=== PATIENT | male | born 1960 ===

== ENCOUNTER 2017-03-31 09:06 | Emergency (ER) | payer MEDICAID ==
[2017-03-31 09:06] VITALS: BMI 23.0
[2017-03-31 09:15] VITALS: TEMP 98.1
[2017-03-31] MEDS ORDERED: Sodium Chloride 0.9% 1,000 ML IV ONE (09:25)
[2017-03-31] MEDS ORDERED: Sodium Chloride 0.9% 1,000 ML ONE (09:39)
[2017-03-31 10:36] LABS: ALB/GLOB RATIO 0.9 (1.0-2.1); ALKALINE PHOSPHATASE 99 U/L (38-126); ALT/SGPT 63 U/L (21-72); AST/SGOT 141 U/L (17-59); BILIRUBIN,TOTAL 1.7 mg/dL (0.2-1.3); BLOOD UREA NITROGEN 16 mg/dL (9-20); CALCIUM 9.2 mg/dl (8.6-10.4); CARBON DIOXIDE 25 mmol/L (22-30); CHLORIDE 102 mmol/L (98-107); GFR AFRICAN-AMERICAN > 60; GLUCOSE,RANDOM 118 mg/dL (75-110); SODIUM 138 mmol/L (132-148); TOTAL PROTEIN 8.3 g/dL (6.3-8.3)
[2017-03-31 10:51] LABS: BASO # 0.1 K/uL (0.0-0.2); BASO % 1.2 % (0.0-2.0); EOS # 0.1 K/uL (0.0-0.7); EOS % 0.8 % (0.0-4.0); HEMATOCRIT 44.8 % (35.0-51.0); LYMPH # 2.1 K/uL (1.0-4.3); LYMPH % 26.6 % (20.0-40.0); MEAN CELL VOLUME 90.6 fL (80.0-94.0); MEAN CORPUSCULAR HGB CONC 33.1 g/dL (33.0-37.0); MEAN PLATELET VOLUME 8.6 fL (7.2-11.7); MONO # 0.7 K/uL (0.0-0.8); MONO % 8.6 % (0.0-10.0); NRBC % 0.1 % (0.0-2.0); RED CELL DISTRIBUTION WIDTH 14.2 % (11.5-14.5); WHITE BLOOD COUNT 7.9 K/uL (4.8-10.8)
--- NOTE | 2017-03-31 10:51 | C.PDOC ---
History Of Present Illness 57 y/o male with a PMHx of seizure disorder, brought to the ED by EMS after having a witnessed seizure while on the bus. Patient is on Keppra but admits he ran out of it and has not taken it for over 1 week. He denies bowel/bladder ncontinence or tongue biting. Currently, he has no physical complaints. Time Seen by Provider: 03/31/17 09:21 Chief Complaint (Nursing): Seizure History Per: Patient History/Exam Limitations: no limitations Recent Seizure Activity Began: Just Before Arrival Number Of Seizures: One Quality Of Seizure: Generalized Severity: Mild Additional History Per: EMS Past Medical History Reviewed: Historical Data, Nursing Documentation, Vital Signs Vital Signs: Last Vital Signs Temp 98.1 F 03/31/17 09:14 Pulse 68 03/31/17 11:35 Resp 15 03/31/17 11:35 BP 144/98 H 03/31/17 11:35 Pulse Ox 97 03/31/17 12:11 - Medical History PMH: Asthma, Fractures (rib cage), HTN, Kidney Stones, Chronic Kidney Disease, Seizures Surgical History: Cholecystectomy - [facility] Procedures INSERTION OF ENDOTRACHEAL AIRWAY INTO TRACHEA, VIA OPENING (03/10/16) RESPIRATORY VENTILATION, GREATER THAN 96 CONSECUTIVE HOURS (03/10/16) TETANUS TOXOID ADMINIST (11/03/14) Family History: States: No Known Family Hx - Social History Hx Tobacco Use: Yes Hx Alcohol Use: No (pt denies.) Hx Substance Use: No (pt denies.) - Immunization History Hx Tetanus Toxoid Vaccination: Yes Hx Influenza Vaccination: No Hx Pneumococcal Vaccination: Yes Review Of Systems Except As Marked, All Systems Reviewed And Found Negative. Constitutional: Negative for: Fever, Chills Respiratory: Negative for: Cough, Shortness of Breath Gastrointestinal: Negative for: Abdominal Pain Genitourinary: Negative for: Incontinence Neurological: Positive for: Seizures. Negative for: Other (Tongue biting) Physical Exam - Physical Exam Appears: Well, Non-toxic, No Acute Distress Skin: Normal Color, Warm, Dry Head: Atraumatic, Normacephalic Eye(s): bilateral: Normal Inspection, PERRL, EOMI Oral Mucosa: Moist Tongue: Normal Appearing, No Laceration (related to tongue biting) Neck: Normal, Normal ROM, No Midline Cervical Tenderness, No Paracervical Tenderness, No Step Off Deformity, Supple Cardiovascular: Rhythm Regular Respiratory: Normal Breath Sounds, No Rales, No Rhonchi, No Wheezing Gastrointestinal/Abdominal: Normal Exam, Bowel Sounds, Soft, No Tenderness Back: Normal Inspection, No Vertebral Tenderness Extremity: Normal ROM, No Deformity Extremity: Bilateral: Atraumatic, Normal Color And Temperature, Normal ROM Neurological/Psych: Oriented x3 (Awake, alert), Normal Speech, Normal Cognition , Normal Motor, Normal Sensation Gait: Steady ED Course And Treatment - Laboratory Results Result Diagrams: 03/31/17 10:37 03/31/17 09:59 O2 Sat by Pulse Oximetry: 97 (RA) Pulse Ox Interpretation: Normal Progress Note: :25 Initial Plan: Blood work ordered and reviewed. Patient given IV NS bolus, IV Keppra loading dose. Pending reevaluation and disposition. Reevaluation Time: 12:00 Reassessment Condition: Improved (On reassessment, patient is resting comfortably, in no pain/distress. No repeat seizures in ED, and patient is s/p loading dose of Keppra. He was given Rx for Keppra and instructed to follow up with PMD/clinic in 1-2 days. He understands he should return to ED if symptoms worsen.) Disposition Counseled Patient/Family Regarding: Studies Performed, Diagnosis, Need For Followup, Rx Given - Disposition Referrals: [facility] at [facility] [Outside] Disposition: HOME/ ROUTINE Disposition Time: 12:10 Condition: STABLE Additional Instructions: FOLLOW UP WITH YOUR DOCTOR/CLINIC IN 1-2 DAYS USE MEDICATION TWICE DAILY INSTRUCTED RETURN TO ER IF YOU HAVE ANY CONCERNING SYMPTOMS Prescriptions: Levetiracetam [Keppra] 500 mg PO BID #60 tablet Instructions: Epilepsy (ED) Forms: [employer] (Welsh) Print Language: CZECH - POA Present On Arrival: None - Clinical Impression Clinical Impression: Seizure disorder, Noncompliance with medications - Scribe Statement The provider has reviewed the documentation as recorded by the Scribdeon Pimentel All medical record entries made by the Scribe were at my direction and personally dictated by me. I have reviewed the chart and agree that the record accurately reflects my personal performance of the history, physical exam, medical decision making, and the department course for this patient. I have also personally directed, reviewed, and agree with the discharge instructions and disposition.
[2017-03-31 10:55] LABS: POTASSIUM 5.1 mmol/L (3.6-5.2)
[2017-03-31 11:40] VITALS: BP 144/98; PULSE 68; RESP 15
[2017-03-31 12:10] VITALS: O2SAT 97
== END 2017-03-31 12:26 | disposition home or self-care (01) ==
LOC: C.ER 09:06
DX: G40.909 Epilepsy, unspecified, not intractable, without status epilepticus (principal)
CPT/HCPCS: 80053; 80299; 82550; 82948; 85025; 96365; 99285; J1953; J7040

== ENCOUNTER 2017-04-24 07:53 | Emergency (ER) | payer MEDICAID ==
[2017-04-24 07:53] VITALS: BMI 23.0
[2017-04-24] MEDS ORDERED: Sodium Chloride 0.9% 1,000 ML IV ONE (08:07)
[2017-04-24 08:08] VITALS: RESP 16
[2017-04-24] MEDS ORDERED: levETIRAcetam 500 MG in Sodium Chloride 0.9% 100 ML IVPB STA (08:11)
[2017-04-24] MEDS ORDERED: Tetanus/Diphtheria Toxoids 0.5 ml Syringe IM ONE ×3 (08:11→08:50)
[2017-04-24] MEDS ORDERED: Bacitracin 500 Units/gm Oint Foilpak UD TOP ONE (08:11)
[2017-04-24] MEDS ORDERED: Sodium Chloride 0.9% 1,000 ML ONE (08:12)
[2017-04-24 08:29] LABS: BASO % 0.9 % (0.0-2.0); EOS # 0.1 K/uL (0.0-0.7); EOS % 1.6 % (0.0-4.0); HEMATOCRIT 45.5 % (35.0-51.0); LYMPH # 1.6 K/uL (1.0-4.3); LYMPH % 28.7 % (20.0-40.0); MEAN CELL VOLUME 91.5 fL (80.0-94.0); MEAN CORPUSCULAR HEMOGLOBIN 30.9 pg (27.0-31.0); MEAN CORPUSCULAR HGB CONC 33.7 g/dL (33.0-37.0); MEAN PLATELET VOLUME 7.7 fL (7.2-11.7); MONO # 0.6 K/uL (0.0-0.8); MONO % 10.2 % (0.0-10.0); NRBC % 0.1 % (0.0-2.0); RED CELL DISTRIBUTION WIDTH 13.9 % (11.5-14.5); WHITE BLOOD COUNT 5.4 K/uL (4.8-10.8)
--- NOTE | 2017-04-24 08:33 | C.PDOC ---
History Of Present Illness 57 year old male, with PMHx of seizure disorder, brought to ED by ambulance for evaluation of [place] seizure in the park today. Pt has been seen in this ED multiple times in the past for seizures. Pt states that he ran out of his Keppra. Pt is unsure of tetanus vaccination status. On arrival, pt is awake, alert, and oriented x3. He denies chest pain, shortness of breath, fever, dizziness, neck pain, abdominal pain, headache. Time Seen by Provider: 04/24/17 07:54 Chief Complaint (Nursing): Seizure History Per: Patient, EMS History/Exam Limitations: no limitations Recent Seizure Activity Began: Just Before Arrival Number Of Seizures: One Length Of Seizures (Duration): Seconds Quality Of Seizure: Generalized Precipitating Factor(s): Missed Dose Of Anti-seizure Medication Recent travel outside of the [place]: No Additional History Per: EMS Past Medical History Reviewed: Historical Data, Nursing Documentation, Vital Signs Vital Signs: Last Vital Signs Temp 98.7 F 04/24/17 10:19 Pulse 56 L 04/24/17 10:19 Resp 16 04/24/17 10:19 BP 150/83 04/24/17 10:19 Pulse Ox 98 04/24/17 10:19 - Medical History PMH: Asthma, Fractures (rib cage), HTN, Kidney Stones, Chronic Kidney Disease, Seizures Surgical History: Cholecystectomy - [facility] Procedures INSERTION OF ENDOTRACHEAL AIRWAY INTO TRACHEA, VIA OPENING (03/10/16) RESPIRATORY VENTILATION, GREATER THAN 96 CONSECUTIVE HOURS (03/10/16) TETANUS TOXOID ADMINIST (11/03/14) Family History: States: No Known Family Hx - Social History Hx Tobacco Use: Yes Hx Alcohol Use: Yes (pt denies.) Hx Substance Use: No (pt denies.) - Immunization History Hx Tetanus Toxoid Vaccination: No (UNKNOWN) Hx Influenza Vaccination: No Hx Pneumococcal Vaccination: Yes Review Of Systems Except As Marked, All Systems Reviewed And Found Negative. Constitutional: Negative for: Fever, Chills Cardiovascular: Negative for: Chest Pain, Orthopnea Respiratory: Negative for: Cough, Shortness of Breath Gastrointestinal: Negative for: Nausea, Vomiting, Abdominal Pain Neurological: Positive for: Seizures. Negative for: Weakness, Numbness, Headache, Dizziness Physical Exam - Physical Exam Appears: Well, Non-toxic, No Acute Distress Skin: Warm, Dry Head: Normacephalic, No Laceration, Other (0.5cm skin avulsion at left side of forehead) Eye(s): bilateral: Normal Inspection, PERRL, EOMI Nose: No Deformity, No Tenderness, No Septal Hematoma, Other (approximately 0.5cm abrasion at the nasal bridge; dried blood in nares) Oral Mucosa: Moist Tongue: Normal Appearing, No Lesions, No Laceration Lips: Normal Appearing, No Laceration Throat: Normal Neck: Normal, Normal ROM, No Midline Cervical Tenderness, No Paracervical Tenderness, No Step Off Deformity, Supple Chest: Symmetrical Cardiovascular: Rhythm Regular Respiratory: Normal Breath Sounds, No Rales, No Rhonchi, No Wheezing Gastrointestinal/Abdominal: Normal Exam, Bowel Sounds, Soft, No Tenderness Extremity: Normal ROM, No Tenderness, No Pedal Edema, No Deformity, No Swelling Extremity: Bilateral: Atraumatic, Normal Color And Temperature, Normal ROM Neurological/Psych: Oriented x3, Normal Speech, Normal Cognition ED Course And Treatment - Laboratory Results Result Diagrams: 04/24/17 08:26 04/24/17 08:26 O2 Sat by Pulse Oximetry: 97 (on RA) Pulse Ox Interpretation: Normal - CT Scan/US CT FACIAL/ORBITS Other Rad Studies (CT/US): Read By Radiologist, Radiology Report Reviewed CT/US Interpretation: Accession No. : [id number]. Patient Name / ID : SOLOMON MEZA / [id number]. Exam Date : 04/24/2017 08:36:45 ( Approved ). Study Comment : Sex / Age : M / 57Y. Creator : rogelio garcia. Dictator : Zachary Rocha MD. Senior Attorney : Funeral Director/Embalmer : Zachary Rocha MD. Approver2 : Report Date : 04/24/2017 08:41:54. My Comment : . PROCEDURE: CT ORBITS/ facial bones WITHOUT CONTRAST. HISTORY: seizure, facial injury r/o fx. COMPARISON: None available. TECHNIQUE: Axial CT images of the orbits/facial bone were obtained. Coronal and sagittal reformats were generated. Radiation dose: Total exam DLP = 721 mGy-cm. This CT exam was performed using one or more of the following dose reduction techniques: Automated exposure control, adjustment of the mA and/or kV according to patient size, and/or use of iterative reconstruction technique. FINDINGS: RIGHT ORBIT: RIGHT BONY ORBIT: No fracture identified. RIGHT INTRAORBITAL STRUCTURES: Globe: Unremarkable. Extraocular muscles: Unremarkable. Post septal space: Unremarkable. Optic Nerve: Unremarkable. RIGHT PRESEPTAL SOFT TISSUES: Unremarkable. LEFT ORBIT: LEFT BONY ORBIT: No fracture identified. LEFT INTRAORBITAL STRUCTURES: Globe: Unremarkable. Extraocular muscles: Unremarkable. Post septal space: Unremarkable. Optic Nerve: Unremarkable. LEFT PRESEPTAL SOFT TISSUES: Unremarkable. OTHER: No nasal bone fracture identified. Anterior maxillary spine is intact. Nasal septum is intact. There is periodontal and dental disease. Mild mucosal thickening bilateral maxillary sinuses. Minimal mucosal thickening bilateral ethmoid sinuses. Remainder of the visualized paranasal sinuses and mastoid air cells are clear. There is soft tissue density in the bilateral external ear canals, likely cerumen. Intracranial atherosclerosis noted. IMPRESSION: No fracture identified. Specifically no nasal bone fracture identified. Progress Note: Blood work, CT orbits/facial ordered and reviewed. Patient given IV NS bolus, IV Keppra loading. Tetanus vaccination given by nurse, and bacitracin applied to skin wounds. Reevaluation Time: 10:00 Reassessment Condition: Improved (On reassessment, patient is resting comfortably and states he feels better. He is AAOx3 and ambulating normally in ED. Rx given for Keppra, and patient instructed to follow up with neurology within 1 week. He understands he should return to ED if he has any concerning symptoms.) Disposition Counseled Patient/Family Regarding: Studies Performed, Diagnosis, Need For Followup, Rx Given - Disposition Referrals: [facility] at [facility] [Outside] Anton Dempsey MD [Staff Provider] - Disposition: HOME/ ROUTINE Disposition Time: 10:00 Condition: STABLE Additional Instructions: YOU NEED TO FOLLOW UP WITH NEUROLOGY WITHIN 1 WEEK TAKE YOUR MEDICATIONS TWICE DAILY, AND FOLLOW UP WITH YOUR DOCTOR BEFORE YOUR MEDICATIONS RUN OUT!!! Prescriptions: Levetiracetam [Keppra] 500 mg PO BID #60 tablet Instructions: Head Injury (ED), Recurrent Seizures in Adults (ED) Forms: [employer] (Malaysian) Print Language: [place] ISLANDER - POA Present On Arrival: Falls Or Trauma - Clinical Impression Clinical Impression: Seizure, Skin avulsion, Head injury, Seizure secondary to subtherapeutic anticonvulsant medication - Scribe Statement The provider has reviewed the documentation as recorded by the Scribe Daphnie Rocha All medical record entries made by the Sergeyibdeon were at my direction and personally dictated by me. I have reviewed the chart and agree that the record accurately reflects my personal performance of the history, physical exam, medical decision making, and the department course for this patient. I have also personally directed, reviewed, and agree with the discharge instructions and disposition.
[2017-04-24] MEDS ORDERED: Bacitracin 500 Units/gm Oint Foilpak UD ONE (08:36)
[2017-04-24 08:41] LABS: CHLORIDE 104 mmol/L (98-107); POTASSIUM 4.4 mmol/L (3.6-5.2); SODIUM 141 mmol/L (132-148)
[2017-04-24 08:43] LABS: BILIRUBIN,TOTAL 1.1 mg/dL (0.2-1.3); CARBON DIOXIDE 24 mmol/L (22-30); GFR AFRICAN-AMERICAN > 60
[2017-04-24 08:44] LABS: ALKALINE PHOSPHATASE 84 U/L (38-126); ALT/SGPT 109 U/L (21-72); AST/SGOT 116 U/L (17-59); BLOOD UREA NITROGEN 13 mg/dL (9-20); CALCIUM 9.2 mg/dl (8.6-10.4); GLUCOSE,RANDOM 104 mg/dL (75-110)
--- NOTE | 2017-04-24 09:48 | CT ---
PROCEDURE: CT ORBITS/facial bones WITHOUT CONTRAST. HISTORY: seizure, facial injury r/o fx COMPARISON: None available. TECHNIQUE: Axial CT images of the orbits/facial bone were obtained. Coronal and sagittal reformats were generated. Radiation dose: Total exam DLP = 721 mGy-cm. This CT exam was performed using one or more of the following dose reduction techniques: Automated exposure control, adjustment of the mA and/or kV according to patient size, and/or use of iterative reconstruction technique. FINDINGS: RIGHT ORBIT: RIGHT BONY ORBIT: No fracture identified. RIGHT INTRAORBITAL STRUCTURES: Globe: Unremarkable Extraocular muscles: Unremarkable Post septal space: Unremarkable Optic Nerve: Unremarkable RIGHT PRESEPTAL SOFT TISSUES: Unremarkable LEFT ORBIT: LEFT BONY ORBIT: No fracture identified. LEFT INTRAORBITAL STRUCTURES: Globe: Unremarkable Extraocular muscles: Unremarkable Post septal space: Unremarkable Optic Nerve: Unremarkable LEFT PRESEPTAL SOFT TISSUES: Unremarkable OTHER: No nasal bone fracture identified. Anterior maxillary spine is intact. Nasal septum is intact. There is periodontal and dental disease. Mild mucosal thickening bilateral maxillary sinuses. Minimal mucosal thickening bilateral ethmoid sinuses. Remainder of the visualized paranasal sinuses and mastoid air cells are clear. There is soft tissue density in the bilateral external ear canals, likely cerumen. Intracranial atherosclerosis noted. IMPRESSION: No fracture identified. Specifically no nasal bone fracture identified.
[2017-04-24 10:22] VITALS: BP 150/83; PULSE 56; TEMP 98.7
[2017-04-26 08:27] VITALS: O2SAT 97
== END 2017-04-24 10:22 | disposition home or self-care (01) ==
LOC: C.ER 07:53
DX: G40.909 Epilepsy, unspecified, not intractable, without status epilepticus (principal); S01.80XA Unspecified open wound of other part of head, initial encounter; X58.XXXA Exposure to other specified factors, initial encounter; Y92.830 Public park as the place of occurrence of the external cause
CPT/HCPCS: 70480; 80053; 80299; 82550; 82948; 85025; 90471; 90714; 96374; 99285; J1953; J7040

== ENCOUNTER 2017-05-13 08:35 | Emergency (ER) | payer MEDICAID ==
[2017-05-13 08:35] VITALS: BMI 23.0
[2017-05-13 08:49] VITALS: TEMP 97.9
[2017-05-13] MEDS ORDERED: Sodium Chloride 0.9% 1,000 ML IV ONE (09:03)
[2017-05-13 09:12] VITALS: O2SAT 100
--- NOTE | 2017-05-13 09:17 | C.PDOC ---
History Of Present Illness <Nimisha Neri - Last Filed: 05/13/17 14:03> <Cassandra Shea - Last Filed: 05/13/17 16:40> 57 year old male, whose past medical history includes alcohol abuse, Hepatitis C and Seizures, presents to the ED via EMS for evaluation of a seizure episode which occurred prior to arrival. Patient admits he has been noncompliant with his medicine and has not followed up with his neurologist since his last incident of the same. Patient states he is homeless and notes he does not use any drugs or alcohol anymore. He denies head injury/trauma. (Nimisha Neri) History Per: Patient, EMS History/Exam Limitations: no limitations Recent Seizure Activity Began: Unknown Length Of Seizures (Duration): Unknown Precipitating Factor(s): Missed Dose Of Anti-seizure Medication Additional History Per: Patient, EMS <Nimisha Neri - Last Filed: 05/13/17 14:03> <Cassandra Shea - Last Filed: 05/13/17 16:40> Time Seen by Provider: 05/13/17 09:03 Chief Complaint (Nursing): Seizure Past Medical History Reviewed: Historical Data, Nursing Documentation, Vital Signs - Medical History PMH: Asthma, Fractures (rib cage), HTN, Kidney Stones, Chronic Kidney Disease, Seizures Surgical History: Cholecystectomy Family History: States: Unknown Family Hx - Social History Hx Tobacco Use: Yes Hx Alcohol Use: No (pt denies.) Hx Substance Use: No (pt denies.) - Immunization History Hx Tetanus Toxoid Vaccination: No (UNKNOWN) Hx Influenza Vaccination: No Hx Pneumococcal Vaccination: Yes <Nimisha Neri - Last Filed: 05/13/17 14:03> Vital Signs: Last Vital Signs Temp 97.9 F 05/13/17 13:05 Pulse 70 05/13/17 13:05 Resp 20 05/13/17 13:05 BP 146/95 H 05/13/17 13:05 Pulse Ox 100 05/13/17 14:04 - [facility] Procedures INSERTION OF ENDOTRACHEAL AIRWAY INTO TRACHEA, VIA OPENING (03/10/16) RESPIRATORY VENTILATION, GREATER THAN 96 CONSECUTIVE HOURS (03/10/16) TETANUS TOXOID ADMINIST (11/03/14) Review Of Systems Constitutional: Negative for: Fever, Chills Neurological: Positive for: Seizures <JosselinjolynnluzNimisha - Last Filed: 05/13/17 14:03> Physical Exam - Physical Exam Appears: Non-toxic, No Acute Distress, Unkempt Skin: Normal Color, Warm, Dry Head: Atraumatic, Normacephalic Eye(s): bilateral: Normal Inspection Oral Mucosa: Moist Tongue: Normal Appearing, No Bite, No Bleeding Neck: Supple Chest: Symmetrical, No Deformity, No Tenderness Cardiovascular: Rhythm Regular Respiratory: Normal Breath Sounds, No Rales, No Rhonchi, No Wheezing Gastrointestinal/Abdominal: Soft, No Tenderness, No Guarding, No Rebound Extremity: Normal ROM, Capillary Refill (less than 2 seconds ) Neurological/Psych: Other (postictal state) Gait: Steady <JosselinjolynnNimisha escobar - Last Filed: 05/13/17 14:03> ED Course And Treatment - Laboratory Results Result Diagrams: 05/13/17 09:18 05/13/17 09:18 O2 Sat by Pulse Oximetry: 100 (on RA) Pulse Ox Interpretation: Normal - Other Rad CXR X-Ray: Interpreted by Me, Viewed By Me, Read By Radiologist Interpretation: PROCEDURE: CHEST RADIOGRAPH, 1 VIEW. HISTORY: sob. COMPARISON: Rope right rib series with chest 12/01/2016. FINDINGS: LUNGS: A limited patchy densities questioned at the medial right base versus crowding of the bronchovascular markings. None is seen the left. PLEURA: No pneumothorax or pleural fluid seen. CARDIOVASCULAR: Normal. OSSEOUS STRUCTURES: No significant abnormalities. VISUALIZED UPPER ABDOMEN: Normal. OTHER FINDINGS: None. IMPRESSION: Chronic bibasilar markings is favored over potential infiltrate at the medial right base. Clinically correlate further here. Remainder of the examination is stable and unremarkable. Progress Note: Bloodwork, urinalysis, EKG, CXR ordered and reviewed. Keppra IVP and IV Fluids administered. On re-evaluation, patient is resting comfortably, showing no signs of distress and reports an improvement in his symptoms. Patient ate a sandwich and received fluids while in the ED. Patient now has a steady gait and is stable for discharge. Discussed importance of follow-up with clinic for further evaluation and risks of continueing without seizure meidcation can lead to disability or . CAse discussed with Dr Shea, agreed upon plan and discharge. Reassessment Condition: Improved <Nimisha Neri - Last Filed: 05/13/17 14:03> - Laboratory Results Result Diagrams: 05/13/17 09:18 05/13/17 09:18 <Cassandra Shea - Last Filed: 05/13/17 16:40> Disposition - Disposition Disposition Time: 12:31 <Nimisha Neri - Last Filed: 05/13/17 14:03> <Cassandra Shea - Last Filed: 05/13/17 16:40> - Disposition Referrals: [facility] at [facility] [Outside] Anton Dempsey MD [Staff Provider] - Disposition: HOME/ ROUTINE Condition: STABLE Additional Instructions: Follow up with your primary medical doctor or clinic in 2-5 days for further evaluation. Take medications as prescribed. Return to the emergency department at any time if symptoms persist or worsen. Prescriptions: levETIRAcetam [Keppra] 500 mg PO BID #30 tab Instructions: Epilepsy (ED) Forms: [employer] (Swedish) - Clinical Impression Clinical Impression: Seizure disorder - PA / FIRE HAZARD INSPECTOR / Resident Statement MD/DO has reviewed & agrees with the documentation as recorded. - Scribe Statement The provider has reviewed the documentation as recorded by the Scribe (Cassandra Rocha) <Nimisha Neri - Last Filed: 05/13/17 14:03> <Cassandra Shea - Last Filed: 05/13/17 16:40> - Scribe Statement All medical record entries made by the Scribe were at my direction and personally dictated by me. I have reviewed the chart and agree that the record accurately reflects my personal performance of the history, physical exam, medical decision making, and the department course for this patient. I have also personally directed, reviewed, and agree with the discharge instructions and disposition. (Nimisha Neri)
[2017-05-13] MEDS ORDERED: Sodium Chloride 0.9% 1,000 ML ONE (09:19)
[2017-05-13 09:28] LABS: BASO % 0.5 % (0.0-2.0); EOS # 0.1 K/uL (0.0-0.7); HEMATOCRIT 43.5 % (35.0-51.0); LYMPH # 1.3 K/uL (1.0-4.3); LYMPH % 16.9 % (20.0-40.0); MEAN CELL VOLUME 91.8 fL (80.0-94.0); MEAN CORPUSCULAR HEMOGLOBIN 31.4 pg (27.0-31.0); MEAN CORPUSCULAR HGB CONC 34.2 g/dL (33.0-37.0); MEAN PLATELET VOLUME 8.1 fL (7.2-11.7); MONO # 0.6 K/uL (0.0-0.8); MONO % 8.3 % (0.0-10.0); RED CELL DISTRIBUTION WIDTH 13.8 % (11.5-14.5); WHITE BLOOD COUNT 7.7 K/uL (4.8-10.8)
[2017-05-13 09:39] LABS: CHLORIDE 103 mmol/L (98-107)
[2017-05-13 09:40] LABS: POTASSIUM 4.3 mmol/L (3.6-5.2); SODIUM 135 mmol/L (132-148)
[2017-05-13 09:42] LABS: GFR AFRICAN-AMERICAN > 60
[2017-05-13 09:43] LABS: ALB/GLOB RATIO 0.9 (1.0-2.1); ALKALINE PHOSPHATASE 78 U/L (38-126); ALT/SGPT 105 U/L (21-72); AST/SGOT 140 U/L (17-59); BILIRUBIN,TOTAL 0.9 mg/dL (0.2-1.3); BLOOD UREA NITROGEN 13 mg/dL (9-20); CALCIUM 8.6 mg/dl (8.6-10.4); CARBON DIOXIDE 21 mmol/L (22-30); GLUCOSE,RANDOM 96 mg/dL (75-110)
--- NOTE | 2017-05-13 10:03 | RAD ---
PROCEDURE: CHEST RADIOGRAPH, 1 VIEW HISTORY: sob COMPARISON: Rope right rib series with chest 12/01/2016. FINDINGS: LUNGS: A limited patchy densities questioned at the medial right base versus crowding of the bronchovascular markings. None is seen the left. PLEURA: No pneumothorax or pleural fluid seen. CARDIOVASCULAR: Normal. OSSEOUS STRUCTURES: No significant abnormalities. VISUALIZED UPPER ABDOMEN: Normal. OTHER FINDINGS: None. IMPRESSION: Chronic bibasilar markings is favored over potential infiltrate at the medial right base. Clinically correlate further here. Remainder of the examination is stable and unremarkable.
[2017-05-13 12:05] LABS: RBC URINE 5 /hpf (0-3); URINE BACTERIA RARE (<OCC); URINE BILIRUBIN NEGATIVE (NEGATIVE); URINE BLOOD 1+ (NEGATIVE); URINE COLOR Yellow (YELLOW); URINE GLUCOSE (UA) NORMAL (Normal); URINE KETONE TRACE mg/dL (NEGATIVE); URINE LEUKOCYTE ESTERASE NEG Leu/uL (Negative); URINE PROTEIN 1+ mg/dL (NEGATIVE); WBC URINE < 1 /hpf (0-5)
[2017-05-13 13:09] VITALS: BP 146/95; PULSE 70; RESP 20
--- NOTE | 2017-05-13 23:12 | CARD ---
APPROVED REPORT EKG Measurement Heart [id number] <Conclusion> Sinus rhythm with marked sinus arrhythmia Voltage criteria for left ventricular hypertrophy Abnormal ECG
== END 2017-05-13 13:43 | disposition home or self-care (01) ==
LOC: C.ER 08:35
DX: G40.909 Epilepsy, unspecified, not intractable, without status epilepticus (principal); I12.9 Hypertensive chronic kidney disease with stage 1 through stage 4 chronic kidney disease, or unspecified chronic kidney disease; N18.9 Chronic kidney disease, unspecified; F17.210 Nicotine dependence, cigarettes, uncomplicated
CPT/HCPCS: 71010; 80053; 80299; 80324; 80345; 80346; 80349; 80353; 80358; 80361; 81001; 82550; 82948; 83992; 85025; 93005; 96360; 99285; J1953; J7040

== ENCOUNTER 2017-06-11 09:04 | Emergency (ER) | payer MEDICAID ==
[2017-06-11 09:05] VITALS: BMI 23.0
[2017-06-11 09:11] VITALS: TEMP 98.7
[2017-06-11] MEDS ORDERED: levETIRAcetam 500 MG in Sodium Chloride 0.9% 100 ML IVPB STA (09:15)
[2017-06-11] MEDS ORDERED: Sodium Chloride 0.9% 1,000 ML IV ONE (09:15)
[2017-06-11] MEDS ORDERED: Sodium Chloride 0.9% 1,000 ML ONE (09:27)
--- NOTE | 2017-06-11 09:44 | C.PDOC ---
History Of Present Illness 57 y/o male, with PMHx of seizure (non-compliant with Keppra), homelessness, brought to ED by EMS for reported seizure. Pt has been seen numerous times in the past for similar. Pt is oriented x2 at this time. Denies any other complaints. Time Seen by Provider: 06/11/17 09:08 Chief Complaint (Nursing): Seizure History Per: Patient, EMS History/Exam Limitations: no limitations Severity: None Pain Scale Rating Of: 0 Recent travel outside of the [place]: No Additional History Per: Prior Records Past Medical History Reviewed: Historical Data, Nursing Documentation, Vital Signs Vital Signs: Last Vital Signs Temp 98.7 F 06/11/17 09:07 Pulse 55 L 06/11/17 11:42 Resp 16 06/11/17 11:42 BP 133/88 06/11/17 11:42 Pulse Ox 99 06/11/17 11:42 - Medical History PMH: Asthma, Fractures (rib cage), HTN, Kidney Stones, Chronic Kidney Disease, Seizures Surgical History: Cholecystectomy - [facility] Procedures INSERTION OF ENDOTRACHEAL AIRWAY INTO TRACHEA, VIA OPENING (03/10/16) RESPIRATORY VENTILATION, GREATER THAN 96 CONSECUTIVE HOURS (03/10/16) TETANUS TOXOID ADMINIST (11/03/14) Family History: States: Unknown Family Hx - Social History Hx Tobacco Use: Yes Hx Alcohol Use: No Hx Substance Use: No (pt denies.) - Immunization History Hx Tetanus Toxoid Vaccination: No (UNKNOWN) Hx Influenza Vaccination: No Hx Pneumococcal Vaccination: Yes Review Of Systems Except As Marked, All Systems Reviewed And Found Negative. Constitutional: Negative for: Fever, Chills Cardiovascular: Negative for: Chest Pain, Palpitations Respiratory: Negative for: Shortness of Breath Neurological: Positive for: Seizures Physical Exam - Physical Exam Appears: Non-toxic, No Acute Distress Skin: Normal Color, Warm, Dry Head: Atraumatic, Normacephalic Eye(s): bilateral: Normal Inspection Oral Mucosa: Moist Tongue: Normal Appearing, No Lesions Lips: Normal Appearing Throat: Normal Neck: Supple Chest: Symmetrical Cardiovascular: Rhythm Regular, No Murmur Respiratory: Normal Breath Sounds, No Rales, No Rhonchi, No Wheezing Gastrointestinal/Abdominal: Soft, No Tenderness Extremity: Normal ROM, No Deformity Neurological/Psych: Other (oriented x2) ED Course And Treatment - Laboratory Results Result Diagrams: 06/11/17 09:46 06/11/17 09:46 ECG: Interpreted By Me, Viewed By Me ECG Rhythm: Sinus Rhythm ECG Interpretation: No Acute Changes Interpretation Of ECG: No acute ST/T wave changes. Rate From EC (bpm) O2 Sat by Pulse Oximetry: 98 (RA) Pulse Ox Interpretation: Normal Medical Decision Making Medical Decision Making: Blood work, UA, EKG ordered and reviewed. Patient was given Keppra, and IV fluids. Labs and imaging reviewed and shows to be within normal limits. Patient was giving instructions on the importance of taking his required medications. Patient is ambulatory with a steady gait, neuro intact, sleeping comfortably, oriented x 3. no tremors. Patient advised for outpatient follow up. Disposition - Disposition Referrals: Tania Swanson MD [Staff Provider] - Disposition: HOME/ ROUTINE Disposition Time: 11:34 Condition: STABLE Additional Instructions: please see specialist. return to er with worsening symptoms or concerns. Prescriptions: levETIRAcetam [Keppra] 500 mg PO BID #14 tab Instructions: Recurrent Seizures in Adults (ED) Forms: [employer] (Welsh) - Clinical Impression Clinical Impression: Seizure - Scribe Statement The provider has reviewed the documentation as recorded by the Scribe Daphnie Rocha All medical record entries made by the Scribe were at my direction and personally dictated by me. I have reviewed the chart and agree that the record accurately reflects my personal performance of the history, physical exam, medical decision making, and the department course for this patient. I have also personally directed, reviewed, and agree with the discharge instructions and disposition.
[2017-06-11 09:59] LABS: BASO % 0.7 % (0.0-2.0); EOS # 0.2 K/uL (0.0-0.7); EOS % 2.1 % (0.0-4.0); HEMATOCRIT 45.8 % (35.0-51.0); LYMPH # 1.9 K/uL (1.0-4.3); LYMPH % 27.5 % (20.0-40.0); MEAN CELL VOLUME 91.2 fL (80.0-94.0); MEAN CORPUSCULAR HEMOGLOBIN 30.5 pg (27.0-31.0); MEAN CORPUSCULAR HGB CONC 33.4 g/dL (33.0-37.0); MONO # 0.6 K/uL (0.0-0.8); MONO % 8.6 % (0.0-10.0); NRBC % 0.1 % (0.0-2.0); RED CELL DISTRIBUTION WIDTH 13.6 % (11.5-14.5)
[2017-06-11 10:06] LABS: CHLORIDE 106 mmol/L (98-107)
[2017-06-11 10:07] LABS: POTASSIUM 3.8 mmol/L (3.6-5.2); SODIUM 137 mmol/L (132-148)
[2017-06-11 10:09] LABS: ALB/GLOB RATIO 0.8 (1.0-2.1); ALKALINE PHOSPHATASE 85 U/L (38-126); AST/SGOT 115 U/L (17-59); BLOOD UREA NITROGEN 12 mg/dL (9-20); CARBON DIOXIDE 20 mmol/L (22-30); GFR AFRICAN-AMERICAN > 60; TOTAL PROTEIN 8.8 g/dL (6.3-8.3)
[2017-06-11 10:10] LABS: ALT/SGPT 98 U/L (21-72); CALCIUM 8.9 mg/dl (8.6-10.4); GLUCOSE,RANDOM 109 mg/dL (75-110)
--- NOTE | 2017-06-11 11:31 | CT ---
PROCEDURE: CT HEAD WITHOUT CONTRAST. HISTORY: seizure COMPARISON: Noncontrast head CT performed 11/05/16 TECHNIQUE: Axial computed tomography images were obtained through the head/brain without intravenous contrast. Radiation dose: Total exam DLP = 773.10 MGy-cm. This CT exam was performed using one or more of the following dose reduction techniques: Automated exposure control, adjustment of the mA and/or kV according to patient size, and/or use of iterative reconstruction technique. FINDINGS: HEMORRHAGE: No intracranial hemorrhage. BRAIN: Diffuse atrophy with prominence of the ventricles and sulci noted. No mass effect or edema. 6 mm left basal ganglia lacunar infarct. Scattered periventricular and subcortical white matter hypodensities, which are nonspecific, but often seen with chronic microvascular ischemic disease. Please note that MRI with diffusion imaging is more sensitive in the detection of acute ischemic event. VENTRICLES: No hydrocephalus. CALVARIUM: Unremarkable. PARANASAL SINUSES: Unremarkable as visualized. No significant inflammatory changes. MASTOID AIR CELLS: Unremarkable as visualized. No inflammatory changes. OTHER FINDINGS: Opacification of bilateral external auditory canals, likely cerumen. IMPRESSION: Generalized atrophy. Nonspecific white matter changes. 6 mm left basal ganglia lacunar infarct, chronic.
[2017-06-11 11:43] VITALS: BP 133/88; PULSE 55; RESP 16
[2017-06-11 11:49] VITALS: O2SAT 98
--- NOTE | 2017-06-14 08:25 | CARD ---
APPROVED REPORT EKG Measurement Heart [id number] MD [id number] <Conclusion> Normal sinus rhythm Voltage criteria for left ventricular hypertrophy Abnormal ECG
== END 2017-06-11 12:04 | disposition home or self-care (01) ==
LOC: C.ER 09:04
DX: G40.909 Epilepsy, unspecified, not intractable, without status epilepticus (principal)
CPT/HCPCS: 70450; 80053; 82948; 85025; 85610; 85730; 93005; 96361; 96374; 99285; J1953; J7040

== ENCOUNTER 2017-08-04 12:50 | Emergency (ER) | payer MEDICAID ==
[2017-08-04 12:52] VITALS: BMI 23.0
--- NOTE | 2017-08-04 13:19 | C.PDOC ---
History Of Present Illness 57 y/o M c history of alcohol abuse, hep C, seizures BIBEMS on street for presumed alcohol intoxication. High of 18 degrees outside today, real feel of 0. Patient states he lives on the streets. Denies pain, fall, fever, dyspnea, vomiting. Time Seen by Provider: 08/04/17 13:04 Chief Complaint (Nursing): Substance Abuse Past Medical History Vital Signs: Last Vital Signs Temp 98.0 F 08/04/17 17:43 Pulse 69 08/04/17 17:43 Resp 18 08/04/17 17:43 BP 127/64 08/04/17 17:43 Pulse Ox 95 08/04/17 17:43 - Medical History PMH: Asthma, Fractures (rib cage), HTN, Kidney Stones, Chronic Kidney Disease, Seizures Surgical History: Cholecystectomy - [facility] Procedures INSERTION OF ENDOTRACHEAL AIRWAY INTO TRACHEA, VIA OPENING (03/10/16) RESPIRATORY VENTILATION, GREATER THAN 96 CONSECUTIVE HOURS (03/10/16) TETANUS TOXOID ADMINIST (11/03/14) Family History: States: Unknown Family Hx - Social History Hx Tobacco Use: Yes Hx Alcohol Use: No Hx Substance Use: No (pt denies.) - Immunization History Hx Tetanus Toxoid Vaccination: No (UNKNOWN) Hx Influenza Vaccination: No Hx Pneumococcal Vaccination: Yes Review Of Systems Except As Marked, All Systems Reviewed And Found Negative. Constitutional: Negative for: Fever Cardiovascular: Negative for: Chest Pain Physical Exam - Physical Exam Additional Physical Exam Comments: Constitutional: No acute distress. Head: Normocephalic. Atraumatic. Eyes: PERRL. ENT: Moist mucous membranes. Neck: Supple. No midline tenderness. Cardiovascular: Regular rate. Radial pulse 2+ bilaterally. Chest: No tenderness. Respiratory: Clear to auscultation bilaterally. GI: Soft. Nontender. Nondistended. Back: No CVA tenderness. Musculoskeletal: No tenderness to extremities. FROM x 4. Skin: No rash. Neurologic: Alert, no focal deficit. ED Course And Treatment O2 Sat by Pulse Oximetry: 93 Medical Decision Making Medical Decision Making: Patient in ED, normal vitals, no distress. Patient at 730pm states he will go now and states he has place to go to be safe from cold. Disposition - Disposition Disposition: HOME/ ROUTINE Disposition Time: 19:29 Condition: STABLE Instructions: Acute Hypothermia (ED) Forms: [employer] (Occitan) - Clinical Impression Clinical Impression: Homelessness
[2017-08-04 17:43] VITALS: RESP 18
[2017-08-04 19:34] VITALS: BP 128/79; PULSE 79; TEMP 98.4; O2SAT 98
== END 2017-08-04 19:41 | disposition home or self-care (01) ==
LOC: C.ER 12:50
DX: Z59.0 Homelessness (principal); Z87.891 Personal history of nicotine dependence

== ENCOUNTER 2017-10-10 11:35 | Emergency (ER) | payer MEDICAID ==
[2017-10-10 11:36] VITALS: BMI 23.0
[2017-10-10] MEDS ORDERED: levETIRAcetam 500 MG in Sodium Chloride 0.9% 100 ML IVPB SCH (14:00)
[2017-10-10 14:02] LABS: BASO # 0.1 K/uL (0.0-0.2); BASO % 0.9 % (0.0-2.0); EOS % 0.1 % (0.0-4.0); HEMOGLOBIN 15.8 g/dL (12.0-18.0); LYMPH # 2.5 K/uL (1.0-4.3); LYMPH % 31.5 % (20.0-40.0); MEAN CELL VOLUME 91.8 fL (80.0-94.0); MEAN CORPUSCULAR HEMOGLOBIN 31.5 pg (27.0-31.0); MEAN CORPUSCULAR HGB CONC 34.3 g/dL (33.0-37.0); MONO % 12.3 % (0.0-10.0); NEUT # 4.3 K/uL (1.8-7.0); NEUT % 55.2 % (50.0-75.0); NRBC % 0.1 % (0.0-2.0); RBC 5.02 Mil/uL (4.40-5.90); RED CELL DISTRIBUTION WIDTH 13.4 % (11.5-14.5); WHITE BLOOD COUNT 7.8 K/uL (4.8-10.8)
[2017-10-10 14:22] LABS: ALB/GLOB RATIO 0.9 (1.0-2.1); ALBUMIN 3.9 g/dL (3.5-5.0); ALT/SGPT 82 U/L (21-72); AST/SGOT 75 U/L (17-59); BLOOD UREA NITROGEN 13 mg/dL (9-20); CALCIUM 9.1 mg/dl (8.6-10.4); GFR AFRICAN-AMERICAN > 60; GFR NON-AFRICAN AMERICAN > 60
--- NOTE | 2017-10-10 17:58 | C.PDOC ---
History Of Present Illness 57 year old male with a PMHx of seizures, brought in by EMS after questionable seizure earlier today. Patient reports compliance with antiepileptic medication. No obvious tongue injury, head trauma, or other injury. pt doesn't recall what happened, denies headache, denies drinking alcohol today. pt had brief seizure while in ED today on stretcher with no in jury. lasted 30 seconds. pt has no other complaints. Time Seen by Provider: 10/10/17 12:38 Chief Complaint (Nursing): Medical Clearance History Per: Patient History/Exam Limitations: no limitations Past Medical History Reviewed: Historical Data, Nursing Documentation, Vital Signs Vital Signs: Last Vital Signs Temp 97.8 F 10/10/17 18:15 Pulse 84 10/10/17 18:15 Resp 18 10/10/17 18:15 BP 158/72 H 10/10/17 18:15 Pulse Ox 100 10/10/17 18:15 - Medical History PMH: Asthma, Fractures (rib cage), HTN, Kidney Stones, Chronic Kidney Disease, Seizures Surgical History: Cholecystectomy - [facility] Procedures INSERTION OF ENDOTRACHEAL AIRWAY INTO TRACHEA, VIA OPENING (03/10/16) RESPIRATORY VENTILATION, GREATER THAN 96 CONSECUTIVE HOURS (03/10/16) TETANUS TOXOID ADMINIST (11/03/14) Family History: States: Unknown Family Hx - Social History Hx Tobacco Use: Yes Hx Alcohol Use: Yes Hx Substance Use: No (pt denies.) - Immunization History Hx Tetanus Toxoid Vaccination: No (UNKNOWN) Hx Influenza Vaccination: No Hx Pneumococcal Vaccination: Yes Review Of Systems ENT: Negative for: Other (tongue bit) Gastrointestinal: Negative for: Nausea, Vomiting Genitourinary: Positive for: Incontinence (urinary) Neurological: Positive for: Seizures. Negative for: Headache, Dizziness Physical Exam - Physical Exam Appears: No Acute Distress Skin: Warm, Dry, No Rash Head: Atraumatic, Normacephalic, No Tenderness, No Swelling, No Abrasion Eye(s): bilateral: PERRL, EOMI Oral Mucosa: Moist Neck: Supple Chest: No Tenderness Cardiovascular: Rhythm Regular, No Murmur Respiratory: No Rales, No Rhonchi, No Wheezing, Other (Clear to auscultation bilaterally) Gastrointestinal/Abdominal: Bowel Sounds (normal), Soft, No Tenderness, No Distention Back: No CVA Tenderness Extremity: Normal ROM, No Calf Tenderness, No Swelling Neurological/Psych: Oriented x3, Normal Speech, Normal Motor, Normal Sensation, No Other (focal deficits) ED Course And Treatment - Laboratory Results Result Diagrams: 10/10/17 13:58 10/10/17 13:58 O2 Sat by Pulse Oximetry: 99 (RA) Pulse Ox Interpretation: Normal Medical Decision Making Medical Decision Making: Pt had 1 seizure witnessed while in the ED. No head trauma or fall. Time: 13:49 Initial Plan: * Accucheck * CMP * CBC * Keppra 500 mg IVPB 620 pm pt appearing well, ate 2 sandwiches, ambulating around ed with steady gain, in no distress, no tremors. importance of taking medication discussed wth patient. will d/c home with med clinic f/u Disposition Counseled Patient/Family Regarding: Diagnosis, Need For Followup, Rx Given - Disposition Referrals: [facility] [Outside] Disposition: HOME/ ROUTINE Disposition Time: 18:26 Condition: GOOD Instructions: Seizures, Adult (DC) Forms: [facility] (Armenian), General Discharge Instructions - Clinical Impression Clinical Impression: Seizure - PA / SLOT FLOOR PERSON / Resident Statement MD/DO has reviewed & agrees with the documentation as recorded. - Scribe Statement The provider has reviewed the documentation as recorded by the Scribe (Anny Pimentel) All medical record entries made by the Scribe were at my direction and personally dictated by me. I have reviewed the chart and agree that the record accurately reflects my personal performance of the history, physical exam, medical decision making, and the department course for this patient. I have also personally directed, reviewed, and agree with the discharge instructions and disposition.
[2017-10-10 18:16] VITALS: PULSE 84; RESP 18; TEMP 97.8
[2017-10-10 18:23] VITALS: O2SAT 99
[2017-10-10 18:55] VITALS: BP 142/72
== END 2017-10-10 18:55 | disposition home or self-care (01) ==
LOC: C.ER 11:35
DX: R56.9 Unspecified convulsions (principal); I12.9 Hypertensive chronic kidney disease with stage 1 through stage 4 chronic kidney disease, or unspecified chronic kidney disease; N18.9 Chronic kidney disease, unspecified; Z72.0 Tobacco use
CPT/HCPCS: 80053; 82948; 85025; 99285; J1953

== ENCOUNTER 2017-11-14 11:08 | Inpatient (IN) | payer MEDICAID ==
[2017-11-14 11:08] VITALS: BMI 23.0
[2017-11-14 12:26] LABS: BASO # 0.1 K/uL (0.0-0.2); BASO % 0.8 % (0.0-2.0); EOS # 0.5 K/uL (0.0-0.7); EOS % 5.1 % (0.0-4.0); HEMOGLOBIN 14.4 g/dL (12.0-18.0); LYMPH # 2.9 K/uL (1.0-4.3); LYMPH % 29.2 % (20.0-40.0); MEAN CELL VOLUME 92.3 fL (80.0-94.0); MEAN CORPUSCULAR HEMOGLOBIN 31.6 pg (27.0-31.0); MEAN CORPUSCULAR HGB CONC 34.3 g/dL (33.0-37.0); MEAN PLATELET VOLUME 8.1 fL (7.2-11.7); MONO # 0.9 K/uL (0.0-0.8); MONO % 8.8 % (0.0-10.0); NEUT # 5.6 K/uL (1.8-7.0); NEUT % 56.1 % (50.0-75.0); NRBC % 0.1 % (0.0-2.0); RBC 4.54 Mil/uL (4.40-5.90); RED CELL DISTRIBUTION WIDTH 13.3 % (11.5-14.5)
--- NOTE | 2017-11-14 12:26 | RAD ---
PROCEDURE: Radiographs of the left tibia and fibula. HISTORY: leg cellulitis, r/o fracture or foreign body COMPARISON: Left tibia and fibula radiographs dated 08/10/2015. TECHNIQUE: Frontal and lateral views obtained. FINDINGS: BONES: No fracture or destructive lesion. JOINT SPACES: Unremarkable. OTHER FINDINGS: None. IMPRESSION: Unremarkable radiographs of the left tibia and fibula.
[2017-11-14 12:27] LABS: ALB/GLOB RATIO 0.8 (1.0-2.1); ALBUMIN 3.8 g/dL (3.5-5.0); ALT/SGPT 61 U/L (21-72); AST/SGOT 104 U/L (17-59); BLOOD UREA NITROGEN 12 mg/dL (9-20); CALCIUM 9.1 mg/dl (8.6-10.4); GFR AFRICAN-AMERICAN > 60; GFR NON-AFRICAN AMERICAN > 60
[2017-11-14] MEDS ORDERED: Piperacillin/Tazobact 3.375 gm 100 ML IV STA (13:30)
--- NOTE | 2017-11-14 13:32 | C.PDOC ---
History Of Present Illness 57-year-old male, PMHx includes IVDA, presents to the emergency department with complaints of swelling and pain to left lower extremity over the past several months. Patient states he has never seen a doctor for it and it has been gradually worsening. Denies numbness/weakness, fever, nausea/vomiting, shortness of breath, chest pain or any other associated symptoms. No other complaints at this time. Time Seen by Provider: 11/14/17 11:18 Chief Complaint (Nursing): Lower Extremity Problem/Injury History Per: Patient History/Exam Limitations: no limitations Onset/Duration Of Symptoms: Persistent Current Symptoms Are (Timing): Still Present Severity: Moderate Past Medical History Reviewed: Historical Data, Nursing Documentation, Vital Signs Vital Signs: Last Vital Signs Temp 98 F 11/17/17 17:00 Pulse 62 11/17/17 17:00 Resp 20 11/17/17 17:00 BP 143/87 11/17/17 17:00 Pulse Ox 97 11/17/17 17:00 - Medical History PMH: Asthma, Fractures (rib cage), HTN, Kidney Stones, Chronic Kidney Disease, Seizures Surgical History: Cholecystectomy - [facility] Procedures INSERTION OF ENDOTRACHEAL AIRWAY INTO TRACHEA, VIA OPENING (03/10/16) RESPIRATORY VENTILATION, GREATER THAN 96 CONSECUTIVE HOURS (03/10/16) TETANUS TOXOID ADMINIST (11/03/14) Family History: States: No Known Family Hx - Social History Hx Tobacco Use: Yes Hx Alcohol Use: Yes Hx Substance Use: No (pt denies.) - Immunization History Hx Tetanus Toxoid Vaccination: No (UNKNOWN) Hx Influenza Vaccination: No Hx Pneumococcal Vaccination: Yes Review Of Systems Except As Marked, All Systems Reviewed And Found Negative. Constitutional: Negative for: Fever, Chills Cardiovascular: Negative for: Chest Pain Respiratory: Negative for: Shortness of Breath Musculoskeletal: Positive for: Leg Pain (+swelling) Neurological: Negative for: Weakness, Numbness Physical Exam - Physical Exam Appears: Non-toxic, No Acute Distress Skin: Warm, Dry, No Rash Head: Atraumatic, Normacephalic Eye(s): bilateral: PERRL Nose: Normal Oral Mucosa: Moist Lips: Normal Appearing Neck: Normal ROM, Supple Cardiovascular: Rhythm Regular, No Friction Rub, No Murmur Respiratory: Normal Breath Sounds, No Accessory Muscle Use, No Rales, No Rhonchi , No Wheezing Gastrointestinal/Abdominal: Soft, No Tenderness Extremity: Tenderness, Capillary Refill (<2 seconds), No Deformity, Swelling, Other (MOderate to severe tenderness and erythema to the left calf. (+)open wound, draining to posterior aspect of left lower extremity) Pulses: Left Dorsalis Pedis: Normal, Right Dorsalis Pedis: Normal Neurological/Psych: Oriented x3, Normal Speech, Normal Motor, Normal Sensation Gait: Steady ED Course And Treatment - Laboratory Results Result Diagrams: 11/17/17 07:18 11/17/17 07:18 O2 Sat by Pulse Oximetry: 96 (RA) Pulse Ox Interpretation: Normal Progress Note: xray of the tib/fib shows no fracture or foreign body. The patient states that he injected in leg and became infected. Medical Decision Making Medical Decision Making: Plan: * Bloodwork * Vancomycin, Zosyn * Blood/Wound Cultures * XR Tib/Fib The case was discussed with internal medicine who agrees to admit the patient. Disposition - Disposition Disposition: HOSPITALIZED Disposition Time: 13:32 Condition: GOOD - POA Present On Arrival: None - Clinical Impression Clinical Impression: Cellulitis, leg - Scribe Statement The provider has reviewed the documentation as recorded by the Scribe (Yosef Jacobs) All medical record entries made by the Scribe were at my direction and personally dictated by me. I have reviewed the chart and agree that the record accurately reflects my personal performance of the history, physical exam, medical decision making, and the department course for this patient. I have also personally directed, reviewed, and agree with the discharge instructions and disposition.
[2017-11-14] MEDS ORDERED: Piperacillin/Tazobact 3.375 gm 100 ML IVPB ONE (13:42)
[2017-11-14] MEDS ORDERED: Vancomycin 1 GM 1 GM/250 ML BAG IV SCH (13:45)
[2017-11-14] MEDS ORDERED: Vancomycin 1 gm/NS 200 ml 1 GM/200 ML BAG IVPB ONE (15:00)
[2017-11-14] MEDS ORDERED: Morphine 4 MG/ML VIAL IVP PRN (16:24)
[2017-11-14] MEDS: Piperacill/Tazo 3.375gm in Dex 3.375 GM/50 ML BAG IVPB SCH (21:22)
--- NOTE | 2017-11-14 23:37 | CP.PCM.HP ---
History of Present Illness - History of Present Illness History of Present Illness: CC: left leg wound and pain HPI: 57-year-old white male, PMHx includes IVDA, presents to the emergency department with complaints of swelling and pain to left lower extremity over the past several months. according to him he has wound on his left leg, Patient states he has never seen a doctor for it and it has been gradually worsening. Denies numbness/weakness, fever, nausea/vomiting, shortness of breath, chest pain or any other associated symptoms. No other complaints at this time. Pt is active substance abuser HIV and Hep B, C status unknwown Present on Admission - Present on Admission Any Indicators Present on Admission: Yes Review of Systems - Review of Systems Systems not reviewed;Unavailable: Acuity of Condition - Constitutional Constitutional: Lethargy - EENT Eyes: absent: As Per HPI, Blind Spots, Blurred Vision, Change in Vision, Decreased Night Vision, Diplopia, Discharge, Dry Eye, Exophthalmos, Floaters, Irritation, Itchy Eyes, Loss of Peripheral Vision, Pain, Photophobia, Requires Corrective Lenses, Sees Flashes, Spots in Vision, Tunnel Vision, Other Visual Disturbances, Loss of Vision, Other Ears: absent: As Per HPI, Decreased Hearing, Ear Discharge, Ear Pain, Tinnitus, Abnormal Hearing, Disequilibrium, Dizziness, Other Nose/Mouth/Throat: absent: As Per HPI, Epistaxis, Nasal Congestion, Nasal Discharge, Nasal Obstruction, Nasal Trauma, Nose Pain, Post Nasal Drip, Sinus Pain, Sinus Pressure, Bleeding Gums, Change in Voice, Dental Pain, Dry Mouth, Dysphagia, Halitosis, Hoarsness, Lip Swelling, Mouth Lesions, Mouth Pain, Odynophagia, Sore Throat, Throat Swelling, Tongue Swelling, Facial Pain, Neck Pain, Neck Mass, Other - Cardiovascular Cardiovascular: absent: As Per HPI, Acrocyanosis, Chest Pain, Chest Pain at Rest , Chest Pain with Activity, Claudication, Diaphoresis, Dyspnea, Dyspnea on Exertion, Edema, Irregular Heart Rhythm, Pain Radiating to Arm/Neck/Jaw, Leg Edema, Leg Ulcers, Lightheadedness, Orthopnea, Palpitations, Paroxysmal Nocturnal Dyspnea, Pedal Edema, Radiating Pain, Rapid Heart Rate, Slow Heart Rate, Syncope, Other - Respiratory Respiratory: absent: As Per HPI, Cough, Dyspnea, Hemoptysis, Dyspnea on Exertion , Wheezing, Snoring, Stridor, Pain on Inspiration, Chest Congestion, Excessive Mucous Production, Change in Mucous Color, Pain with Coughing, Other - Gastrointestinal Gastrointestinal: absent: As Per HPI, Abdominal Pain, Belching, Bloating, Change in Bowel Habits, Change in Stool Character, Coffee Ground Emesis, Constipation, Cramping, Diarrhea, Dyspepsia, Dysphagia, Early Satiety, Excessive Flatus, Fecal Incontinence, Heartburn, Hematemesis, Hematochezia, Loose Stools, Melena, Nausea, Odynophagia, Temesmus, Vomiting, Other - Genitourinary Genitourinary: absent: As Per HPI, Change in Urinary Stream, Difficulty Urinating, Dysuria, Flank Pain, Hematuria, Pyuria, Nocturia, Urinary Incontinence, Urinary Frequency, Urinary Hesitance, Urinary Urgency, Voiding Freq/Small Amts, Freq UTI, Hx Renal/Bladder Calculi, Hx /Renal Surgery, Bladder Distension, Other - Musculoskeletal Musculoskeletal: Radiating Pain into Limb - Integumentary Integumentary: Lesions, Skin Pain, Swelling - Neurological Neurological: absent: As Per HPI, Abnormal Gait, Abnormal Hearing, Abnormal Movements, Abnormal Speech, Behavioral Changes, Burning Sensations, Confusion, Convulsions, Disequilibrium, Dizziness, Numbness, Focal Weakness, Frequent Falls , Headaches, Lack of Coordination, Loss of Vision, Memory Loss, Paresthesias, Radicular Pain, Restless Legs, Sensory Deficit, Syncope, Tingling, Tremor, Vertigo, Weakness, Other Visual Disturbances, Other - Psychiatric Psychiatric: Anxiety Past Patient History - Infectious Disease Hx of Infectious Diseases: None - Past Medical History & Family History Past Medical History?: Yes - Past Social History Smoking Status: Light Smoker < 10 Cigarettes Daily - CARDIAC Hx Hypertension: Yes - PULMONARY Hx Asthma: Yes - NEUROLOGICAL Hx Seizures: Yes - HEENT Hx HEENT Problems: No - RENAL Hx Chronic Kidney Disease: Yes Hx Kidney Stones: Yes - ENDOCRINE/METABOLIC Hx Endocrine Disorders: No - HEMATOLOGICAL/ONCOLOGICAL Hx Blood Disorders: Yes Hx Hepatitis C: Yes - INTEGUMENTARY Hx Dermatological Problems: Yes Other/Comment: left leg cellulitis - MUSCULOSKELETAL/RHEUMATOLOGICAL Hx Falls: No Hx Fractures: Yes (rib cage) - GASTROINTESTINAL Hx Gastrointestinal Disorders: Yes Other/Comment: Liver Cirrhosis - GENITOURINARY/GYNECOLOGICAL Hx Genitourinary Disorders: No - PSYCHIATRIC Hx Substance Use: Yes - SURGICAL HISTORY Hx Cholecystectomy: Yes - ANESTHESIA Hx Anesthesia: Yes Hx Anesthesia Reactions: No Meds Allergies/Adverse Reactions: Allergies Allergy/AdvReac Type Severity Reaction Status Date / Time ibuprofen Allergy Intermediate RASH Verified 11/14/17 11:16 Physical Exam - Constitutional Appears: No Acute Distress, Agitated - Eye Exam Eye Exam: EOMI, Normal appearance, PERRL Pupil Exam: NORMAL ACCOMODATION, PERRL - ENT Exam ENT Exam: Mucous Membranes Moist, Normal Exam - Cardiovascular Exam Cardiovascular Exam: REGULAR RHYTHM, +S1, +S2 - GI/Abdominal Exam GI & Abdominal Exam: Normal Bowel Sounds, Soft. absent: Tenderness - Neurological Exam Neurological exam: Alert, CN II-XII Intact, Normal Gait, Oriented x3, Reflexes Normal - Psychiatric Exam Psychiatric exam: Anxious - Skin Skin Exam: Erythema, Warm - Additional Findings Additional findings: 3 x 3 cm wound on left leg with positive erythema, edema, discharge Results - Vital Signs Recent Vital Signs: Last Vital Signs Temp 98.5 F 11/14/17 16:32 Pulse 79 11/14/17 16:32 Resp 20 11/14/17 16:32 BP 111/70 11/14/17 16:32 Pulse Ox 95 11/14/17 16:32 - Labs Result Diagrams: 11/15/17 06:17 11/15/17 06:17 Labs: Laboratory Results - last 24 hr 11/14/17 11/14/17 12:10 12:10 WBC 10.0 RBC 4.54 Hgb 14.4 Hct 41.9 MCV 92.3 MCH 31.6 H MCHC 34.3 RDW 13.3 Plt Count 293 MPV 8.1 Neut % (Auto) 56.1 Lymph % (Auto) 29.2 Pepin % (Auto) 8.8 Eos % (Auto) 5.1 H Baso % (Auto) 0.8 Neut # (Auto) 5.6 Lymph # (Auto) 2.9 Pepin # (Auto) 0.9 H Eos # (Auto) 0.5 Baso # (Auto) 0.1 Sodium 145 Potassium 4.0 Chloride 107 Carbon Dioxide 23 Anion Gap 19 BUN 12 Creatinine 0.8 Est GFR ( Amer) > 60 Est GFR (Non-Af Amer) > 60 Random Glucose 81 Calcium 9.1 Total Bilirubin 0.7 AST 104 H D ALT 61 Alkaline Phosphatase 71 Total Protein 8.3 Albumin 3.8 Globulin 4.5 H Albumin/Globulin Ratio 0.8 L Assessment & Plan (1) Cellulitis, leg Status: Acute (2) Alcohol abuse Status: Acute (3) Cellulitis Status: Acute (4) Heroin dependence Status: Acute (5) Homelessness Status: Acute
[2017-11-15] MEDS: Vancomycin 1 gm/NS 200 ml 1 GM/200 ML BAG IVPB SCH ×2 (02:30→14:05)
[2017-11-15] MEDS: Piperacill/Tazo 3.375gm in Dex 3.375 GM/50 ML BAG IVPB SCH ×3 (04:30→21:44)
[2017-11-15 06:33] LABS: BASO # 0.1 K/uL (0.0-0.2); BASO % 0.6 % (0.0-2.0); EOS # 0.5 K/uL (0.0-0.7); EOS % 4.9 % (0.0-4.0); HEMOGLOBIN 13.5 g/dL (12.0-18.0); LYMPH # 2.9 K/uL (1.0-4.3); LYMPH % 30.7 % (20.0-40.0); MEAN CELL VOLUME 91.5 fL (80.0-94.0); MEAN CORPUSCULAR HEMOGLOBIN 30.8 pg (27.0-31.0); MEAN CORPUSCULAR HGB CONC 33.6 g/dL (33.0-37.0); MEAN PLATELET VOLUME 8.4 fL (7.2-11.7); MONO # 0.8 K/uL (0.0-0.8); MONO % 8.6 % (0.0-10.0); NEUT # 5.2 K/uL (1.8-7.0); NEUT % 55.2 % (50.0-75.0); NRBC % 0.1 % (0.0-2.0); RBC 4.39 Mil/uL (4.40-5.90); RED CELL DISTRIBUTION WIDTH 12.8 % (11.5-14.5); WHITE BLOOD COUNT 9.4 K/uL (4.8-10.8)
[2017-11-15 06:38] LABS: INR 1.1
[2017-11-15 06:43] LABS: BLOOD UREA NITROGEN 14 mg/dL (9-20); CALCIUM 8.6 mg/dl (8.6-10.4); GFR AFRICAN-AMERICAN > 60; GFR NON-AFRICAN AMERICAN > 60
[2017-11-15] MEDS: Multiple Vitamins Tab PO SCH (10:03)
[2017-11-15] MEDS: Enoxaparin 40 mg Syringe SC SCH (10:03)
[2017-11-15] MEDS ORDERED: Midazolam 2 MG/2 ML VIAL ONE (11:02)
[2017-11-15] MEDS ORDERED: Propofol 10 mg/ml Inj (20 ML) ONE (11:02)
[2017-11-15] MEDS ORDERED: Lidocaine Hydrochloride 5 ML INJ ONE (11:03)
[2017-11-15] MEDS ORDERED: Albuterol HFA 90 mcg/actuation (8 g) ONE (11:27)
[2017-11-15] MEDS ORDERED: HYDROmorphone 0.5 mg/0.5 ml ISec IVP PRN (11:46)
[2017-11-15] MEDS: Sodium Chloride 0.9% 1,000 ML IV SCH ×2 (12:46→21:57)
--- NOTE | 2017-11-15 23:06 | CP.PCM.PN ---
Subjective - Date & Time of Evaluation Date of Evaluation: 11/15/17 Time of Evaluation: 18:30 - Subjective Subjective: Pt seen and examined s/p OR left leg abscess drainage, afebrile, no shortness of breath Objective - Vital Signs/Intake and Output Vital Signs (last 24 hours): Temp Pulse Resp BP Pulse Ox 98.1 F 74 20 116/62 96 11/15/17 15:00 11/15/17 15:00 11/15/17 15:00 11/15/17 15:00 11/15/17 15:00 Intake and Output: 11/15/17 11/16/17 18:59 06:59 Intake Total 3000 Balance 3000 - Medications Medications: Current Medications Enoxaparin Sodium (Lovenox) 40 mg SC DAILY [facility] Last Admin: 11/15/17 10:03 Dose: Not Given Piperacillin Sod/Tazobactam Sod (Zosyn 3.375 Gm Iv Premix) 3.375 gm in 50 mls @ 100 mls/hr IVPB Q8H [facility] PRN Reason: Protocol Last Admin: 11/15/17 21:44 Dose: 100 mls/hr Vancomycin/Sodium Chloride (Vancomycin 1 Gm/Ns 200 Ml) 1 gm in 200 mls @ 133 mls/hr IVPB Q12H [facility] PRN Reason: Protocol Stop: 11/20/17 03:01 Last Admin: 11/15/17 14:05 Dose: 133 mls/hr Sodium Chloride (Sodium Chloride 0.9%) 1,000 mls @ 100 mls/hr IV .Q10H [facility] Last Admin: 11/15/17 21:57 Dose: 100 mls/hr Levetiracetam (Keppra) 500 mg PO BID [facility] Last Admin: 11/15/17 18:12 Dose: 500 mg Morphine Sulfate (Morphine) 2 mg IVP Q4 PRN PRN Reason: Pain, severe (8-10) Multivitamins (Hexavitamin) 1 tab PO DAILY [facility] Last Admin: 11/15/17 10:03 Dose: Not Given - Labs Labs: 11/15/17 06:17 11/15/17 06:17 PT 12.0 SECONDS (9.7-12.2) 11/15/17 06:17 INR 1.1 11/15/17 06:17 APTT 31 SECONDS (21-34) 11/15/17 06:17 - Constitutional Appears: No Acute Distress - Head Exam Head Exam: ATRAUMATIC, NORMAL INSPECTION, NORMOCEPHALIC - Eye Exam Eye Exam: EOMI, Normal appearance, PERRL Pupil Exam: NORMAL ACCOMODATION, PERRL - Respiratory Exam Respiratory Exam: Clear to Ausculation Bilateral, NORMAL BREATHING PATTERN - Cardiovascular Exam Cardiovascular Exam: REGULAR RHYTHM, +S1, +S2. absent: Murmur - GI/Abdominal Exam GI & Abdominal Exam: Soft, Normal Bowel Sounds. absent: Tenderness - Rectal Exam Rectal Exam: Deferred Assessment and Plan (1) Cellulitis, leg Status: Acute (2) Alcohol abuse Status: Acute (3) Cellulitis Status: Acute (4) Heroin dependence Status: Acute (5) Homelessness Status: Acute
--- NOTE | 2017-11-15 23:17 | OP ---
PROCEDURE DATE: 11/15/2017 PREOPERATIVE DIAGNOSIS: Infected mass of the right leg with abscess. POSTOPERATIVE DIAGNOSIS: Infected mass of the right leg with abscess. PROCEDURE PERFORMED: Deep excision of infected mass of the right leg with drainage of underlying abscess and partial complex closure. SURGEON: Brian Russell MD ANESTHESIA: General. ESTIMATED BLOOD LOSS: 30 mL. POSTOPERATIVE CONDITION: Stable. INDICATIONS FOR SURGERY: This is a 57-year-old female 57-year-old male who presents with necrotic mass in the right leg surrounded by cellulitis, now taken to the operating room for urgent excision and drainage. DESCRIPTION OF PROCEDURE: The patient was taken to the operating room, general anesthesia was administered. The right leg was prepped and draped. A generous incision was made surrounding the mass. It was dissected free into the fascia and removed. The mass measured 5 cm in size. Bleeding was controlled using the Bovie. Underlying pus was drained and cultured. Tissue flaps were raised peripherally and a partial tissue transfer closure was performed. Central portion of the wound was debrided and pulse irrigated with saline and Kantrex solution and packed open with wet saline gauze and dressed sterilely. The patient tolerated the procedure well, returned to recovery room in stable condition. Brian Russell MD
[2017-11-16] MEDS: Sodium Chloride 0.9% 1,000 ML IV SCH ×3 (02:00→17:33)
[2017-11-16] MEDS: Vancomycin 1 gm/NS 200 ml 1 GM/200 ML BAG IVPB SCH ×2 (02:10→14:00)
[2017-11-16] MEDS: Piperacill/Tazo 3.375gm in Dex 3.375 GM/50 ML BAG IVPB SCH ×3 (04:40→21:43)
[2017-11-16 07:49] LABS: HEMOGLOBIN 13.7 g/dL (12.0-18.0); MEAN CORPUSCULAR HGB CONC 33.7 g/dL (33.0-37.0); MEAN PLATELET VOLUME 8.9 fL (7.2-11.7); RBC 4.43 Mil/uL (4.40-5.90); RED CELL DISTRIBUTION WIDTH 12.9 % (11.5-14.5); WHITE BLOOD COUNT 9.4 K/uL (4.8-10.8)
[2017-11-16 07:53] LABS: CALCIUM 8.5 mg/dl (8.6-10.4); GFR AFRICAN-AMERICAN > 60; GFR NON-AFRICAN AMERICAN > 60
[2017-11-16 07:55] LABS: BLOOD UREA NITROGEN 12 mg/dL (9-20)
[2017-11-16] MEDS: Multiple Vitamins Tab PO SCH (10:02)
[2017-11-16] MEDS: Enoxaparin 40 mg Syringe SC SCH (10:03)
--- NOTE | 2017-11-16 13:50 | CP.PCM.CON ---
Past Patient History - Infectious Disease Hx of Infectious Diseases: None - Past Medical History & Family History Past Medical History?: Yes - Past Social History Smoking Status: Light Smoker < 10 Cigarettes Daily - CARDIAC Hx Hypertension: Yes - PULMONARY Hx Asthma: Yes - NEUROLOGICAL Hx Seizures: Yes - HEENT Hx HEENT Problems: No - RENAL Hx Chronic Kidney Disease: Yes Hx Kidney Stones: Yes - ENDOCRINE/METABOLIC Hx Endocrine Disorders: No - HEMATOLOGICAL/ONCOLOGICAL Hx Blood Disorders: Yes Hx Hepatitis C: Yes - INTEGUMENTARY Hx Dermatological Problems: Yes Other/Comment: left leg cellulitis - MUSCULOSKELETAL/RHEUMATOLOGICAL Hx Falls: No Hx Fractures: Yes (rib cage) - GASTROINTESTINAL Hx Gastrointestinal Disorders: Yes Other/Comment: Liver Cirrhosis - GENITOURINARY/GYNECOLOGICAL Hx Genitourinary Disorders: No - PSYCHIATRIC Hx Substance Use: Yes - SURGICAL HISTORY Hx Cholecystectomy: Yes - ANESTHESIA Hx Anesthesia: Yes Hx Anesthesia Reactions: No Meds Allergies/Adverse Reactions: Allergies Allergy/AdvReac Type Severity Reaction Status Date / Time ibuprofen Allergy Intermediate RASH Verified 11/14/17 11:16 - Medications Medications: Current Medications Enoxaparin Sodium (Lovenox) 40 mg SC DAILY [facility] Last Admin: 11/16/17 10:03 Dose: 40 mg Piperacillin Sod/Tazobactam Sod (Zosyn 3.375 Gm Iv Premix) 3.375 gm in 50 mls @ 100 mls/hr IVPB Q8H [facility] PRN Reason: Protocol Last Admin: 11/16/17 12:30 Dose: 100 mls/hr Vancomycin/Sodium Chloride (Vancomycin 1 Gm/Ns 200 Ml) 1 gm in 200 mls @ 133 mls/hr IVPB Q12H [facility] PRN Reason: Protocol Stop: 11/20/17 03:01 Last Admin: 11/16/17 02:10 Dose: 133 mls/hr Sodium Chloride (Sodium Chloride 0.9%) 1,000 mls @ 100 mls/hr IV .Q10H [facility] Last Admin: 11/16/17 08:50 Dose: Not Given Levetiracetam (Keppra) 500 mg PO BID [facility] Last Admin: 11/16/17 10:02 Dose: 500 mg Morphine Sulfate (Morphine) 2 mg IVP Q4 PRN PRN Reason: Pain, severe (8-10) Multivitamins (Hexavitamin) 1 tab PO DAILY [facility] Last Admin: 11/16/17 10:02 Dose: 1 tab Results - Vital Signs Recent Vital Signs: Last Vital Signs Temp 98.6 F 11/16/17 08:25 Pulse 77 11/16/17 08:25 Resp 20 11/16/17 08:25 BP 159/97 H 11/16/17 08:25 Pulse Ox 95 11/16/17 08:25 - Labs Result Diagrams: 11/16/17 07:26 11/16/17 07:26 Labs: Laboratory Results - last 24 hr 11/16/17 11/16/17 07:26 07:26 WBC 9.4 RBC 4.43 Hgb 13.7 Hct 40.7 MCV 92.0 MCH 31.0 MCHC 33.7 RDW 12.9 Plt Count 256 MPV 8.9 Sodium 137 Potassium 4.1 Chloride 106 Carbon Dioxide 23 Anion Gap 12 BUN 12 Creatinine 0.8 Est GFR ( Amer) > 60 Est GFR (Non-Af Amer) > 60 Random Glucose 94 Calcium 8.5 L
--- NOTE | 2017-11-16 18:32 | CP.PCM.CON ---
History of Present Illness - History of Present Illness History of Present Illness: 57-year-old white male, presents to the emergency department with complaints of swelling and pain to left lower extremity x several months. Pt is active substance abuser HIV and Hep B, C status un known ID [id number] for antibiotic management Review of Systems - Review of Systems Systems not reviewed;Unavailable: Acuity of Condition - Constitutional Constitutional: Lethargy - EENT Eyes: absent: As Per HPI, Blind Spots, Blurred Vision, Change in Vision, Decreased Night Vision, Diplopia, Discharge, Dry Eye, Exophthalmos, Floaters, Irritation, Itchy Eyes, Loss of Peripheral Vision, Pain, Photophobia, Requires Corrective Lenses, Sees Flashes, Spots in Vision, Tunnel Vision, Other Visual Disturbances, Loss of Vision, Other Ears: absent: As Per HPI, Decreased Hearing, Ear Discharge, Ear Pain, Tinnitus, Abnormal Hearing, Disequilibrium, Dizziness, Other Nose/Mouth/Throat: absent: As Per HPI, Epistaxis, Nasal Congestion, Nasal Discharge, Nasal Obstruction, Nasal Trauma, Nose Pain, Post Nasal Drip, Sinus Pain, Sinus Pressure, Bleeding Gums, Change in Voice, Dental Pain, Dry Mouth, Dysphagia, Halitosis, Hoarsness, Lip Swelling, Mouth Lesions, Mouth Pain, Odynophagia, Sore Throat, Throat Swelling, Tongue Swelling, Facial Pain, Neck Pain, Neck Mass, Other - Cardiovascular Cardiovascular: absent: As Per HPI, Acrocyanosis, Chest Pain, Chest Pain at Rest , Chest Pain with Activity, Claudication, Diaphoresis, Dyspnea, Dyspnea on Exertion, Edema, Irregular Heart Rhythm, Pain Radiating to Arm/Neck/Jaw, Leg Edema, Leg Ulcers, Lightheadedness, Orthopnea, Palpitations, Paroxysmal Nocturnal Dyspnea, Pedal Edema, Radiating Pain, Rapid Heart Rate, Slow Heart Rate, Syncope, Other - Respiratory Respiratory: absent: As Per HPI, Cough, Dyspnea, Hemoptysis, Dyspnea on Exertion , Wheezing, Snoring, Stridor, Pain on Inspiration, Chest Congestion, Excessive Mucous Production, Change in Mucous Color, Pain with Coughing, Other - Gastrointestinal Gastrointestinal: absent: As Per HPI, Abdominal Pain, Belching, Bloating, Change in Bowel Habits, Change in Stool Character, Coffee Ground Emesis, Constipation, Cramping, Diarrhea, Dyspepsia, Dysphagia, Early Satiety, Excessive Flatus, Fecal Incontinence, Heartburn, Hematemesis, Hematochezia, Loose Stools, Melena, Nausea, Odynophagia, Temesmus, Vomiting, Other - Genitourinary Genitourinary: absent: As Per HPI, Change in Urinary Stream, Difficulty Urinating, Dysuria, Flank Pain, Hematuria, Pyuria, Nocturia, Urinary Incontinence, Urinary Frequency, Urinary Hesitance, Urinary Urgency, Voiding Freq/Small Amts, Freq UTI, Hx Renal/Bladder Calculi, Hx /Renal Surgery, Bladder Distension, Other - Musculoskeletal Musculoskeletal: Radiating Pain into Limb - Integumentary Integumentary: Lesions, Skin Pain, Swelling - Neurological Neurological: absent: As Per HPI, Abnormal Gait, Abnormal Hearing, Abnormal Movements, Abnormal Speech, Behavioral Changes, Burning Sensations, Confusion, Convulsions, Disequilibrium, Dizziness, Numbness, Focal Weakness, Frequent Falls , Headaches, Lack of Coordination, Loss of Vision, Memory Loss, Paresthesias, Radicular Pain, Restless Legs, Sensory Deficit, Syncope, Tingling, Tremor, Vertigo, Weakness, Other Visual Disturbances, Other - Psychiatric Psychiatric: Anxiety Past Patient History - Infectious Disease Hx of Infectious Diseases: None - Past Medical History & Family History Past Medical History?: Yes - Past Social History Smoking Status: Light Smoker < 10 Cigarettes Daily - CARDIAC Hx Hypertension: Yes - PULMONARY Hx Asthma: Yes - NEUROLOGICAL Hx Seizures: Yes - HEENT Hx HEENT Problems: No - RENAL Hx Chronic Kidney Disease: Yes Hx Kidney Stones: Yes - ENDOCRINE/METABOLIC Hx Endocrine Disorders: No - HEMATOLOGICAL/ONCOLOGICAL Hx Blood Disorders: Yes Hx Hepatitis C: Yes - INTEGUMENTARY Hx Dermatological Problems: Yes Other/Comment: left leg cellulitis - MUSCULOSKELETAL/RHEUMATOLOGICAL Hx Falls: No Hx Fractures: Yes (rib cage) - GASTROINTESTINAL Hx Gastrointestinal Disorders: Yes Other/Comment: Liver Cirrhosis - GENITOURINARY/GYNECOLOGICAL Hx Genitourinary Disorders: No - PSYCHIATRIC Hx Substance Use: Yes - SURGICAL HISTORY Hx Cholecystectomy: Yes - ANESTHESIA Hx Anesthesia: Yes Hx Anesthesia Reactions: No Meds Allergies/Adverse Reactions: Allergies Allergy/AdvReac Type Severity Reaction Status Date / Time ibuprofen Allergy Intermediate RASH Verified 11/14/17 11:16 - Medications Medications: Current Medications Enoxaparin Sodium (Lovenox) 40 mg SC DAILY [facility] Last Admin: 11/16/17 10:03 Dose: 40 mg Piperacillin Sod/Tazobactam Sod (Zosyn 3.375 Gm Iv Premix) 3.375 gm in 50 mls @ 100 mls/hr IVPB Q8H [facility] PRN Reason: Protocol Last Admin: 11/16/17 12:30 Dose: 100 mls/hr Vancomycin/Sodium Chloride (Vancomycin 1 Gm/Ns 200 Ml) 1 gm in 200 mls @ 133 mls/hr IVPB Q12H [facility] PRN Reason: Protocol Stop: 11/20/17 03:01 Last Admin: 11/16/17 14:00 Dose: 133 mls/hr Sodium Chloride (Sodium Chloride 0.9%) 1,000 mls @ 100 mls/hr IV .Q10H [facility] Last Admin: 11/16/17 17:33 Dose: 100 mls/hr Levetiracetam (Keppra) 500 mg PO BID [facility] Last Admin: 11/16/17 17:31 Dose: 500 mg Morphine Sulfate (Morphine) 2 mg IVP Q4 PRN PRN Reason: Pain, severe (8-10) Last Admin: 11/16/17 14:06 Dose: 2 mg Multivitamins (Hexavitamin) 1 tab PO DAILY [facility] Last Admin: 11/16/17 10:02 Dose: 1 tab Physical Exam - Constitutional Appears: Non-toxic, Chronically Ill - Head Exam Head Exam: ATRAUMATIC, NORMAL INSPECTION, NORMOCEPHALIC - Eye Exam Eye Exam: PERRL. absent: Scleral icterus - ENT Exam ENT Exam: Mucous Membranes Dry, Normal External Ear Exam - Neck Exam Neck exam: Negative for: Lymphadenopathy - Respiratory Exam Respiratory Exam: Decreased Breath Sounds, Clear to Auscultation Bilateral - Cardiovascular Exam Cardiovascular Exam: REGULAR RHYTHM, +S1, +S2 - GI/Abdominal Exam GI & Abdominal Exam: Diminished Bowel Sounds, Soft. absent: Tenderness - Rectal Exam Rectal Exam: Deferred - Exam Exam: NORMAL INSPECTION - Extremities Exam Extremities exam: Positive for: calf tenderness, pedal edema, tenderness, pedal pulses present Additional comments: ulcer/ cellulitis left calf - Back Exam Back exam: absent: CVA tenderness (L), CVA tenderness (R) - Neurological Exam Neurological exam: Alert, CN II-XII Intact, Oriented x3, Reflexes Normal - Psychiatric Exam Psychiatric exam: Anxious, Depressed - Skin Skin Exam: Dry, Intact Results - Vital Signs Recent Vital Signs: Last Vital Signs Temp 98.2 F 11/16/17 15:00 Pulse 66 11/16/17 15:00 Resp 20 11/16/17 15:00 BP 147/93 H 11/16/17 15:00 Pulse Ox 98 11/16/17 15:00 - Labs Result Diagrams: 11/16/17 07:26 11/16/17 07:26 Labs: Laboratory Results - last 24 hr 11/16/17 11/16/17 07:26 07:26 WBC 9.4 RBC 4.43 Hgb 13.7 Hct 40.7 MCV 92.0 MCH 31.0 MCHC 33.7 RDW 12.9 Plt Count 256 MPV 8.9 Sodium 137 Potassium 4.1 Chloride 106 Carbon Dioxide 23 Anion Gap 12 BUN 12 Creatinine 0.8 Est GFR ( Amer) > 60 Est GFR (Non-Af Amer) > 60 Random Glucose 94 Calcium 8.5 L Assessment & Plan (1) Cellulitis, leg Status: Acute - Assessment and Plan (Free Text) Assessment: cont iv rx and wound care may need I and D await cultures check HIV and Hep status
--- NOTE | 2017-11-16 22:21 | CP.PCM.PN ---
Subjective - Date & Time of Evaluation Date of Evaluation: 11/16/17 Time of Evaluation: 18:35 - Subjective Subjective: Pt seen & examined, is improving on antibiotics, no distress Objective - Vital Signs/Intake and Output Vital Signs (last 24 hours): Temp Pulse Resp BP Pulse Ox 98.2 F 66 20 147/93 H 98 11/16/17 15:00 11/16/17 15:00 11/16/17 15:00 11/16/17 15:00 11/16/17 15:00 - Medications Medications: Current Medications Enoxaparin Sodium (Lovenox) 40 mg SC DAILY [facility] Last Admin: 11/16/17 10:03 Dose: 40 mg Piperacillin Sod/Tazobactam Sod (Zosyn 3.375 Gm Iv Premix) 3.375 gm in 50 mls @ 100 mls/hr IVPB Q8H [facility] PRN Reason: Protocol Last Admin: 11/16/17 21:43 Dose: 100 mls/hr Vancomycin/Sodium Chloride (Vancomycin 1 Gm/Ns 200 Ml) 1 gm in 200 mls @ 133 mls/hr IVPB Q12H [facility] PRN Reason: Protocol Stop: 11/20/17 03:01 Last Admin: 11/16/17 14:00 Dose: 133 mls/hr Sodium Chloride (Sodium Chloride 0.9%) 1,000 mls @ 100 mls/hr IV .Q10H [facility] Last Admin: 11/16/17 17:33 Dose: 100 mls/hr Levetiracetam (Keppra) 500 mg PO BID [facility] Last Admin: 11/16/17 17:31 Dose: 500 mg Morphine Sulfate (Morphine) 2 mg IVP Q4 PRN PRN Reason: Pain, severe (8-10) Last Admin: 11/16/17 14:06 Dose: 2 mg Multivitamins (Hexavitamin) 1 tab PO DAILY [facility] Last Admin: 11/16/17 10:02 Dose: 1 tab - Labs Labs: 11/16/17 07:26 11/16/17 07:26 PT 12.0 SECONDS (9.7-12.2) 11/15/17 06:17 INR 1.1 11/15/17 06:17 APTT 31 SECONDS (21-34) 11/15/17 06:17 - Constitutional Appears: No Acute Distress - Head Exam Head Exam: ATRAUMATIC, NORMAL INSPECTION, NORMOCEPHALIC - Eye Exam Eye Exam: EOMI, Normal appearance, PERRL Pupil Exam: NORMAL ACCOMODATION, PERRL - Respiratory Exam Respiratory Exam: Clear to Ausculation Bilateral, NORMAL BREATHING PATTERN - Cardiovascular Exam Cardiovascular Exam: REGULAR RHYTHM, +S1, +S2. absent: Murmur - GI/Abdominal Exam GI & Abdominal Exam: Soft, Normal Bowel Sounds. absent: Tenderness Assessment and Plan (1) Cellulitis, leg Status: Acute (2) Alcohol abuse Status: Acute (3) Cellulitis Status: Acute (4) Heroin dependence Status: Acute (5) Homelessness Status: Acute
[2017-11-17] MEDS: Vancomycin 1 gm/NS 200 ml 1 GM/200 ML BAG IVPB SCH ×3 (02:20→16:04)
[2017-11-17] MEDS: Sodium Chloride 0.9% 1,000 ML IV SCH ×2 (04:30→13:51)
[2017-11-17] MEDS: Piperacill/Tazo 3.375gm in Dex 3.375 GM/50 ML BAG IVPB SCH ×3 (05:00→21:46)
[2017-11-17 07:27] LABS: HEMOGLOBIN 14.3 g/dL (12.0-18.0); MEAN CELL VOLUME 92.1 fL (80.0-94.0); MEAN CORPUSCULAR HGB CONC 33.7 g/dL (33.0-37.0); MEAN PLATELET VOLUME 8.2 fL (7.2-11.7); RBC 4.63 Mil/uL (4.40-5.90); WHITE BLOOD COUNT 8.4 K/uL (4.8-10.8)
[2017-11-17 07:55] LABS: BLOOD UREA NITROGEN 11 mg/dL (9-20); CALCIUM 8.8 mg/dl (8.6-10.4); GFR AFRICAN-AMERICAN > 60; GFR NON-AFRICAN AMERICAN > 60
[2017-11-17 08:27] LABS: HEPATITIS B SURFACE AG Negative (NEGATIVE)
[2017-11-17] MEDS: Enoxaparin 40 mg Syringe SC SCH (09:41)
[2017-11-17] MEDS: Multiple Vitamins Tab PO SCH (09:41)
--- NOTE | 2017-11-17 12:41 | CP.PCM.PN ---
Subjective - Date & Time of Evaluation Date of Evaluation: 11/17/17 Time of Evaluation: 06:00 - Subjective Subjective: slow progress will need further debridement cont IV antibotics await cultures Objective - Vital Signs/Intake and Output Vital Signs (last 24 hours): Temp Pulse Resp BP Pulse Ox 97.9 F 67 20 135/83 96 11/17/17 08:12 11/17/17 10:06 11/17/17 08:12 11/17/17 08:12 11/17/17 10:06 Intake and Output: 11/17/17 11/17/17 06:59 18:59 Intake Total 2320 Balance 2320 - Medications Medications: Current Medications Enoxaparin Sodium (Lovenox) 40 mg SC DAILY [facility] Last Admin: 11/17/17 09:41 Dose: Not Given Piperacillin Sod/Tazobactam Sod (Zosyn 3.375 Gm Iv Premix) 3.375 gm in 50 mls @ 100 mls/hr IVPB Q8H [facility] PRN Reason: Protocol Last Admin: 11/17/17 05:00 Dose: 100 mls/hr Vancomycin/Sodium Chloride (Vancomycin 1 Gm/Ns 200 Ml) 1 gm in 200 mls @ 133 mls/hr IVPB Q12H [facility] PRN Reason: Protocol Stop: 11/20/17 03:01 Last Admin: 11/17/17 02:20 Dose: 133 mls/hr Sodium Chloride (Sodium Chloride 0.9%) 1,000 mls @ 100 mls/hr IV .Q10H [facility] Last Admin: 11/17/17 04:30 Dose: 100 mls/hr Levetiracetam (Keppra) 500 mg PO BID [facility] Last Admin: 11/17/17 09:41 Dose: Not Given Morphine Sulfate (Morphine) 2 mg IVP Q4 PRN PRN Reason: Pain, severe (8-10) Last Admin: 11/16/17 14:06 Dose: 2 mg Multivitamins (Hexavitamin) 1 tab PO DAILY [facility] Last Admin: 11/17/17 09:41 Dose: Not Given - Labs Labs: 11/17/17 07:18 11/17/17 07:18 PT 12.0 SECONDS (9.7-12.2) 11/15/17 06:17 INR 1.1 11/15/17 06:17 APTT 31 SECONDS (21-34) 11/15/17 06:17 - Constitutional Appears: Non-toxic, Chronically Ill - Head Exam Head Exam: NORMOCEPHALIC - Eye Exam Eye Exam: PERRL - ENT Exam ENT Exam: Mucous Membranes Dry - Neck Exam Neck Exam: absent: Lymphadenopathy - Respiratory Exam Respiratory Exam: Decreased Breath Sounds - Cardiovascular Exam Cardiovascular Exam: REGULAR RHYTHM - GI/Abdominal Exam GI & Abdominal Exam: Distended, Soft - Rectal Exam Rectal Exam: Deferred - Exam Exam: NORMAL INSPECTION Assessment and Plan (1) Cellulitis, leg Status: Acute - Assessment and Plan (Free Text) Assessment: cont iv rx
[2017-11-17] MEDS ORDERED: Morphine 4 MG/ML VIAL IVP PRN (14:33)
[2017-11-17] MEDS ORDERED: Piperacillin/Tazobact 3.375 gm 100 ML IVPB ONE (14:51)
[2017-11-17] MEDS ORDERED: Propofol 10 mg/ml Inj (20 ML) ONE (14:54)
[2017-11-17] MEDS ORDERED: Midazolam 2 MG/2 ML VIAL ONE (14:54)
[2017-11-17] MEDS ORDERED: Vancomycin 1 gm/D5W 200 ml 1 GM/200 ML BAG IVPB ONE (14:54)
[2017-11-17] MEDS ORDERED: Bacitracin Ointment 30 GM TUBE ONE (15:23)
[2017-11-17] MEDS ORDERED: Lactated Ringer's 1,000 ML IV ONE (15:37)
[2017-11-17] MEDS ORDERED: HYDROmorphone 0.5 mg/0.5 ml ISec IVP PRN (15:39)
[2017-11-17 17:22] VITALS: RESP 20
--- NOTE | 2017-11-17 23:33 | CP.PCM.PN ---
Subjective - Date & Time of Evaluation Date of Evaluation: 11/17/17 Time of Evaluation: 18:30 - Subjective Subjective: Pt has wound on left leg, afenrile s.p I and D on antibiotics Objective - Vital Signs/Intake and Output Vital Signs (last 24 hours): Temp Pulse Resp BP Pulse Ox 98 F 62 20 143/87 96 11/17/17 17:00 11/17/17 17:00 11/17/17 17:00 11/17/17 17:00 11/17/17 19:56 Intake and Output: 11/17/17 11/18/17 18:59 06:59 Intake Total 250 1250 Output Total 600 Balance 250 650 - Medications Medications: Current Medications Enoxaparin Sodium (Lovenox) 40 mg SC DAILY [facility] Last Admin: 11/17/17 09:41 Dose: Not Given Piperacillin Sod/Tazobactam Sod (Zosyn 3.375 Gm Iv Premix) 3.375 gm in 50 mls @ 100 mls/hr IVPB Q8H [facility] PRN Reason: Protocol Last Admin: 11/17/17 21:46 Dose: 100 mls/hr Vancomycin/Sodium Chloride (Vancomycin 1 Gm/Ns 200 Ml) 1 gm in 200 mls @ 133 mls/hr IVPB Q12H [facility] PRN Reason: Protocol Stop: 11/20/17 03:01 Last Admin: 11/17/17 16:04 Dose: Not Given Sodium Chloride (Sodium Chloride 0.9%) 1,000 mls @ 100 mls/hr IV .Q10H [facility] Last Admin: 11/17/17 13:51 Dose: Not Given Levetiracetam (Keppra) 500 mg PO BID [facility] Last Admin: 11/17/17 18:03 Dose: 500 mg Morphine Sulfate (Morphine) 2 mg IVP Q4 PRN PRN Reason: Pain, severe (8-10) Last Admin: 11/16/17 14:06 Dose: 2 mg Multivitamins (Hexavitamin) 1 tab PO DAILY [facility] Last Admin: 11/17/17 09:41 Dose: Not Given - Labs Labs: 11/17/17 07:18 11/17/17 07:18 PT 12.0 SECONDS (9.7-12.2) 11/15/17 06:17 INR 1.1 11/15/17 06:17 APTT 31 SECONDS (21-34) 11/15/17 06:17 - Constitutional Appears: No Acute Distress - Head Exam Head Exam: ATRAUMATIC, NORMAL INSPECTION, NORMOCEPHALIC - Eye Exam Eye Exam: EOMI, Normal appearance, PERRL Pupil Exam: NORMAL ACCOMODATION, PERRL - ENT Exam ENT Exam: Mucous Membranes Moist, Normal Exam - Respiratory Exam Respiratory Exam: Clear to Ausculation Bilateral, NORMAL BREATHING PATTERN - Cardiovascular Exam Cardiovascular Exam: REGULAR RHYTHM, +S1, +S2. absent: Murmur Assessment and Plan (1) Cellulitis, leg Status: Acute (2) Alcohol abuse Status: Acute (3) Cellulitis Status: Acute (4) Heroin dependence Status: Acute (5) Homelessness Status: Acute
[2017-11-18] MEDS: Vancomycin 1 gm/NS 200 ml 1 GM/200 ML BAG IVPB SCH ×2 (02:14→14:23)
[2017-11-18] MEDS: Sodium Chloride 0.9% 1,000 ML IV SCH ×3 (02:15→10:27)
--- NOTE | 2017-11-18 02:53 | OP ---
PROCEDURE DATE: 11/17/2017 PREOPERATIVE DIAGNOSIS: Necrotic wound abscess to the right leg. POSTOPERATIVE DIAGNOSIS: Necrotic wound abscess to the right leg. PROCEDURE: Re-excision necrotic wound abscess of the right leg. SURGEON: Brian Russell MD TYPE OF ANESTHESIA: General. ESTIMATED BLOOD LOSS: 40 mL. POSTOPERATIVE CONDITION: Stable. DESCRIPTION OF PROCEDURE: The patient was taken back to the operating room with a staged procedure. After general anesthesia was administered, the previous packing was removed. The wound was reexcised, debrided, and a partial tissue transfer closure was performed. The wound was pulse irrigated with saline and Kantrex solution, packed with wet Kerlix packing and dressed sterilely. The patient tolerated the procedure well, returned to recovery room in stable condition. Brian Russell MD
[2017-11-18] MEDS: Piperacill/Tazo 3.375gm in Dex 3.375 GM/50 ML BAG IVPB SCH ×3 (06:04→21:01)
[2017-11-18 06:36] LABS: HEMOGLOBIN 14.5 g/dL (12.0-18.0); MEAN CELL VOLUME 91.5 fL (80.0-94.0); MEAN CORPUSCULAR HEMOGLOBIN 31.3 pg (27.0-31.0); MEAN CORPUSCULAR HGB CONC 34.2 g/dL (33.0-37.0); MEAN PLATELET VOLUME 7.9 fL (7.2-11.7); RBC 4.62 Mil/uL (4.40-5.90); RED CELL DISTRIBUTION WIDTH 13.4 % (11.5-14.5); WHITE BLOOD COUNT 8.7 K/uL (4.8-10.8)
[2017-11-18 08:19] LABS: BLOOD UREA NITROGEN 20 mg/dL (9-20); CALCIUM 8.6 mg/dl (8.6-10.4); GFR AFRICAN-AMERICAN > 60; GFR NON-AFRICAN AMERICAN > 60
[2017-11-18] MEDS: Multiple Vitamins Tab PO SCH (09:28)
[2017-11-18] MEDS: Enoxaparin 40 mg Syringe SC SCH (09:28)
--- NOTE | 2017-11-18 10:51 | CP.PCM.PN ---
Subjective - Date & Time of Evaluation Date of Evaluation: 11/18/17 Time of Evaluation: 09:00 - Subjective Subjective: afeb on iv antibiotic less pain Objective - Vital Signs/Intake and Output Vital Signs (last 24 hours): Temp Pulse Resp BP Pulse Ox 97.5 F L 61 20 129/84 96 11/18/17 07:51 11/18/17 07:51 11/18/17 07:51 11/18/17 07:51 11/18/17 07:51 Intake and Output: 11/18/17 11/18/17 06:59 18:59 Intake Total 1250 1040 Output Total 600 Balance 650 1040 - Medications Medications: Current Medications Enoxaparin Sodium (Lovenox) 40 mg SC DAILY [facility] Last Admin: 11/18/17 09:28 Dose: 40 mg Piperacillin Sod/Tazobactam Sod (Zosyn 3.375 Gm Iv Premix) 3.375 gm in 50 mls @ 100 mls/hr IVPB Q8H [facility] PRN Reason: Protocol Last Admin: 11/18/17 06:04 Dose: 100 mls/hr Vancomycin/Sodium Chloride (Vancomycin 1 Gm/Ns 200 Ml) 1 gm in 200 mls @ 133 mls/hr IVPB Q12H [facility] PRN Reason: Protocol Stop: 11/20/17 03:01 Last Admin: 11/18/17 02:14 Dose: 133 mls/hr Sodium Chloride (Sodium Chloride 0.9%) 1,000 mls @ 100 mls/hr IV .Q10H [facility] Last Admin: 11/18/17 10:27 Dose: Not Given Levetiracetam (Keppra) 500 mg PO BID [facility] Last Admin: 11/18/17 09:28 Dose: 500 mg Morphine Sulfate (Morphine) 2 mg IVP Q4 PRN PRN Reason: Pain, severe (8-10) Last Admin: 11/16/17 14:06 Dose: 2 mg Multivitamins (Hexavitamin) 1 tab PO DAILY [facility] Last Admin: 11/18/17 09:28 Dose: 1 tab - Labs Labs: 11/18/17 06:29 11/18/17 06:29 PT 12.0 SECONDS (9.7-12.2) 11/15/17 06:17 INR 1.1 11/15/17 06:17 APTT 31 SECONDS (21-34) 11/15/17 06:17 - Constitutional Appears: Non-toxic, Chronically Ill - Head Exam Head Exam: NORMOCEPHALIC - Eye Exam Eye Exam: PERRL - ENT Exam ENT Exam: Mucous Membranes Dry - Neck Exam Neck Exam: absent: Lymphadenopathy - Respiratory Exam Respiratory Exam: Decreased Breath Sounds - Cardiovascular Exam Cardiovascular Exam: REGULAR RHYTHM, +S1, +S2 - GI/Abdominal Exam GI & Abdominal Exam: Distended, Soft Assessment and Plan (1) Cellulitis, leg Status: Acute
--- NOTE | 2017-11-18 11:40 | VASCLAB ---
PROCEDURE: Lower Extremity Venous Duplex Exam. HISTORY: ronaldo leg cellulitis PRIORS: None. TECHNIQUE: Bilateral common femoral, femoral, popliteal and posterior tibial, peroneal and great saphenous veins were evaluated. Flow was assessed with color Doppler, compressibility, assessment of phasic flow and augmentation response. Report prepared by Basilio Perkins, JOSHUA, RVT FINDINGS: RIGHT: 1. Common Femoral Vein: 1.1. Compressibility - Fully compressible: Thrombus - None : Flow - Phasic: Augmentation -Normal: Reflux - None. 2. Femoral Vein: 2.1. Compressibility - Fully compressible: Thrombus - None : Flow - Phasic: Augmentation -Normal: Reflux - None. 3. Popliteal Vein: 3.1. Compressibility - Fully compressible: Thrombus - None : Flow - Phasic: Augmentation -Normal: Reflux - None. 4. Posterior Tibial Vein: 4.1. Compressibility - Fully compressible: Thrombus - None: Flow - Phasic: Augmentation -Normal: Reflux - None. 5. Peroneal Vein: 5.1. Compressibility - Fully compressible: Thrombus - None: Flow - Phasic: Augmentation -Normal: Reflux - None. 6. Great Saphenous Vein: 6.1. Compressibility - Fully compressible: Thrombus - None: Flow - Phasic: Augmentation - Normal: Reflux - None. LEFT: 1. Common Femoral Vein: 1.1. Compressibility - Fully compressible: Thrombus - None: Flow - Phasic: Augmentation -Normal: Reflux - None. 2. Femoral Vein: 2.1. Compressibility - Fully compressible: Thrombus - None: Flow - Phasic: Augmentation -Normal: Reflux - None. 3. Popliteal Vein: 3.1. Compressibility - Fully compressible: Thrombus - None : Flow - Phasic: Augmentation -Normal: Reflux - None. 4. Posterior Tibial Vein: 4.1. Compressibility - Fully compressible: Thrombus - None: Flow - Phasic: Augmentation -Normal: Reflux - None. 5. Peroneal Vein: 5.1. Compressibility - Fully compressible: Thrombus - None: Flow - Phasic: Augmentation -Normal: Reflux - None. 6. Great Saphenous Vein: 6.1. Compressibility - Fully compressible: Thrombus - None: Flow - Phasic: Augmentation - Normal: Reflux - None. OTHER FINDINGS: Right: None significant. Left: None significant. IMPRESSION: Right: No evidence of deep or superficial vein thrombosis of the right lower extremity. Normal valve function noted of the right side. Left: No evidence of deep or superficial vein thrombosis of the left lower extremity. Normal valve function noted of the left side.
--- NOTE | 2017-11-18 11:42 | VASCLAB ---
STUDY DESCRIPTION: HISTORY: cellulitis ronaldo legs PRIORS: None. TECHNIQUE: Pulse volume recording waveforms and segmental pressures of bilateral lower extremities at multiple levels were obtained. Ankle Brachial Indices (ABIs) were calculated. Report prepared by JOSHUA Curiel, RVT RIGHT LOWER EXTREMITY: * Brachial artery: Pressure - 138 mmHg. * High thigh: Pressure - mmHg: Ratio - : PVR waveform - Pulsatile * Low thigh: Pressure - mmHg: Ratio - PVR waveform: Pulsatile * Calf: Pressure - mmHg: Ratio - PVR waveform: Pulsatile * Posterior tibial Artery: Pressure - 182 mmHg: Ratio - 1.15 PVR waveform: Pulsatile * Dorsalis pedis Artery: Pressure - 170 mmHg: Ratio - 1.08 PVR waveform: Pulsatile * Great toe: Pressure - mmHg: Ratio - PVR waveform: Ankle brachial index (KIMBERLY): 1.15 LEFT LOWER EXTREMITY: * Brachial artery: Pressure - 158 mmHg. * High thigh: Pressure - mmHg: Ratio - : PVR waveform - Reduced * Low thigh: Pressure - mmHg: Ratio - PVR waveform: Reduced * Calf: Pressure - mmHg: Ratio - PVR waveform: Reduced * Posterior tibial Artery: Pressure - 153 mmHg: Ratio - 0.97 PVR waveform: Reduced * Dorsalis pedis Artery: Pressure - 144 mmHg: Ratio - 0.91 PVR waveform: Reduced * Great toe: Pressure - mmHg: Ratio - PVR waveform: Ankle brachial index (KIMBERLY): 0.97 OTHER FINDINGS: Right: Left: IMPRESSION: Right: There was no evidence of hemodynamically significant arterial insufficiency in the right lower extremity. Left: This exam reveals mildly decreased perfusion of the left lower extremity, noted at the iliac artery level.
--- NOTE | 2017-11-18 23:19 | CP.PCM.PN ---
Subjective - Date & Time of Evaluation Date of Evaluation: 11/18/17 Time of Evaluation: 20:50 - Subjective Subjective: Pt seen and examined, has wound on left leg, afenrile s.p I and D on antibiotics Objective - Vital Signs/Intake and Output Vital Signs (last 24 hours): Temp Pulse Resp BP Pulse Ox 98.2 F 61 20 135/82 96 11/18/17 16:35 11/18/17 16:35 11/18/17 16:35 11/18/17 16:35 11/18/17 16:35 Intake and Output: 11/18/17 11/19/17 18:59 06:59 Intake Total 2390 530 Output Total 1000 Balance 2390 -470 - Medications Medications: Current Medications Enoxaparin Sodium (Lovenox) 40 mg SC DAILY [facility] Last Admin: 11/18/17 09:28 Dose: 40 mg Piperacillin Sod/Tazobactam Sod (Zosyn 3.375 Gm Iv Premix) 3.375 gm in 50 mls @ 100 mls/hr IVPB Q8H [facility] PRN Reason: Protocol Last Admin: 11/18/17 21:01 Dose: 100 mls/hr Vancomycin/Sodium Chloride (Vancomycin 1 Gm/Ns 200 Ml) 1 gm in 200 mls @ 133 mls/hr IVPB Q12H [facility] PRN Reason: Protocol Stop: 11/20/17 03:01 Last Admin: 11/18/17 14:23 Dose: 133 mls/hr Levetiracetam (Keppra) 500 mg PO BID [facility] Last Admin: 11/18/17 17:26 Dose: 500 mg Morphine Sulfate (Morphine) 2 mg IVP Q4 PRN PRN Reason: Pain, severe (8-10) Last Admin: 11/16/17 14:06 Dose: 2 mg Multivitamins (Hexavitamin) 1 tab PO DAILY [facility] Last Admin: 11/18/17 09:28 Dose: 1 tab - Labs Labs: 11/18/17 06:29 11/18/17 06:29 PT 12.0 SECONDS (9.7-12.2) 11/15/17 06:17 INR 1.1 11/15/17 06:17 APTT 31 SECONDS (21-34) 11/15/17 06:17 - Constitutional Appears: No Acute Distress - Head Exam Head Exam: ATRAUMATIC, NORMAL INSPECTION, NORMOCEPHALIC - Eye Exam Eye Exam: EOMI, Normal appearance, PERRL Pupil Exam: NORMAL ACCOMODATION, PERRL - ENT Exam ENT Exam: Mucous Membranes Moist, Normal Exam - Respiratory Exam Respiratory Exam: Clear to Ausculation Bilateral, NORMAL BREATHING PATTERN - Cardiovascular Exam Cardiovascular Exam: REGULAR RHYTHM, +S1, +S2. absent: Murmur - GI/Abdominal Exam GI & Abdominal Exam: Soft, Normal Bowel Sounds. absent: Tenderness Assessment and Plan (1) Cellulitis, leg Status: Acute (2) Alcohol abuse Status: Acute (3) Cellulitis Status: Acute (4) Heroin dependence Status: Acute (5) Homelessness Status: Acute
[2017-11-19] MEDS: Vancomycin 1 gm/NS 200 ml 1 GM/200 ML BAG IVPB SCH ×2 (03:35→14:56)
[2017-11-19] MEDS: Piperacill/Tazo 3.375gm in Dex 3.375 GM/50 ML BAG IVPB SCH ×3 (05:18→22:01)
[2017-11-19] MEDS: Multiple Vitamins Tab PO SCH (09:52)
[2017-11-19] MEDS: Enoxaparin 40 mg Syringe SC SCH (09:53)
--- NOTE | 2017-11-19 17:05 | CP.PCM.PN ---
Subjective - Date & Time of Evaluation Date of Evaluation: 11/19/17 Time of Evaluation: 08:00 - Subjective Subjective: no fever less pain alert responsive Objective - Vital Signs/Intake and Output Vital Signs (last 24 hours): Temp Pulse Resp BP Pulse Ox 98.2 F 69 20 119/81 96 11/19/17 15:00 11/19/17 15:00 11/19/17 15:00 11/19/17 15:00 11/19/17 15:00 Intake and Output: 11/19/17 11/19/17 06:59 18:59 Intake Total 530 1040 Output Total 1000 Balance -470 1040 - Medications Medications: Current Medications Enoxaparin Sodium (Lovenox) 40 mg SC DAILY [facility] Last Admin: 11/19/17 09:53 Dose: 40 mg Piperacillin Sod/Tazobactam Sod (Zosyn 3.375 Gm Iv Premix) 3.375 gm in 50 mls @ 100 mls/hr IVPB Q8H [facility] PRN Reason: Protocol Last Admin: 11/19/17 12:53 Dose: 100 mls/hr Vancomycin/Sodium Chloride (Vancomycin 1 Gm/Ns 200 Ml) 1 gm in 200 mls @ 133 mls/hr IVPB Q12H [facility] PRN Reason: Protocol Stop: 11/20/17 03:01 Last Admin: 11/19/17 14:56 Dose: 133 mls/hr Levetiracetam (Keppra) 500 mg PO BID [facility] Last Admin: 11/19/17 09:53 Dose: 500 mg Morphine Sulfate (Morphine) 2 mg IVP Q4 PRN PRN Reason: Pain, severe (8-10) Last Admin: 11/16/17 14:06 Dose: 2 mg Multivitamins (Hexavitamin) 1 tab PO DAILY [facility] Last Admin: 11/19/17 09:52 Dose: 1 tab - Labs Labs: 11/18/17 06:29 11/18/17 06:29 PT 12.0 SECONDS (9.7-12.2) 11/15/17 06:17 INR 1.1 11/15/17 06:17 APTT 31 SECONDS (21-34) 11/15/17 06:17 - Constitutional Appears: Non-toxic, Chronically Ill - Head Exam Head Exam: NORMOCEPHALIC - Eye Exam Eye Exam: PERRL - ENT Exam ENT Exam: Mucous Membranes Dry - Neck Exam Neck Exam: absent: Lymphadenopathy - Respiratory Exam Respiratory Exam: Decreased Breath Sounds - Cardiovascular Exam Cardiovascular Exam: REGULAR RHYTHM - GI/Abdominal Exam GI & Abdominal Exam: Distended - Rectal Exam Rectal Exam: Deferred - Exam Exam: NORMAL INSPECTION Assessment and Plan (1) Cellulitis, leg Status: Acute - Assessment and Plan (Free Text) Plan: cont wound care and IV rx await cultures
--- NOTE | 2017-11-19 22:31 | CP.PCM.PN ---
Subjective - Date & Time of Evaluation Date of Evaluation: 11/19/17 Time of Evaluation: 18:00 - Subjective Subjective: Pt seen and examined,afebrile, cont wound care and IV rx await cultures Objective - Vital Signs/Intake and Output Vital Signs (last 24 hours): Temp Pulse Resp BP Pulse Ox 98.2 F 69 20 119/81 96 11/19/17 15:00 11/19/17 15:00 11/19/17 15:00 11/19/17 15:00 11/19/17 15:00 Intake and Output: 11/19/17 11/20/17 18:59 06:59 Intake Total 2540 Balance 2540 - Medications Medications: Current Medications Enoxaparin Sodium (Lovenox) 40 mg SC DAILY [facility] Last Admin: 11/19/17 09:53 Dose: 40 mg Piperacillin Sod/Tazobactam Sod (Zosyn 3.375 Gm Iv Premix) 3.375 gm in 50 mls @ 100 mls/hr IVPB Q8H [facility] PRN Reason: Protocol Last Admin: 11/19/17 22:01 Dose: 100 mls/hr Vancomycin/Sodium Chloride (Vancomycin 1 Gm/Ns 200 Ml) 1 gm in 200 mls @ 133 mls/hr IVPB Q12H [facility] PRN Reason: Protocol Stop: 11/20/17 03:01 Last Admin: 11/19/17 14:56 Dose: 133 mls/hr Levetiracetam (Keppra) 500 mg PO BID [facility] Last Admin: 11/19/17 17:28 Dose: 500 mg Morphine Sulfate (Morphine) 2 mg IVP Q4 PRN PRN Reason: Pain, severe (8-10) Last Admin: 11/16/17 14:06 Dose: 2 mg Multivitamins (Hexavitamin) 1 tab PO DAILY [facility] Last Admin: 11/19/17 09:52 Dose: 1 tab - Labs Labs: 11/18/17 06:29 11/18/17 06:29 PT 12.0 SECONDS (9.7-12.2) 11/15/17 06:17 INR 1.1 11/15/17 06:17 APTT 31 SECONDS (21-34) 11/15/17 06:17 Assessment and Plan (1) Cellulitis, leg Status: Acute (2) Alcohol abuse Status: Acute (3) Cellulitis Status: Acute (4) Heroin dependence Status: Acute (5) Homelessness Status: Acute
[2017-11-20] MEDS: Vancomycin 1 gm/NS 200 ml 1 GM/200 ML BAG IVPB SCH ×2 (02:49→14:19)
[2017-11-20] MEDS: Piperacill/Tazo 3.375gm in Dex 3.375 GM/50 ML BAG IVPB SCH ×3 (05:14→21:17)
[2017-11-20] MEDS: Multiple Vitamins Tab PO SCH (09:37)
[2017-11-20] MEDS: Enoxaparin 40 mg Syringe SC SCH (09:37)
[2017-11-20] MEDS ORDERED: Vancomycin 1 gm/NS 200 ml 1 GM/200 ML BAG IVPB SCH (14:00)
--- NOTE | 2017-11-20 15:27 | CP.PCM.PN ---
Subjective - Date & Time of Evaluation Date of Evaluation: 11/20/17 Time of Evaluation: 15:25 - Subjective Subjective: DISCUSSED WITH EVA THE CM REGARDING D/C PLAN AND POSS D/C TODAY TO [facility]. HOWEVER, THERE IS NO DURATION FOR ABX IN CHART AND PT MAY NEED PICC LINE BASED ON DURATIONS. I DISCUSSED WITH DR LEMUS, WHO IS RECOMMENDING VANCO 1 GM Q12 HOURS AND ZOSYN 3.375 GM IV Q8 HOURS X2 WEEKS (START DATE 11/21/17 AND LAST DAY FOR DOSES IS 12/05/17). PICC LINE ORDERED FOR PLACEMENT TOMORROW BY PICC RN IF SHE IS AVAILABLE; IF NOT THEN TO BE ORDERED THROUGH IR. STILL PENDING FINAL CULTURE RESULTS. RX FOR THE IV ABX PROVIDED TO [facility] FOR D/C PREPARATION. NO FURTHER ORDERS. Objective - Vital Signs/Intake and Output Vital Signs (last 24 hours): Temp Pulse Resp BP Pulse Ox 97.6 F 61 20 129/75 97 11/20/17 07:53 11/20/17 14:18 11/20/17 07:53 11/20/17 14:18 11/20/17 14:18 Intake and Output: 11/20/17 11/20/17 06:59 18:59 Intake Total 1650 Output Total 500 Balance 1150 - Medications Medications: Current Medications Enoxaparin Sodium (Lovenox) 40 mg SC DAILY [facility] [place] Last Admin: 11/20/17 09:37 Dose: 40 mg Piperacillin Sod/Tazobactam Sod (Zosyn 3.375 Gm Iv Premix) 3.375 gm in 50 mls @ 100 mls/hr IVPB Q8H [facility] PRN Reason: Protocol Last Admin: 11/20/17 13:18 Dose: 100 mls/hr Vancomycin/Sodium Chloride (Vancomycin 1 Gm/Ns 200 Ml) 1 gm in 200 mls @ 133.333 mls/hr IVPB Q12H [facility] PRN Reason: Protocol Stop: 11/25/17 15:01 Last Admin: 11/20/17 14:19 Dose: 133.333 mls/hr Levetiracetam (Keppra) 500 mg PO BID [facility] [place] Last Admin: 11/20/17 09:37 Dose: 500 mg Morphine Sulfate (Morphine) 2 mg IVP Q4 PRN PRN Reason: Pain, severe (8-10) Last Admin: 11/16/17 14:06 Dose: 2 mg Multivitamins (Hexavitamin) 1 tab PO DAILY [facility] Last Admin: 11/20/17 09:37 Dose: 1 tab - Labs Labs: 11/18/17 06:29 11/18/17 06:29 PT 12.0 SECONDS (9.7-12.2) 11/15/17 06:17 INR 1.1 11/15/17 06:17 APTT 31 SECONDS (21-34) 11/15/17 06:17
--- NOTE | 2017-11-20 19:23 | CP.PCM.PN ---
Subjective - Date & Time of Evaluation Date of Evaluation: 11/20/17 Time of Evaluation: 09:00 - Subjective Subjective: resting in bed wound dry cultures noted to cont rx 14 days Objective - Vital Signs/Intake and Output Vital Signs (last 24 hours): Temp Pulse Resp BP Pulse Ox 98.3 F 67 20 123/76 96 11/20/17 15:00 11/20/17 15:00 11/20/17 15:00 11/20/17 15:00 11/20/17 15:00 Intake and Output: 11/20/17 11/21/17 18:59 06:59 Intake Total 770 Balance 770 - Medications Medications: Current Medications Enoxaparin Sodium (Lovenox) 40 mg SC DAILY [facility] Last Admin: 11/20/17 09:37 Dose: 40 mg Piperacillin Sod/Tazobactam Sod (Zosyn 3.375 Gm Iv Premix) 3.375 gm in 50 mls @ 100 mls/hr IVPB Q8H [facility] PRN Reason: Protocol Last Admin: 11/20/17 13:18 Dose: 100 mls/hr Vancomycin/Sodium Chloride (Vancomycin 1 Gm/Ns 200 Ml) 1 gm in 200 mls @ 133.333 mls/hr IVPB Q12H [facility] PRN Reason: Protocol Stop: 11/25/17 15:01 Last Admin: 11/20/17 14:19 Dose: 133.333 mls/hr Levetiracetam (Keppra) 500 mg PO BID [facility] Last Admin: 11/20/17 17:53 Dose: 500 mg Morphine Sulfate (Morphine) 2 mg IVP Q4 PRN PRN Reason: Pain, severe (8-10) Last Admin: 11/16/17 14:06 Dose: 2 mg Multivitamins (Hexavitamin) 1 tab PO DAILY [facility] Last Admin: 11/20/17 09:37 Dose: 1 tab - Labs Labs: 11/18/17 06:29 11/18/17 06:29 PT 12.0 SECONDS (9.7-12.2) 11/15/17 06:17 INR 1.1 11/15/17 06:17 APTT 31 SECONDS (21-34) 11/15/17 06:17 - Constitutional Appears: Non-toxic, Chronically Ill - Head Exam Head Exam: NORMOCEPHALIC - Eye Exam Eye Exam: PERRL - ENT Exam ENT Exam: Mucous Membranes Dry - Neck Exam Neck Exam: absent: Lymphadenopathy - Respiratory Exam Respiratory Exam: Decreased Breath Sounds - Cardiovascular Exam Cardiovascular Exam: REGULAR RHYTHM - GI/Abdominal Exam GI & Abdominal Exam: Distended, Soft - Rectal Exam Rectal Exam: Deferred - Exam Exam: NORMAL INSPECTION - Extremities Exam Extremities Exam: Calf Tenderness, Tenderness. absent: Normal Inspection, Pedal Edema - Back Exam Back Exam: absent: CVA tenderness (L), CVA tenderness (R) - Neurological Exam Neurological Exam: Alert, Awake, Normal Gait, Oriented x3 Neuro motor strength exam: Left Upper Extremity: 5, Right Upper Extremity: 5, Left Lower Extremity: 5, Right Lower Extremity: 5 - Psychiatric Exam Psychiatric exam: Depressed Assessment and Plan (1) Cellulitis, leg Status: Acute - Assessment and Plan (Free Text) Assessment: cont iv rx for 14 days cont wound care- follow with Dr Russell
--- NOTE | 2017-11-20 23:21 | CP.PCM.PN ---
Subjective - Date & Time of Evaluation Date of Evaluation: 11/20/17 Time of Evaluation: 19:00 - Subjective Subjective: Pt seen and examined, has wound on left leg, afenrile s.p I and D on antibiotics , wound cultures are pending Objective - Vital Signs/Intake and Output Vital Signs (last 24 hours): Temp Pulse Resp BP Pulse Ox 98.3 F 67 20 123/76 96 11/20/17 15:00 11/20/17 15:00 11/20/17 15:00 11/20/17 15:00 11/20/17 15:00 Intake and Output: 11/20/17 11/21/17 18:59 06:59 Intake Total 770 550 Balance 770 550 - Medications Medications: Current Medications Enoxaparin Sodium (Lovenox) 40 mg SC DAILY [facility] Last Admin: 11/20/17 09:37 Dose: 40 mg Piperacillin Sod/Tazobactam Sod (Zosyn 3.375 Gm Iv Premix) 3.375 gm in 50 mls @ 100 mls/hr IVPB Q8H [facility] PRN Reason: Protocol Last Admin: 11/20/17 21:17 Dose: 100 mls/hr Vancomycin/Sodium Chloride (Vancomycin 1 Gm/Ns 200 Ml) 1 gm in 200 mls @ 133.333 mls/hr IVPB Q12H [facility] PRN Reason: Protocol Stop: 11/25/17 15:01 Last Admin: 11/20/17 14:19 Dose: 133.333 mls/hr Levetiracetam (Keppra) 500 mg PO BID [facility] Last Admin: 11/20/17 17:53 Dose: 500 mg Morphine Sulfate (Morphine) 2 mg IVP Q4 PRN PRN Reason: Pain, severe (8-10) Last Admin: 11/16/17 14:06 Dose: 2 mg Multivitamins (Hexavitamin) 1 tab PO DAILY [facility] Last Admin: 11/20/17 09:37 Dose: 1 tab - Labs Labs: 11/18/17 06:29 11/18/17 06:29 PT 12.0 SECONDS (9.7-12.2) 11/15/17 06:17 INR 1.1 11/15/17 06:17 APTT 31 SECONDS (21-34) 11/15/17 06:17 - Constitutional Appears: No Acute Distress - Head Exam Head Exam: ATRAUMATIC, NORMAL INSPECTION, NORMOCEPHALIC - Eye Exam Eye Exam: EOMI, Normal appearance, PERRL Pupil Exam: NORMAL ACCOMODATION, PERRL - ENT Exam ENT Exam: Mucous Membranes Moist, Normal Exam - Neck Exam Neck Exam: Full ROM, Normal Inspection. absent: Lymphadenopathy - Respiratory Exam Respiratory Exam: Clear to Ausculation Bilateral, NORMAL BREATHING PATTERN Assessment and Plan (1) Cellulitis, leg Status: Acute (2) Alcohol abuse Status: Acute (3) Cellulitis Status: Acute (4) Heroin dependence Status: Acute (5) Homelessness Status: Acute
[2017-11-21] MEDS: Vancomycin 1 gm/NS 200 ml 1 GM/200 ML BAG IVPB SCH ×2 (03:29→14:50)
[2017-11-21] MEDS: Piperacill/Tazo 3.375gm in Dex 3.375 GM/50 ML BAG IVPB SCH ×2 (05:02→13:47)
[2017-11-21 07:27] LABS: HEMOGLOBIN 14.7 g/dL (12.0-18.0); MEAN CELL VOLUME 91.6 fL (80.0-94.0); MEAN CORPUSCULAR HEMOGLOBIN 31.4 pg (27.0-31.0); MEAN CORPUSCULAR HGB CONC 34.3 g/dL (33.0-37.0); MEAN PLATELET VOLUME 8.1 fL (7.2-11.7); RBC 4.66 Mil/uL (4.40-5.90); RED CELL DISTRIBUTION WIDTH 13.1 % (11.5-14.5); WHITE BLOOD COUNT 8.2 K/uL (4.8-10.8)
[2017-11-21 07:54] LABS: BLOOD UREA NITROGEN 17 mg/dL (9-20); GFR AFRICAN-AMERICAN > 60; GFR NON-AFRICAN AMERICAN > 60
[2017-11-21] MEDS: Multiple Vitamins Tab PO SCH (09:46)
[2017-11-21] MEDS: Enoxaparin 40 mg Syringe SC SCH (09:46)
--- NOTE | 2017-11-21 11:45 | RAD ---
HISTORY: Verify right PICC COMPARISON: Comparison chest 05/2010 FINDINGS: Interval placement right-sided PICC line with tip in the SVC. LUNGS: Minor bibasilar atelectasis. PLEURA: No significant pleural effusion identified, no pneumothorax apparent. CARDIOVASCULAR: Heart size appears enlarged unchanged. OSSEOUS STRUCTURES: Old healed left anterior 4th rib fracture. VISUALIZED UPPER ABDOMEN: Normal. OTHER FINDINGS: None. IMPRESSION: . Interval placement right-sided PICC line as above. No evidence of pneumothorax. Mild bibasilar atelectasis
--- NOTE | 2017-11-21 15:57 | CP.PCM.PN ---
Subjective - Date & Time of Evaluation Date of Evaluation: 11/21/17 Time of Evaluation: 15:57 - Subjective Subjective: Alert, awake, no sob or chest pains, left leg swelling improving. Objective - Vital Signs/Intake and Output Vital Signs (last 24 hours): Temp Pulse Resp BP Pulse Ox 97.7 F 61 20 138/81 96 11/21/17 08:32 11/21/17 08:32 11/21/17 08:32 11/21/17 08:32 11/21/17 08:32 Intake and Output: 11/21/17 11/21/17 06:59 18:59 Intake Total 1040 550 Balance 1040 550 - Medications Medications: Current Medications Enoxaparin Sodium (Lovenox) 40 mg SC DAILY [facility] Last Admin: 11/21/17 09:46 Dose: 40 mg Piperacillin Sod/Tazobactam Sod (Zosyn 3.375 Gm Iv Premix) 3.375 gm in 50 mls @ 100 mls/hr IVPB Q8H [facility] PRN Reason: Protocol Last Admin: 11/21/17 13:47 Dose: 100 mls/hr Vancomycin/Sodium Chloride (Vancomycin 1 Gm/Ns 200 Ml) 1 gm in 200 mls @ 133.333 mls/hr IVPB Q12H [facility] PRN Reason: Protocol Stop: 11/25/17 15:01 Last Admin: 11/21/17 14:50 Dose: 133.333 mls/hr Levetiracetam (Keppra) 500 mg PO BID [facility] Last Admin: 11/21/17 09:46 Dose: 500 mg Morphine Sulfate (Morphine) 2 mg IVP Q4 PRN PRN Reason: Pain, severe (8-10) Last Admin: 11/16/17 14:06 Dose: 2 mg Multivitamins (Hexavitamin) 1 tab PO DAILY [facility] Last Admin: 11/21/17 09:46 Dose: 1 tab - Labs Labs: 11/21/17 07:18 11/21/17 07:18 PT 12.0 SECONDS (9.7-12.2) 11/15/17 06:17 INR 1.1 11/15/17 06:17 APTT 31 SECONDS (21-34) 11/15/17 06:17 Assessment and Plan - Assessment and Plan (Free Text) Assessment: Patient admitted with left leg cellulitis, seen and examined. Awake, alert, denies acute pain. Discussed with DR Mendoza , plan to discharge to [facility] today. Will get 2 weeks of cipro and vancomycin IVPB FOR [address] Enriquez. Dressing to be changed daily. PT/ OT as tolerated. PICC line inserted.
[2017-11-21 16:24] VITALS: BP 115/70; PULSE 67; TEMP 97.8; O2SAT 95
--- NOTE | 2017-11-21 22:59 | CP.PCM.DIS ---
Provider - Provider Date of Admission: 11/14/17 13:36 Attending physician: Sonny Mendoza MD Time Spent in preparation of Discharge (in minutes): 58 Diagnosis - Discharge Diagnosis (1) Cellulitis, leg Status: Acute (2) Alcohol abuse Status: Acute (3) Cellulitis Status: Acute (4) Heroin dependence Status: Acute (5) Homelessness Status: Acute Hospital Course - Lab Results Lab Results: Micro Results 11/17/17 Unknown Leg - Left Gram Stain - Final 11/17/17 Unknown Leg - Left Wound Culture - Final Coagulase Neg Staphylococcus 11/17/17 Unknown Leg - Left Gram Stain - Final 11/17/17 Unknown Leg - Left Wound Culture - Final No growth. 11/14/17 12:00 Blood Blood Culture - Final NO GROWTH AFTER 5 DAYS 11/14/17 12:00 Blood Gram Stain - Final TEST NOT PERFORMED 11/14/17 11:45 Blood Blood Culture - Final NO GROWTH AFTER 5 DAYS 11/14/17 Unknown Leg - Left Gram Stain - Final 11/14/17 Unknown Leg - Left Wound Culture - Preliminary Staphylococcus Aureus Group F Streptococcus 11/15/17 12:20 Abscess - Leg-Left Gram Stain - Final 11/15/17 12:20 Abscess - Leg-Left Wound Culture - Preliminary Gram Positive Cocci Most Recent Lab Values WBC 8.2 K/uL (4.8-10.8) 11/21/17 07:18 RBC 4.66 Mil/uL (4.40-5.90) 11/21/17 07:18 Hgb 14.7 g/dL (12.0-18.0) 11/21/17 07:18 Hct 42.7 % (35.0-51.0) 11/21/17 07:18 MCV 91.6 fL (80.0-94.0) 11/21/17 07:18 MCH 31.4 pg (27.0-31.0) H 11/21/17 07:18 MCHC 34.3 g/dL (33.0-37.0) 11/21/17 07:18 RDW 13.1 % (11.5-14.5) 11/21/17 07:18 Plt Count 339 K/uL (130-400) 11/21/17 07:18 MPV 8.1 fL (7.2-11.7) 11/21/17 07:18 Neut % (Auto) 55.2 % (50.0-75.0) 11/15/17 06:17 Lymph % (Auto) 30.7 % (20.0-40.0) 11/15/17 06:17 [place] % (Auto) 8.6 % (0.0-10.0) 11/15/17 06:17 Eos % (Auto) 4.9 % (0.0-4.0) H 11/15/17 06:17 Baso % (Auto) 0.6 % (0.0-2.0) 11/15/17 06:17 Neut # (Auto) 5.2 K/uL (1.8-7.0) 11/15/17 06:17 Lymph # (Auto) 2.9 K/uL (1.0-4.3) 11/15/17 06:17 [place] # (Auto) 0.8 K/uL (0.0-0.8) 11/15/17 06:17 Eos # (Auto) 0.5 K/uL (0.0-0.7) 11/15/17 06:17 Baso # (Auto) 0.1 K/uL (0.0-0.2) 11/15/17 06:17 PT 12.0 SECONDS (9.7-12.2) 11/15/17 06:17 INR 1.1 11/15/17 06:17 APTT 31 SECONDS (21-34) 11/15/17 06:17 Sodium 140 mmol/L (132-148) 11/21/17 07:18 Potassium 4.3 mmol/L (3.6-5.2) 11/21/17 07:18 Chloride 106 mmol/L (98-107) 11/21/17 07:18 Carbon Dioxide 22 mmol/L (22-30) 11/21/17 07:18 Anion Gap 16 (10-20) 11/21/17 07:18 BUN 17 mg/dL (9-20) 11/21/17 07:18 Creatinine 0.9 mg/dL (0.8-1.5) 11/21/17 07:18 Est GFR ( Amer) > 60 11/21/17 07:18 Est GFR (Non-Af Amer) > 60 04/20/18 07:18 Random Glucose 86 mg/dL (75-110) 11/21/17 07:18 Calcium 9.0 mg/dl (8.6-10.4) 11/21/17 07:18 Total Bilirubin 0.7 mg/dL (0.2-1.3) 11/14/17 12:10 AST 104 U/L (17-59) H D 11/14/17 12:10 ALT 61 U/L (21-72) 11/14/17 12:10 Alkaline Phosphatase 71 U/L (38-126) 11/14/17 12:10 Total Protein 8.3 g/dL (6.3-8.3) 11/14/17 12:10 Albumin 3.8 g/dL (3.5-5.0) 11/14/17 12:10 Globulin 4.5 gm/dL (2.2-3.9) H 11/14/17 12:10 Albumin/Globulin Ratio 0.8 (1.0-2.1) L 11/14/17 12:10 Vancomycin Trough 9.4 ug/mL (5.0-10.0) 11/19/17 02:43 Hep Bs Antigen Negative (NEGATIVE) 11/17/17 07:18 Hepatitis C Antibody Reactive (NEGATIVE) 11/15/17 06:17 HIV 1&2 Antibody Screen Negative (NEGATIVE) 11/15/17 06:17 - Hospital Course Hospital Course: Pt seen and examined, has wound on left leg, afenrile s.p I and D , pt is for discharge Discharge Exam - Head Exam Head Exam: NORMOCEPHALIC - Eye Exam Eye Exam: Normal appearance - ENT Exam ENT Exam: Mucous Membranes Moist - Respiratory Exam Respiratory Exam: Clear to PA & Lateral, NORMAL BREATHING PATTERN - Cardiovascular Exam Cardiovascular Exam: REGULAR RHYTHM, +S1, +S2 - GI/Abdominal Exam GI & Abdominal Exam: Normal Bowel Sounds - Rectal Exam Rectal Exam: Deferred Discharge Plan - Discharge Medications Prescriptions: Acetaminophen [Tylenol 325mg tab] 650 mg PO Q6H PRN 7 Days tab PRN Reason: Pain, Severe (8-10) Vancomycin/0.9 % Sod Chloride [Vancomycin 1 G/100Ml-0.9% NaCl] 1 gm IV Q12 14 Days plast..bag Piperacill/Tazo 3.375gm in Dex [Zosyn 3.375 Gm IV Premix] 3.375 gm IVPB Q8 14 Days bag - Follow Up Plan Condition: GOOD Disposition: REHAB FACILITY/REHAB UNIT Instructions: Cellulitis (DC) Referrals: Sonny Mendoza MD [Staff Provider] -
== END 2017-11-21 17:00 | DRG 263 ==
LOC: C.ER 11:08 → C.9E 13:36 → C.3T 14:38
PROVIDERS: ADMIT Internal Medicine; ATTEND Internal Medicine
PROC: 0JBN0ZZ Excision of Right Lower Leg Subcutaneous Tissue and Fascia, Open Approach (ICD-10-PCS; 2017-11-15)
PROC: 0H9KXZX Drainage of Right Lower Leg Skin, External Approach, Diagnostic (ICD-10-PCS; 2017-11-15)
PROC: 0HXKXZZ Transfer Right Lower Leg Skin, External Approach (ICD-10-PCS; principal; 2017-11-15 10:00)
PROC: 0HBKXZZ Excision of Right Lower Leg Skin, External Approach (ICD-10-PCS; 2017-11-17)
PROC: 0HXKXZZ Transfer Right Lower Leg Skin, External Approach (ICD-10-PCS; 2017-11-17)
PROC: 02HV33Z Insertion of Infusion Device into Superior Vena Cava, Percutaneous Approach (ICD-10-PCS; 2017-11-21)
DX: L03.115 Cellulitis of right lower limb (principal); F11.20 Opioid dependence, uncomplicated; K70.30 Alcoholic cirrhosis of liver without ascites; N18.9 Chronic kidney disease, unspecified; L97.229 Non-pressure chronic ulcer of left calf with unspecified severity; L03.116 Cellulitis of left lower limb; F17.210 Nicotine dependence, cigarettes, uncomplicated; I12.9 Hypertensive chronic kidney disease with stage 1 through stage 4 chronic kidney disease, or unspecified chronic kidney disease; J45.909 Unspecified asthma, uncomplicated; Z59.0 Homelessness; Z87.442 Personal history of urinary calculi; Z90.49 Acquired absence of other specified parts of digestive tract

== ENCOUNTER 2017-12-08 19:31 | Inpatient (IN) | payer MEDICAID ==
--- NOTE | 2017-12-08 20:20 | C.PDOC ---
History Of Present Illness <George Blandon R - Last Filed: 12/19/17 13:32> <Dayna Marsh N - Last Filed: 12/23/17 00:26> Mr Gonzales is a 57 year old M with past medical hx of seizure disorder, heroin dependence, hep C, homelessness, and most recently left leg cellulitis s/p I&D who reportedly was found obtunded in the street. He is a poor historian and could not answer our questions. Shortly after arriving to the ER he had a seizure. He was discharged on 11/21/17 to [facility] with a PICC at that time and was to receive 14 days of IV cipro and vanco. His course after discharge is not known to us. (George Blandon) <George Blandon - Last Filed: 12/19/17 13:32> <Dayna Marsh - Last Filed: 12/23/17 00:26> Time Seen by Provider: 12/08/17 19:50 Chief Complaint (Nursing): Cough, Cold, Congestion Past Medical History - Medical History PMH: Asthma, Fractures (rib cage), HTN, Kidney Stones, Chronic Kidney Disease, Seizures Surgical History: Cholecystectomy Family History: States: Unknown Family Hx - Social History Hx Tobacco Use: Yes Hx Alcohol Use: Yes Hx Substance Use: No (pt denies.) - Immunization History Hx Tetanus Toxoid Vaccination: No (UNKNOWN) Hx Influenza Vaccination: No Hx Pneumococcal Vaccination: Yes <George Blandon - Last Filed: 12/19/17 13:32> Vital Signs: Last Vital Signs Temp 98.0 F 12/15/17 15:00 Pulse 67 12/15/17 15:00 Resp 20 12/15/17 15:00 BP 134/73 12/15/17 15:00 Pulse Ox 93 L 12/19/17 13:32 - [facility] Procedures DRAINAGE OF RIGHT LOWER LEG SKIN, EXTERNAL APPROACH, DIAGN (11/14/17) EXCISION OF R LOW LEG SUBCU/FASCIA, OPEN APPROACH (11/14/17) EXCISION OF RIGHT LOWER LEG SKIN, EXTERNAL APPROACH (11/14/17) INSERTION OF ENDOTRACHEAL AIRWAY INTO TRACHEA, VIA OPENING (03/10/16) INSERTION OF INFUSION DEV INTO SUP VENA CAVA, PERC APPROACH (11/14/17) RESPIRATORY VENTILATION, GREATER THAN 96 CONSECUTIVE HOURS (03/10/16) TETANUS TOXOID ADMINIST (11/03/14) TRANSFER RIGHT LOWER LEG SKIN, EXTERNAL APPROACH (11/14/17) Review Of Systems Constitutional: Negative for: Fever, Chills, Sweats Eyes: Negative for: Pain, Vision Change, Conjunctivae Inflammation ENT: Negative for: Ear Pain, Ear Discharge, Nose Pain Cardiovascular: Negative for: Chest Pain, Palpitations, Orthopnea Respiratory: Negative for: Cough, Shortness of Breath, Hemoptysis Gastrointestinal: Negative for: Nausea, Vomiting Genitourinary: Negative for: Dysuria, Frequency, Incontinence Musculoskeletal: Negative for: Neck Pain, Shoulder Pain, Arm Pain Skin: Negative for: Rash Neurological: Negative for: Weakness Psych: Negative for: Anxiety <Dayna Marsh - Last Filed: 12/23/17 00:26> Physical Exam - Physical Exam Tongue: Normal Appearing Lips: Normal Appearing Respiratory: Normal Breath Sounds Back: Normal Inspection Extremity: Normal ROM <Dayna Marsh N - Last Filed: 12/23/17 00:26> ED Course And Treatment - Laboratory Results Result Diagrams: 12/12/17 06:16 12/12/17 06:17 O2 Sat by Pulse Oximetry: 93 <Geroge Blandon - Last Filed: 12/19/17 13:32> - Laboratory Results Result Diagrams: 12/12/17 06:16 12/12/17 06:17 <Dayna Marsh - Last Filed: 12/23/17 00:26> Medical Decision Making <George Blandon - Last Filed: 12/19/17 13:32> <Dayna Marsh N - Last Filed: 12/23/17 00:26> Medical Decision Making: Spoke with Dr. Woods at 10:[address] scan head and ct chest ordered ordered. wbc 25,000 elevation in bun/cr ekg: sinus tach rate 116/pr-154/qrs-76/qt/qtc-318/442 no ischemic changes (Dayna Marsh) Disposition - Disposition Disposition Time: 13:32 <George Blandon - Last Filed: 12/19/17 13:32> <Dayna Marsh - Last Filed: 12/23/17 00:26> - Disposition Disposition: HOSPITALIZED Condition: SERIOUS - Clinical Impression Clinical Impression: Cellulitis
[2017-12-08] MEDS ORDERED: Naloxone 0.4 mg/ml Inj (Adult) IVP ONE ×3 (20:22→21:44)
[2017-12-08] MEDS ORDERED: levETIRAcetam 500 MG in Sodium Chloride 0.9% 100 ML IVPB ONE (20:31)
[2017-12-08 20:41] LABS: BASO # 0.2 K/uL (0.0-0.2); BASO % 0.6 % (0.0-2.0); EOS # 0.2 K/uL (0.0-0.7); EOS % 0.9 % (0.0-4.0); HEMOGLOBIN 14.5 g/dL (12.0-18.0); LYMPH % 27.7 % (20.0-40.0); MEAN CELL VOLUME 92.1 fL (80.0-94.0); MEAN CORPUSCULAR HEMOGLOBIN 31.3 pg (27.0-31.0); MEAN CORPUSCULAR HGB CONC 33.9 g/dL (33.0-37.0); MEAN PLATELET VOLUME 8.1 fL (7.2-11.7); MONO % 7.8 % (0.0-10.0); NRBC % 0.1 % (0.0-2.0); RBC 4.63 Mil/uL (4.40-5.90); RED CELL DISTRIBUTION WIDTH 13.5 % (11.5-14.5)
[2017-12-08 20:42] LABS: WHITE BLOOD COUNT 25.4 K/uL (4.8-10.8)
[2017-12-08] MEDS ORDERED: Naloxone 0.4 mg/ml Inj (Adult) ONE (20:46)
[2017-12-08 20:48] LABS: VENOUS BLOOD GAS BASE EXCESS -9.6 mmol/L (0.0-2.0); VENOUS BLOOD GAS PCO2 47 mmHg (40-60); VENOUS BLOOD GAS PO2 65 mm/Hg (30-55)
[2017-12-08] MEDS ORDERED: Lactated Ringer's 2,000 ML ONE (20:49)
[2017-12-08] MEDS ORDERED: levETIRAcetam 1,000 MG in Sodium Chloride 0.9% 100 ML IVPB ONE (21:00)
[2017-12-08] MEDS ORDERED: Ciprofloxacin 400mg/200ml D5W 400 MG/200 ML BAG IVPB ONE (21:00)
[2017-12-08 21:07] LABS: ALBUMIN 4.3 g/dL (3.5-5.0); ALT/SGPT 165 U/L (21-72); AST/SGOT 158 U/L (17-59); BLOOD UREA NITROGEN 17 mg/dL (9-20); CALCIUM 9.7 mg/dl (8.6-10.4); GFR AFRICAN-AMERICAN > 60; GFR NON-AFRICAN AMERICAN > 60
[2017-12-08] MEDS ORDERED: Vancomycin 1 gm/NS 200 ml 1 GM/200 ML BAG IVPB ONE (22:00)
[2017-12-08] MEDS ORDERED: Thiamine 100 mg/ml Inj IV ONE (23:08)
[2017-12-08] MEDS ORDERED: Piperacill/Tazo 3.375gm in Dex 3.375 GM/50 ML BAG IVPB SCH (23:15)
--- NOTE | 2017-12-08 23:15 | CT ---
EXAM: CT Head Without Intravenous Contrast CLINICAL HISTORY: 57 years old, male; Signs and symptoms; Altered mental status/memory loss and syncope and collapse; Confusion or disorientation; Additional info: Altered with seizure TECHNIQUE: Axial computed tomography images of the head/brain without intravenous contrast. All CT scans at this facility use one or more dose reduction techniques, viz.: automated exposure control; ma/kV adjustment per patient size (including targeted exams where dose is matched to indication; i.e. head); or iterative reconstruction technique. COMPARISON: CT - HEAD W/O CONTRAST 2015-11-03 11:11 FINDINGS: Limitations: Suboptimal positioning. Brain: Mild atrophy. No intracranial hemorrhage. No mass. Dilated perivascular space vs chronic lacunar infarct about LEFT basal ganglia. No definite edema. Ventricles: No hydrocephalus. Bones/joints: No acute fracture. Soft tissues: Unremarkable. Sinuses: Scattered mild mucosal thickening. Mastoid air cells: No mastoid effusion. Orbits: Unremarkable as visualized. Dental: Few periapical lucencies compatible with dental disease. IMPRESSION: 1. No definite acute intracranial abnormality. 2. Incidental/non-acute findings are described above.
--- NOTE | 2017-12-08 23:24 | CT ---
EXAM: CT Chest Without Intravenous Contrast CLINICAL HISTORY: 57 years old, male; Condition or disease; Lung condition and disease; Pneumonia TECHNIQUE: Axial computed tomography images of the chest without intravenous contrast. All CT scans at this facility use one or more dose reduction techniques, viz.: automated exposure control; ma/kV adjustment per patient size (including targeted exams where dose is matched to indication; i.e. head); or iterative reconstruction technique. Coronal and sagittal reformatted images were created and reviewed. COMPARISON: No relevant prior studies available. FINDINGS: Limitations: Motion artifact - mild to moderate. Lack of intravenous contrast. Lungs: Complete consolidation with air bronchograms of left lower lobe with volume loss. Extensive patchy and confluent consolidation with air bronchograms of right lower lobe with volume loss. Moderate patchy and confluent consolidation with air bronchograms of right middle lobe with volume loss. Partial occlusion of bronchus intermedius, right middle, right lower lobe bronchi. Occlusion of left lower lobe bronchi. Pleural space: No pneumothorax. No significant effusion. Heart: Mild cardiomegaly. No significant pericardial effusion. Mediastinum: Mild mural thickening vs underdistention of distal esophagus. 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 Few healed rib fractures. Mild degenerative changes of spine. Soft tissues: Unremarkable. Vasculature: Minimal atherosclerotic disease. No aneurysm. Lymph nodes: No pathologically enlarged lymph nodes. IMPRESSION: 1. Occlusion of right middle, right lower, left lower lobe bronchi with partial collapse/collapse with probable superimposed pneumonia. Correlation with bronchoscopy is suggested. 2. Incidental/non-acute findings are described above.
[2017-12-08 23:30] VITALS: BMI 20.6
--- NOTE | 2017-12-08 23:30 | CP.PCM.CON ---
History of Present Illness - History of Present Illness History of Present Illness: 57 M with h/o IVDA, left leg wound, cellulitis, ? seizure history, heroin abuse, h/o hepc, was discharged from hospital on 11/21 to rehab to complete his 2 wk abx course of vancomycin and cipro, patient apparently got discharged from the rehab day before yesterday. He was found passed out on the street, with fresh track rosales on the arm for ivda. In ER he was sleepy but arousable. Patient in ER had episode of seizure and was given 2mg of ativan, keppra 1g loading dose. Patient's pupils were pin point and was very lethargic after above treatment hence patient was then given narcan 0.1mg x3 doses. He had temp spike, was coughing and post seizure was on NRB as spo2 dropped off and on with lethargy. Patient had CT head, and ct chest, head ct was unremarkable for any ic injury or fractures, Chest CT showed b/l atelectesis and pna, right > left. Patient still lethargic and not communicating to provide any more detailed information. PMH as above Meds unknown if compliant and and discharge med list Allergies Ibuprofen, type and detail not known Family history not contributory Social recent discharge form rehab, heroin abuse Review of Systems - Review of Systems All systems: reviewed and no additional remarkable complaints except (HPI) Past Patient History - Infectious Disease Hx of Infectious Diseases: None - Past Medical History & Family History Past Medical History?: Yes - Past Social History Smoking Status: Light Smoker < 10 Cigarettes Daily Alcohol: Other (unknown) Drugs: Opiates Home Situation {Lives}: Other (unknown) - CARDIAC Hx Hypertension: Yes - PULMONARY Hx Asthma: Yes - NEUROLOGICAL Hx Seizures: Yes - HEENT Hx HEENT Problems: No - RENAL Hx Chronic Kidney Disease: Yes Hx Kidney Stones: Yes - ENDOCRINE/METABOLIC Hx Endocrine Disorders: No - HEMATOLOGICAL/ONCOLOGICAL Hx Blood Disorders: Yes Hx Hepatitis C: Yes - INTEGUMENTARY Hx Dermatological Problems: Yes Other/Comment: left leg cellulitis - MUSCULOSKELETAL/RHEUMATOLOGICAL Hx Fractures: Yes (rib cage) - GASTROINTESTINAL Hx Gastrointestinal Disorders: Yes Other/Comment: Liver Cirrhosis - GENITOURINARY/GYNECOLOGICAL Hx Genitourinary Disorders: No - PSYCHIATRIC Hx Substance Use: No (pt denies.) - SURGICAL HISTORY Hx Cholecystectomy: Yes - ANESTHESIA Hx Anesthesia: Yes Hx Anesthesia Reactions: No Meds Allergies/Adverse Reactions: Allergies Allergy/AdvReac Type Severity Reaction Status Date / Time ibuprofen Allergy Intermediate RASH Verified 12/08/17 19:49 - Medications Medications: Current Medications Famotidine (Pepcid) 20 mg IVP Q12 [facility] Heparin Sodium (Porcine) (Heparin) 5,000 units SC Q8 [facility] Vancomycin/Sodium Chloride (Vancomycin 1 Gm/Ns 200 Ml) 1 gm in 200 mls @ 133.333 mls/hr IVPB ONCE ONE PRN Reason: Protocol Stop: 12/08/17 23:29 Last Admin: 12/08/17 21:19 Dose: 133.333 mls/hr Doxycycline Hyclate 100 mg/ (Sodium Chloride) 100 mls @ 100 mls/hr IVPB Q12H [facility] PRN Reason: Protocol Levetiracetam 500 mg/ Dextrose 105 mls @ 420 mls/hr IVPB Q12H [facility] Piperacillin Sod/Tazobactam Sod (Zosyn 3.375 Gm Iv Premix) 3.375 gm in 50 mls @ 100 mls/hr IVPB Q6H [facility] PRN Reason: Protocol Physical Exam - Additional Findings Additional findings: * HEENT currently pupils 5-6 mm * Neck Supple * Chest, reduced in both bases * CVS borderline tachycardia, no murmur * PA soft, nt bs present * Ext no edema, left wound medially, slightly bigger then right * [employer]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 Results - Vital Signs Recent Vital Signs: Last Vital Signs Temp 102.2 F H 12/08/17 19:41 Pulse 113 H 12/08/17 22:18 Resp 24 12/08/17 22:18 BP 139/92 H 12/08/17 22:18 Pulse Ox 94 L 12/08/17 22:18 - Labs Result Diagrams: 12/08/17 20:34 12/08/17 20:34 Labs: Laboratory Results - last 24 hr 12/08/17 12/08/17 12/08/17 20:34 20:34 20:34 WBC 25.4 H D RBC 4.63 Hgb 14.5 Hct 42.7 MCV 92.1 MCH 31.3 H MCHC 33.9 RDW 13.5 Plt Count 267 MPV 8.1 Neut % (Auto) 63.0 Lymph % (Auto) 27.7 [place] % (Auto) 7.8 Eos % (Auto) 0.9 Baso % (Auto) 0.6 Neut # (Auto) 16.0 H Lymph # (Auto) 7.0 H [place] # (Auto) 2.0 H Eos # (Auto) 0.2 Baso # (Auto) 0.2 Differential Comment pO2 VBG pH VBG pCO2 VBG HCO3 VBG Total CO2 VBG O2 Sat (Calc) VBG Base Excess VBG Potassium Glucose Lactate Crit Value Called To Crit Value Called By Crit Value Read Back Blood Gas Notified Time Sodium 146 Potassium 3.7 Chloride 104 Carbon Dioxide 19 L Anion Gap 27 H BUN 17 Creatinine 0.9 Est GFR ( Amer) > 60 Est GFR (Non-Af Amer) > 60 Random Glucose 108 Calcium 9.7 Phosphorus 2.4 L Magnesium 1.7 Total Bilirubin 1.3 AST 158 H D ALT 165 H D Alkaline Phosphatase 84 C-React Prot High Sens > 15.00 H Total Protein 8.8 H Albumin 4.3 Globulin 4.5 H Albumin/Globulin Ratio 1.0 Venous Blood Potassium 12/08/17 20:44 WBC RBC Hgb Hct MCV MCH MCHC RDW Plt Count MPV Neut % (Auto) Lymph % (Auto) [place] % (Auto) Eos % (Auto) Baso % (Auto) Neut # (Auto) Lymph # (Auto) [place] # (Auto) Eos # (Auto) Baso # (Auto) Differential Comment pO2 65 H VBG pH 7.20 L VBG pCO2 47 VBG HCO3 17.2 VBG Total CO2 19.8 L VBG O2 Sat (Calc) 93.8 H VBG Base Excess -9.6 L VBG Potassium 3.6 Glucose 106 Lactate 8.6 H* Crit Value Called To Er nurse natanael Crit Value Called By Candi gusman Crit Value Read Back Y Blood Gas Notified Time 2047 Sodium 141.0 Potassium Chloride 107.0 Carbon Dioxide Anion Gap BUN Creatinine Est GFR ( Amer) Est GFR (Non-Af Amer) Random Glucose Calcium Phosphorus Magnesium Total Bilirubin AST ALT Alkaline Phosphatase C-React Prot High Sens Total Protein Albumin Globulin Albumin/Globulin Ratio Venous Blood Potassium 3.6 Assessment & Plan - Assessment and Plan (Free Text) Assessment: * Lethargy multifactorial, opiod overdose, seizure, post ictal, iv ativan * B/l PNA and atelectesis form aspiration and shallow breathing * Sepsis due to above * Lactiacidosis likely form seizure rather shock as maintained bp * Heroin abuse * Hep c+ * Recent left lower leg cellulitis Plan: * Supportive care * Seizure, aspiration precautions * Zosyn and doxycycline as abx * Kepra iv * GI/DVT prophylaxis * venous doppler due to left leg celllitis and slight swelling * Thiamine iv * Observe in ICU * Gradually reduce O2 supplement, and watch end-tidal co2 * See orders for detail
[2017-12-08] MEDS: Piperacill/Tazo 3.375gm in Dex 3.375 GM/50 ML BAG IVPB SCH (23:45)
[2017-12-09 00:24] LABS: VENOUS BLOOD GAS PCO2 48 mmHg (40-60); VENOUS BLOOD GAS PO2 32 mm/Hg (30-55)
[2017-12-09 00:42] LABS: BARBITURATES, UR NEGATIVE (NEGATIVE); BENZODIAZEPINES, UR NEGATIVE (NEGATIVE); PHENCYCLIDINE, UR NEGATIVE (NEGATIVE)
[2017-12-09 01:09] LABS: OPIATES, UR POSITIVE (NEGATIVE)
[2017-12-09 02:08] LABS: URINE COLOR AMBER (YELLOW)
[2017-12-09 02:09] LABS: URINE BILIRUBIN NEGATIVE (NEGATIVE); URINE BLOOD 1+ (NEGATIVE); URINE CLARITY HAZY (Clear); URINE GLUCOSE (UA) NORMAL (Normal)
[2017-12-09 02:10] LABS: SQUAMOUS EPITHIAL 1 /hpf (0-5); URINE LEUKOCYTE ESTERASE NEGATIVE Leu/uL (Negative); URINE PROTEIN 1+ mg/dL (NEGATIVE)
[2017-12-09 02:11] LABS: URINE BACTERIA RARE (<OCC)
[2017-12-09] MEDS: Piperacill/Tazo 3.375gm in Dex 3.375 GM/50 ML BAG IVPB SCH ×4 (05:45→22:26)
[2017-12-09 06:20] LABS: BASO % 0.2 % (0.0-2.0); EOS # 0.1 K/uL (0.0-0.7); EOS % 0.8 % (0.0-4.0); HEMOGLOBIN 13.1 g/dL (12.0-18.0); LYMPH # 3.3 K/uL (1.0-4.3); LYMPH % 17.9 % (20.0-40.0); MEAN CELL VOLUME 91.5 fL (80.0-94.0); MEAN CORPUSCULAR HGB CONC 33.9 g/dL (33.0-37.0); MEAN PLATELET VOLUME 8.6 fL (7.2-11.7); MONO # 1.4 K/uL (0.0-0.8); MONO % 7.6 % (0.0-10.0); NEUT # 13.6 K/uL (1.8-7.0); NEUT % 73.5 % (50.0-75.0); RBC 4.22 Mil/uL (4.40-5.90); RED CELL DISTRIBUTION WIDTH 13.4 % (11.5-14.5); WHITE BLOOD COUNT 18.5 K/uL (4.8-10.8)
[2017-12-09 06:27] LABS: INR 1.2; PROTHROMBIN TIME 13.1 SECONDS (9.7-12.2)
[2017-12-09 06:45] LABS: ALB/GLOB RATIO 0.9 (1.0-2.1); ALBUMIN 3.3 g/dL (3.5-5.0); ALT/SGPT 118 U/L (21-72); AST/SGOT 92 U/L (17-59); BLOOD UREA NITROGEN 15 mg/dL (9-20); CALCIUM 8.9 mg/dl (8.6-10.4); GFR AFRICAN-AMERICAN > 60; GFR NON-AFRICAN AMERICAN > 60
--- NOTE | 2017-12-09 08:15 | RAD ---
Chest x-ray single frontal view History: Sepsis. Comparison: 05/13/2017 Findings: Diffuse increased interstitial lung markings which may represent edema versus infiltrate versus vascular congestion. More confluent consolidative changes in the right infrahilar region. Tortuous ectatic aorta. Degenerative changes in the spine and shoulders. Bilateral hilar prominence. Impression: Diffuse increased interstitial lung markings which may represent edema versus infiltrate versus vascular congestion. More confluent consolidative changes in the right infrahilar region. Tortuous ectatic aorta. Degenerative changes in the spine and shoulders. Bilateral hilar prominence.
--- NOTE | 2017-12-09 12:35 | CARD ---
APPROVED REPORT EKG Measurement Heart [id number] <Conclusion> Sinus tachycardia Possible Left atrial enlargement Nonspecific T wave abnormality Abnormal ECG
--- NOTE | 2017-12-09 15:36 | CP.CCUPN ---
"<Enma Granda - Last Filed: 12/09/17 15:54> CCU Subjective - Physician Review Subjective (Free Text): Patient seen and examined at bedside. No overnight events reported. Patient denied any illicit drug use. Patient complains of mild dyspnea which is improved with NC O2 and generalized weakness. CCU Objective - Vital Signs / Intake & Output Vital Signs (Last 4 hours): Vital Signs Temp Pulse Resp BP Pulse Ox 12/09/17 14:01 86 17 113/66 94 L 12/09/17 14:00 87 18 95 12/09/17 13:01 86 21 111/74 96 12/09/17 13:00 79 19 95 12/09/17 12:01 87 15 124/77 97 12/09/17 12:00 98.9 F 87 18 97 Intake and Output (Last 8hrs): Intake & Output 12/09/17 12/09/17 12/09/17 06:59 14:59 22:59 Intake Total 400 560 Output Total 1000 351 Balance -600 209 Weight 148 lb 1 oz Intake: Intake, IV Amount 400 200 Left Hand 400 200 Oral 360 Output: Urine 1000 350 Urethral (Bowman) 1000 350 Stool 1 - Physical Exam Head: Positive for: Atraumatic, Normocephalic Pupils: Positive for: PERRL Extroacular Muscles: Positive for: EOMI Conjunctiva: Positive for: Normal Mouth: Positive for: Moist Mucous Membranes Respiratory/Chest: Positive for: Wheezes (Upper Lungs, B/L. ), Decreased Breath Sounds (lung bases, B/L. ) Cardiovascular: Positive for: Normal S1, S2 Abdomen: Positive for: Normal Bowel Sounds. Negative for: Tenderness, Peritoneal Signs Lower Extremity: Positive for: Normal Inspection. Negative for: Edema Neurological: Positive for: GCS=15 Skin: Positive for: Warm, Dry, Normal Color Psychiatric: Positive for: Alert, Oriented x 3 - Medications Active Medications: Active Medications Generic Name Dose Route Start Last Admin Trade Name Freq PRN Reason Stop Dose Admin Heparin Sodium (Porcine) 5,000 units 12/09/17 06:00 12/09/17 14:30 Heparin SC 5,000 units Q8 BAYRON Administration Doxycycline Hyclate 100 mg/ 100 mls @ 100 mls/hr 12/08/17 23:15 12/09/17 11: 23 Sodium Chloride IVPB 100 mls/hr Q12H BAYRON Administration Protocol Levetiracetam 500 mg/ Dextrose 105 mls @ 420 mls/hr 12/09/17 10:00 12/09/17 09:52 IVPB 420 mls/hr Q12H BAYRON Administration Piperacillin Sod/Tazobactam Sod 3.375 gm in 50 mls @ 100 mls/hr 12/08/17 23: 00 12/09/17 11:23 Zosyn 3.375 Gm Iv Premix IVPB 100 mls/hr Q6H BAYRON Administration Protocol Pantoprazole Sodium 40 mg 12/09/17 10:00 12/09/17 09:52 Protonix Inj IVP 40 mg DAILY BAYRON Administration - Patient Studies Lab Studies: Lab Studies 12/09/17 12/09/17 12/09/17 Range/Units 06:05 06:05 06:05 WBC 18.5 H (4.8-10.8) K/uL RBC 4.22 L (4.40-5.90) Mil/uL Hgb 13.1 (12.0-18.0) g/dL Hct 38.6 (35.0-51.0) % MCV 91.5 (80.0-94.0) fL MCH 31.0 (27.0-31.0) pg MCHC 33.9 (33.0-37.0) g/dL RDW 13.4 (11.5-14.5) % Plt Count 177 (130-400) K/uL MPV 8.6 (7.2-11.7) fL Neut % (Auto) 73.5 (50.0-75.0) % Lymph % (Auto) 17.9 L (20.0-40.0) % [place] % (Auto) 7.6 (0.0-10.0) % Eos % (Auto) 0.8 (0.0-4.0) % Baso % (Auto) 0.2 (0.0-2.0) % Neut # (Auto) 13.6 H (1.8-7.0) K/uL Lymph # (Auto) 3.3 (1.0-4.3) K/uL [place] # (Auto) 1.4 H (0.0-0.8) K/uL Eos # (Auto) 0.1 (0.0-0.7) K/uL Baso # (Auto) 0.0 (0.0-0.2) K/uL Differential Comment PT 13.1 H (9.7-12.2) SECONDS INR 1.2 APTT 33 (21-34) SECONDS pO2 (30-55) mm/Hg VBG pH (7.32-7.43) VBG pCO2 (40-60) mmHg VBG HCO3 mmol/L VBG Total CO2 (22-28) mmol/L VBG O2 Sat (Calc) (40-65) % VBG Base Excess (0.0-2.0) mmol/L VBG Potassium (3.6-5.2) mmol/L Glucose (75-110) mg/dl Lactate (0.7-2.1) mmol/L Crit Value Called To Crit Value Called By Crit Value Read Back Blood Gas Notified Time Sodium 139 (132-148) mmol/L Potassium 3.8 (3.6-5.2) mmol/L Chloride 102 (98-107) mmol/L Carbon Dioxide 29 (22-30) mmol/L Anion Gap 12 (10-20) BUN 15 (9-20) mg/dL Creatinine 0.7 L (0.8-1.5) mg/dL Est GFR ( Amer) > 60 Est GFR (Non-Af Amer) > 60 Random Glucose 90 (75-110) mg/dL Calcium 8.9 (8.6-10.4) mg/dl Phosphorus 1.8 L (2.5-4.5) mg/dL Magnesium 1.7 (1.6-2.3) mg/dL Total Bilirubin 1.5 H (0.2-1.3) mg/dL AST 92 H D (17-59) U/L ALT 118 H D (21-72) U/L Alkaline Phosphatase 62 (38-126) U/L Ammonia (9-33) umol/L C-React Prot High Sens (1.00-3.00) mg/L Total Protein 6.9 (6.3-8.3) g/dL Albumin 3.3 L D (3.5-5.0) g/dL Globulin 3.6 (2.2-3.9) gm/dL Albumin/Globulin Ratio 0.9 L (1.0-2.1) Procalcitonin (0.19-0.49) NG/ML Venous Blood Potassium (3.6-5.2) mmol/L Urine Color (YELLOW) Urine Clarity (Clear) Urine pH (5.0-8.0) Ur Specific [place] (1.003-1.030) Urine Protein (NEGATIVE) mg/dL Urine Glucose (UA) (Normal) mg/dL Urine Ketones (NEGATIVE) mg/dL Urine Blood (NEGATIVE) Urine Nitrate (NEGATIVE) Urine Bilirubin (NEGATIVE) Urine Urobilinogen (0.2-1.0) mg/dL Ur Leukocyte Esterase (Negative) Antonio/uL Urine WBC (Auto) (0-5) /hpf Urine RBC (Auto) (0-3) /hpf Ur Squamous Epith Cells (0-5) /hpf Urine Bacteria (<OCC) Urine Opiates Screen (NEGATIVE) Urine Methadone Screen (NEGATIVE) Ur Barbiturates Screen (NEGATIVE) Ur Phencyclidine Scrn (NEGATIVE) Ur Amphetamines Screen (NEGATIVE) U Benzodiazepines Scrn (NEGATIVE) U Oth Cocaine Metabols (NEGATIVE) U Cannabinoids Screen (NEGATIVE) Alcohol, Quantitative < 10 (0-10) mg/dl 12/09/17 12/09/17 12/09/17 Range/Units 00:15 00:15 00:14 WBC (4.8-10.8) K/uL RBC (4.40-5.90) Mil/uL Hgb (12.0-18.0) g/dL Hct (35.0-51.0) % MCV (80.0-94.0) fL MCH (27.0-31.0) pg MCHC (33.0-37.0) g/dL RDW (11.5-14.5) % Plt Count (130-400) K/uL MPV (7.2-11.7) fL Neut % (Auto) (50.0-75.0) % Lymph % (Auto) (20.0-40.0) % [place] % (Auto) (0.0-10.0) % Eos % (Auto) (0.0-4.0) % Baso % (Auto) (0.0-2.0) % Neut # (Auto) (1.8-7.0) K/uL Lymph # (Auto) (1.0-4.3) K/uL [place] # (Auto) (0.0-0.8) K/uL Eos # (Auto) (0.0-0.7) K/uL Baso # (Auto) (0.0-0.2) K/uL Differential Comment PT (9.7-12.2) SECONDS INR APTT (21-34) SECONDS pO2 32 (30-55) mm/Hg VBG pH 7.40 (7.32-7.43) VBG pCO2 48 (40-60) mmHg VBG HCO3 27.1 mmol/L VBG Total CO2 31.2 H (22-28) mmol/L VBG O2 Sat (Calc) 75.1 H (40-65) % VBG Base Excess 4.0 H (0.0-2.0) mmol/L VBG Potassium 3.8 (3.6-5.2) mmol/L Glucose 123 H (75-110) mg/dl Lactate 1.0 (0.7-2.1) mmol/L Crit Value Called To Crit Value Called By Crit Value Read Back Blood Gas Notified Time Sodium 139.0 (132-148) mmol/L Potassium (3.6-5.2) mmol/L Chloride 104.0 (98-107) mmol/L Carbon Dioxide (22-30) mmol/L Anion Gap (10-20) BUN (9-20) mg/dL Creatinine (0.8-1.5) mg/dL Est GFR ( Amer) Est GFR (Non-Af Amer) Random Glucose (75-110) mg/dL Calcium (8.6-10.4) mg/dl Phosphorus (2.5-4.5) mg/dL Magnesium (1.6-2.3) mg/dL Total Bilirubin (0.2-1.3) mg/dL AST (17-59) U/L ALT (21-72) U/L Alkaline Phosphatase (38-126) U/L Ammonia (9-33) umol/L C-React Prot High Sens (1.00-3.00) mg/L Total Protein (6.3-8.3) g/dL Albumin (3.5-5.0) g/dL Globulin (2.2-3.9) gm/dL Albumin/Globulin Ratio (1.0-2.1) Procalcitonin (0.19-0.49) NG/ML Venous Blood Potassium 3.8 (3.6-5.2) mmol/L Urine Color Carolyn (YELLOW) Urine Clarity Hazy (Clear) Urine pH 5.0 (5.0-8.0) Ur Specific [place] 1.027 (1.003-1.030) Urine Protein 1+ H (NEGATIVE) mg/dL Urine Glucose (UA) Normal (Normal) mg/dL Urine Ketones Negative (NEGATIVE) mg/dL Urine Blood 1+ H (NEGATIVE) Urine Nitrate Negative (NEGATIVE) Urine Bilirubin Negative (NEGATIVE) Urine Urobilinogen 4.0 (0.2-1.0) mg/dL Ur Leukocyte Esterase Negative (Negative) Antonio/uL Urine WBC (Auto) 8 H (0-5) /hpf Urine RBC (Auto) 10 H (0-3) /hpf Ur Squamous Epith Cells 1 (0-5) /hpf Urine Bacteria Rare (<OCC) Urine Opiates Screen Positive H (NEGATIVE) Urine Methadone Screen Negative (NEGATIVE) Ur Barbiturates Screen Negative (NEGATIVE) Ur Phencyclidine Scrn Negative (NEGATIVE) Ur Amphetamines Screen Negative (NEGATIVE) U Benzodiazepines Scrn Negative (NEGATIVE) U Oth Cocaine Metabols Positive H (NEGATIVE) U Cannabinoids Screen Negative (NEGATIVE) Alcohol, Quantitative (0-10) mg/dl 12/09/17 12/08/17 12/08/17 Range/Units 00:10 20:44 20:34 WBC (4.8-10.8) K/uL RBC (4.40-5.90) Mil/uL Hgb (12.0-18.0) g/dL Hct (35.0-51.0) % MCV (80.0-94.0) fL MCH (27.0-31.0) pg MCHC (33.0-37.0) g/dL RDW (11.5-14.5) % Plt Count (130-400) K/uL MPV (7.2-11.7) fL Neut % (Auto) (50.0-75.0) % Lymph % (Auto) (20.0-40.0) % [place] % (Auto) (0.0-10.0) % Eos % (Auto) (0.0-4.0) % Baso % (Auto) (0.0-2.0) % Neut # (Auto) (1.8-7.0) K/uL Lymph # (Auto) (1.0-4.3) K/uL [place] # (Auto) (0.0-0.8) K/uL Eos # (Auto) (0.0-0.7) K/uL Baso # (Auto) (0.0-0.2) K/uL Differential Comment PT (9.7-12.2) SECONDS INR APTT (21-34) SECONDS pO2 65 H (30-55) mm/Hg VBG pH 7.20 L (7.32-7.43) VBG pCO2 47 (40-60) mmHg VBG HCO3 17.2 mmol/L VBG Total CO2 19.8 L (22-28) mmol/L VBG O2 Sat (Calc) 93.8 H (40-65) % VBG Base Excess -9.6 L (0.0-2.0) mmol/L VBG Potassium 3.6 (3.6-5.2) mmol/L Glucose 106 (75-110) mg/dl Lactate 8.6 H* (0.7-2.1) mmol/L Crit Value Called To Er nurse santoyo Crit Value Called By Candi gusman Crit Value Read Back Y Blood Gas Notified Time 2047 Sodium 141.0 (132-148) mmol/L Potassium (3.6-5.2) mmol/L Chloride 107.0 (98-107) mmol/L Carbon Dioxide (22-30) mmol/L Anion Gap (10-20) BUN (9-20) mg/dL Creatinine (0.8-1.5) mg/dL Est GFR ( Amer) Est GFR (Non-Af Amer) Random Glucose (75-110) mg/dL Calcium (8.6-10.4) mg/dl Phosphorus (2.5-4.5) mg/dL Magnesium (1.6-2.3) mg/dL Total Bilirubin (0.2-1.3) mg/dL AST (17-59) U/L ALT (21-72) U/L Alkaline Phosphatase (38-126) U/L Ammonia 33 (9-33) umol/L C-React Prot High Sens > 15.00 H (1.00-3.00) mg/L Total Protein (6.3-8.3) g/dL Albumin (3.5-5.0) g/dL Globulin (2.2-3.9) gm/dL Albumin/Globulin Ratio (1.0-2.1) Procalcitonin (0.19-0.49) NG/ML Venous Blood Potassium 3.6 (3.6-5.2) mmol/L Urine Color (YELLOW) Urine Clarity (Clear) Urine pH (5.0-8.0) Ur Specific [place] (1.003-1.030) Urine Protein (NEGATIVE) mg/dL Urine Glucose (UA) (Normal) mg/dL Urine Ketones (NEGATIVE) mg/dL Urine Blood (NEGATIVE) Urine Nitrate (NEGATIVE) Urine Bilirubin (NEGATIVE) Urine Urobilinogen (0.2-1.0) mg/dL Ur Leukocyte Esterase (Negative) Antonio/uL Urine WBC (Auto) (0-5) /hpf Urine RBC (Auto) (0-3) /hpf Ur Squamous Epith Cells (0-5) /hpf Urine Bacteria (<OCC) Urine Opiates Screen (NEGATIVE) Urine Methadone Screen (NEGATIVE) Ur Barbiturates Screen (NEGATIVE) Ur Phencyclidine Scrn (NEGATIVE) Ur Amphetamines Screen (NEGATIVE) U Benzodiazepines Scrn (NEGATIVE) U Oth Cocaine Metabols (NEGATIVE) U Cannabinoids Screen (NEGATIVE) Alcohol, Quantitative (0-10) mg/dl 12/08/17 12/08/17 12/08/17 Range/Units 20:34 20:34 20:34 WBC 25.4 H D (4.8-10.8) K/uL RBC 4.63 (4.40-5.90) Mil/uL Hgb 14.5 (12.0-18.0) g/dL Hct 42.7 (35.0-51.0) % MCV 92.1 (80.0-94.0) fL MCH 31.3 H (27.0-31.0) pg MCHC 33.9 (33.0-37.0) g/dL RDW 13.5 (11.5-14.5) % Plt Count 267 (130-400) K/uL MPV 8.1 (7.2-11.7) fL Neut % (Auto) 63.0 (50.0-75.0) % Lymph % (Auto) 27.7 (20.0-40.0) % [place] % (Auto) 7.8 (0.0-10.0) % Eos % (Auto) 0.9 (0.0-4.0) % Baso % (Auto) 0.6 (0.0-2.0) % Neut # (Auto) 16.0 H (1.8-7.0) K/uL Lymph # (Auto) 7.0 H (1.0-4.3) K/uL [place] # (Auto) 2.0 H (0.0-0.8) K/uL Eos # (Auto) 0.2 (0.0-0.7) K/uL Baso # (Auto) 0.2 (0.0-0.2) K/uL Differential Comment PT (9.7-12.2) SECONDS INR APTT (21-34) SECONDS pO2 (30-55) mm/Hg VBG pH (7.32-7.43) VBG pCO2 (40-60) mmHg VBG HCO3 mmol/L VBG Total CO2 (22-28) mmol/L VBG O2 Sat (Calc) (40-65) % VBG Base Excess (0.0-2.0) mmol/L VBG Potassium (3.6-5.2) mmol/L Glucose (75-110) mg/dl Lactate (0.7-2.1) mmol/L Crit Value Called To Crit Value Called By Crit Value Read Back Blood Gas Notified Time Sodium 146 (132-148) mmol/L Potassium 3.7 (3.6-5.2) mmol/L Chloride 104 (98-107) mmol/L Carbon Dioxide 19 L (22-30) mmol/L Anion Gap 27 H (10-20) BUN 17 (9-20) mg/dL Creatinine 0.9 (0.8-1.5) mg/dL Est GFR ( Amer) > 60 Est GFR (Non-Af Amer) > 60 Random Glucose 108 (75-110) mg/dL Calcium 9.7 (8.6-10.4) mg/dl Phosphorus 2.4 L (2.5-4.5) mg/dL Magnesium 1.7 (1.6-2.3) mg/dL Total Bilirubin 1.3 (0.2-1.3) mg/dL AST 158 H D (17-59) U/L ALT 165 H D (21-72) U/L Alkaline Phosphatase 84 (38-126) U/L Ammonia (9-33) umol/L C-React Prot High Sens (1.00-3.00) mg/L Total Protein 8.8 H (6.3-8.3) g/dL Albumin 4.3 (3.5-5.0) g/dL Globulin 4.5 H (2.2-3.9) gm/dL Albumin/Globulin Ratio 1.0 (1.0-2.1) Procalcitonin 0.19 (0.19-0.49) NG/ML Venous Blood Potassium (3.6-5.2) mmol/L Urine Color (YELLOW) Urine Clarity (Clear) Urine pH (5.0-8.0) Ur Specific [place] (1.003-1.030) Urine Protein (NEGATIVE) mg/dL Urine Glucose (UA) (Normal) mg/dL Urine Ketones (NEGATIVE) mg/dL Urine Blood (NEGATIVE) Urine Nitrate (NEGATIVE) Urine Bilirubin (NEGATIVE) Urine Urobilinogen (0.2-1.0) mg/dL Ur Leukocyte Esterase (Negative) Antonio/uL Urine WBC (Auto) (0-5) /hpf Urine RBC (Auto) (0-3) /hpf Ur Squamous Epith Cells (0-5) /hpf Urine Bacteria (<OCC) Urine Opiates Screen (NEGATIVE) Urine Methadone Screen (NEGATIVE) Ur Barbiturates Screen (NEGATIVE) Ur Phencyclidine Scrn (NEGATIVE) Ur Amphetamines Screen (NEGATIVE) U Benzodiazepines Scrn (NEGATIVE) U Oth Cocaine Metabols (NEGATIVE) U Cannabinoids Screen (NEGATIVE) Alcohol, Quantitative (0-10) mg/dl Laboratory Results - last 24 hr 12/08/17 12/08/17 12/08/17 20:34 20:34 20:34 WBC 25.4 H D RBC 4.63 Hgb 14.5 Hct 42.7 MCV 92.1 MCH 31.3 H MCHC 33.9 RDW 13.5 Plt Count 267 MPV 8.1 Neut % (Auto) 63.0 Lymph % (Auto) 27.7 [place] % (Auto) 7.8 Eos % (Auto) 0.9 Baso % (Auto) 0.6 Neut # (Auto) 16.0 H Lymph # (Auto) 7.0 H [place] # (Auto) 2.0 H Eos # (Auto) 0.2 Baso # (Auto) 0.2 Differential Comment PT INR APTT pO2 VBG pH VBG pCO2 VBG HCO3 VBG Total CO2 VBG O2 Sat (Calc) VBG Base Excess VBG Potassium Glucose Lactate Crit Value Called To Crit Value Called By Crit Value Read Back Blood Gas Notified Time Sodium 146 Potassium 3.7 Chloride 104 Carbon Dioxide 19 L Anion Gap 27 H BUN 17 Creatinine 0.9 Est GFR ( Amer) > 60 Est GFR (Non-Af Amer) > 60 Random Glucose 108 Calcium 9.7 Phosphorus 2.4 L Magnesium 1.7 Total Bilirubin 1.3 AST 158 H D ALT 165 H D Alkaline Phosphatase 84 Ammonia C-React Prot High Sens Total Protein 8.8 H Albumin 4.3 Globulin 4.5 H Albumin/Globulin Ratio 1.0 Procalcitonin 0.19 Venous Blood Potassium Urine Color Urine Clarity Urine pH Ur Specific [place] Urine Protein Urine Glucose (UA) Urine Ketones Urine Blood Urine Nitrate Urine Bilirubin Urine Urobilinogen Ur Leukocyte Esterase Urine WBC (Auto) Urine RBC (Auto) Ur Squamous Epith Cells Urine Bacteria Urine Opiates Screen Urine Methadone Screen Ur Barbiturates Screen Ur Phencyclidine Scrn Ur Amphetamines Screen U Benzodiazepines Scrn U Oth Cocaine Metabols U Cannabinoids Screen Alcohol, Quantitative 12/08/17 12/08/17 12/09/17 20:34 20:44 00:10 WBC RBC Hgb Hct MCV MCH MCHC RDW Plt Count MPV Neut % (Auto) Lymph % (Auto) [place] % (Auto) Eos % (Auto) Baso % (Auto) Neut # (Auto) Lymph # (Auto) [place] # (Auto) Eos # (Auto) Baso # (Auto) Differential Comment PT INR APTT pO2 65 H VBG pH 7.20 L VBG pCO2 47 VBG HCO3 17.2 VBG Total CO2 19.8 L VBG O2 Sat (Calc) 93.8 H VBG Base Excess -9.6 L VBG Potassium 3.6 Glucose 106 Lactate 8.6 H* Crit Value Called To Er nurse natanael Crit Value Called By Candi gusman Crit Value Read Back Y Blood Gas Notified Time 2047 Sodium 141.0 Potassium Chloride 107.0 Carbon Dioxide Anion Gap BUN Creatinine Est GFR ( Amer) Est GFR (Non-Af Amer) Random Glucose Calcium Phosphorus Magnesium Total Bilirubin AST ALT Alkaline Phosphatase Ammonia 33 C-React Prot High Sens > 15.00 H Total Protein Albumin Globulin Albumin/Globulin Ratio Procalcitonin Venous Blood Potassium 3.6 Urine Color Urine Clarity Urine pH Ur Specific [place] Urine Protein Urine Glucose (UA) Urine Ketones Urine Blood Urine Nitrate Urine Bilirubin Urine Urobilinogen Ur Leukocyte Esterase Urine WBC (Auto) Urine RBC (Auto) Ur Squamous Epith Cells Urine Bacteria Urine Opiates Screen Urine Methadone Screen Ur Barbiturates Screen Ur Phencyclidine Scrn Ur Amphetamines Screen U Benzodiazepines Scrn U Oth Cocaine Metabols U Cannabinoids Screen Alcohol, Quantitative 12/09/17 12/09/17 12/09/17 00:14 00:15 00:15 WBC RBC Hgb Hct MCV MCH MCHC RDW Plt Count MPV Neut % (Auto) Lymph % (Auto) [place] % (Auto) Eos % (Auto) Baso % (Auto) Neut # (Auto) Lymph # (Auto) [place] # (Auto) Eos # (Auto) Baso # (Auto) Differential Comment PT INR APTT pO2 32 VBG pH 7.40 VBG pCO2 48 VBG HCO3 27.1 VBG Total CO2 31.2 H VBG O2 Sat (Calc) 75.1 H VBG Base Excess 4.0 H VBG Potassium 3.8 Glucose 123 H Lactate 1.0 Crit Value Called To Crit Value Called By Crit Value Read Back Blood Gas Notified Time Sodium 139.0 Potassium Chloride 104.0 Carbon Dioxide Anion Gap BUN Creatinine Est GFR ( Amer) Est GFR (Non-Af Amer) Random Glucose Calcium Phosphorus Magnesium Total Bilirubin AST ALT Alkaline Phosphatase Ammonia C-React Prot High Sens Total Protein Albumin Globulin Albumin/Globulin Ratio Procalcitonin Venous Blood Potassium 3.8 Urine Color Carolyn Urine Clarity Hazy Urine pH 5.0 Ur Specific [place] 1.027 Urine Protein 1+ H Urine Glucose (UA) Normal Urine Ketones Negative Urine Blood 1+ H Urine Nitrate Negative Urine Bilirubin Negative Urine Urobilinogen 4.0 Ur Leukocyte Esterase Negative Urine WBC (Auto) 8 H Urine RBC (Auto) 10 H Ur Squamous Epith Cells 1 Urine Bacteria Rare Urine Opiates Screen Positive H Urine Methadone Screen Negative Ur Barbiturates Screen Negative Ur Phencyclidine Scrn Negative Ur Amphetamines Screen Negative U Benzodiazepines Scrn Negative U Oth Cocaine Metabols Positive H U Cannabinoids Screen Negative Alcohol, Quantitative 12/09/17 12/09/17 12/09/17 06:05 06:05 06:05 WBC 18.5 H RBC 4.22 L Hgb 13.1 Hct 38.6 MCV 91.5 MCH 31.0 MCHC 33.9 RDW 13.4 Plt Count 177 MPV 8.6 Neut % (Auto) 73.5 Lymph % (Auto) 17.9 L [place] % (Auto) 7.6 Eos % (Auto) 0.8 Baso % (Auto) 0.2 Neut # (Auto) 13.6 H Lymph # (Auto) 3.3 [place] # (Auto) 1.4 H Eos # (Auto) 0.1 Baso # (Auto) 0.0 Differential Comment PT 13.1 H INR 1.2 APTT 33 pO2 VBG pH VBG pCO2 VBG HCO3 VBG Total CO2 VBG O2 Sat (Calc) VBG Base Excess VBG Potassium Glucose Lactate Crit Value Called To Crit Value Called By Crit Value Read Back Blood Gas Notified Time Sodium 139 Potassium 3.8 Chloride 102 Carbon Dioxide 29 Anion Gap 12 BUN 15 Creatinine 0.7 L Est GFR ( Amer) > 60 Est GFR (Non-Af Amer) > 60 Random Glucose 90 Calcium 8.9 Phosphorus 1.8 L Magnesium 1.7 Total Bilirubin 1.5 H AST 92 H D ALT 118 H D Alkaline Phosphatase 62 Ammonia C-React Prot High Sens Total Protein 6.9 Albumin 3.3 L D Globulin 3.6 Albumin/Globulin Ratio 0.9 L Procalcitonin Venous Blood Potassium Urine Color Urine Clarity Urine pH Ur Specific [place] Urine Protein Urine Glucose (UA) Urine Ketones Urine Blood Urine Nitrate Urine Bilirubin Urine Urobilinogen Ur Leukocyte Esterase Urine WBC (Auto) Urine RBC (Auto) Ur Squamous Epith Cells Urine Bacteria Urine Opiates Screen Urine Methadone Screen Ur Barbiturates Screen Ur Phencyclidine Scrn Ur Amphetamines Screen U Benzodiazepines Scrn U Oth Cocaine Metabols U Cannabinoids Screen Alcohol, Quantitative < 10 EKG/Cardiology Studies: Cardiology / EKG Studies 12/08/17 20:11 ELECTROCARDIOGRAM Stat Comment: Mode Of Transportation: Reason For Exam: Sepsis Patient Review of Systems - Constitutional Constitutional: Weakness. absent: Fever, Chills - EENT Eyes: UNREMARKABLE Ears: UNREMARKABLE - Cardiovascular Cardiovascular: Dyspnea. absent: Chest Pain - Respiratory Respiratory: Dyspnea. absent: Cough - Gastrointestinal Gastrointestinal: UNREMARKABLE. absent: Abdominal Pain - Genitourinary Genitourinary: absent: Difficulty Urinating, Dysuria, Hematuria - Neurological Neurological: UNREMARKABLE. absent: Loss of Vision, Tremor - Endocrine Endocrine: UNREMARKABLE Critical Care Progress Note - Nutrition Nutrition: Nutrition Category Date Time Status Regular Diet [DIET] Diets 12/09/17 Breakfast Active Assessment/Plan - Assessment and Plan (Free Text) Assessment: 57 M with h/o IV Drug Abuse, left leg wound (MRSA), seizures, heroin abuse, and hep C admitted due to lethargy after being found passed out on the street. Plan: Neuro A: Possible Seizure/Hx of Seizure Head CT (Adm): No definite acute intracranial abnormality GSC: 15 Sedation: N/A Seizure Precautions Keppra 500 Q12H Cardio No Active Issues at this Time Venous Dopplers: PENDING Pulm A: Aspiration Pneumonia Chest CT (Adm) Occlusion of right middle, right lower, left lower lobe bronchi with partial collapse/collapse with probable superimposed pneumonia. Correlation with bronchoscopy is suggested. Incidental/non-acute findings are described above 02 Sat 94% on 5L 02, Gradually Reduce. Aspiration Precautions GI A: Elevated Liver Enzymes (Improving), Hx of Hep C Likely 2/2 to shock liver Cont. to Monitor Nephro/electrolytes UDS positive for Coccaine and Opiods Heme/Onc No Active Issues at this time ID Afebrile, Leukocytosis improving Blood Culture | Urine Cultures | MRSA Screen Cont. Doxycycline 100 Q12H Cont. Zosyn 3.375 Q6H Consider ProCal Integumentary A: Left leg cellulitis and swelling Venous Dopplers. Prophylaxis Protonix 40 IV daily will switch to PO Tomorrow Heparin 5000 Q8H Patient seen and discussed with ICU Attending Enma Granda, PGY-1 <Kel Bueno - Last Filed: 12/09/17 17:49> CCU Objective - Vital Signs / Intake & Output Vital Signs (Last 4 hours): Vital Signs Temp Pulse Resp BP Pulse Ox 12/09/17 17:01 89 20 116/74 94 L 12/09/17 17:00 88 20 94 L 12/09/17 16:01 88 17 109/73 95 12/09/17 16:00 97.7 F 84 19 96 12/09/17 15:01 89 17 110/73 94 L 12/09/17 15:00 87 18 94 L 12/09/17 14:01 86 17 113/66 94 L 12/09/17 14:00 87 18 95 Intake and Output (Last 8hrs): Intake & Output 12/09/17 12/09/17 12/09/17 06:59 14:59 22:59 Intake Total 400 560 240 Output Total 1000 351 Balance -600 209 240 Weight 148 lb 1 oz Intake: Intake, IV Amount 400 200 Left Hand 400 200 Oral 360 240 Output: Urine 1000 350 Urethral (Bowman) 1000 350 Stool 1 - Medications Active Medications: Active Medications Generic Name Dose Route Start Last Admin Trade Name Freq PRN Reason Stop Dose Admin Heparin Sodium (Porcine) 5,000 units 12/09/17 06:00 12/09/17 14:30 Heparin SC 5,000 units Q8 B[facility] Administration Doxycycline Hyclate 100 mg/ 100 mls @ 100 mls/hr 12/08/17 23:15 12/09/17 11: 23 Sodium Chloride IVPB 100 mls/hr Q12H BAYRON Administration Protocol Levetiracetam 500 mg/ Dextrose 105 mls @ 420 mls/hr 12/09/17 10:00 12/09/17 09:52 IVPB 420 mls/hr Q12H BAYRON Administration Piperacillin Sod/Tazobactam Sod 3.375 gm in 50 mls @ 100 mls/hr 12/08/17 23: 00 12/09/17 11:23 Zosyn 3.375 Gm Iv Premix IVPB 100 mls/hr Q6H BAYRON Administration Protocol Pantoprazole Sodium 40 mg 12/09/17 10:00 12/09/17 09:52 Protonix Inj IVP 40 mg DAILY B[facility] Administration - Patient Studies Lab Studies: Lab Studies 12/09/17 12/09/17 12/09/17 Range/Units 06:05 06:05 06:05 WBC 18.5 H (4.8-10.8) K/uL RBC 4.22 L (4.40-5.90) Mil/uL Hgb 13.1 (12.0-18.0) g/dL Hct 38.6 (35.0-51.0) % MCV 91.5 (80.0-94.0) fL MCH 31.0 (27.0-31.0) pg MCHC 33.9 (33.0-37.0) g/dL RDW 13.4 (11.5-14.5) % Plt Count 177 (130-400) K/uL MPV 8.6 (7.2-11.7) fL Neut % (Auto) 73.5 (50.0-75.0) % Lymph % (Auto) 17.9 L (20.0-40.0) % [place] % (Auto) 7.6 (0.0-10.0) % Eos % (Auto) 0.8 (0.0-4.0) % Baso % (Auto) 0.2 (0.0-2.0) % Neut # (Auto) 13.6 H (1.8-7.0) K/uL Lymph # (Auto) 3.3 (1.0-4.3) K/uL [place] # (Auto) 1.4 H (0.0-0.8) K/uL Eos # (Auto) 0.1 (0.0-0.7) K/uL Baso # (Auto) 0.0 (0.0-0.2) K/uL Differential Comment PT 13.1 H (9.7-12.2) SECONDS INR 1.2 APTT 33 (21-34) SECONDS pO2 (30-55) mm/Hg VBG pH (7.32-7.43) VBG pCO2 (40-60) mmHg VBG HCO3 mmol/L VBG Total CO2 (22-28) mmol/L VBG O2 Sat (Calc) (40-65) % VBG Base Excess (0.0-2.0) mmol/L VBG Potassium (3.6-5.2) mmol/L Glucose (75-110) mg/dl Lactate (0.7-2.1) mmol/L Crit Value Called To Crit Value Called By Crit Value Read Back Blood Gas Notified Time Sodium 139 (132-148) mmol/L Potassium 3.8 (3.6-5.2) mmol/L Chloride 102 (98-107) mmol/L Carbon Dioxide 29 (22-30) mmol/L Anion Gap 12 (10-20) BUN 15 (9-20) mg/dL Creatinine 0.7 L (0.8-1.5) mg/dL Est GFR ( Amer) > 60 Est GFR (Non-Af Amer) > 60 Random Glucose 90 (75-110) mg/dL Calcium 8.9 (8.6-10.4) mg/dl Phosphorus 1.8 L (2.5-4.5) mg/dL Magnesium 1.7 (1.6-2.3) mg/dL Total Bilirubin 1.5 H (0.2-1.3) mg/dL AST 92 H D (17-59) U/L ALT 118 H D (21-72) U/L Alkaline Phosphatase 62 (38-126) U/L Ammonia (9-33) umol/L C-React Prot High Sens (1.00-3.00) mg/L Total Protein 6.9 (6.3-8.3) g/dL Albumin 3.3 L D (3.5-5.0) g/dL Globulin 3.6 (2.2-3.9) gm/dL Albumin/Globulin Ratio 0.9 L (1.0-2.1) Procalcitonin (0.19-0.49) NG/ML Venous Blood Potassium (3.6-5.2) mmol/L Urine Color (YELLOW) Urine Clarity (Clear) Urine pH (5.0-8.0) Ur Specific [place] (1.003-1.030) Urine Protein (NEGATIVE) mg/dL Urine Glucose (UA) (Normal) mg/dL Urine Ketones (NEGATIVE) mg/dL Urine Blood (NEGATIVE) Urine Nitrate (NEGATIVE) Urine Bilirubin (NEGATIVE) Urine Urobilinogen (0.2-1.0) mg/dL Ur Leukocyte Esterase (Negative) Antonio/uL Urine WBC (Auto) (0-5) /hpf Urine RBC (Auto) (0-3) /hpf Ur Squamous Epith Cells (0-5) /hpf Urine Bacteria (<OCC) Urine Opiates Screen (NEGATIVE) Urine Methadone Screen (NEGATIVE) Ur Barbiturates Screen (NEGATIVE) Ur Phencyclidine Scrn (NEGATIVE) Ur Amphetamines Screen (NEGATIVE) U Benzodiazepines Scrn (NEGATIVE) U Oth Cocaine Metabols (NEGATIVE) U Cannabinoids Screen (NEGATIVE) Alcohol, Quantitative < 10 (0-10) mg/dl 12/09/17 12/09/17 12/09/17 Range/Units 00:15 00:15 00:14 WBC (4.8-10.8) K/uL RBC (4.40-5.90) Mil/uL Hgb (12.0-18.0) g/dL Hct (35.0-51.0) % MCV (80.0-94.0) fL MCH (27.0-31.0) pg MCHC (33.0-37.0) g/dL RDW (11.5-14.5) % Plt Count (130-400) K/uL MPV (7.2-11.7) fL Neut % (Auto) (50.0-75.0) % Lymph % (Auto) (20.0-40.0) % [place] % (Auto) (0.0-10.0) % Eos % (Auto) (0.0-4.0) % Baso % (Auto) (0.0-2.0) % Neut # (Auto) (1.8-7.0) K/uL Lymph # (Auto) (1.0-4.3) K/uL [place] # (Auto) (0.0-0.8) K/uL Eos # (Auto) (0.0-0.7) K/uL Baso # (Auto) (0.0-0.2) K/uL Differential Comment PT (9.7-12.2) SECONDS INR APTT (21-34) SECONDS pO2 32 (30-55) mm/Hg VBG pH 7.40 (7.32-7.43) VBG pCO2 48 (40-60) mmHg VBG HCO3 27.1 mmol/L VBG Total CO2 31.2 H (22-28) mmol/L VBG O2 Sat (Calc) 75.1 H (40-65) % VBG Base Excess 4.0 H (0.0-2.0) mmol/L VBG Potassium 3.8 (3.6-5.2) mmol/L Glucose 123 H (75-110) mg/dl Lactate 1.0 (0.7-2.1) mmol/L Crit Value Called To Crit Value Called By Crit Value Read Back Blood Gas Notified Time Sodium 139.0 (132-148) mmol/L Potassium (3.6-5.2) mmol/L Chloride 104.0 (98-107) mmol/L Carbon Dioxide (22-30) mmol/L Anion Gap (10-20) BUN (9-20) mg/dL Creatinine (0.8-1.5) mg/dL Est GFR ( Amer) Est GFR (Non-Af Amer) Random Glucose (75-110) mg/dL Calcium (8.6-10.4) mg/dl Phosphorus (2.5-4.5) mg/dL Magnesium (1.6-2.3) mg/dL Total Bilirubin (0.2-1.3) mg/dL AST (17-59) U/L ALT (21-72) U/L Alkaline Phosphatase (38-126) U/L Ammonia (9-33) umol/L C-React Prot High Sens (1.00-3.00) mg/L Total Protein (6.3-8.3) g/dL Albumin (3.5-5.0) g/dL Globulin (2.2-3.9) gm/dL Albumin/Globulin Ratio (1.0-2.1) Procalcitonin (0.19-0.49) NG/ML Venous Blood Potassium 3.8 (3.6-5.2) mmol/L Urine Color Carolyn (YELLOW) Urine Clarity Hazy (Clear) Urine pH 5.0 (5.0-8.0) Ur Specific [place] 1.027 (1.003-1.030) Urine Protein 1+ H (NEGATIVE) mg/dL Urine Glucose (UA) Normal (Normal) mg/dL Urine Ketones Negative (NEGATIVE) mg/dL Urine Blood 1+ H (NEGATIVE) Urine Nitrate Negative (NEGATIVE) Urine Bilirubin Negative (NEGATIVE) Urine Urobilinogen 4.0 (0.2-1.0) mg/dL Ur Leukocyte Esterase Negative (Negative) Antonio/uL Urine WBC (Auto) 8 H (0-5) /hpf Urine RBC (Auto) 10 H (0-3) /hpf Ur Squamous Epith Cells 1 (0-5) /hpf Urine Bacteria Rare (<OCC) Urine Opiates Screen Positive H (NEGATIVE) Urine Methadone Screen Negative (NEGATIVE) Ur Barbiturates Screen Negative (NEGATIVE) Ur Phencyclidine Scrn Negative (NEGATIVE) Ur Amphetamines Screen Negative (NEGATIVE) U Benzodiazepines Scrn Negative (NEGATIVE) U Oth Cocaine Metabols Positive H (NEGATIVE) U Cannabinoids Screen Negative (NEGATIVE) Alcohol, Quantitative (0-10) mg/dl 12/09/17 12/08/17 12/08/17 Range/Units 00:10 20:44 20:34 WBC (4.8-10.8) K/uL RBC (4.40-5.90) Mil/uL Hgb (12.0-18.0) g/dL Hct (35.0-51.0) % MCV (80.0-94.0) fL MCH (27.0-31.0) pg MCHC (33.0-37.0) g/dL RDW (11.5-14.5) % Plt Count (130-400) K/uL MPV (7.2-11.7) fL Neut % (Auto) (50.0-75.0) % Lymph % (Auto) (20.0-40.0) % [place] % (Auto) (0.0-10.0) % Eos % (Auto) (0.0-4.0) % Baso % (Auto) (0.0-2.0) % Neut # (Auto) (1.8-7.0) K/uL Lymph # (Auto) (1.0-4.3) K/uL [place] # (Auto) (0.0-0.8) K/uL Eos # (Auto) (0.0-0.7) K/uL Baso # (Auto) (0.0-0.2) K/uL Differential Comment PT (9.7-12.2) SECONDS INR APTT (21-34) SECONDS pO2 65 H (30-55) mm/Hg VBG pH 7.20 L (7.32-7.43) VBG pCO2 47 (40-60) mmHg VBG HCO3 17.2 mmol/L VBG Total CO2 19.8 L (22-28) mmol/L VBG O2 Sat (Calc) 93.8 H (40-65) % VBG Base Excess -9.6 L (0.0-2.0) mmol/L VBG Potassium 3.6 (3.6-5.2) mmol/L Glucose 106 (75-110) mg/dl Lactate 8.6 H* (0.7-2.1) mmol/L Crit Value Called To Er nurse natanael Crit Value Called By Candi gusman Crit Value Read Back Y Blood Gas Notified Time 2047 Sodium 141.0 (132-148) mmol/L Potassium (3.6-5.2) mmol/L Chloride 107.0 (98-107) mmol/L Carbon Dioxide (22-30) mmol/L Anion Gap (10-20) BUN (9-20) mg/dL Creatinine (0.8-1.5) mg/dL Est GFR ( Amer) Est GFR (Non-Af Amer) Random Glucose (75-110) mg/dL Calcium (8.6-10.4) mg/dl Phosphorus (2.5-4.5) mg/dL Magnesium (1.6-2.3) mg/dL Total Bilirubin (0.2-1.3) mg/dL AST (17-59) U/L ALT (21-72) U/L Alkaline Phosphatase (38-126) U/L Ammonia 33 (9-33) umol/L C-React Prot High Sens > 15.00 H (1.00-3.00) mg/L Total Protein (6.3-8.3) g/dL Albumin (3.5-5.0) g/dL Globulin (2.2-3.9) gm/dL Albumin/Globulin Ratio (1.0-2.1) Procalcitonin (0.19-0.49) NG/ML Venous Blood Potassium 3.6 (3.6-5.2) mmol/L Urine Color (YELLOW) Urine Clarity (Clear) Urine pH (5.0-8.0) Ur Specific [place] (1.003-1.030) Urine Protein (NEGATIVE) mg/dL Urine Glucose (UA) (Normal) mg/dL Urine Ketones (NEGATIVE) mg/dL Urine Blood (NEGATIVE) Urine Nitrate (NEGATIVE) Urine Bilirubin (NEGATIVE) Urine Urobilinogen (0.2-1.0) mg/dL Ur Leukocyte Esterase (Negative) Antonio/uL Urine WBC (Auto) (0-5) /hpf Urine RBC (Auto) (0-3) /hpf Ur Squamous Epith Cells (0-5) /hpf Urine Bacteria (<OCC) Urine Opiates Screen (NEGATIVE) Urine Methadone Screen (NEGATIVE) Ur Barbiturates Screen (NEGATIVE) Ur Phencyclidine Scrn (NEGATIVE) Ur Amphetamines Screen (NEGATIVE) U Benzodiazepines Scrn (NEGATIVE) U Oth Cocaine Metabols (NEGATIVE) U Cannabinoids Screen (NEGATIVE) Alcohol, Quantitative (0-10) mg/dl 12/08/17 12/08/17 12/08/17 Range/Units 20:34 20:34 20:34 WBC 25.4 H D (4.8-10.8) K/uL RBC 4.63 (4.40-5.90) Mil/uL Hgb 14.5 (12.0-18.0) g/dL Hct 42.7 (35.0-51.0) % MCV 92.1 (80.0-94.0) fL MCH 31.3 H (27.0-31.0) pg MCHC 33.9 (33.0-37.0) g/dL RDW 13.5 (11.5-14.5) % Plt Count 267 (130-400) K/uL MPV 8.1 (7.2-11.7) fL Neut % (Auto) 63.0 (50.0-75.0) % Lymph % (Auto) 27.7 (20.0-40.0) % [place] % (Auto) 7.8 (0.0-10.0) % Eos % (Auto) 0.9 (0.0-4.0) % Baso % (Auto) 0.6 (0.0-2.0) % Neut # (Auto) 16.0 H (1.8-7.0) K/uL Lymph # (Auto) 7.0 H (1.0-4.3) K/uL [place] # (Auto) 2.0 H (0.0-0.8) K/uL Eos # (Auto) 0.2 (0.0-0.7) K/uL Baso # (Auto) 0.2 (0.0-0.2) K/uL Differential Comment PT (9.7-12.2) SECONDS INR APTT (21-34) SECONDS pO2 (30-55) mm/Hg VBG pH (7.32-7.43) VBG pCO2 (40-60) mmHg VBG HCO3 mmol/L VBG Total CO2 (22-28) mmol/L VBG O2 Sat (Calc) (40-65) % VBG Base Excess (0.0-2.0) mmol/L VBG Potassium (3.6-5.2) mmol/L Glucose (75-110) mg/dl Lactate (0.7-2.1) mmol/L Crit Value Called To Crit Value Called By Crit Value Read Back Blood Gas Notified Time Sodium 146 (132-148) mmol/L Potassium 3.7 (3.6-5.2) mmol/L Chloride 104 (98-107) mmol/L Carbon Dioxide 19 L (22-30) mmol/L Anion Gap 27 H (10-20) BUN 17 (9-20) mg/dL Creatinine 0.9 (0.8-1.5) mg/dL Est GFR ( Amer) > 60 Est GFR (Non-Af Amer) > 60 Random Glucose 108 (75-110) mg/dL Calcium 9.7 (8.6-10.4) mg/dl Phosphorus 2.4 L (2.5-4.5) mg/dL Magnesium 1.7 (1.6-2.3) mg/dL Total Bilirubin 1.3 (0.2-1.3) mg/dL AST 158 H D (17-59) U/L ALT 165 H D (21-72) U/L Alkaline Phosphatase 84 (38-126) U/L Ammonia (9-33) umol/L C-React Prot High Sens (1.00-3.00) mg/L Total Protein 8.8 H (6.3-8.3) g/dL Albumin 4.3 (3.5-5.0) g/dL Globulin 4.5 H (2.2-3.9) gm/dL Albumin/Globulin Ratio 1.0 (1.0-2.1) Procalcitonin 0.19 (0.19-0.49) NG/ML Venous Blood Potassium (3.6-5.2) mmol/L Urine Color (YELLOW) Urine Clarity (Clear) Urine pH (5.0-8.0) Ur Specific [place] (1.003-1.030) Urine Protein (NEGATIVE) mg/dL Urine Glucose (UA) (Normal) mg/dL Urine Ketones (NEGATIVE) mg/dL Urine Blood (NEGATIVE) Urine Nitrate (NEGATIVE) Urine Bilirubin (NEGATIVE) Urine Urobilinogen (0.2-1.0) mg/dL Ur Leukocyte Esterase (Negative) Antonio/uL Urine WBC (Auto) (0-5) /hpf Urine RBC (Auto) (0-3) /hpf Ur Squamous Epith Cells (0-5) /hpf Urine Bacteria (<OCC) Urine Opiates Screen (NEGATIVE) Urine Methadone Screen (NEGATIVE) Ur Barbiturates Screen (NEGATIVE) Ur Phencyclidine Scrn (NEGATIVE) Ur Amphetamines Screen (NEGATIVE) U Benzodiazepines Scrn (NEGATIVE) U Oth Cocaine Metabols (NEGATIVE) U Cannabinoids Screen (NEGATIVE) Alcohol, Quantitative (0-10) mg/dl Laboratory Results - last 24 hr 12/08/17 12/08/17 12/08/17 20:34 20:34 20:34 WBC 25.4 H D RBC 4.63 Hgb 14.5 Hct 42.7 MCV 92.1 MCH 31.3 H MCHC 33.9 RDW 13.5 Plt Count 267 MPV 8.1 Neut % (Auto) 63.0 Lymph % (Auto) 27.7 [place] % (Auto) 7.8 Eos % (Auto) 0.9 Baso % (Auto) 0.6 Neut # (Auto) 16.0 H Lymph # (Auto) 7.0 H [place] # (Auto) 2.0 H Eos # (Auto) 0.2 Baso # (Auto) 0.2 Differential Comment PT INR APTT pO2 VBG pH VBG pCO2 VBG HCO3 VBG Total CO2 VBG O2 Sat (Calc) VBG Base Excess VBG Potassium Glucose Lactate Crit Value Called To Crit Value Called By Crit Value Read Back Blood Gas Notified Time Sodium 146 Potassium 3.7 Chloride 104 Carbon Dioxide 19 L Anion Gap 27 H BUN 17 Creatinine 0.9 Est GFR ( Amer) > 60 Est GFR (Non-Af Amer) > 60 Random Glucose 108 Calcium 9.7 Phosphorus 2.4 L Magnesium 1.7 Total Bilirubin 1.3 AST 158 H D ALT 165 H D Alkaline Phosphatase 84 Ammonia C-React Prot High Sens Total Protein 8.8 H Albumin 4.3 Globulin 4.5 H Albumin/Globulin Ratio 1.0 Procalcitonin 0.19 Venous Blood Potassium Urine Color Urine Clarity Urine pH Ur Specific [place] Urine Protein Urine Glucose (UA) Urine Ketones Urine Blood Urine Nitrate Urine Bilirubin Urine Urobilinogen Ur Leukocyte Esterase Urine WBC (Auto) Urine RBC (Auto) Ur Squamous Epith Cells Urine Bacteria Urine Opiates Screen Urine Methadone Screen Ur Barbiturates Screen Ur Phencyclidine Scrn Ur Amphetamines Screen U Benzodiazepines Scrn U Oth Cocaine Metabols U Cannabinoids Screen Alcohol, Quantitative 12/08/17 12/08/17 12/09/17 20:34 20:44 00:10 WBC RBC Hgb Hct MCV MCH MCHC RDW Plt Count MPV Neut % (Auto) Lymph % (Auto) [place] % (Auto) Eos % (Auto) Baso % (Auto) Neut # (Auto) Lymph # (Auto) [place] # (Auto) Eos # (Auto) Baso # (Auto) Differential Comment PT INR APTT pO2 65 H VBG pH 7.20 L VBG pCO2 47 VBG HCO3 17.2 VBG Total CO2 19.8 L VBG O2 Sat (Calc) 93.8 H VBG Base Excess -9.6 L VBG Potassium 3.6 Glucose 106 Lactate 8.6 H* Crit Value Called To Er nurse natanael Crit Value Called By Candi rt Crit Value Read Back Y Blood Gas Notified Time 2047 Sodium 141.0 Potassium Chloride 107.0 Carbon Dioxide Anion Gap BUN Creatinine Est GFR ( Amer) Est GFR (Non-Af Amer) Random Glucose Calcium Phosphorus Magnesium Total Bilirubin AST ALT Alkaline Phosphatase Ammonia 33 C-React Prot High Sens > 15.00 H Total Protein Albumin Globulin Albumin/Globulin Ratio Procalcitonin Venous Blood Potassium 3.6 Urine Color Urine Clarity Urine pH Ur Specific [place] Urine Protein Urine Glucose (UA) Urine Ketones Urine Blood Urine Nitrate Urine Bilirubin Urine Urobilinogen Ur Leukocyte Esterase Urine WBC (Auto) Urine RBC (Auto) Ur Squamous Epith Cells Urine Bacteria Urine Opiates Screen Urine Methadone Screen Ur Barbiturates Screen Ur Phencyclidine Scrn Ur Amphetamines Screen U Benzodiazepines Scrn U Oth Cocaine Metabols U Cannabinoids Screen Alcohol, Quantitative 12/09/17 12/09/17 12/09/17 00:14 00:15 00:15 WBC RBC Hgb Hct MCV MCH MCHC RDW Plt Count MPV Neut % (Auto) Lymph % (Auto) [place] % (Auto) Eos % (Auto) Baso % (Auto) Neut # (Auto) Lymph # (Auto) [place] # (Auto) Eos # (Auto) Baso # (Auto) Differential Comment PT INR APTT pO2 32 VBG pH 7.40 VBG pCO2 48 VBG HCO3 27.1 VBG Total CO2 31.2 H VBG O2 Sat (Calc) 75.1 H VBG Base Excess 4.0 H VBG Potassium 3.8 Glucose 123 H Lactate 1.0 Crit Value Called To Crit Value Called By Crit Value Read Back Blood Gas Notified Time Sodium 139.0 Potassium Chloride 104.0 Carbon Dioxide Anion Gap BUN Creatinine Est GFR ( Amer) Est GFR (Non-Af Amer) Random Glucose Calcium Phosphorus Magnesium Total Bilirubin AST ALT Alkaline Phosphatase Ammonia C-React Prot High Sens Total Protein Albumin Globulin Albumin/Globulin Ratio Procalcitonin Venous Blood Potassium 3.8 Urine Color Carolyn Urine Clarity Hazy Urine pH 5.0 Ur Specific [place] 1.027 Urine Protein 1+ H Urine Glucose (UA) Normal Urine Ketones Negative Urine Blood 1+ H Urine Nitrate Negative Urine Bilirubin Negative Urine Urobilinogen 4.0 Ur Leukocyte Esterase Negative Urine WBC (Auto) 8 H Urine RBC (Auto) 10 H Ur Squamous Epith Cells 1 Urine Bacteria Rare Urine Opiates Screen Positive H Urine Methadone Screen Negative Ur Barbiturates Screen Negative Ur Phencyclidine Scrn Negative Ur Amphetamines Screen Negative U Benzodiazepines Scrn Negative U Oth Cocaine Metabols Positive H U Cannabinoids Screen Negative Alcohol, Quantitative 12/09/17 12/09/17 12/09/17 06:05 06:05 06:05 WBC 18.5 H RBC 4.22 L Hgb 13.1 Hct 38.6 MCV 91.5 MCH 31.0 MCHC 33.9 RDW 13.4 Plt Count 177 MPV 8.6 Neut % (Auto) 73.5 Lymph % (Auto) 17.9 L [place] % (Auto) 7.6 Eos % (Auto) 0.8 Baso % (Auto) 0.2 Neut # (Auto) 13.6 H Lymph # (Auto) 3.3 [place] # (Auto) 1.4 H Eos # (Auto) 0.1 Baso # (Auto) 0.0 Differential Comment PT 13.1 H INR 1.2 APTT 33 pO2 VBG pH VBG pCO2 VBG HCO3 VBG Total CO2 VBG O2 Sat (Calc) VBG Base Excess VBG Potassium Glucose Lactate Crit Value Called To Crit Value Called By Crit Value Read Back Blood Gas Notified Time Sodium 139 Potassium 3.8 Chloride 102 Carbon Dioxide 29 Anion Gap 12 BUN 15 Creatinine 0.7 L Est GFR ( Amer) > 60 Est GFR (Non-Af Amer) > 60 Random Glucose 90 Calcium 8.9 Phosphorus 1.8 L Magnesium 1.7 Total Bilirubin 1.5 H AST 92 H D ALT 118 H D Alkaline Phosphatase 62 Ammonia C-React Prot High Sens Total Protein 6.9 Albumin 3.3 L D Globulin 3.6 Albumin/Globulin Ratio 0.9 L Procalcitonin Venous Blood Potassium Urine Color Urine Clarity Urine pH Ur Specific [place] Urine Protein Urine Glucose (UA) Urine Ketones Urine Blood Urine Nitrate Urine Bilirubin Urine Urobilinogen Ur Leukocyte Esterase Urine WBC (Auto) Urine RBC (Auto) Ur Squamous Epith Cells Urine Bacteria Urine Opiates Screen Urine Methadone Screen Ur Barbiturates Screen Ur Phencyclidine Scrn Ur Amphetamines Screen U Benzodiazepines Scrn U Oth Cocaine Metabols U Cannabinoids Screen Alcohol, Quantitative < 10 EKG/Cardiology Studies: Cardiology / EKG Studies 12/08/17 20:11 ELECTROCARDIOGRAM Stat Comment: Mode Of Transportation: Reason For Exam: Sepsis Patient Critical Care Progress Note - Nutrition Nutrition: Nutrition Category Date Time Status Regular Diet [DIET] Diets 12/09/17 Breakfast Active Attending/Attestation - Attestation I have personally seen and examined this patient.: Yes I have fully participated in the care of the patient.: Yes I have reviewed all pertinent clinical information: Yes Notes (Text): 12/09/17 17:48 Patient seen and examined in the intensive care unit. No further seizure activity Patient is awake and responsive CAT scan of the chest noted Continue antibiotics Continue present treatment Stable for transfer to floor"
[2017-12-10] MEDS: Piperacill/Tazo 3.375gm in Dex 3.375 GM/50 ML BAG IVPB SCH ×4 (05:00→21:59)
--- NOTE | 2017-12-10 11:54 | HP ---
CHIEF COMPLAINT: Seizure, fall. HISTORY OF PRESENT ILLNESS: Mr. Emre Gonzales is a 57-year-old male with past medical history of seizure disorder, heroin dependency, hepatitis C, wound in leg, and most recently left leg cellulitis, SP incision and drainage, who reportedly was found obtunded in the street. He is a poor historian and could not answer most of the questions. Shortly after arriving to ER, he had seizure in the ER witnessed by ER staff. He was discharged on 11/21/2017 to start with PICC at the time and was to receive 14 days of IV Cipro and vancomycin. His course after discharge is not known to us. According to the patient, he went to some rehab and completed a course of the antibiotics. PAST MEDICAL HISTORY: As noted, fracture of ribs, hypertension, kidney stones, chronic kidney disease, seizures, and cholecystectomy. FAMILY HISTORY: Father and mother, noncontributory. HABITS: Smoking, yes. Alcohol, yes. Substance abuse, denies. ALLERGIES: THE PATIENT IS ALLERGIC WITH IBUPROFEN. REVIEW OF SYSTEMS: The patient was seen and examined on the bedside, awake, tremulous, poor historian, looks like no fever and no chills. No nausea, vomiting, or diarrhea. No hematuria. No hematochezia. PHYSICAL EXAMINATION: VITAL SIGNS: Temperature 99.3, pulse 85, blood pressure 114/77, and respiratory rate 20. T-max when he arrived in emergency room was 102.2. HEENT: Head: Normocephalic, atraumatic. Eyes: PERRLA. Extraocular muscles intact. Conjunctivae clear. Nose: Patent. Mucous membranes moist. NECK: Supple. No carotid bruits, JVD, or thyromegaly. CHEST: Bilaterally symmetrical. HEART: S1 and S2 positive. LUNGS: Clear to auscultation. ABDOMEN: Soft. Bowel sounds positive. No organomegaly. EXTREMITIES: No edema. No cyanosis. NEUROLOGICAL: The patient is awake and alert. Moving all 4 extremities. LABORATORY DATA: White blood cell on admission was 25.4, repeat is 18.2, hemoglobin 13.1, hematocrit 38.6, and platelets 177. Sodium 139, potassium 3.8, BUN 15, and creatinine 0.7. ASSESSMENT AND PLAN: Mr. Emre Gonzales is a 57-year-old male with leucocytosis, hypophosphatemia, abnormal liver function test, proteinuria, and hematuria. Drug screen is positive for opioids and cocaine. 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 The patient is on seizure precautions, Keppra is started. Venous Doppler done while standing. Aspiration pneumonia, got antibiotics, he has fever, elevated liver enzyme, history of hepatitis C positive, Protonix and deep venous thrombosis prophylaxis given. Appreciated Dr. alex Cole's input, CAT scan of the head and chest reviewed by me. The patient right now compliant and urged to be compliant. We will follow. Nena Garces MD MTDD
--- NOTE | 2017-12-10 14:48 | VASCLAB ---
PROCEDURE: Lower Extremity Venous Duplex Exam. HISTORY: cellulitis, leg woound, swelling PRIORS: Lower extremity ultrasound dated 11/17/2017. TECHNIQUE: Bilateral common femoral, femoral, popliteal and posterior tibial, peroneal and great saphenous veins were evaluated. Flow was assessed with color Doppler, compressibility, assessment of phasic flow and augmentation response. Report prepared by Basilio Perkins, JOSHUA, RVT FINDINGS: RIGHT: 1. Common Femoral Vein: 1.1. Compressibility - Fully compressible: Thrombus - None : Flow - Phasic: Augmentation -Normal: Reflux - None. 2. Femoral Vein: 2.1. Compressibility - Fully compressible: Thrombus - None : Flow - Phasic: Augmentation -Normal: Reflux - None. 3. Popliteal Vein: 3.1. Compressibility - Fully compressible: Thrombus - None : Flow - Phasic: Augmentation -Normal: Reflux - None. 4. Posterior Tibial Vein: 4.1. Compressibility - Fully compressible: Thrombus - None: Flow - Phasic: Augmentation -Normal: Reflux - None. 5. Peroneal Vein: 5.1. Compressibility - Fully compressible: Thrombus - None: Flow - Phasic: Augmentation -Normal: Reflux - Severe. 6. Great Saphenous Vein: 6.1. Compressibility - Fully compressible: Thrombus - None: Flow - Phasic: Augmentation - Normal: Reflux - None. LEFT: 1. Common Femoral Vein: 1.1. Compressibility - Fully compressible: Thrombus - None: Flow - Phasic: Augmentation -Normal: Reflux - None. 2. Femoral Vein: 2.1. Compressibility - Fully compressible: Thrombus - None: Flow - Phasic: Augmentation -Normal: Reflux - None. 3. Popliteal Vein: 3.1. Compressibility - Fully compressible: Thrombus - None : Flow - Phasic: Augmentation -Normal: Reflux - None. 4. Posterior Tibial Vein: 4.1. Compressibility - Fully compressible: Thrombus - None: Flow - Phasic: Augmentation -Normal: Reflux - None. 5. Peroneal Vein: 5.1. Compressibility - Fully compressible: Thrombus - None: Flow - Phasic: Augmentation -Normal: Reflux - None. 6. Great Saphenous Vein: 6.1. Compressibility - Fully compressible: Thrombus - None: Flow - Phasic: Augmentation - Normal: Reflux - Severe. OTHER FINDINGS: Right: None significant. Left: None significant. IMPRESSION: Right: No evidence of deep or superficial vein thrombosis of the right lower extremity. Valvular incompetence of the right peroneal vein. Left: No evidence of deep or superficial vein thrombosis of the left lower extremity. Valvular incompetence of the left greater saphenous vein.
--- NOTE | 2017-12-10 16:17 | CP.PCM.CON ---
History of Present Illness - History of Present Illness History of Present Illness: 57 M with h/o IVDA, left leg wound, cellulitis, MRSA was discharged from hospital on 11/21 to rehab to complete his 2 wk abx course of vancomycin and cipro, patient apparently got discharged from the rehab day before yesterday. He was found passed out on the street, with fresh track rosales on the arm for ivda. In ER he was sleepy but arousable. Patient in ER had episode of seizure and was given 2mg of ativan, keppra 1g loading dose Patient had CT head, and ct chest, head ct was unremarkable for any ic injury or fractures, Chest CT showed b/l atelectesis and pna, right > left. Patient still lethargic and not communicating to provide any more detailed information. PMH h/o IVDA, left leg wound, cellulitis, ? seizure history, heroin abuse,h/o hepc, Meds unknown if compliant and and discharge med list Allergies Ibuprofen, type and detail not known Family history not contributory Social recent discharge form rehab, heroin abuse Review of Systems - Review of Systems Systems not reviewed;Unavailable: Altered Mental Status - Constitutional Constitutional: As Per HPI - EENT Eyes: absent: As Per HPI, Blind Spots, Blurred Vision, Change in Vision, Decreased Night Vision, Diplopia, Discharge, Dry Eye, Exophthalmos, Floaters, Irritation, Itchy Eyes, Loss of Peripheral Vision, Pain, Photophobia, Requires Corrective Lenses, Sees Flashes, Spots in Vision, Tunnel Vision, Other Visual Disturbances, Loss of Vision, Other Ears: As Per HPI Nose/Mouth/Throat: As Per HPI - Cardiovascular Cardiovascular: As Per HPI - Respiratory Respiratory: absent: As Per HPI, Cough, Dyspnea, Hemoptysis, Dyspnea on Exertion , Wheezing, Snoring, Stridor, Pain on Inspiration, Chest Congestion, Excessive Mucous Production, Change in Mucous Color, Pain with Coughing, Other - Gastrointestinal Gastrointestinal: absent: As Per HPI, Abdominal Pain, Belching, Bloating, Change in Bowel Habits, Change in Stool Character, Coffee Ground Emesis, Constipation, Cramping, Diarrhea, Dyspepsia, Dysphagia, Early Satiety, Excessive Flatus, Fecal Incontinence, Heartburn, Hematemesis, Hematochezia, Loose Stools, Melena, Nausea, Odynophagia, Temesmus, Vomiting, Other - Genitourinary Genitourinary: absent: As Per HPI, Change in Urinary Stream, Difficulty Urinating, Dysuria, Flank Pain, Hematuria, Pyuria, Nocturia, Urinary Incontinence, Urinary Frequency, Urinary Hesitance, Urinary Urgency, Voiding Freq/Small Amts, Freq UTI, Hx Renal/Bladder Calculi, Hx /Renal Surgery, Bladder Distension, Other - Musculoskeletal Musculoskeletal: As Per HPI - Integumentary Integumentary: As Per HPI - Neurological Neurological: absent: As Per HPI, Abnormal Gait, Abnormal Hearing, Abnormal Movements, Abnormal Speech, Behavioral Changes, Burning Sensations, Confusion, Convulsions, Disequilibrium, Dizziness, Numbness, Focal Weakness, Frequent Falls , Headaches, Lack of Coordination, Loss of Vision, Memory Loss, Paresthesias, Radicular Pain, Restless Legs, Sensory Deficit, Syncope, Tingling, Tremor, Vertigo, Weakness, Other Visual Disturbances, Other - Psychiatric Psychiatric: absent: As Per HPI, Abnormal Sleep Pattern, Anhedonia, Anxiety, Auditory Hallucinations, Behavioral Changes, Change in Appetite, Change in Libido, Confusion, Depression, Difficulty Concentrating, Hallucinations, Homicidal Ideation, Hopelessness, Irritability, Memory Loss, Mood Swings, Panic Attacks, Paranoia, Suicidal Ideation, Visual Hallucinations, Tactile Hallucinations, Other - Endocrine Endocrine: absent: As Per HPI, Change in Body Appearance, Change in Libido, Cold Intolorance, Deepening of Voice, Excessive Sweating, Fatigue, Flushing, Heat Intolorance, Increase in Ring/Shoe/Hat Size, Palpitations, Polydipsia, Polyphagia, Polyuria, Other - Hematologic/Lymphatic Hematologic: absent: As Per HPI, Easy Bleeding, Easy Bruising, Lymphadenopathy, Other Past Patient History - Infectious Disease Hx of Infectious Diseases: None - Past Medical History & Family History Past Medical History?: Yes - Past Social History Smoking Status: Light Smoker < 10 Cigarettes Daily Alcohol: Other (unknown) Drugs: Opiates Home Situation {Lives}: Other (unknown) - CARDIAC Hx Hypertension: Yes - PULMONARY Hx Asthma: Yes - NEUROLOGICAL Hx Seizures: Yes - HEENT Hx HEENT Problems: No - RENAL Hx Chronic Kidney Disease: Yes Hx Kidney Stones: Yes - ENDOCRINE/METABOLIC Hx Endocrine Disorders: No - HEMATOLOGICAL/ONCOLOGICAL Hx Blood Disorders: Yes Hx Hepatitis C: Yes - INTEGUMENTARY Hx Dermatological Problems: Yes Other/Comment: left leg cellulitis - MUSCULOSKELETAL/RHEUMATOLOGICAL Hx Fractures: Yes (rib cage) - GASTROINTESTINAL Hx Gastrointestinal Disorders: Yes Other/Comment: Liver Cirrhosis - GENITOURINARY/GYNECOLOGICAL Hx Genitourinary Disorders: No - PSYCHIATRIC Hx Substance Use: No (pt denies.) - SURGICAL HISTORY Hx Cholecystectomy: Yes - ANESTHESIA Hx Anesthesia: Yes Hx Anesthesia Reactions: No Meds Allergies/Adverse Reactions: Allergies Allergy/AdvReac Type Severity Reaction Status Date / Time ibuprofen Allergy Intermediate RASH Verified 12/08/17 19:49 - Medications Medications: Current Medications Heparin Sodium (Porcine) (Heparin) 5,000 units SC Q8 [facility] Last Admin: 12/10/17 14:50 Dose: 5,000 units Doxycycline Hyclate 100 mg/ (Sodium Chloride) 100 mls @ 100 mls/hr IVPB Q12H [facility] PRN Reason: Protocol Last Admin: 12/10/17 11:00 Dose: 100 mls/hr Levetiracetam 500 mg/ Dextrose 105 mls @ 420 mls/hr IVPB Q12H [facility] Last Admin: 12/10/17 10:00 Dose: 420 mls/hr Piperacillin Sod/Tazobactam Sod (Zosyn 3.375 Gm Iv Premix) 3.375 gm in 50 mls @ 100 mls/hr IVPB Q6H [facility] PRN Reason: Protocol Last Admin: 12/10/17 11:30 Dose: 100 mls/hr Pantoprazole Sodium (Protonix Inj) 40 mg IVP DAILY [facility] Last Admin: 12/10/17 11:00 Dose: 40 mg Physical Exam - Constitutional Appears: Non-toxic, Chronically Ill - Head Exam Head Exam: NORMOCEPHALIC - Eye Exam Eye Exam: PERRL. absent: Scleral icterus - ENT Exam ENT Exam: Mucous Membranes Dry - Neck Exam Neck exam: Negative for: Lymphadenopathy - Respiratory Exam Respiratory Exam: Decreased Breath Sounds - Cardiovascular Exam Cardiovascular Exam: REGULAR RHYTHM - GI/Abdominal Exam GI & Abdominal Exam: Diminished Bowel Sounds - Rectal Exam Rectal Exam: Deferred - Exam Exam: NORMAL INSPECTION - Extremities Exam Extremities exam: Positive for: pedal pulses present. Negative for: calf tenderness, pedal edema, tenderness - Back Exam Back exam: absent: CVA tenderness (L), CVA tenderness (R) - Neurological Exam Neurological exam: Alert, CN II-XII Intact, Oriented x3, Reflexes Normal - Psychiatric Exam Psychiatric exam: Normal Mood - Skin Skin Exam: Dry Results - Vital Signs Recent Vital Signs: Last Vital Signs Temp 98.3 F 12/10/17 16:00 Pulse 85 12/10/17 11:01 Resp 20 12/10/17 11:01 BP 117/74 12/10/17 15:01 Pulse Ox 97 12/10/17 16:00 - Labs Result Diagrams: 12/09/17 06:05 12/09/17 06:05 Assessment & Plan - Assessment and Plan (Free Text) Assessment: leukocytosis r/o sepsis hx MRSA r/o bacteremia add Vanco consider drug rehab / psych eval may need echo / ALEX
[2017-12-10] MEDS: Vancomycin 1 gm/NS 200 ml 1 GM/200 ML BAG IVPB SCH (18:22)
[2017-12-11] MEDS: Piperacill/Tazo 3.375gm in Dex 3.375 GM/50 ML BAG IVPB SCH ×4 (05:00→22:07)
[2017-12-11] MEDS: Vancomycin 1 gm/NS 200 ml 1 GM/200 ML BAG IVPB SCH ×2 (06:00→17:42)
--- NOTE | 2017-12-11 14:56 | PN ---
DATE: 12/10/2017 SUBJECTIVE: The patient was seen and examined at bedside on 12/10/2017, looks little bit more comfortable, but still tremulous. No nausea, vomiting, or diarrhea. The patient is not a big historian. No hematuria, no hematochezia. PHYSICAL EXAMINATION: VITAL SIGNS: Temperature 98.3, blood pressure 118/75, oxygenation 97%, and respiratory rate 18. HEENT: Head: Normocephalic and atraumatic. Eyes open and nose patent. Mucous membranes moist. NECK: Supple. No carotid bruits. No JVD or thyromegaly. CHEST: Bilaterally symmetrical. HEART: S1 and S2 positive. LUNGS: Clear to auscultation. ABDOMEN: Soft. Bowel sounds positive. No organomegaly. EXTREMITIES: No edema. No cyanosis. NEUROLOGIC: The patient is awake, alert, moving all 4 extremities. No focal deficits. MEDICATIONS: Heparin, dextrose, Protonix, vancomycin, and Zosyn. LABORATORY DATA: White blood cells 18.3, hemoglobin 13.1, hematocrit 38.6, and platelets 177. Sodium 139, potassium 3.8, BUN 15, creatinine 0.7, and phosphorus 1.8. ASSESSMENT AND PLAN: Mr. Emre Gonzales is a 57-year-old male with leukocytosis, hypophosphatemia, abnormal liver function tests, but trending down, proteinuria, and hematuria. Drug screen positive for opiates and cocaine. Seen by Infectious Disease, Basilio Enriquez MD and monotype operator Dr. Kel Bueno, history of intravenous drug abuse, left leg wound cellulitis, methicillin-resistant Staphylococcus aureus, was recently discharged on 11/21/2017 to rehab to complete the 2 weeks of antibiotics, course of vancomycin and Cipro. The patient apparently got discharged from the rehab a day before admission in [facility]. He was found passed out on the street with fracture, track rosales for intravenous drug abuse. CT scan of the head and chest unremarkable for any fracture injury, very noncompliant, urged to be complaint, rule out sepsis bacteremia. Added vancomycin, need rehab and psych evaluation. Only to him, we will need echo or transesophageal echocardiography, gastrointestinal and deep venous thrombosis prophylaxis, duplex scan of lower extremities done. We will follow. Nena Garces MD [facility] # [id number] EBONI
--- NOTE | 2017-12-11 16:31 | CP.PCM.CON ---
History of Present Illness - History of Present Illness History of Present Illness: Consultation for evaluation of endocarditis HPI: 57 year old male with hx of IVDA , recently discharged to rehab to complete course of Abx for cellulitis admitted after being found unresponsive with track rosales suggestive of possible active IVDA. Not good historian , hx obtained from review of chart and records. PMH h/o IVDA, left leg wound, cellulitis, ? seizure history, heroin abuse,h/o hepc, Meds unknown if compliant and and discharge med list Allergies Ibuprofen, type and detail not known Family history not contributory Social recent discharge form rehab, heroin abuse Review of Systems - Review of Systems Systems not reviewed;Unavailable: Acuity of Condition - Constitutional Constitutional: As Per HPI - EENT Eyes: As Per HPI Ears: As Per HPI Nose/Mouth/Throat: As Per HPI - Cardiovascular Cardiovascular: As Per HPI - Respiratory Respiratory: As Per HPI - Gastrointestinal Gastrointestinal: As Per HPI - Genitourinary Genitourinary: As Per HPI - Reproductive: Male Reproductive:Male: As Per HPI - Musculoskeletal Musculoskeletal: As Per HPI - Integumentary Integumentary: As Per HPI - Neurological Neurological: As Per HPI - Psychiatric Psychiatric: As Per HPI - Endocrine Endocrine: As Per HPI - Hematologic/Lymphatic Hematologic: As Per HPI Past Patient History - Infectious Disease Hx of Infectious Diseases: None - Past Medical History & Family History Past Medical History?: Yes - Past Social History Smoking Status: Light Smoker < 10 Cigarettes Daily Alcohol: Other (unknown) Drugs: Opiates Home Situation {Lives}: Other (unknown) - CARDIAC Hx Hypertension: Yes - PULMONARY Hx Asthma: Yes - NEUROLOGICAL Hx Seizures: Yes - HEENT Hx HEENT Problems: No - RENAL Hx Chronic Kidney Disease: Yes Hx Kidney Stones: Yes - ENDOCRINE/METABOLIC Hx Endocrine Disorders: No - HEMATOLOGICAL/ONCOLOGICAL Hx Blood Disorders: Yes Hx Hepatitis C: Yes - INTEGUMENTARY Hx Dermatological Problems: Yes Other/Comment: left leg cellulitis - MUSCULOSKELETAL/RHEUMATOLOGICAL Hx Fractures: Yes (rib cage) - GASTROINTESTINAL Hx Gastrointestinal Disorders: Yes Other/Comment: Liver Cirrhosis - GENITOURINARY/GYNECOLOGICAL Hx Genitourinary Disorders: No - PSYCHIATRIC Hx Substance Use: No (pt denies.) - SURGICAL HISTORY Hx Cholecystectomy: Yes - ANESTHESIA Hx Anesthesia: Yes Hx Anesthesia Reactions: No Meds Allergies/Adverse Reactions: Allergies Allergy/AdvReac Type Severity Reaction Status Date / Time ibuprofen Allergy Intermediate RASH Verified 12/08/17 19:49 - Medications Medications: Current Medications Heparin Sodium (Porcine) (Heparin) 5,000 units SC Q8 [facility] Last Admin: 12/11/17 06:10 Dose: 5,000 units Levetiracetam 500 mg/ Dextrose 105 mls @ 420 mls/hr IVPB Q12H [facility] Last Admin: 12/11/17 10:12 Dose: 420 mls/hr Piperacillin Sod/Tazobactam Sod (Zosyn 3.375 Gm Iv Premix) 3.375 gm in 50 mls @ 100 mls/hr IVPB Q6H [facility] PRN Reason: Protocol Last Admin: 12/11/17 10:12 Dose: 100 mls/hr Vancomycin/Sodium Chloride (Vancomycin 1 Gm/Ns 200 Ml) 1 gm in 200 mls @ 166.6 mls/hr IVPB Q12H [facility] PRN Reason: Protocol Stop: 12/15/17 18:01 Last Admin: 12/11/17 06:00 Dose: 166.6 mls/hr Pantoprazole Sodium (Protonix Inj) 40 mg IVP DAILY [facility] Last Admin: 12/11/17 10:10 Dose: 40 mg Physical Exam - Constitutional Appears: Well, Unkempt - Head Exam Head Exam: ATRAUMATIC, NORMAL INSPECTION, NORMOCEPHALIC - Eye Exam Eye Exam: EOMI, Normal appearance, PERRL Pupil Exam: NORMAL ACCOMODATION, PERRL - ENT Exam ENT Exam: Mucous Membranes Moist, Normal Exam - Neck Exam Neck exam: Positive for: Normal Inspection - Respiratory Exam Respiratory Exam: Clear to Auscultation Bilateral, NORMAL BREATHING PATTERN - Cardiovascular Exam Cardiovascular Exam: REGULAR RHYTHM, +S1, +S2, Systolic Murmur - GI/Abdominal Exam GI & Abdominal Exam: Normal Bowel Sounds, Soft. absent: Tenderness - Extremities Exam Extremities exam: Positive for: normal inspection - Back Exam Back exam: NORMAL INSPECTION - Neurological Exam Neurological exam: Alert, CN II-XII Intact, Normal Gait, Oriented x3, Reflexes Normal - Psychiatric Exam Psychiatric exam: Normal Affect, Normal Mood - Skin Skin Exam: Dry, Intact, Normal Color, Warm Results - Vital Signs Recent Vital Signs: Last Vital Signs Temp 98.6 F 12/11/17 04:00 Pulse 85 12/10/17 11:01 Resp 20 12/10/17 11:01 BP 126/84 12/10/17 18:01 Pulse Ox 99 12/11/17 04:00 - Labs Result Diagrams: 12/09/17 06:05 12/09/17 06:05 Labs: Laboratory Results - last 24 hr 12/11/17 12:07 POC Glucose (mg/dL) 83 Assessment & Plan (1) Endocarditis Assessment and Plan: echo blood cx abx per ID Status: Acute (2) Sepsis Status: Acute (3) Tachycardia Status: Acute
--- NOTE | 2017-12-11 17:58 | CP.PCM.PN ---
Subjective - Date & Time of Evaluation Date of Evaluation: 12/11/17 Time of Evaluation: 09:00 - Subjective Subjective: AWAKE ALERT NAD Objective - Vital Signs/Intake and Output Vital Signs (last 24 hours): Temp Pulse Resp BP Pulse Ox 98.4 F 85 20 126/84 99 12/11/17 16:00 12/10/17 11:01 12/10/17 11:01 12/10/17 18:01 12/11/17 16:00 Intake and Output: 12/11/17 12/11/17 06:59 18:59 Intake Total 633 770 Output Total 850 480 Balance -217 290 - Medications Medications: Current Medications Heparin Sodium (Porcine) (Heparin) 5,000 units SC Q8 [facility] Last Admin: 12/11/17 14:00 Dose: 5,000 units Levetiracetam 500 mg/ Dextrose 105 mls @ 420 mls/hr IVPB Q12H [facility] Last Admin: 12/11/17 10:12 Dose: 420 mls/hr Piperacillin Sod/Tazobactam Sod (Zosyn 3.375 Gm Iv Premix) 3.375 gm in 50 mls @ 100 mls/hr IVPB Q6H [facility] PRN Reason: Protocol Last Admin: 12/11/17 16:42 Dose: 100 mls/hr Vancomycin/Sodium Chloride (Vancomycin 1 Gm/Ns 200 Ml) 1 gm in 200 mls @ 166.6 mls/hr IVPB Q12H [facility] PRN Reason: Protocol Stop: 12/15/17 18:01 Last Admin: 12/11/17 17:42 Dose: 166.6 mls/hr Pantoprazole Sodium (Protonix Inj) 40 mg IVP DAILY [facility] Last Admin: 12/11/17 10:10 Dose: 40 mg - Labs Labs: 12/09/17 06:05 12/09/17 06:05 PT 13.1 SECONDS (9.7-12.2) H 12/09/17 06:05 INR 1.2 12/09/17 06:05 APTT 33 SECONDS (21-34) 12/09/17 06:05 - Constitutional Appears: Non-toxic, Chronically Ill - Head Exam Head Exam: NORMOCEPHALIC - Eye Exam Eye Exam: absent: Scleral icterus - ENT Exam ENT Exam: Mucous Membranes Dry, Normal External Ear Exam - Neck Exam Neck Exam: absent: Lymphadenopathy - Respiratory Exam Respiratory Exam: Decreased Breath Sounds - Cardiovascular Exam Cardiovascular Exam: REGULAR RHYTHM - GI/Abdominal Exam GI & Abdominal Exam: Distended - Rectal Exam Rectal Exam: Deferred - Exam Exam: NORMAL INSPECTION - Extremities Exam Extremities Exam: absent: Pedal Edema - Back Exam Back Exam: absent: CVA tenderness (L), CVA tenderness (R) - Neurological Exam Neurological Exam: Alert, Awake, Oriented x3 - Psychiatric Exam Psychiatric exam: Normal Mood - Skin Skin Exam: Dry Assessment and Plan - Assessment and Plan (Free Text) Assessment: HX MRSA SKIN INFECTIONS ADMITTED WITH AMS/ LEUKOCYTOSIS CULTURES NEG THUS FAR
[2017-12-12] MEDS: Piperacill/Tazo 3.375gm in Dex 3.375 GM/50 ML BAG IVPB SCH ×4 (05:55→23:11)
[2017-12-12 06:24] LABS: BASO # 0.1 K/uL (0.0-0.2); BASO % 0.9 % (0.0-2.0); EOS # 0.6 K/uL (0.0-0.7); EOS % 8.3 % (0.0-4.0); LYMPH # 2.5 K/uL (1.0-4.3); LYMPH % 34.7 % (20.0-40.0); MEAN CELL VOLUME 89.7 fL (80.0-94.0); MEAN CORPUSCULAR HEMOGLOBIN 31.1 pg (27.0-31.0); MEAN CORPUSCULAR HGB CONC 34.7 g/dL (33.0-37.0); MEAN PLATELET VOLUME 8.2 fL (7.2-11.7); MONO # 0.6 K/uL (0.0-0.8); MONO % 8.3 % (0.0-10.0); NEUT # 3.4 K/uL (1.8-7.0); NEUT % 47.8 % (50.0-75.0); NRBC % 0.1 % (0.0-2.0); RBC 4.49 Mil/uL (4.40-5.90); RED CELL DISTRIBUTION WIDTH 13.4 % (11.5-14.5); WHITE BLOOD COUNT 7.1 K/uL (4.8-10.8)
[2017-12-12] MEDS: Vancomycin 1 gm/NS 200 ml 1 GM/200 ML BAG IVPB SCH ×2 (06:28→16:59)
[2017-12-12 06:44] LABS: ALB/GLOB RATIO 0.8 (1.0-2.1); ALBUMIN 3.4 g/dL (3.5-5.0); ALT/SGPT 71 U/L (21-72); AST/SGOT 45 U/L (17-59); BLOOD UREA NITROGEN 11 mg/dL (9-20); CALCIUM 9.4 mg/dl (8.6-10.4); GFR AFRICAN-AMERICAN > 60; GFR NON-AFRICAN AMERICAN > 60
--- NOTE | 2017-12-12 07:16 | PN ---
DATE: 12/11/17 SUBJECTIVE: The patient was seen and examined at the bedside, looking comfortable, complaining about pain in the left leg. No fevers. No chills. No nausea, vomiting, or diarrhea. No hematuria or hematochezia. PHYSICAL EXAMINATION: VITAL SIGNS: Temperature 98.4, pulse 85, respiratory rate 20, blood pressure 123/84, pulse oximetry 99. HEENT: Head: Normocephalic, atraumatic. Eyes: PERRLA. Extraocular muscles intact. Conjunctivae clear. Nose patent. NECK: Supple. No carotid bruits, JVD, or thyromegaly. CHEST: Bilaterally symmetrical. HEART: S1 and S2 positive. LUNGS: Clear to auscultation. ABDOMEN: Soft. Bowel sounds positive. No organomegaly. EXTREMITIES: No edema, no cyanosis. Left leg has ulcer. MEDICATIONS: Heparin, Zosyn, vancomycin, potassium, dextrose. LABORATORY DATA: White blood cells 8.5, hemoglobin 13.1, hematocrit 38.6, platelets 177. Sodium 137, potassium 3.8, BUN 15, creatinine 0.7, glucose 90. ASSESSMENT AND PLAN: Mr. Christian Andrea is a 57-year-old male with leukocytosis, has ulcer in the leg, methicillin-resistant Staphylococcus aureus, skin infection, admitted with altered mental status and leukocytosis. Blood culture is negative so far. Getting antibiotics from Dr. Enriquez. Seen by the qa automation developer, Dr. Siddhartha Simmons, to rule out endocarditis, history of intravenous drug abuse, was recently discharged from the rehab after completing the course of antibiotics for cellulitis of her leg, found unresponsive with track rosales suggesting of possibly active intravenous drug abuse, history of seizures, heroine abuse, history of hepatitis C positive, rule out endocarditis, tachycardia, having treatment in the unit, principal automation engineer is on the case, gastrointestinal and deep venous thrombosis prophylaxis, repeat labs. We will follow. Nena Garces MD [facility]TDD
[2017-12-12 14:49] VITALS: RESP 20
--- NOTE | 2017-12-12 17:24 | CP.PCM.PN ---
Subjective - Date & Time of Evaluation Date of Evaluation: 12/12/17 Time of Evaluation: 10:00 - Subjective Subjective: improving 57 year old male with hx of IVDA , recently discharged to rehab to complete course of Abx for cellulitis admitted after being found unresponsive with track rosales suggestive of possible active IVDA. Not good historian , hx obtained from review of chart and records. PMH h/o IVDA, left leg wound, cellulitis, Objective - Vital Signs/Intake and Output Vital Signs (last 24 hours): Temp Pulse Resp BP Pulse Ox 98.1 F 53 L 20 122/72 97 12/12/17 16:00 12/12/17 16:00 12/12/17 16:00 12/12/17 16:00 12/12/17 16:00 Intake and Output: 12/12/17 12/12/17 06:59 18:59 Intake Total 150 420 Output Total 0 Balance 150 420 - Medications Medications: Current Medications Heparin Sodium (Porcine) (Heparin) 5,000 units SC Q8 [facility] Last Admin: 12/12/17 15:06 Dose: 5,000 units Piperacillin Sod/Tazobactam Sod (Zosyn 3.375 Gm Iv Premix) 3.375 gm in 50 mls @ 100 mls/hr IVPB Q6H [facility] PRN Reason: Protocol Last Admin: 12/12/17 16:56 Dose: 100 mls/hr Vancomycin/Sodium Chloride (Vancomycin 1 Gm/Ns 200 Ml) 1 gm in 200 mls @ 166.6 mls/hr IVPB Q12H [facility] PRN Reason: Protocol Stop: 12/15/17 18:01 Last Admin: 12/12/17 16:59 Dose: 166.6 mls/hr Pantoprazole Sodium (Protonix Inj) 40 mg IVP DAILY [facility] Last Admin: 12/12/17 11:21 Dose: 40 mg - Labs Labs: 12/12/17 06:16 12/12/17 06:17 PT 13.1 SECONDS (9.7-12.2) H 12/09/17 06:05 INR 1.2 12/09/17 06:05 APTT 33 SECONDS (21-34) 12/09/17 06:05 - Constitutional Appears: Non-toxic, Chronically Ill - Head Exam Head Exam: NORMOCEPHALIC - Eye Exam Eye Exam: PERRL - ENT Exam ENT Exam: Mucous Membranes Dry - Neck Exam Neck Exam: absent: Lymphadenopathy - Respiratory Exam Respiratory Exam: Decreased Breath Sounds, Prolonged Expiratory Phase, Rhonchi - Cardiovascular Exam Cardiovascular Exam: REGULAR RHYTHM - GI/Abdominal Exam GI & Abdominal Exam: Distended, Soft - Rectal Exam Rectal Exam: Deferred - Exam Exam: NORMAL INSPECTION Assessment and Plan - Assessment and Plan (Free Text) Assessment: 57 year old male with hx of IVDA , recently discharged to rehab to complete course of Abx for cellulitis admitted after being found unresponsive with track rosales suggestive of possible active IVDA. Not good historian , hx obtained from review of chart and records. PMH h/o IVDA, left leg wound, cellulitis,
--- NOTE | 2017-12-13 01:27 | PCM.PSYCH ---
Initial Psychiatric Evaluation - Initial Psychiatric Evaluation Type of Admission: Voluntary Legal Status: Capacity Current Medications: Active Medications Generic Name Dose Route Start Last Admin Trade Name Freq PRN Reason Stop Dose Admin Heparin Sodium (Porcine) 5,000 units 12/12/17 14:00 12/12/17 23:00 Heparin SC Not Given Q8 [facility] Piperacillin Sod/Tazobactam Sod 3.375 gm in 50 mls @ 100 mls/hr 12/08/17 23: 00 12/12/17 23:11 Zosyn 3.375 Gm Iv Premix IVPB 100 mls/hr Q6H [facility] Administration Protocol Vancomycin/Sodium Chloride 1 gm in 200 mls @ 166.6 mls/hr 12/10/17 18:00 06/21 16:59 Vancomycin 1 Gm/Ns 200 Ml IVPB 12/15/17 18:01 166.6 mls/hr Q12H [facility] Administration Protocol Pantoprazole Sodium 40 mg 12/09/17 10:00 12/12/17 11:21 Protonix Inj IVP 40 mg DAILY [facility] Administration Past Psychiatric History - Past Psychiatric History Pertinent Medical Hx (Current Medical&Sleep Prob, Allergies): Allergies Allergy/AdvReac Type Severity Reaction Status Date / Time ibuprofen Allergy Intermediate RASH Verified 12/08/17 19:49 levETIRAcetam [Keppra] 500 mg PO BID #14 tab 06/11/17 Piperacill/Tazo 3.375gm in Dex [Zosyn 3.375 Gm IV Premix] 3.375 gm IVPB Q8 14 Days bag 11/20/17 Vancomycin/0.9 % Sod Chloride [Vancomycin 1 G/100Ml-0.9% NaCl] 1 gm IV Q12 14 Days plast..bag 11/20/17 Acetaminophen [Tylenol 325mg tab] 650 mg PO Q6H PRN 7 Days tab 11/21/17 Multivitamins [Hexavitamin] 1 tab PO DAILY tab 11/21/17
[2017-12-13] MEDS: Piperacill/Tazo 3.375gm in Dex 3.375 GM/50 ML BAG IVPB SCH ×4 (04:30→23:09)
[2017-12-13] MEDS: Vancomycin 1 gm/NS 200 ml 1 GM/200 ML BAG IVPB SCH ×2 (05:15→17:44)
--- NOTE | 2017-12-13 12:50 | CP.PCM.PN ---
Subjective - Date & Time of Evaluation Date of Evaluation: 12/12/17 Time of Evaluation: 12:48 - Subjective Subjective: Echo reviewed blood cx -ve white count trending down Objective - Vital Signs/Intake and Output Vital Signs (last 24 hours): Temp Pulse Resp BP Pulse Ox 98.8 F 60 20 120/79 96 12/13/17 07:41 12/13/17 07:41 12/13/17 07:41 12/13/17 07:41 12/13/17 07:41 Intake and Output: 12/13/17 12/13/17 06:59 18:59 Intake Total 650 Output Total 800 Balance -150 - Medications Medications: Current Medications Heparin Sodium (Porcine) (Heparin) 5,000 units SC Q8 [facility] Last Admin: 12/13/17 05:10 Dose: 5,000 units Piperacillin Sod/Tazobactam Sod (Zosyn 3.375 Gm Iv Premix) 3.375 gm in 50 mls @ 100 mls/hr IVPB Q6H [facility] PRN Reason: Protocol Last Admin: 12/13/17 11:50 Dose: 100 mls/hr Vancomycin/Sodium Chloride (Vancomycin 1 Gm/Ns 200 Ml) 1 gm in 200 mls @ 166.6 mls/hr IVPB Q12H [facility] PRN Reason: Protocol Stop: 12/15/17 18:01 Last Admin: 12/13/17 05:15 Dose: 166.6 mls/hr Pantoprazole Sodium (Protonix Inj) 40 mg IVP DAILY [facility] Last Admin: 12/13/17 10:30 Dose: 40 mg - Labs Labs: 12/12/17 06:16 12/12/17 06:17 PT 13.1 SECONDS (9.7-12.2) H 12/09/17 06:05 INR 1.2 12/09/17 06:05 APTT 33 SECONDS (21-34) 12/09/17 06:05 - Constitutional Appears: Well - Head Exam Head Exam: ATRAUMATIC, NORMAL INSPECTION, NORMOCEPHALIC - Eye Exam Eye Exam: EOMI, Normal appearance, PERRL Pupil Exam: NORMAL ACCOMODATION, PERRL - ENT Exam ENT Exam: Mucous Membranes Moist, Normal Exam - Neck Exam Neck Exam: Full ROM, Normal Inspection. absent: Lymphadenopathy - Respiratory Exam Respiratory Exam: Clear to Ausculation Bilateral, NORMAL BREATHING PATTERN - Cardiovascular Exam Cardiovascular Exam: REGULAR RHYTHM, +S1, +S2, Murmur - GI/Abdominal Exam GI & Abdominal Exam: Soft, Normal Bowel Sounds. absent: Tenderness - Extremities Exam Extremities Exam: Full ROM, Normal Capillary Refill, Normal Inspection. absent : Joint Swelling, Pedal Edema - Back Exam Back Exam: NORMAL INSPECTION - Neurological Exam Neurological Exam: Alert, Awake, CN II-XII Intact, Normal Gait, Oriented x3 - Psychiatric Exam Psychiatric exam: Normal Affect, Normal Mood - Skin Skin Exam: Dry, Intact, Normal Color, Warm Assessment and Plan (1) Endocarditis Assessment & Plan: Echo reviewed - no evidence to suggest endocarditis white count trending down blood cx -ve Status: Acute (2) Sepsis Assessment & Plan: abx Status: Acute (3) Tachycardia Status: Acute
--- NOTE | 2017-12-13 15:18 | CP.PCM.PN ---
Subjective - Date & Time of Evaluation Date of Evaluation: 12/13/17 Time of Evaluation: 08:00 - Subjective Subjective: iv rx renewed cultures neg thus far Objective - Vital Signs/Intake and Output Vital Signs (last 24 hours): Temp Pulse Resp BP Pulse Ox 98.8 F 60 20 120/79 96 12/13/17 07:41 12/13/17 07:41 12/13/17 07:41 12/13/17 07:41 12/13/17 07:41 Intake and Output: 12/13/17 12/13/17 06:59 18:59 Intake Total 650 Output Total 800 Balance -150 - Medications Medications: Current Medications Heparin Sodium (Porcine) (Heparin) 5,000 units SC Q8 [facility] Last Admin: 12/13/17 14:40 Dose: 5,000 units Piperacillin Sod/Tazobactam Sod (Zosyn 3.375 Gm Iv Premix) 3.375 gm in 50 mls @ 100 mls/hr IVPB Q6H [facility] PRN Reason: Protocol Last Admin: 12/13/17 11:50 Dose: 100 mls/hr Vancomycin/Sodium Chloride (Vancomycin 1 Gm/Ns 200 Ml) 1 gm in 200 mls @ 166.6 mls/hr IVPB Q12H [facility] PRN Reason: Protocol Stop: 12/15/17 18:01 Last Admin: 12/13/17 05:15 Dose: 166.6 mls/hr Pantoprazole Sodium (Protonix Inj) 40 mg IVP DAILY [facility] Last Admin: 12/13/17 10:30 Dose: 40 mg - Labs Labs: 12/12/17 06:16 12/12/17 06:17 PT 13.1 SECONDS (9.7-12.2) H 12/09/17 06:05 INR 1.2 12/09/17 06:05 APTT 33 SECONDS (21-34) 12/09/17 06:05
[2017-12-14] MEDS: Vancomycin 1 gm/NS 200 ml 1 GM/200 ML BAG IVPB SCH ×2 (05:18→17:47)
--- NOTE | 2017-12-14 10:33 | CARD ---
APPROVED REPORT EXAM: Two-dimensional and M-mode echocardiogram with Doppler and color Doppler. Other Information Quality : GoodRhythm : INDICATION Infection:Rule out subacute bacterial endocarditis 2D DIMENSIONS IVSd1.0 (0.7-1.1cm)LVDd5.1 (3.9-5.9cm) PWd1.1 (0.7-1.1cm)LVDs3.1 (2.5-4.0cm) FS (%) 39.7 %LVEF (%)69.9 (>50%) Mitral Valve MV E Hgdrzsgh32.6cm/sMV A Khbkacqr71.8cm/sE/A ratio1.2 TDI E/Lateral E'0.0E/Medial E'0.0 LEFT VENTRICLE The left ventricle is normal size. There is normal left ventricular wall thickness. Left ventricle systolic function is normal. The Ejection Fraction is 65-70%. There is normal LV segmental wall motion. The left ventricular diastolic function is normal. No left ventricle thrombus noted on this study. RIGHT VENTRICLE The right ventricle is normal size. The right ventricular systolic function is normal. ATRIA The left atrium size is normal. The right atrium size is normal. AORTIC VALVE The aortic valve is mildly sclerotic. No aortic regurgitation is present. There is no aortic valvular stenosis. There is no aortic valvular vegetation. MITRAL VALVE Mitral annular calcification is mild. There is no evidence of mitral valve prolapse. There is no mitral valve stenosis. There is no mitral valve regurgitation noted. TRICUSPID VALVE The tricuspid valve is normal in structure. There is trace tricuspid regurgitation. There is no pulmonary hypertension. There is no tricuspid valve prolapse or vegetation. There is no tricuspid valve stenosis. PULMONIC VALVE The pulmonary valve is normal in structure. There is no pulmonic valvular regurgitation. There is no pulmonic valvular stenosis. GREAT VESSELS The aortic root is normal in size. The IVC is normal in size and collapses >50% with inspiration. PERICARDIAL EFFUSION There is no pericardial effusion. There is no pleural effusion. <Conclusion> The left ventricle is normal size. Left ventricle systolic function is normal. The Ejection Fraction is 65-70%. The left ventricular diastolic function is normal. The left atrium size is normal. The right atrium size is normal. The right ventricle is normal size. The right ventricular systolic function is normal. There is trace tricuspid regurgitation.
--- NOTE | 2017-12-14 21:51 | PN ---
DATE: 12/14/2017 SUBJECTIVE: The patient is seen and examined at the bedside, looking comfortable. The patient's leg pain is getting better. Cough is better. No nausea, vomiting or diarrhea. No hematuria or hematochezia. No headache. No dizziness, no chest pain or palpitations. PHYSICAL EXAMINATION: VITAL SIGNS: Temperature 98.2, pulse 68, blood pressure 130/79, respiratory rate 20. HEENT: Head normocephalic, atraumatic. Eyes, PERRLA. Extraocular muscles are intact. Conjunctivae clear. Nose patent. Mucous membranes moist. NECK: Supple. No carotid bruits, JVD or thyromegaly. CHEST: Bilaterally symmetrical. HEART: S1, S2 positive. LUNGS: Clear to auscultation. ABDOMEN: Soft. Bowel sounds present. No organomegaly. EXTREMITIES: No edema. No cyanosis. NEUROLOGIC: The patient is awake and alert. Moving all 4 extremities. No focal deficits. MEDICATIONS: Heparin, Keppra, Protonix, vancomycin. LABORATORY DATA: We do not have recent labs today, but I will review the old labs. ASSESSMENT AND PLAN: Mr. Emre Gonzales a 57 years old male with history of leukocytosis improved, abnormal liver function test, improved, history of hematuria. Drug screen positive for opioids and cannabinoids. Getting treatment for leg cellulitis with antibiotics. Now cultures negative so far. History of intravenous drugs, was recently discharged from rehab after completing antibiotic course, found unresponsive with fresh track rosales suggesting of possible active intravenous drugs. Left leg wound cellulitis, Seen by simulation engineer Dr. Siddhartha Simmons to rule out endocarditis. White count trending down. Echocardiogram reviewed by the simulation engineer. No evidence to suggest endocarditis. Sepsis improving with tachycardia getting better. We will continue current treatment, GI, DVT prophylaxis. Reviewed all doctor's notes. We will follow. Nena Garces MD [facility]
[2017-12-15] MEDS: Vancomycin 1 gm/NS 200 ml 1 GM/200 ML BAG IVPB SCH (05:00)
[2017-12-15] MEDS ORDERED: Pantoprazole 40 mg EC Tab PO SCH (10:00)
--- NOTE | 2017-12-15 10:01 | PN ---
DATE: 12/13/2017 SUBJECTIVE: The patient was seen and examined at the bedside, looking comfortable, was still having pain in the abdomen, especially left side. Tremors are better. The patient is not good historian. No fevers. No chills. No headache. No dizziness. PHYSICAL EXAMINATION: VITAL SIGNS: Temperature 98.1, pulse 53, respiratory rate 20, blood pressure 122/77, and pulse oximetry 97. HEENT: Head: Normocephalic, atraumatic. Eyes: PERRLA. Extraocular muscles intact. Conjunctivae clear. Nose patent. Mucous membranes moist. NECK: Supple. No carotid bruits, JVD, or thyromegaly. CHEST: Bilaterally symmetrical. HEART: S1 and S2 positive. LUNGS: Clear to auscultation. ABDOMEN: Soft. Bowel sounds positive. No organomegaly. EXTREMITIES: No edema, no cyanosis. MEDICATIONS: Heparin, Zosyn, vancomycin, and pantoprazole. LABORATORY DATA: White blood cells 7.1, hemoglobin 10, hematocrit 41.3, and platelets 223. Sodium 142, potassium 3.8, BUN 11, creatinine 0.3, and glucose 94. ASSESSMENT AND PLAN: The patient is a 57-year-old male with multiple medical problems and history of intravenous drug abuse. The patient was discharged from [facility], finished rehab, completed intravenous antibiotic course for cellulitis of the leg, now being found unresponsive and with track rosales, active intravenous drug abuse. The patient is a good historian. By seeing, he looks a little bit better clinically. History of intravenous drug abuse, left leg wound, cellulitis. We will continue present treatment. Gastrointestinal and deep venous thrombosis prophylaxis. Repeat labs. According to the patient, he wants to go to his sister's home at this time. Otherwise, he is homeless. We will follow up. Nena Garces MD [facility]
--- NOTE | 2017-12-15 10:03 | PN ---
DATE: 12/13/2017 SUBJECTIVE: The patient is in [facility], seen and examined at the bedside, looking better. No nausea, vomiting, or diarrhea. No hematuria or hematochezia. No headache, no dizziness, no chest pain, no palpitations. PHYSICAL EXAMINATION: VITAL SIGNS: Temperature 98.8, pulse 50, respiratory rate 20, blood pressure 120/79, pulse oxymetry 97%. HEENT: Head: Normocephalic, atraumatic. Eyes: PERRLA. Ocular muscles are intact. Conjunctivae clear. Nose patent. Mucous membranes moist. NECK: Supple. No carotid bruits, JVD, or thyromegaly. CHEST: Bilaterally symmetrical. HEART: S1, S2 positive. LUNGS: Clear to auscultation. ABDOMEN: Soft. Bowel sounds present. No organomegaly. EXTREMITIES: No edema. No cyanosis. NEUROLOGIC: The patient is awake and alert. Moving all 4 extremities. No focal deficits. MEDICATIONS: Heparin, Zosyn, vancomycin, pantoprazole. LABORATORY DATA: White blood cells 7.1, hemoglobin 14, hematocrit 40.3, platelets 226. Sodium 142, potassium 3.8, BUN 11, creatinine 0.3, glucose 94. ASSESSMENT AND PLAN: The patient is a 57-year-old male with multiple medical problems, history of intravenous drug abuse, Psych is on the case, waiting for transesophageal echocardiogram, was recently discharged to rehab after completing the course of antibiotics, was found unresponsive with fresh track rosales suggestive of possibly active intravenous drug abuse. The patient is not a good historian. Echocardiography done. CAT scan of the chest and head done, reviewed by me. He has a history of left leg wound cellulitis, seizure history, heroine abuse, history of hepatitis C positive, getting now antibiotics intravenously, rule out endocarditis as per Infectious Disease, sepsis, and tachycardia, Repeat labs. Gastrointestinal and deep venous thrombosis prophylaxis. Nena Garces MD
[2017-12-15 15:55] VITALS: BP 134/73; PULSE 67; TEMP 98
--- NOTE | 2017-12-15 17:27 | CP.PCM.PN ---
Subjective - Date & Time of Evaluation Date of Evaluation: 12/15/17 Time of Evaluation: 11:00 - Subjective Subjective: Awake, alert, no sob or chest pains, no distress noted. Objective - Vital Signs/Intake and Output Vital Signs (last 24 hours): Temp Pulse Resp BP Pulse Ox 98.0 F 67 20 134/73 97 12/15/17 15:00 12/15/17 15:00 12/15/17 15:00 12/15/17 15:00 12/15/17 15:00 Intake and Output: 12/15/17 12/15/17 06:59 18:59 Intake Total 1300 400 Output Total 2100 Balance -800 400 - Medications Medications: Current Medications Vancomycin/Sodium Chloride (Vancomycin 1 Gm/Ns 200 Ml) 1 gm in 200 mls @ 166.6 mls/hr IVPB Q12H [facility] PRN Reason: Protocol Stop: 12/15/17 18:01 Last Admin: 12/15/17 05:00 Dose: 166.6 mls/hr Levetiracetam (Keppra) 500 mg PO BID [facility] Last Admin: 12/15/17 10:35 Dose: 500 mg Pantoprazole Sodium (Protonix Ec Tab) 40 mg PO DAILY [facility] Last Admin: 12/15/17 10:35 Dose: 40 mg - Labs Labs: 12/12/17 06:16 12/12/17 06:17 PT 13.1 SECONDS (9.7-12.2) H 12/09/17 06:05 INR 1.2 12/09/17 06:05 APTT 33 SECONDS (21-34) 12/09/17 06:05 Assessment and Plan - Assessment and Plan (Free Text) Assessment: Patient seen and examined. Awake, alert, denies sob or chest pains. Cleared by DR Enriquez and DR Garces for discharge. Patient said he will go to his sister to stay. Augmentin for [address] Enriquez given. Advised to follow up with PMD in 1 week. Advised to attend outpatient drug rehab, information given.
[2017-12-19 13:33] VITALS: O2SAT 93
--- NOTE | 2017-12-22 03:37 | DS ---
CHIEF COMPLAINT: Seizures, fall. HISTORY OF PRESENT ILLNESS: Mr. Emre Gonzales is a 57 years old male with past medical history of seizure disorder, heroin dependency, hepatitis C, wound on the legs and most recently left leg cellulitis SP incision and drainage who reportedly was found obtunded in the street. He is a poor historian and could not answer most of the questions, but we admitted the patient, kept in the unit then transferred to the medical floor, gave PICC line and gave antibiotics, improved and discharged. Will follow up with his own primary care physician, Infectious Disease. Prescription medications given by the nurse practitioner. PAST MEDICAL HISTORY: As above, fracture of the ribs, hypertension, kidney stones, chronic kidney disease, seizures and cholecystectomy. FAMILY HISTORY: Father and mother noncontributory. HABITS: Smoking, yes. Alcohol, yes. Substance abuse, denied. ALLERGIES: THE PATIENT IS ALLERGIC WITH BUSPIRONE. REVIEW OF SYSTEMS: The patient was seen and examined on the bedside on 12/15/2017, looking comfortable. No nauses, vomiting or diarrhea. No hematuria, hematochezia. No swelling of the upper extremities. No headache. No dizziness. No chest pain. No palpitation. Awake and alert. No shortness of breath. No distress noted. PHYSICAL EXAMINATION: VITAL SIGNS: Temperature 98, pulse 67, respiratory rate 20, blood pressure 137/73, pulse oximetry 97. HEENT: Head normocephalic, atraumatic. Eyes, PERRLA, extraocular muscles intact. Conjunctivae clear. Nose patent. Mucous membranes moist. NECK: Supple. No carotid bruits, JVD or thyromegaly. CHEST: Bilaterally symmetrical. HEART: S1, S2, positive. LUNGS: Clear to auscultation. ABDOMEN: Soft, bowel sounds positive. No organomegaly. EXTREMITIES: Upper extremities, no edema, no cyanosis. NEUROLOGIC: Awake, alert, moving all 4 extremities. No focal deficits. MEDICATIONS: Got vancomycin last dose administered on 12/15/2017, Keppra, Protonix. LABORATORY DATA: White blood cells 7.1, hemoglobin 14, hematocrit 40.3, platelets 223, sodium 142, potassium 3.8, BUN 11, creatinine 0.8, glucose 94. ASSESSMENT AND PLAN: Mr. Emre Gonzales is a 57-year-old male, very noncompliant, history of seizures, cellulitis of the leg, got antibiotics then cleared by Dr. Enriquez for discharge and the patient said he will go to his sister to stay. In the hospital, the patient got vancomycin but last dose given and discharged home with Augmentin for [address] Enriquez. Nurse practitioner, Abel Fernandez wrote prescriptions. Advised to follow up with primary care physician after one week. Advised to attend the outpatient drug rehab. All information given to the patient by Abel Fernandez . Other comorbidities are seizures, the patient is informed to follow up with neurologist, history of intravenous drug abuse, will see Psychiatry, was recently discharged from rehab after completing a course of antibiotics, was found unresponsive with fresh track jeronimo suggestive possibly actively intravenous drug abuse. Echocardiography done to rule out endocarditis. CAT scan is also reviewed by me. Left leg cellulitis got better. The patient is hepatitis C positive, urged to get treatment for hepatitis C. The patient is going to his sister's home and he promised will not use drugs and alcohol but followup with his own doctor. Nena Garces MD
== END 2017-12-15 18:23 | disposition home or self-care (01) | DRG 584 ==
LOC: C.ER 19:31 → C.9I 22:39 → C.3T 12-12 14:42
PROVIDERS: ADMIT Internal Medicine; ATTEND Internal Medicine
DX: A41.9 Sepsis, unspecified organism (principal); J69.0 Pneumonitis due to inhalation of food and vomit; L03.116 Cellulitis of left lower limb; F11.10 Opioid abuse, uncomplicated; J98.11 Atelectasis; K74.60 Unspecified cirrhosis of liver; N18.9 Chronic kidney disease, unspecified; B19.20 Unspecified viral hepatitis C without hepatic coma; E83.39 Other disorders of phosphorus metabolism; G40.909 Epilepsy, unspecified, not intractable, without status epilepticus; I12.9 Hypertensive chronic kidney disease with stage 1 through stage 4 chronic kidney disease, or unspecified chronic kidney disease; J45.909 Unspecified asthma, uncomplicated; K21.9 Gastro-esophageal reflux disease without esophagitis; F17.210 Nicotine dependence, cigarettes, uncomplicated; Z59.0 Homelessness; Z86.14 Personal history of Methicillin resistant Staphylococcus aureus infection; Z87.442 Personal history of urinary calculi; Z88.6 Allergy status to analgesic agent; Z90.49 Acquired absence of other specified parts of digestive tract; Z91.19 Patient's noncompliance with other medical treatment and regimen

== ENCOUNTER 2018-01-17 07:43 | Emergency (ER) | payer MEDICAID ==
[2018-01-17 07:43] VITALS: BMI 20.6
[2018-01-17 07:57] VITALS: O2SAT 100
[2018-01-17] MEDS ORDERED: Sodium Chloride 0.9% 1,000 ML IV ONE (08:01)
[2018-01-17] MEDS ORDERED: Permethrin 1% Kit 59 ML BOTTLE TOP STA (08:07)
--- NOTE | 2018-01-17 08:10 | C.PDOC ---
History Of Present Illness 57 year old male with past medical history of seizure disorder brought to ED by EMS after witnessed seizure this morning. EMS notes seizure activity lasted several minutes. Patient has been seen multiple times in the ER multiple times for similar episodes in the past. He states he has been compliant with Keppra. Patient denies any other physical complaints. Time Seen by Provider: 01/17/18 07:54 Chief Complaint (Nursing): Seizure History Per: Patient, EMS History/Exam Limitations: no limitations Length Of Seizures (Duration): Minutes Quality Of Seizure: Generalized Past Medical History Reviewed: Historical Data, Nursing Documentation, Vital Signs Vital Signs: Last Vital Signs Temp 98.5 F 01/17/18 10:14 Pulse 77 01/17/18 10:14 Resp 16 01/17/18 10:14 BP 129/88 01/17/18 10:14 Pulse Ox 100 01/18/18 14:34 - Medical History PMH: Asthma, Fractures (rib cage), HTN, Kidney Stones, Chronic Kidney Disease, Seizures Surgical History: Cholecystectomy - [facility] Procedures DRAINAGE OF RIGHT LOWER LEG SKIN, EXTERNAL APPROACH, DIAGN (11/14/17) EXCISION OF R LOW LEG SUBCU/FASCIA, OPEN APPROACH (11/14/17) EXCISION OF RIGHT LOWER LEG SKIN, EXTERNAL APPROACH (11/14/17) INSERTION OF ENDOTRACHEAL AIRWAY INTO TRACHEA, VIA OPENING (03/10/16) INSERTION OF INFUSION DEV INTO SUP VENA CAVA, PERC APPROACH (11/14/17) RESPIRATORY VENTILATION, GREATER THAN 96 CONSECUTIVE HOURS (03/10/16) TETANUS TOXOID ADMINIST (11/03/14) TRANSFER RIGHT LOWER LEG SKIN, EXTERNAL APPROACH (11/14/17) Family History: States: No Known Family Hx - Social History Hx Tobacco Use: Yes Hx Alcohol Use: Yes Hx Substance Use: No (hx of heroin use. not for 1 month) - Immunization History Hx Tetanus Toxoid Vaccination: No (UNKNOWN) Hx Influenza Vaccination: No Hx Pneumococcal Vaccination: Yes Review Of Systems Constitutional: Negative for: Fever, Chills Cardiovascular: Negative for: Chest Pain Respiratory: Negative for: Cough, Shortness of Breath Gastrointestinal: Negative for: Nausea, Vomiting, Abdominal Pain Neurological: Positive for: Seizures. Negative for: Headache, Dizziness Physical Exam - Physical Exam Appears: Well, Non-toxic, No Acute Distress, Unkempt Skin: Normal Color, Warm, Dry, Other (small insects (lice?) crawling on back, posterior neck , left distal medial thigh- approx 3cm area of induration, no fluctuance) Head: Normacephalic Eye(s): bilateral: Normal Inspection Oral Mucosa: Moist Tongue: Normal Appearing, No Lesions, No Laceration Lips: Normal Appearing Throat: Normal Neck: Supple Cardiovascular: Rhythm Regular Respiratory: Normal Breath Sounds, No Rales, No Rhonchi, No Wheezing Gastrointestinal/Abdominal: Normal Exam, Bowel Sounds, Soft, No Tenderness Extremity: Normal ROM, No Deformity Neurological/Psych: Oriented x3, Normal Speech, Normal Cognition ED Course And Treatment - Laboratory Results Result Diagrams: 01/17/18 09:08 01/17/18 08:39 O2 Sat by Pulse Oximetry: 100 (RA) Pulse Ox Interpretation: Normal Progress Note: Blood work ordered and reviewed. Pt given IV NS bolus, PO Keppra , PO Clindmycin and permethrin topical treatment. Reevaluation Time: 10:30 Reassessment Condition: Improved (Patient reassessed, is resting comfortably. No repeat seizures in ED. Patient given Rxs for Clindamycin, Keppra, and permethrin. He was instructed to follow up with PMD/clinic in 1-2 days, and understands he should return to ED if symptoms worsen.) Disposition Counseled Patient/Family Regarding: Studies Performed, Diagnosis, Need For Followup, Rx Given - Disposition Referrals: [facility] [Outside] Disposition: HOME/ ROUTINE Disposition Time: 10:30 Condition: STABLE Prescriptions: Clindamycin [Cleocin] 300 mg PO TID #21 cap Levetiracetam [Keppra] 500 mg PO BID #60 tablet Permethrin 5% [Permethrin] 5 unit TP ONCE #1 tube Instructions: Head Lice (DC), Boil (DC), Seizures, Adult (DC) Forms: [employer] (Citizen [place]) Print Language: [place] CITIZEN - POA Present On Arrival: None - Clinical Impression Clinical Impression: Seizure disorder, Lice infestation, Abscess of leg - Scribe Statement The provider has reviewed the documentation as recorded by the Sergeyibe Daphnie Rocha All medical record entries made by the Sergeyibdeon were at my direction and personally dictated by me. I have reviewed the chart and agree that the record accurately reflects my personal performance of the history, physical exam, medical decision making, and the department course for this patient. I have also personally directed, reviewed, and agree with the discharge instructions and disposition.
[2018-01-17 08:56] LABS: ALB/GLOB RATIO 0.9 (1.0-2.1); ALBUMIN 4.2 g/dL (3.5-5.0); CALCIUM 9.3 mg/dl (8.6-10.4); GFR AFRICAN-AMERICAN > 60; GFR NON-AFRICAN AMERICAN > 60
[2018-01-17 08:59] LABS: ALT/SGPT 86 U/L (21-72); AST/SGOT 90 U/L (17-59); BLOOD UREA NITROGEN 11 mg/dL (9-20)
[2018-01-17 09:21] LABS: BASO # 0.1 K/uL (0.0-0.2); BASO % 0.4 % (0.0-2.0); EOS # 0.2 K/uL (0.0-0.7); EOS % 1.2 % (0.0-4.0); HEMOGLOBIN 15.5 g/dL (12.0-18.0); LYMPH # 2.2 K/uL (1.0-4.3); MEAN CORPUSCULAR HEMOGLOBIN 33.5 pg (27.0-31.0); MEAN CORPUSCULAR HGB CONC 36.5 g/dL (33.0-37.0); MEAN PLATELET VOLUME 8.3 fL (7.2-11.7); MONO # 1.8 K/uL (0.0-0.8); MONO % 10.9 % (0.0-10.0); NEUT # 12.5 K/uL (1.8-7.0); NEUT % 74.5 % (50.0-75.0); NRBC % 0.1 % (0.0-2.0); RBC 4.62 Mil/uL (4.40-5.90); RED CELL DISTRIBUTION WIDTH 15.1 % (11.5-14.5)
[2018-01-17 09:30] LABS: MEAN CELL VOLUME 91.8 fL (80.0-94.0); WHITE BLOOD COUNT 16.8 K/uL (4.8-10.8)
[2018-01-17] MEDS ORDERED: Permethrin 1% Kit 59 ML BOTTLE TOP ONE (09:30)
[2018-01-17 10:15] VITALS: BP 129/88; PULSE 77; RESP 16; TEMP 98.5
== END 2018-01-17 10:45 | disposition home or self-care (01) ==
LOC: C.ER 07:43
DX: G40.909 Epilepsy, unspecified, not intractable, without status epilepticus (principal); B85.2 Pediculosis, unspecified; L02.416 Cutaneous abscess of left lower limb
CPT/HCPCS: 80053; 80177; 82550; 82948; 85025; 96360; 99285; J7030

== ENCOUNTER 2018-02-23 07:45 | Observation (INO) | payer MEDICAID ==
[2018-02-23 07:45] VITALS: BMI 20.6
[2018-02-23 08:28] LABS: BASO % 0.8 % (0.0-2.0); EOS # 0.1 K/uL (0.0-0.7); EOS % 1.3 % (0.0-4.0); HEMOGLOBIN 15.1 g/dL (12.0-18.0); LYMPH # 0.7 K/uL (1.0-4.3); LYMPH % 10.8 % (20.0-40.0); MEAN CELL VOLUME 93.6 fL (80.0-94.0); MEAN CORPUSCULAR HEMOGLOBIN 31.4 pg (27.0-31.0); MEAN CORPUSCULAR HGB CONC 33.6 g/dL (33.0-37.0); MEAN PLATELET VOLUME 8.3 fL (7.2-11.7); MONO # 0.5 K/uL (0.0-0.8); MONO % 8.1 % (0.0-10.0); NEUT # 4.8 K/uL (1.8-7.0); RBC 4.82 Mil/uL (4.40-5.90); RED CELL DISTRIBUTION WIDTH 14.7 % (11.5-14.5)
[2018-02-23 08:39] LABS: ALB/GLOB RATIO 0.9 (1.0-2.1); ALT/SGPT 150 U/L (21-72); AST/SGOT 196 U/L (17-59); BLOOD UREA NITROGEN 16 mg/dL (9-20); CALCIUM 9.5 mg/dl (8.6-10.4); GFR AFRICAN-AMERICAN > 60; GFR NON-AFRICAN AMERICAN > 60
--- NOTE | 2018-02-23 08:39 | C.PDOC ---
History Of Present Illness 58 year old male is brought in by EMS for evaluation of witnesses seizure. As per EMS patient's friend witness patient having a seizure and called 911, upon arrival EMS found patient post ictal. Patient reports not havign any seizure or having a history of seizures. Patient is poor historian. Patient denies nausea, vomit, headache, tongue bitting, bowel incontinence. Time Seen by Provider: 02/23/18 07:51 Chief Complaint (Nursing): Seizure History Per: Patient, EMS History/Exam Limitations: no limitations Recent Seizure Activity Began: Just Before Arrival Number Of Seizures: One Length Of Seizures (Duration): Unknown Quality Of Seizure: Generalized Precipitating Factor(s): None Post-ictal Period: Yes (per EMS) Recent travel outside of the [place]: No Additional History Per: Patient, EMS Past Medical History Reviewed: Historical Data, Nursing Documentation, Vital Signs Vital Signs: Last Vital Signs Temp 98.5 F 02/24/18 07:58 Pulse 55 L 02/24/18 07:58 Resp 20 02/24/18 07:58 BP 117/75 02/24/18 07:58 Pulse Ox 92 L 02/24/18 09:35 - Medical History PMH: Asthma, Fractures (rib cage), HTN, Kidney Stones, Chronic Kidney Disease, Seizures Surgical History: Cholecystectomy - [facility] Procedures DRAINAGE OF RIGHT LOWER LEG SKIN, EXTERNAL APPROACH, DIAGN (11/14/17) EXCISION OF R LOW LEG SUBCU/FASCIA, OPEN APPROACH (11/14/17) EXCISION OF RIGHT LOWER LEG SKIN, EXTERNAL APPROACH (11/14/17) INSERTION OF ENDOTRACHEAL AIRWAY INTO TRACHEA, VIA OPENING (03/10/16) INSERTION OF INFUSION DEV INTO SUP VENA CAVA, PERC APPROACH (11/14/17) RESPIRATORY VENTILATION, GREATER THAN 96 CONSECUTIVE HOURS (03/10/16) TETANUS TOXOID ADMINIST (11/03/14) TRANSFER RIGHT LOWER LEG SKIN, EXTERNAL APPROACH (11/14/17) Family History: States: Unknown Family Hx - Social History Hx Tobacco Use: Yes Hx Alcohol Use: Yes Hx Substance Use: No (pt denies.) - Immunization History Hx Tetanus Toxoid Vaccination: No (UNKNOWN) Hx Influenza Vaccination: No Hx Pneumococcal Vaccination: Yes Review Of Systems Constitutional: Negative for: Fever, Chills Cardiovascular: Negative for: Chest Pain, Palpitations Respiratory: Negative for: Cough, Shortness of Breath Gastrointestinal: Negative for: Nausea, Vomiting, Abdominal Pain Skin: Negative for: Rash Neurological: Negative for: Headache, Dizziness Physical Exam - Physical Exam Appears: Non-toxic, No Acute Distress Skin: Normal Color, Warm, Dry Head: Atraumatic, Normacephalic Eye(s): bilateral: Normal Inspection Oral Mucosa: Moist Neck: Normal ROM, Supple Chest: Symmetrical Cardiovascular: Rhythm Regular, No Murmur Respiratory: Normal Breath Sounds, No Rales, No Rhonchi, No Wheezing Gastrointestinal/Abdominal: Soft, No Tenderness, No Guarding, No Rebound Extremity: Normal ROM, No Tenderness, No Swelling Neurological/Psych: Oriented x3, Normal Speech Gait: Steady ED Course And Treatment - Laboratory Results Result Diagrams: 02/24/18 06:38 02/24/18 06:38 ECG: Interpreted By Me, Viewed By Me ECG Rhythm: Sinus Rhythm Interpretation Of ECG: LVH, normal axis, normal interval Rate From EC (BPM) O2 Sat by Pulse Oximetry: 92 Medical Decision Making Medical Decision Making: Impression: seizure Plan: * CT head * EKG * Labs * UA patient with recurrent seizure in ER [facility] given also previous charts reviewed and patient does have a history of seizures. Dr. Mendoza notified and will admit to observation Disposition - Disposition Disposition: HOSPITALIZED Disposition Time: 10:26 Condition: FAIR - Clinical Impression Clinical Impression: Epilepsy, Substance use disorder - Scribe Statement The provider has reviewed the documentation as recorded by the Scribe Lele Macias All medical record entries made by the Scribe were at my direction and personally dictated by me. I have reviewed the chart and agree that the record accurately reflects my personal performance of the history, physical exam, medical decision making, and the department course for this patient. I have also personally directed, reviewed, and agree with the discharge instructions and disposition.
--- NOTE | 2018-02-23 09:24 | CT ---
Date of service: 02/23/2018 PROCEDURE: CT HEAD WITHOUT CONTRAST. HISTORY: Seizure COMPARISON: 12/08/2017. TECHNIQUE: Axial computed tomography images were obtained through the head/brain without intravenous contrast. Radiation dose: Total exam DLP = 744.28 mGy-cm. This CT exam was performed using one or more of the following dose reduction techniques: Automated exposure control, adjustment of the mA and/or kV according to patient size, and/or use of iterative reconstruction technique. FINDINGS: HEMORRHAGE: No intracranial hemorrhage. BRAIN: There are mild chronic microangiopathic changes. There are old lacunar infarctions in the left basal ganglia. There is no mass, mass effect or abnormal extra-axial fluid collection. There is no territorial infarction. VENTRICLES: There is mild age-related global parenchymal volume loss and proportionate enlargement of the ventricles and cortical sulci. CALVARIUM: There is no calvarial fracture or extracranial soft tissue swelling. PARANASAL SINUSES: There is scattered mucoperiosteal thickening in the ethmoid air cells, maxillary and sphenoid sinuses. MASTOID AIR CELLS: Predominantly clear. OTHER FINDINGS: None. IMPRESSION: No acute intracranial abnormality. Mild chronic microangiopathic changes and mild age-related global parenchymal volume loss. Old lacunar infarctions in the left basal ganglia.
[2018-02-23 09:34] LABS: URINE BILIRUBIN NEGATIVE (NEGATIVE); URINE BLOOD 1+ (NEGATIVE); URINE CLARITY Hazy (Clear); URINE COLOR Yellow (YELLOW); URINE GLUCOSE (UA) NORMAL (Normal); URINE LEUKOCYTE ESTERASE NEG Leu/uL (Negative); URINE PROTEIN 1+ mg/dL (NEGATIVE)
[2018-02-23 09:44] LABS: URINE BACTERIA RARE (<OCC)
[2018-02-23 09:58] LABS: BARBITURATES, UR NEGATIVE (NEGATIVE); BENZODIAZEPINES, UR NEGATIVE (NEGATIVE); PHENCYCLIDINE, UR NEGATIVE (NEGATIVE)
[2018-02-23 10:30] LABS: OPIATES, UR POSITIVE (NEGATIVE)
--- NOTE | 2018-02-23 10:33 | RAD ---
Date of service: 02/23/2018 HISTORY: seizure COMPARISON: Chest radiograph dated 12/08/2017. FINDINGS: LUNGS: No active pulmonary disease. PLEURA: No significant pleural effusion identified, no pneumothorax apparent. CARDIOVASCULAR: Cardiomediastinal silhouette stably enlarged. OSSEOUS STRUCTURES: Unchanged. VISUALIZED UPPER ABDOMEN: Normal. OTHER FINDINGS: None. IMPRESSION: No active disease.
[2018-02-23] MEDS: Sodium Chloride 0.9% 1,000 ML IV SCH (13:00)
[2018-02-23] MEDS ORDERED: Valproate 1,000 MG in Sodium Chloride 0.9% 100 ML IVPB ONE (13:02)
[2018-02-23] MEDS: Albuterol-Ipratrop 3 mg / 0.5 (3 ml) UD INH SCH ×4 (13:18→23:49)
--- NOTE | 2018-02-23 14:57 | CP.PCM.CON ---
History of Present Illness - History of Present Illness History of Present Illness: Neurology consult note ( Dr. Dolan's service) Patient is a poor historian CC: Seizure HPI: Patient is a 58 year old male with past medical history of seizure disorder , heroin dependence, hepatitis C who was brought in by EMS for witnessed seizure. As per EMS report, patient's friend witnessed seizure. During the encounter, patient is very lethargic and does not recall any seizure activity. Patient claims that he has been taking his anti-seizure medications but cannot recall the name of the medication. Patient denies any other associated symptoms at the moment. Unable to evaluate adequate ROS as patient was very drowsy. PMD: unknown PMHx: seizure disorder, heroin dependence, hepatitis C PSHx: calf abscess drainage (08/2015), Cholecystectomy (As per EMR) FamHx: no relationship with father, sister (heroin dependence) Medications: Patient states that he is taking augumentin as anti-seizure (As per ED report) Allergies: ibuprofen SocHx: Currently lives with sister, previously homeless. Heroin dependence, denies EtOH/Tobacco Review of Systems - Review of Systems Review of Systems: Unable to evaluate adequate ROS as patient was very drowsy - Constitutional Constitutional: absent: Chills, Fever, Headache - EENT Eyes: absent: Change in Vision Ears: Dizziness Past Patient History - Infectious Disease Hx of Infectious Diseases: None - Past Medical History & Family History Past Medical History?: Yes - Past Social History Smoking Status: Light Smoker < 10 Cigarettes Daily - CARDIAC Hx Hypertension: Yes - PULMONARY Hx Asthma: Yes - NEUROLOGICAL Hx Seizures: Yes - HEENT Hx HEENT Problems: No - RENAL Hx Chronic Kidney Disease: Yes Hx Kidney Stones: Yes - ENDOCRINE/METABOLIC Hx Endocrine Disorders: No - HEMATOLOGICAL/ONCOLOGICAL Hx Blood Disorders: Yes Hx Hepatitis C: Yes - INTEGUMENTARY Hx Dermatological Problems: Yes Other/Comment: left leg cellulitis - MUSCULOSKELETAL/RHEUMATOLOGICAL Hx Fractures: Yes (rib cage) - GASTROINTESTINAL Hx Gastrointestinal Disorders: Yes Other/Comment: Liver Cirrhosis - GENITOURINARY/GYNECOLOGICAL Hx Genitourinary Disorders: No - PSYCHIATRIC Hx Substance Use: No (pt denies.) - SURGICAL HISTORY Hx Cholecystectomy: Yes - ANESTHESIA Hx Anesthesia: Yes Hx Anesthesia Reactions: No Meds Allergies/Adverse Reactions: Allergies Allergy/AdvReac Type Severity Reaction Status Date / Time ibuprofen Allergy Intermediate RASH Verified 01/17/18 07:51 - Medications Medications: Current Medications Acetaminophen (Tylenol 325mg Tab) 650 mg PO Q6 PRN PRN Reason: Fever >100.4 F Last Admin: 02/23/18 13:38 Dose: 650 mg Albuterol/Ipratropium (Duoneb 3 Mg/0.5 Mg (3 Ml) Ud) 3 ml INH RQ4 [facility] Last Admin: 02/23/18 13:18 Dose: 3 ml Sodium Chloride (Sodium Chloride 0.9%) 1,000 mls @ 80 mls/hr IV .[id number] [facility] [place] Last Admin: 02/23/18 13:00 Dose: 80 mls/hr Ceftriaxone Sodium 1 gm/ (Sodium Chloride) 100 mls @ 100 mls/hr IVPB DAILY [facility] PRN Reason: Protocol Last Admin: 02/23/18 14:32 Dose: 100 mls/hr Levetiracetam (Keppra) 500 mg PO BID [facility] Lorazepam (Ativan) 1 mg IVP Q6H PRN PRN Reason: Anxiety Valproate Sodium (Depakene Cap) 500 mg PO BID [facility] Physical Exam - Head Exam Head Exam: ATRAUMATIC - Eye Exam Eye Exam: EOMI - ENT Exam ENT Exam: Mucous Membranes Dry - Respiratory Exam Respiratory Exam: NORMAL BREATHING PATTERN. absent: Rhonchi, Wheezes, Respiratory Distress - Cardiovascular Exam Cardiovascular Exam: REGULAR RHYTHM, +S1, +S2 - GI/Abdominal Exam GI & Abdominal Exam: Normal Bowel Sounds, Soft. absent: Tenderness - Extremities Exam Extremities exam: Negative for: pedal edema - Neurological Exam Neurological exam: Alert Additional comments: 4/5 bilateral upper and lower extremities strength - Psychiatric Exam Psychiatric exam: Flat Affect Results - Vital Signs Recent Vital Signs: Last Vital Signs Temp 101.3 F H 02/23/18 13:38 Pulse 67 02/23/18 13:22 Resp 20 02/23/18 12:44 BP 144/79 02/23/18 12:44 Pulse Ox 95 02/23/18 12:44 - Labs Result Diagrams: 02/23/18 08:17 02/23/18 08:17 Labs: Laboratory Results - last 24 hr 02/23/18 02/23/18 02/23/18 07:57 08:17 08:17 WBC 6.0 D RBC 4.82 Hgb 15.1 Hct 45.1 MCV 93.6 MCH 31.4 H MCHC 33.6 RDW 14.7 H Plt Count 271 MPV 8.3 Neut % (Auto) 79.0 H Lymph % (Auto) 10.8 L [place] % (Auto) 8.1 Eos % (Auto) 1.3 Baso % (Auto) 0.8 Neut # (Auto) 4.8 Lymph # (Auto) 0.7 L [place] # (Auto) 0.5 Eos # (Auto) 0.1 Baso # (Auto) 0.0 Sodium 141 Potassium 4.4 Chloride 105 Carbon Dioxide 22 Anion Gap 19 BUN 16 Creatinine 0.7 L Est GFR ( Amer) > 60 Est GFR (Non-Af Amer) > 60 POC Glucose (mg/dL) 186 H Random Glucose 179 H Calcium 9.5 Total Bilirubin 1.2 AST 196 H D ALT 150 H D Alkaline Phosphatase 141 H D Total Creatine Kinase 99 Total Protein 8.3 Albumin 4.0 Globulin 4.3 H Albumin/Globulin Ratio 0.9 L Urine Color Urine Clarity Urine pH Ur Specific [place] Urine Protein Urine Glucose (UA) Urine Ketones Urine Blood Urine Nitrate Urine Bilirubin Urine Urobilinogen Ur Leukocyte Esterase Urine WBC (Auto) Urine RBC (Auto) Urine Bacteria Urine Opiates Screen Urine Methadone Screen Ur Barbiturates Screen Ur Phencyclidine Scrn Ur Amphetamines Screen U Benzodiazepines Scrn U Oth Cocaine Metabols U Cannabinoids Screen Alcohol, Quantitative < 10 02/23/18 02/23/18 02/23/18 09:12 09:12 09:44 WBC RBC Hgb Hct MCV MCH MCHC RDW Plt Count MPV Neut % (Auto) Lymph % (Auto) [place] % (Auto) Eos % (Auto) Baso % (Auto) Neut # (Auto) Lymph # (Auto) [place] # (Auto) Eos # (Auto) Baso # (Auto) Sodium Potassium Chloride Carbon Dioxide Anion Gap BUN Creatinine Est GFR ( Amer) Est GFR (Non-Af Amer) POC Glucose (mg/dL) 162 H Random Glucose Calcium Total Bilirubin AST ALT Alkaline Phosphatase Total Creatine Kinase Total Protein Albumin Globulin Albumin/Globulin Ratio Urine Color Yellow Urine Clarity Hazy Urine pH 5.0 Ur Specific [place] 1.025 Urine Protein 1+ H Urine Glucose (UA) Normal Urine Ketones Trace Urine Blood 1+ H Urine Nitrate Negative Urine Bilirubin Negative Urine Urobilinogen 4.0 Ur Leukocyte Esterase Neg Urine WBC (Auto) 1 Urine RBC (Auto) 10 H Urine Bacteria Rare Urine Opiates Screen Positive H Urine Methadone Screen Negative Ur Barbiturates Screen Negative Ur Phencyclidine Scrn Negative Ur Amphetamines Screen Negative U Benzodiazepines Scrn Negative U Oth Cocaine Metabols Positive H U Cannabinoids Screen Negative Alcohol, Quantitative Assessment & Plan (1) Seizure disorder Assessment and Plan: Possibly exacerbated by drug use * + cocaine and opioid abuse * Consider psychiatric evaluation Head CT without contrast: No acute intracranial abnormality. Mild chronic microangiopathic changes and mild age-related global parenchymal volume loss. Old lacunar infarctions in the left basal ganglia. There is mild age-related global parenchymal volume loss and proportionate enlargement of the ventricles and cortical sulci. Recommendation for outpatient EEG Start Valproic acid 500mg PO BID All plans and management discussed with Dr. Dolan Status: Chronic
[2018-02-24] MEDS: Albuterol-Ipratrop 3 mg / 0.5 (3 ml) UD INH SCH ×6 (03:19→23:57)
[2018-02-24] MEDS: Sodium Chloride 0.9% 1,000 ML IV SCH ×3 (04:37→19:34)
[2018-02-24 06:44] LABS: BASO # 0.1 K/uL (0.0-0.2); BASO % 0.6 % (0.0-2.0); EOS # 0.1 K/uL (0.0-0.7); EOS % 0.7 % (0.0-4.0); LYMPH # 2.2 K/uL (1.0-4.3); LYMPH % 25.2 % (20.0-40.0); MEAN CELL VOLUME 93.2 fL (80.0-94.0); MEAN CORPUSCULAR HEMOGLOBIN 31.8 pg (27.0-31.0); MEAN CORPUSCULAR HGB CONC 34.1 g/dL (33.0-37.0); MEAN PLATELET VOLUME 8.6 fL (7.2-11.7); MONO # 0.9 K/uL (0.0-0.8); MONO % 10.7 % (0.0-10.0); NEUT # 5.4 K/uL (1.8-7.0); NEUT % 62.8 % (50.0-75.0); NRBC % 0.1 % (0.0-2.0); RBC 4.73 Mil/uL (4.40-5.90); RED CELL DISTRIBUTION WIDTH 14.1 % (11.5-14.5); WHITE BLOOD COUNT 8.6 K/uL (4.8-10.8)
[2018-02-24 08:06] LABS: ALB/GLOB RATIO 0.9 (1.0-2.1); ALBUMIN 3.2 g/dL (3.5-5.0); ALT/SGPT 98 U/L (21-72); AST/SGOT 97 U/L (17-59); BLOOD UREA NITROGEN 13 mg/dL (9-20); CALCIUM 8.8 mg/dl (8.6-10.4); GFR AFRICAN-AMERICAN > 60; GFR NON-AFRICAN AMERICAN > 60
--- NOTE | 2018-02-24 10:11 | CP.PCM.PN ---
Subjective - Date & Time of Evaluation Date of Evaluation: 02/24/18 Time of Evaluation: 07:20 - Subjective Subjective: Neurology progress note ( Dr. Dolan's service) Patient was seen and examined at bedside. Patient was more awake this am. Patient reports improved symptoms but does complain of generalized body pain. Patient denies fever, chills, nausea, vomiting, chest pain, sob, palpitations, headache or blurry vision. Objective - Vital Signs/Intake and Output Vital Signs (last 24 hours): Temp Pulse Resp BP Pulse Ox 98.5 F 55 L 20 117/75 92 L 02/24/18 07:58 02/24/18 07:58 02/24/18 07:58 02/24/18 07:58 02/24/18 09:37 Intake and Output: 02/24/18 02/24/18 06:59 18:59 Intake Total 640 Balance 640 - Medications Medications: Current Medications Acetaminophen (Tylenol 325mg Tab) 650 mg PO Q6 PRN PRN Reason: Fever >100.4 F Last Admin: 02/23/18 13:38 Dose: 650 mg Albuterol/Ipratropium (Duoneb 3 Mg/0.5 Mg (3 Ml) Ud) 3 ml INH RQ4 [facility] Last Admin: 02/24/18 07:19 Dose: 3 ml Heparin Sodium (Porcine) (Heparin) 5,000 units SC Q12 [facility] Last Admin: 02/24/18 09:55 Dose: 5,000 units Sodium Chloride (Sodium Chloride 0.9%) 1,000 mls @ 80 mls/hr IV .[id number] [facility] Last Admin: 02/24/18 04:37 Dose: 80 mls/hr Ceftriaxone Sodium 1 gm/ (Sodium Chloride) 100 mls @ 100 mls/hr IVPB DAILY [facility] PRN Reason: Protocol Last Admin: 02/24/18 09:56 Dose: 100 mls/hr Levetiracetam (Keppra) 500 mg PO BID [facility] Last Admin: 02/24/18 09:55 Dose: 500 mg Lorazepam (Ativan) 1 mg IVP Q6H PRN PRN Reason: Anxiety Valproate Sodium (Depakene Cap) 500 mg PO BID [facility] Last Admin: 02/23/18 17:37 Dose: 500 mg - Labs Labs: 02/24/18 06:38 02/24/18 06:38 - Constitutional Appears: No Acute Distress - Head Exam Head Exam: ATRAUMATIC, NORMAL INSPECTION - Eye Exam Eye Exam: EOMI - ENT Exam ENT Exam: Mucous Membranes Dry - Respiratory Exam Respiratory Exam: Clear to Ausculation Bilateral, NORMAL BREATHING PATTERN - Cardiovascular Exam Cardiovascular Exam: REGULAR RHYTHM, +S1, +S2 - GI/Abdominal Exam GI & Abdominal Exam: Soft, Normal Bowel Sounds. absent: Guarding, Rigid, Tenderness - Extremities Exam Extremities Exam: Normal Inspection - Neurological Exam Neurological Exam: Alert, Awake, Oriented x3 - Skin Skin Exam: Normal Color Assessment and Plan (1) Seizure disorder Assessment & Plan: Possibly exacerbated by drug use * + cocaine and opioid abuse * Consider psychiatric evaluation Head CT without contrast: No acute intracranial abnormality. Mild chronic microangiopathic changes and mild age-related global parenchymal volume loss. Old lacunar infarctions in the left basal ganglia. There is mild age-related global parenchymal volume loss and proportionate enlargement of the ventricles and cortical sulci. Recommendation for outpatient EEG Continue Valproic acid 500mg PO BID No further neurology recommendation. Please follow up with neurology outpatient upon discharge Thank you for the consultation All plans and management discussed with Dr. Dolan Status: Chronic
--- NOTE | 2018-02-24 10:58 | CP.PCM.HP ---
History of Present Illness - History of Present Illness History of Present Illness: Patient is a poor historian CC: Fever, Seizure episode HPI: Patient is a 58 year old male with past medical history of seizure disorder , alcoholism, heroin dependence, hepatitis C who was brought in by EMS for witnessed seizure (generalized tonic clonic witnessed by his freind). As per EMS report, patient's friend witnessed seizure. During the encounter, patient is very lethargic and does not recall any seizure activity. Patient claims that he has been taking his anti-seizure medications but cannot recall the name of the medication. Patient denies any other associated symptoms at the moment. Unable to evaluate adequate ROS as patient was very drowsy. PMD: unknown PMHx: seizure disorder, heroin dependence, hepatitis C PSHx: calf abscess drainage (08/2015), Cholecystectomy (As per EMR) FamHx: no relationship with father, sister (heroin dependence) Medications: Patient states that he is taking augumentin as anti-seizure (As per ED report) Allergies: ibuprofen SocHx: Currently lives with sister, previously homeless. Heroin dependence, denies EtOH/Tobacco Present on Admission - Present on Admission Any Indicators Present on Admission: Yes Review of Systems - Review of Systems Systems not reviewed;Unavailable: Acuity of Condition - Constitutional Constitutional: Fatigue, Lethargy, Malaise, Weakness - EENT Eyes: absent: As Per HPI, Blind Spots, Blurred Vision, Change in Vision, Decreased Night Vision, Diplopia, Discharge, Dry Eye, Exophthalmos, Floaters, Irritation, Itchy Eyes, Loss of Peripheral Vision, Pain, Photophobia, Requires Corrective Lenses, Sees Flashes, Spots in Vision, Tunnel Vision, Other Visual Disturbances, Loss of Vision, Other Nose/Mouth/Throat: absent: As Per HPI, Epistaxis, Nasal Congestion, Nasal Discharge, Nasal Obstruction, Nasal Trauma, Nose Pain, Post Nasal Drip, Sinus Pain, Sinus Pressure, Bleeding Gums, Change in Voice, Dental Pain, Dry Mouth, Dysphagia, Halitosis, Hoarsness, Lip Swelling, Mouth Lesions, Mouth Pain, Odynophagia, Sore Throat, Throat Swelling, Tongue Swelling, Facial Pain, Neck Pain, Neck Mass, Other - Cardiovascular Cardiovascular: absent: As Per HPI, Acrocyanosis, Chest Pain, Chest Pain at Rest , Chest Pain with Activity, Claudication, Diaphoresis, Dyspnea, Dyspnea on Exertion, Edema, Irregular Heart Rhythm, Pain Radiating to Arm/Neck/Jaw, Leg Edema, Leg Ulcers, Lightheadedness, Orthopnea, Palpitations, Paroxysmal Nocturnal Dyspnea, Pedal Edema, Radiating Pain, Rapid Heart Rate, Slow Heart Rate, Syncope, Other - Respiratory Respiratory: absent: As Per HPI, Cough, Dyspnea, Hemoptysis, Dyspnea on Exertion , Wheezing, Snoring, Stridor, Pain on Inspiration, Chest Congestion, Excessive Mucous Production, Change in Mucous Color, Pain with Coughing, Other - Gastrointestinal Gastrointestinal: absent: As Per HPI, Abdominal Pain, Belching, Bloating, Change in Bowel Habits, Change in Stool Character, Coffee Ground Emesis, Constipation, Cramping, Diarrhea, Dyspepsia, Dysphagia, Early Satiety, Excessive Flatus, Fecal Incontinence, Heartburn, Hematemesis, Hematochezia, Loose Stools, Melena, Nausea, Odynophagia, Temesmus, Vomiting, Other - Genitourinary Genitourinary: absent: As Per HPI, Change in Urinary Stream, Difficulty Urinating, Dysuria, Flank Pain, Hematuria, Pyuria, Nocturia, Urinary Incontinence, Urinary Frequency, Urinary Hesitance, Urinary Urgency, Voiding Freq/Small Amts, Freq UTI, Hx Renal/Bladder Calculi, Hx /Renal Surgery, Bladder Distension, Other - Neurological Neurological: Abnormal Movements, Confusion Past Patient History - Infectious Disease Hx of Infectious Diseases: None - Past Medical History & Family History Past Medical History?: Yes - Past Social History Smoking Status: Light Smoker < 10 Cigarettes Daily - CARDIAC Hx Hypertension: Yes - PULMONARY Hx Asthma: Yes - NEUROLOGICAL Hx Seizures: Yes - HEENT Hx HEENT Problems: No - RENAL Hx Chronic Kidney Disease: Yes Hx Kidney Stones: Yes - ENDOCRINE/METABOLIC Hx Endocrine Disorders: No - HEMATOLOGICAL/ONCOLOGICAL Hx Blood Disorders: Yes Hx Hepatitis C: Yes - INTEGUMENTARY Hx Dermatological Problems: Yes Other/Comment: left leg cellulitis - MUSCULOSKELETAL/RHEUMATOLOGICAL Hx Fractures: Yes (rib cage) - GASTROINTESTINAL Hx Gastrointestinal Disorders: Yes Other/Comment: Liver Cirrhosis - GENITOURINARY/GYNECOLOGICAL Hx Genitourinary Disorders: No - PSYCHIATRIC Hx Substance Use: No (pt denies.) - SURGICAL HISTORY Hx Cholecystectomy: Yes - ANESTHESIA Hx Anesthesia: Yes Hx Anesthesia Reactions: No Meds Allergies/Adverse Reactions: Allergies Allergy/AdvReac Type Severity Reaction Status Date / Time ibuprofen Allergy Intermediate RASH Verified 01/17/18 07:51 Physical Exam - Constitutional Additional comments: sleepy. Nad, skin flushed - Eye Exam Eye Exam: EOMI, Normal appearance, PERRL Pupil Exam: NORMAL ACCOMODATION, PERRL - ENT Exam ENT Exam: Mucous Membranes Moist, Normal Exam - Respiratory Exam Respiratory Exam: Clear to Auscultation Bilateral, NORMAL BREATHING PATTERN - Cardiovascular Exam Cardiovascular Exam: REGULAR RHYTHM - GI/Abdominal Exam GI & Abdominal Exam: Normal Bowel Sounds, Soft. absent: Tenderness - Rectal Exam Rectal Exam: Deferred - Neurological Exam Neurological exam: Alert, CN II-XII Intact, Normal Gait, Oriented x3, Reflexes Normal Additional comments: arousable and on arising tries to maintain eye contact - Psychiatric Exam Psychiatric exam: Anxious - Skin Skin Exam: Dry, Intact, Normal Color, Warm Results - Vital Signs Recent Vital Signs: Last Vital Signs Temp 98.5 F 02/24/18 07:58 Pulse 55 L 02/24/18 07:58 Resp 20 02/24/18 07:58 BP 117/75 02/24/18 07:58 Pulse Ox 92 L 02/24/18 09:37 - Labs Result Diagrams: 02/24/18 06:38 02/24/18 06:38 Labs: Laboratory Results - last 24 hr 02/23/18 02/23/18 02/24/18 07:57 09:44 06:38 WBC 8.6 RBC 4.73 Hgb 15.0 Hct 44.1 MCV 93.2 MCH 31.8 H MCHC 34.1 RDW 14.1 Plt Count 227 MPV 8.6 Neut % (Auto) 62.8 Lymph % (Auto) 25.2 [place] % (Auto) 10.7 H Eos % (Auto) 0.7 Baso % (Auto) 0.6 Neut # (Auto) 5.4 Lymph # (Auto) 2.2 [place] # (Auto) 0.9 H Eos # (Auto) 0.1 Baso # (Auto) 0.1 Sodium Potassium Chloride Carbon Dioxide Anion Gap BUN Creatinine Est GFR ( Amer) Est GFR (Non-Af Amer) POC Glucose (mg/dL) 186 H 162 H Random Glucose Calcium Total Bilirubin AST ALT Alkaline Phosphatase Total Protein Albumin Globulin Albumin/Globulin Ratio 02/24/18 06:38 WBC RBC Hgb Hct MCV MCH MCHC RDW Plt Count MPV Neut % (Auto) Lymph % (Auto) [place] % (Auto) Eos % (Auto) Baso % (Auto) Neut # (Auto) Lymph # (Auto) [place] # (Auto) Eos # (Auto) Baso # (Auto) Sodium 136 Potassium 3.6 Chloride 104 Carbon Dioxide 22 Anion Gap 13 BUN 13 Creatinine 0.7 L Est GFR ( Amer) > 60 Est GFR (Non-Af Amer) > 60 POC Glucose (mg/dL) Random Glucose 109 Calcium 8.8 Total Bilirubin 1.4 H AST 97 H D ALT 98 H D Alkaline Phosphatase 97 Total Protein 6.8 Albumin 3.2 L Globulin 3.7 Albumin/Globulin Ratio 0.9 L Assessment & Plan (1) Seizure disorder Status: Acute (2) Substance use disorder Status: Acute (3) Alcohol dependence Status: Acute (4) Noncompliance w/medication treatment due to intermit use of medication Status: Acute
--- NOTE | 2018-02-24 10:58 | CP.PCM.PN ---
Subjective - Date & Time of Evaluation Date of Evaluation: 02/24/18 Time of Evaluation: 16:00 - Subjective Subjective: Pt seen and examined at bedside, Patient was more awake this am. Patient reports improved symptoms but does complain of generalized body pain. Patient denies fever, chills, nausea, vomiting, chest pain, sob, palpitations, headache or blurry vision. Objective - Vital Signs/Intake and Output Vital Signs (last 24 hours): Temp Pulse Resp BP Pulse Ox 98.5 F 55 L 20 117/75 92 L 02/24/18 07:58 02/24/18 07:58 02/24/18 07:58 02/24/18 07:58 02/24/18 09:37 Intake and Output: 02/24/18 02/24/18 06:59 18:59 Intake Total 640 Balance 640 - Medications Medications: Current Medications Acetaminophen (Tylenol 325mg Tab) 650 mg PO Q6 PRN PRN Reason: Fever >100.4 F Last Admin: 02/23/18 13:38 Dose: 650 mg Albuterol/Ipratropium (Duoneb 3 Mg/0.5 Mg (3 Ml) Ud) 3 ml INH RQ4 [facility] Last Admin: 02/24/18 07:19 Dose: 3 ml Heparin Sodium (Porcine) (Heparin) 5,000 units SC Q12 [facility] Last Admin: 02/24/18 09:55 Dose: 5,000 units Sodium Chloride (Sodium Chloride 0.9%) 1,000 mls @ 80 mls/hr IV .[id number] [facility] Last Admin: 02/24/18 04:37 Dose: 80 mls/hr Ceftriaxone Sodium 1 gm/ (Sodium Chloride) 100 mls @ 100 mls/hr IVPB DAILY [facility] PRN Reason: Protocol Last Admin: 02/24/18 09:56 Dose: 100 mls/hr Levetiracetam (Keppra) 500 mg PO BID [facility] Last Admin: 02/24/18 09:55 Dose: 500 mg Lorazepam (Ativan) 1 mg IVP Q6H PRN PRN Reason: Anxiety Valproate Sodium (Depakene Cap) 500 mg PO BID [facility] Last Admin: 02/24/18 10:37 Dose: 500 mg - Labs Labs: 02/24/18 06:38 02/24/18 06:38
--- NOTE | 2018-02-24 11:08 | CT ---
Date of service: 02/24/2018 PROCEDURE: CT HEAD WITHOUT CONTRAST. HISTORY: Seizures COMPARISON: 02/23/2018. TECHNIQUE: Axial computed tomography images were obtained through the head/brain without intravenous contrast. Radiation dose: Total exam DLP = 744.28 mGy-cm. This CT exam was performed using one or more of the following dose reduction techniques: Automated exposure control, adjustment of the mA and/or kV according to patient size, and/or use of iterative reconstruction technique. FINDINGS: HEMORRHAGE: No intracranial hemorrhage. BRAIN: There are mild chronic microangiopathic changes. 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 There is no mass, mass effect or abnormal extra-axial fluid collection. There is no territorial infarction. The midline sagittal structures are normal. VENTRICLES: There is mild age-related global parenchymal volume loss and proportionate enlargement of the ventricles and cortical sulci. CALVARIUM: There is no calvarial fracture or extracranial soft tissue swelling. PARANASAL SINUSES: Predominantly clear. MASTOID AIR CELLS: Predominantly clear. OTHER FINDINGS: None. IMPRESSION: No acute intracranial abnormality. No other significant interval change.
--- NOTE | 2018-02-24 21:24 | CARD ---
APPROVED REPORT Date of service: 02/23/2018 EKG Measurement Heart [id number] [id number] <Conclusion> Normal sinus rhythm Minimal voltage criteria for LVH, may be normal variant Borderline ECG
[2018-02-25] MEDS: Sodium Chloride 0.9% 1,000 ML IV SCH (03:25)
[2018-02-25] MEDS: Albuterol-Ipratrop 3 mg / 0.5 (3 ml) UD INH SCH ×3 (03:28→11:01)
[2018-02-25 08:26] VITALS: BP 130/85; PULSE 85; RESP 20; TEMP 98.5; O2SAT 97
--- NOTE | 2018-02-25 13:58 | CP.PCM.PN ---
Subjective - Date & Time of Evaluation Date of Evaluation: 02/25/18 Time of Evaluation: 13:56 - Subjective Subjective: PT SEEN AND CLEARED BY DR. ACKERMAN FOR D/C HOME TODAY. CLEARED BY NEURO YESTERDAY AND OK TO F/U OUTPATIENT WITH DR. BOONE. RX VALPROIC ACID BID PER NEURO RECS. REFILLED PT'S KEPPRA. TO F/U WITH NEURO AND DR. ACKERMAN IN THE OFFICE. SEE BELOW FOR D/C INFORMATION PROVIDED TO THE PT. NO FURTHER ORDERS. -FOLLOW UP WITH DR. ACKERMAN OR YOUR PRIMARY DOCTOR IN THE OFFICE WITHIN 5-7 DAYS---CALL THE OFFICE TO MAKE AN APPOINTMENT. -FOLLOW UP WITH YOUR NEUROLOGIST OR WITH DR. BOONE IN THE OFFICE WITHIN 1-2 WEEKS- --CALL THE OFFICE TO MAKE AN APPOINTMENT. -CONTINUE YOUR HOME MEDICATIONS USUAL. -YOU HAVE BEEN PRESCRIBED PER YOUR DOCTOR'S RECOMMENDATIONS; TAKE MEDICATIONS EXACTLY PRESCRIBED: 1) VALPROIC ACID 250 MG CAPSULES---TAKE 2 CAPSULES (500 MG) BY MOUTH TWICE A DAY (MORNING AND EVENING). -DO NOT SKIP ANY DOSES OR YOUR SEIZURE MEDICINE!!!! -FEEL FREE TO CONTACT DR. ACKERMAN OR DR. BOONE FOR ANY QUESTIONS OR CONCERNS. Objective - Vital Signs/Intake and Output Vital Signs (last 24 hours): Temp Pulse Resp BP Pulse Ox 98.5 F 85 20 130/85 97 02/25/18 08:00 02/25/18 08:00 02/25/18 08:00 02/25/18 08:00 02/25/18 08:00 Intake and Output: 02/25/18 02/25/18 06:59 18:59 Intake Total 1640 Balance 1640 - Medications Medications: Current Medications Acetaminophen (Tylenol 325mg Tab) 650 mg PO Q6 PRN PRN Reason: Fever >100.4 F Last Admin: 02/23/18 13:38 Dose: 650 mg Albuterol/Ipratropium (Duoneb 3 Mg/0.5 Mg (3 Ml) Ud) 3 ml INH RQ4 [facility] Last Admin: 02/25/18 11:01 Dose: 3 ml Heparin Sodium (Porcine) (Heparin) 5,000 units SC Q12 [facility] Last Admin: 02/25/18 10:54 Dose: 5,000 units Sodium Chloride (Sodium Chloride 0.9%) 1,000 mls @ 80 mls/hr IV .[id number] [facility] Last Admin: 02/25/18 03:25 Dose: Not Given Ceftriaxone Sodium 1 gm/ (Sodium Chloride) 100 mls @ 100 mls/hr IVPB DAILY [facility] PRN Reason: Protocol Last Admin: 02/25/18 10:55 Dose: 100 mls/hr Levetiracetam (Keppra) 500 mg PO BID [facility] Last Admin: 02/25/18 10:54 Dose: 500 mg Lorazepam (Ativan) 1 mg IVP Q6H PRN PRN Reason: Anxiety Valproate Sodium (Depakene Cap) 500 mg PO BID [facility] Last Admin: 02/25/18 10:54 Dose: 500 mg - Labs Labs: 02/24/18 06:38 02/24/18 06:38
--- NOTE | 2018-02-25 23:53 | CP.PCM.DIS ---
Provider - Provider Date of Admission: 02/23/18 10:50 Attending physician: Sonny Mendoza MD Time Spent in preparation of Discharge (in minutes): 45 Hospital Course - Lab Results Lab Results: Micro Results 02/23/18 16:30 Blood-Venous Blood Culture - Preliminary NO GROWTH AFTER 48 HOURS 02/23/18 14:14 Blood-Venous Blood Culture - Preliminary NO GROWTH AFTER 48 HOURS 02/23/18 23:02 Urine,Clean Catch Urine Culture - Final No Growth (<1,000 CFU/ML) Most Recent Lab Values WBC 8.6 K/uL (4.8-10.8) 02/24/18 06:38 RBC 4.73 Mil/uL (4.40-5.90) 02/24/18 06:38 Hgb 15.0 g/dL (12.0-18.0) 02/24/18 06:38 Hct 44.1 % (35.0-51.0) 02/24/18 06:38 MCV 93.2 fL (80.0-94.0) 02/24/18 06:38 MCH 31.8 pg (27.0-31.0) H 02/24/18 06:38 MCHC 34.1 g/dL (33.0-37.0) 02/24/18 06:38 RDW 14.1 % (11.5-14.5) 02/24/18 06:38 Plt Count 227 K/uL (130-400) 02/24/18 06:38 MPV 8.6 fL (7.2-11.7) 02/24/18 06:38 Neut % (Auto) 62.8 % (50.0-75.0) 02/24/18 06:38 Lymph % (Auto) 25.2 % (20.0-40.0) 02/24/18 06:38 [place] % (Auto) 10.7 % (0.0-10.0) H 02/24/18 06:38 Eos % (Auto) 0.7 % (0.0-4.0) 02/24/18 06:38 Baso % (Auto) 0.6 % (0.0-2.0) 02/24/18 06:38 Neut # (Auto) 5.4 K/uL (1.8-7.0) 02/24/18 06:38 Lymph # (Auto) 2.2 K/uL (1.0-4.3) 02/24/18 06:38 [place] # (Auto) 0.9 K/uL (0.0-0.8) H 02/24/18 06:38 Eos # (Auto) 0.1 K/uL (0.0-0.7) 02/24/18 06:38 Baso # (Auto) 0.1 K/uL (0.0-0.2) 02/24/18 06:38 Sodium 136 mmol/L (132-148) 02/24/18 06:38 Potassium 3.6 mmol/L (3.6-5.2) 02/24/18 06:38 Chloride 104 mmol/L (98-107) 02/24/18 06:38 Carbon Dioxide 22 mmol/L (22-30) 02/24/18 06:38 Anion Gap 13 (10-20) 02/24/18 06:38 BUN 13 mg/dL (9-20) 02/24/18 06:38 Creatinine 0.7 mg/dL (0.8-1.5) L 02/24/18 06:38 Est GFR ( Amer) > 60 02/24/18 06:38 Est GFR (Non-Af Amer) > 60 02/24/18 06:38 POC Glucose (mg/dL) 162 mg/dL (65-110) H 02/23/18 09:44 Random Glucose 109 mg/dL (75-110) 02/24/18 06:38 Calcium 8.8 mg/dl (8.6-10.4) 02/24/18 06:38 Total Bilirubin 1.4 mg/dL (0.2-1.3) H 02/24/18 06:38 AST 97 U/L (17-59) H D 02/24/18 06:38 ALT 98 U/L (21-72) H D 02/24/18 06:38 Alkaline Phosphatase 97 U/L (38-126) 02/24/18 06:38 Total Creatine Kinase 99 U/L (55-170) 02/23/18 08:17 Total Protein 6.8 g/dL (6.3-8.3) 02/24/18 06:38 Albumin 3.2 g/dL (3.5-5.0) L 02/24/18 06:38 Globulin 3.7 gm/dL (2.2-3.9) 02/24/18 06:38 Albumin/Globulin Ratio 0.9 (1.0-2.1) L 02/24/18 06:38 Urine Color Yellow (YELLOW) 02/23/18 09:12 Urine Clarity Hazy (Clear) 02/23/18 09:12 Urine pH 5.0 (5.0-8.0) 02/23/18 09:12 Ur Specific [place] 1.025 (1.003-1.030) 02/23/18 09:12 Urine Protein 1+ mg/dL (NEGATIVE) H 02/23/18 09:12 Urine Glucose (UA) Normal mg/dL (Normal) 02/23/18 09:12 Urine Ketones Trace mg/dL (NEGATIVE) 02/23/18 09:12 Urine Blood 1+ (NEGATIVE) H 02/23/18 09:12 Urine Nitrate Negative (NEGATIVE) 02/23/18 09:12 Urine Bilirubin Negative (NEGATIVE) 02/23/18 09:12 Urine Urobilinogen 4.0 mg/dL (0.2-1.0) 02/23/18 09:12 Ur Leukocyte Esterase Neg Antonio/uL (Negative) 02/23/18 09:12 Urine WBC (Auto) 1 /hpf (0-5) 02/23/18 09:12 Urine RBC (Auto) 10 /hpf (0-3) H 02/23/18 09:12 Urine Bacteria Rare (<OCC) 02/23/18 09:12 Urine Opiates Screen Positive (NEGATIVE) H 02/23/18 09:12 Urine Methadone Screen Negative (NEGATIVE) 02/23/18 09:12 Ur Barbiturates Screen Negative (NEGATIVE) 02/23/18 09:12 Valproic Acid 24.1 ug/mL (50.0-100.0) L 02/24/18 11:27 Ur Phencyclidine Scrn Negative (NEGATIVE) 02/23/18 09:12 Ur Amphetamines Screen Negative (NEGATIVE) 02/23/18 09:12 U Benzodiazepines Scrn Negative (NEGATIVE) 02/23/18 09:12 U Oth Cocaine Metabols Positive (NEGATIVE) H 02/23/18 09:12 U Cannabinoids Screen Negative (NEGATIVE) 02/23/18 09:12 Alcohol, Quantitative < 10 mg/dl (0-10) 02/23/18 08:17 - Hospital Course Hospital Course: PT SEEN AND CLEARED BY ME FOR D/C HOME TODAY. CLEARED BY NEURO YESTERDAY AND OK TO F/U OUTPATIENT WITH DR. DOLAN. RX VALPROIC ACID BID PER NEURO RECS. REFILLED PT'S KEPPRA. TO F/U WITH NEURO AND DR. MENDOZA IN THE OFFICE. SEE BELOW FOR D/C INFORMATION PROVIDED TO THE PT. NO FURTHER ORDERS. -FOLLOW UP WITH DR. MENDOZA OR YOUR PRIMARY DOCTOR IN THE OFFICE WITHIN 5-7 DAYS---CALL THE OFFICE TO MAKE AN APPOINTMENT. -FOLLOW UP WITH YOUR NEUROLOGIST OR WITH DR. DOLAN IN THE OFFICE WITHIN 1-2 WEEKS- --CALL THE OFFICE TO MAKE AN APPOINTMENT. -CONTINUE YOUR HOME MEDICATIONS USUAL. -YOU HAVE BEEN PRESCRIBED PER YOUR DOCTOR'S RECOMMENDATIONS; TAKE MEDICATIONS EXACTLY PRESCRIBED: 1) VALPROIC ACID 250 MG CAPSULES---TAKE 2 CAPSULES (500 MG) BY MOUTH TWICE A DAY (MORNING AND EVENING). -DO NOT SKIP ANY DOSES OR YOUR SEIZURE MEDICINE!!!! -FEEL FREE TO CONTACT DR. MENDOZA OR DR. DOLAN FOR ANY QUESTIONS OR CONCERNS. Discharge Exam - Head Exam Head Exam: ATRAUMATIC, NORMAL INSPECTION - Eye Exam Eye Exam: EOMI, Normal appearance, PERRL Pupil Exam: NORMAL ACCOMODATION, PERRL - ENT Exam ENT Exam: Mucous Membranes Moist - Respiratory Exam Respiratory Exam: Clear to PA & Lateral, NORMAL BREATHING PATTERN - Cardiovascular Exam Cardiovascular Exam: REGULAR RHYTHM, +S1, +S2 - GI/Abdominal Exam GI & Abdominal Exam: Normal Bowel Sounds - Rectal Exam Rectal Exam: Deferred Discharge Plan - Discharge Medications Prescriptions: Valproic Acid Cap [Depakene Cap] 500 mg PO BID #120 sgl levETIRAcetam [Keppra] 500 mg PO BID #60 tab - Follow Up Plan Condition: FAIR Disposition: HOME/ ROUTINE Instructions: Epilepsy in Adults, Seizures, Adult (DC), Drug Abuse and Drug Addiction (DC), Quitting Smoking, Levetiracetam, Valproic Acid and Derivatives Additional Instructions: -FOLLOW UP WITH DR. MENDOZA OR YOUR PRIMARY DOCTOR IN THE OFFICE WITHIN 5-7 DAYS---CALL THE OFFICE TO MAKE AN APPOINTMENT. -FOLLOW UP WITH YOUR NEUROLOGIST OR WITH DR. DOLAN IN THE OFFICE WITHIN 1-2 WEEKS- --CALL THE OFFICE TO MAKE AN APPOINTMENT. -CONTINUE YOUR HOME MEDICATIONS USUAL. -YOU HAVE BEEN PRESCRIBED PER YOUR DOCTOR'S RECOMMENDATIONS; TAKE MEDICATIONS EXACTLY PRESCRIBED: 1) VALPROIC ACID 250 MG CAPSULES---TAKE 2 CAPSULES (500 MG) BY MOUTH TWICE A DAY (MORNING AND EVENING). -DO NOT SKIP ANY DOSES OR YOUR SEIZURE MEDICINE!!!! -FEEL FREE TO CONTACT DR. MENDOZA OR DR. DOLAN FOR ANY QUESTIONS OR CONCERNS. Referrals: Sonny Mendoza MD [Staff Provider] - Masoud Dolan MD [Staff Provider] -
== END 2018-02-25 14:52 | disposition home or self-care (01) ==
LOC: C.ER 07:45 → C.9E 10:50 → C.3T 11:44
PROVIDERS: ADMIT Internal Medicine; ATTEND Internal Medicine
DX: G40.909 Epilepsy, unspecified, not intractable, without status epilepticus (principal); F14.10 Cocaine abuse, uncomplicated; F11.20 Opioid dependence, uncomplicated; J45.909 Unspecified asthma, uncomplicated; L03.116 Cellulitis of left lower limb; N18.9 Chronic kidney disease, unspecified; I12.9 Hypertensive chronic kidney disease with stage 1 through stage 4 chronic kidney disease, or unspecified chronic kidney disease; F10.20 Alcohol dependence, uncomplicated; Z91.14 Patient's other noncompliance with medication regimen; Z87.891 Personal history of nicotine dependence
CPT/HCPCS: 36415; 70450; 71045; 80053; 80164; 80320; 80324; 80345; 80346; 80349; 80353; 80358; 80361; 81001; 82550; 82948; 83992; 85025; 87040; 87086; 93005; 94640; 94760; 96374; 99285; G0378; J0696; J1644; J1953; J2060; J7030

== ENCOUNTER 2018-03-12 13:20 | Emergency (ER) | payer MEDICAID ==
[2018-03-12 13:40] VITALS: TEMP 98; O2SAT 95
--- NOTE | 2018-03-12 14:31 | C.PDOC ---
History Of Present Illness 58 y/o male with history of chronic opiate abuse brought to ED by EMS after witnessed seizure while at [facility]. As per bystanders seizure lasted 2 minutes and upon arrival patient is postictal and cannot answer questions. No other complaints at this time. Time Seen by Provider: 03/12/18 13:40 Chief Complaint (Nursing): Altered Mental Status History Per: EMS History/Exam Limitations: None Onset/Duration Of Symptoms: Mins Current Symptoms Are (Timing): Still Present Use Of Anticoag/Antiplatelets: No Additional History Per: EMS (Patient had urinating on himself) Past Medical History Reviewed: Historical Data, Nursing Documentation, Vital Signs Vital Signs: Last Vital Signs Temp 98.0 F 03/12/18 13:38 Pulse 88 03/12/18 15:55 Resp 20 03/12/18 15:55 BP 142/98 H 03/12/18 15:55 Pulse Ox 95 03/12/18 15:55 - Medical History PMH: Seizures Surgical History: No Surg Hx - [facility] Procedures DRAINAGE OF RIGHT LOWER LEG SKIN, EXTERNAL APPROACH, DIAGN (11/14/17) EXCISION OF R LOW LEG SUBCU/FASCIA, OPEN APPROACH (11/14/17) EXCISION OF RIGHT LOWER LEG SKIN, EXTERNAL APPROACH (11/14/17) INSERTION OF ENDOTRACHEAL AIRWAY INTO TRACHEA, VIA OPENING (03/10/16) INSERTION OF INFUSION DEV INTO SUP VENA CAVA, PERC APPROACH (11/14/17) RESPIRATORY VENTILATION, GREATER THAN 96 CONSECUTIVE HOURS (03/10/16) TETANUS TOXOID ADMINIST (11/03/14) TRANSFER RIGHT LOWER LEG SKIN, EXTERNAL APPROACH (11/14/17) Family History: States: No Known Family Hx - Social History Hx Alcohol Use: Yes Hx Substance Use: No - Immunization History Hx Tetanus Toxoid Vaccination: No Hx Influenza Vaccination: No Hx Pneumococcal Vaccination: No Review Of Systems Constitutional: Negative for: Fever, Chills Gastrointestinal: Negative for: Nausea, Vomiting Skin: Negative for: Rash Neurological: Positive for: Seizures. Negative for: Weakness, Numbness Physical Exam - Physical Exam Appears: Unkempt, Other (resting comfortably) Skin: Warm, Dry, No Rash Head: Atraumatic, Normacephalic Eye(s): bilateral: Normal Inspection, PERRL, EOMI Oral Mucosa: Moist Throat: No Erythema, No Exudate Neck: Normal ROM, No Midline Cervical Tenderness, No Paracervical Tenderness, Supple Chest: Symmetrical, No Tenderness Cardiovascular: Rhythm Regular, No Friction Rub, No Murmur Respiratory: Normal Breath Sounds, No Rales, No Rhonchi, No Wheezing Gastrointestinal/Abdominal: Soft, No Tenderness, No Guarding, No Rebound Back: Normal Inspection, No CVA Tenderness Extremity: No Pedal Edema, Capillary Refill (<2 seconds) Neurological/Psych: Oriented x3, Normal Speech ED Course And Treatment O2 Sat by Pulse Oximetry: 95 (RA) Pulse Ox Interpretation: Normal Medical Decision Making Medical Decision Making: The patient was observed for seizure activity. The patient has a known seizure history and has not taken his medications today. Keppra 500mg given. On re-exam, the patient reports improvement of symptoms. A&O x3, ambulatory in the ED with steady gait. Lungs are CTA, heart is RRR, abdomen is soft, non- tender and tolerating Po well. Follow up with the medical doctor within 1-2 days without fail. Return if worsened. Disposition - Disposition Referrals: [facility] [Outside] Disposition: HOME/ ROUTINE Disposition Time: 15:48 Condition: GOOD Additional Instructions: Return if worsened. Prescriptions: Levetiracetam [Keppra] 500 mg PO BID #40 tablet Instructions: Seizures, Adult (DC) Forms: [facility] (Faroese) - Clinical Impression Clinical Impression: Seizure - PA / RIPRAP PLACER / Resident Statement MD/DO has reviewed & agrees with the documentation as recorded. - Scribe Statement The provider has reviewed the documentation as recorded by the Sergeyibdeon Parra All medical record entries made by the Raimundo were at my direction and personally dictated by me. I have reviewed the chart and agree that the record accurately reflects my personal performance of the history, physical exam, medical decision making, and the department course for this patient. I have also personally directed, reviewed, and agree with the discharge instructions and disposition.
[2018-03-12] MEDS ORDERED: levETIRAcetam 100 mg/ml (5ml) Oral Syringe PO STA (14:45)
[2018-03-12 16:06] VITALS: BP 142/98; PULSE 88; RESP 20
--- NOTE | 2018-03-14 12:43 | CARD ---
APPROVED REPORT Date of service: 03/12/2018 EKG Measurement Heart [id number] 144P46 [id number] <Conclusion> Normal sinus rhythm Voltage criteria for left ventricular hypertrophy Prolonged QT Abnormal ECG
== END 2018-03-12 16:04 | disposition home or self-care (01) ==
LOC: MERGE 13:20 → C.ER 13:20
DX: R56.9 Unspecified convulsions (principal)

== ENCOUNTER 2018-05-08 09:02 | Emergency (ER) | payer MEDICAID ==
[2018-05-08 09:05] VITALS: BMI 20.6
--- NOTE | 2018-05-08 10:08 | C.PDOC ---
History Of Present Illness 58 year old male, with PMHx of seizures, is brought to ED by EMS for evaluation of seizure today. Pt states he ran out of his seizure medication long time ago and has not been taking it anymore. He denies alcohol or drug abuse. Prior records reviewed. Pt has history of polysubstance abuse, and he has been seen here multiple times for seizures. He is not compliant with his medications. Otherwise, he denies any chest pain, shortness of breath, abdominal pain, nausea, vomiting, diarrhea, constipation, lightheadedness, dizziness, headache, numbness, weakness, or any other associated symptoms at this time. Time Seen by Provider: 05/08/18 09:26 Chief Complaint (Nursing): Seizure History Per: Patient History/Exam Limitations: no limitations Past Medical History Reviewed: Historical Data, Nursing Documentation, Vital Signs Vital Signs: Last Vital Signs Temp 99.1 F 05/08/18 09:05 Pulse 89 05/08/18 09:05 Resp 18 05/08/18 09:05 BP 138/93 H 05/08/18 09:05 Pulse Ox 97 05/08/18 09:05 - Medical History PMH: Asthma, Fractures (rib cage), HTN, Kidney Stones, Chronic Kidney Disease, Seizures Surgical History: Cholecystectomy - [facility] Procedures DRAINAGE OF RIGHT LOWER LEG SKIN, EXTERNAL APPROACH, DIAGN (11/14/17) EXCISION OF R LOW LEG SUBCU/FASCIA, OPEN APPROACH (11/14/17) EXCISION OF RIGHT LOWER LEG SKIN, EXTERNAL APPROACH (11/14/17) INSERTION OF ENDOTRACHEAL AIRWAY INTO TRACHEA, VIA OPENING (03/10/16) INSERTION OF INFUSION DEV INTO SUP VENA CAVA, PERC APPROACH (11/14/17) RESPIRATORY VENTILATION, GREATER THAN 96 CONSECUTIVE HOURS (03/10/16) TETANUS TOXOID ADMINIST (11/03/14) TRANSFER RIGHT LOWER LEG SKIN, EXTERNAL APPROACH (11/14/17) Family History: States: Unknown Family Hx - Social History Hx Tobacco Use: Yes Hx Alcohol Use: Yes Hx Substance Use: No (pt denies.) - Immunization History Hx Tetanus Toxoid Vaccination: No (UNKNOWN) Hx Influenza Vaccination: No Hx Pneumococcal Vaccination: Yes Review Of Systems Except As Marked, All Systems Reviewed And Found Negative. Constitutional: Negative for: Fever, Chills Cardiovascular: Negative for: Chest Pain, Palpitations Respiratory: Negative for: Cough, Shortness of Breath Gastrointestinal: Negative for: Nausea, Vomiting, Abdominal Pain Neurological: Positive for: Seizures. Negative for: Weakness, Numbness, Headache, Dizziness Physical Exam - Physical Exam Appears: Non-toxic, No Acute Distress Skin: Normal Color, Warm, Dry Head: Atraumatic, Normacephalic Eye(s): bilateral: Normal Inspection Oral Mucosa: Moist Tongue: Normal Appearing, No Bite Lips: Normal Appearing, No Lesions Neck: Normal ROM, Supple Chest: Symmetrical, No Tenderness Cardiovascular: Rhythm Regular, No Murmur Respiratory: Normal Breath Sounds, No Rales, No Rhonchi, No Wheezing Gastrointestinal/Abdominal: Soft, No Tenderness Extremity: Normal ROM, No Pedal Edema Extremity: Bilateral: Atraumatic (No signs of injury), Normal ROM (Moving all extremities) Neurological/Psych: Oriented x3, Normal Speech ED Course And Treatment - Laboratory Results Result Diagrams: 05/08/18 10:46 05/08/18 10:46 O2 Sat by Pulse Oximetry: 97 (on RA) Pulse Ox Interpretation: Normal Medical Decision Making Medical Decision Making: Plan: Blood work Urinalysis Keppra Patient awake and alert. Positive for opiates. will d/c with Keppra Rx. Disposition Counseled Patient/Family Regarding: Studies Performed, Diagnosis, Need For Followup, Rx Given - Disposition Referrals: [facility] [Outside] Disposition: HOME/ ROUTINE Disposition Time: 12:53 Condition: IMPROVED Prescriptions: Levetiracetam [Keppra] 500 mg PO BID #30 tablet Instructions: Seizures, Adult (DC) Forms: [facility] (Ukrainian), General Discharge Instructions - Clinical Impression Clinical Impression: Seizure, Narcotic abuse - Scribe Statement The provider has reviewed the documentation as recorded by the Scribdeon Rocha All medical record entries made by the Scribe were at my direction and personally dictated by me. I have reviewed the chart and agree that the record accurately reflects my personal performance of the history, physical exam, medic al decision making, and the department course for this patient. I have also personally directed, reviewed, and agree with the discharge instructions and disposition.
[2018-05-08 10:52] LABS: BASO % 0.6 % (0.0-2.0); EOS # 0.1 K/uL (0.0-0.7); EOS % 0.9 % (0.0-4.0); HEMOGLOBIN 13.9 g/dL (12.0-18.0); LYMPH # 1.2 K/uL (1.0-4.3); MEAN CELL VOLUME 93.1 fL (80.0-94.0); MEAN CORPUSCULAR HEMOGLOBIN 31.7 pg (27.0-31.0); MEAN CORPUSCULAR HGB CONC 34.1 g/dL (33.0-37.0); MEAN PLATELET VOLUME 8.2 fL (7.2-11.7); MONO # 0.7 K/uL (0.0-0.8); NEUT # 5.3 K/uL (1.8-7.0); NEUT % 72.5 % (50.0-75.0); NRBC % 0.1 % (0.0-2.0); RBC 4.38 Mil/uL (4.40-5.90); RED CELL DISTRIBUTION WIDTH 13.6 % (11.5-14.5); WHITE BLOOD COUNT 7.3 K/uL (4.8-10.8)
[2018-05-08 10:57] LABS: URINE BACTERIA RARE (<OCC); URINE BILIRUBIN NEGATIVE (NEGATIVE); URINE BLOOD 1+ (NEGATIVE); URINE CLARITY Clear (Clear); URINE COLOR Amber (YELLOW); URINE GLUCOSE (UA) 1+ mg/dL (Normal); URINE LEUKOCYTE ESTERASE NEG Leu/uL (Negative); URINE PROTEIN 1+ mg/dL (NEGATIVE)
[2018-05-08 11:06] LABS: ALBUMIN 3.7 g/dL (3.5-5.0); BLOOD UREA NITROGEN 19 mg/dL (9-20); CALCIUM 9.3 mg/dl (8.6-10.4); GFR NON-AFRICAN AMERICAN > 60
[2018-05-08 11:07] LABS: ALB/GLOB RATIO 0.9 (1.0-2.1)
[2018-05-08 11:09] LABS: ALT/SGPT 123 U/L (21-72); AST/SGOT 168 U/L (17-59)
[2018-05-08 11:15] LABS: BARBITURATES, UR NEGATIVE (NEGATIVE); BENZODIAZEPINES, UR NEGATIVE (NEGATIVE); PHENCYCLIDINE, UR NEGATIVE (NEGATIVE)
[2018-05-08 11:23] LABS: OPIATES, UR POSITIVE (NEGATIVE)
[2018-05-08 13:22] VITALS: BP 149/84; PULSE 66; RESP 18; TEMP 98.4; O2SAT 99
--- NOTE | 2018-05-11 10:54 | CARD ---
APPROVED REPORT Date of service: 05/08/2018 EKG Measurement Heart [id number] [place] 140P54 [id number] <Conclusion> Normal sinus rhythm Voltage criteria for left ventricular hypertrophy Abnormal ECG
== END 2018-05-08 13:44 | disposition home or self-care (01) ==
LOC: C.ER 09:02
DX: R56.9 Unspecified convulsions (principal); F19.10 Other psychoactive substance abuse, uncomplicated; I12.9 Hypertensive chronic kidney disease with stage 1 through stage 4 chronic kidney disease, or unspecified chronic kidney disease; F17.210 Nicotine dependence, cigarettes, uncomplicated; N18.9 Chronic kidney disease, unspecified

== ENCOUNTER 2018-06-27 17:13 | Emergency (ER) | payer MEDICAID ==
[2018-06-27 17:14] VITALS: BMI 20.6
[2018-06-27 17:39] VITALS: RESP 18
--- NOTE | 2018-06-27 19:42 | C.PDOC ---
History Of Present Illness 58 year old male presents to the ED complaining of right ankle pain. Reports he twisted ankle one day ago. Denies any chills, fever, nausea, vomiting, or any other symptoms. States he is unable to bear weight. Denies any weakness or numbness. Time Seen by Provider: 06/27/18 19:42 Chief Complaint (Nursing): Lower Extremity Problem/Injury History Per: Patient History/Exam Limitations: no limitations Onset/Duration Of Symptoms: Days (1) Current Symptoms Are (Timing): Still Present Severity: Moderate Pain Scale Rating Of: 4 - Ankle/Foot Description Of Injury: Twisted Past Medical History Reviewed: Historical Data, Nursing Documentation, Vital Signs Vital Signs: Last Vital Signs Temp 98.8 F 06/27/18 17:36 Pulse 87 06/27/18 17:36 Resp 18 06/27/18 17:36 BP 146/94 H 06/27/18 17:36 Pulse Ox 100 06/27/18 17:36 - Medical History PMH: Asthma, Fractures (rib cage), HTN, Kidney Stones, Chronic Kidney Disease, Seizures Surgical History: Cholecystectomy - [facility] Procedures DRAINAGE OF RIGHT LOWER LEG SKIN, EXTERNAL APPROACH, DIAGN (11/14/17) EXCISION OF R LOW LEG SUBCU/FASCIA, OPEN APPROACH (11/14/17) EXCISION OF RIGHT LOWER LEG SKIN, EXTERNAL APPROACH (11/14/17) INSERTION OF ENDOTRACHEAL AIRWAY INTO TRACHEA, VIA OPENING (03/10/16) INSERTION OF INFUSION DEV INTO SUP VENA CAVA, PERC APPROACH (11/14/17) RESPIRATORY VENTILATION, GREATER THAN 96 CONSECUTIVE HOURS (03/10/16) TETANUS TOXOID ADMINIST (11/03/14) TRANSFER RIGHT LOWER LEG SKIN, EXTERNAL APPROACH (11/14/17) Family History: States: No Known Family Hx - Social History Hx Tobacco Use: Yes Hx Alcohol Use: Yes Hx Substance Use: No (pt denies.) - Immunization History Hx Tetanus Toxoid Vaccination: No (UNKNOWN) Hx Influenza Vaccination: No Hx Pneumococcal Vaccination: Yes Review Of Systems Constitutional: Negative for: Fever, Chills Musculoskeletal: Positive for: Other (ankle pain) Skin: Positive for: Lesions, Other (skin with mild breakdown due to continuous wearing shoes) Neurological: Negative for: Weakness Psych: Negative for: Anxiety Physical Exam - Physical Exam Appears: Non-toxic, No Acute Distress Skin: Rash (right foot) Eye(s): bilateral: Normal Inspection Oral Mucosa: Moist Neck: Supple Cardiovascular: Rhythm Regular Respiratory: No Rales, No Rhonchi, No Wheezing Gastrointestinal/Abdominal: Soft, No Tenderness Extremity: Capillary Refill (less than 2 sec to b/l feet ), Swelling (soft tissue swelling to lateral malleolus of the right ankle ), Other (skin breakdown due to continous wearing of shoes ) Extremity: Right: Painful To Bear Weight, Bilateral: Atraumatic Pulses: Left Dorsalis Pedis: Normal, Right Dorsalis Pedis: Normal Neurological/Psych: Oriented x3, Normal Speech, Normal Sensation, Normal Reflexes Gait: With Assistance ED Course And Treatment O2 Sat by Pulse Oximetry: 100 (RA) Pulse Ox Interpretation: Normal - Other Rad r ankle X-Ray: Interpreted by Me, Viewed By Me Interpretation: no fx or dislocation, pins in place Reevaluation Time: 20:55 Reassessment Condition: Improved Medical Decision Making Medical Decision Making: Upon provider reevaluation patient is feeling better, is medically stable, and requires no further treatment in the ED at this time. Patient will be discharged home . Counseling was provided and all questions were answered regarding diagnosis and need for follow up with the referred clinic. There is agreement to discharge plan. Return if symptoms persist or worsen. Disposition Counseled Patient/Family Regarding: Studies Performed, Diagnosis, Need For Followup - Disposition Referrals: Jessica Jacobs MD [Staff Provider] - Disposition: HOME/ ROUTINE Disposition Time: 19:42 Condition: FAIR Additional Instructions: Please use tylenol for pain Instructions: Ankle Sprain (DC) Forms: [facility] (Chinese) - Clinical Impression Clinical Impression: Ankle sprain - Scribe Statement The provider has reviewed the documentation as recorded by the Scribe Angela Jimenez All medical record entries made by the Scribe were at my direction and personally dictated by me. I have reviewed the chart and agree that the record accurately reflects my personal performance of the history, physical exam, medical decision making, and the department course for this patient. I have also personally directed, reviewed, and agree with the discharge instructions and disposition.
[2018-06-27 21:56] VITALS: BP 136/79; PULSE 78; TEMP 98; O2SAT 98
--- NOTE | 2018-06-28 17:17 | RAD ---
Date of service: 06/27/2018 PROCEDURE: Right Ankle Radiographs. HISTORY: pain, twisted COMPARISON: None available. FINDINGS: BONES: Healed fracture mid fibula. Repeated hardware in tibia. No acute fracture identified. JOINTS: Normal. No osteoarthritis. Ankle mortise maintained. Talar dome intact SOFT TISSUES: Normal. OTHER FINDINGS: None. IMPRESSION: No acute fracture.
== END 2018-06-27 21:56 | disposition home or self-care (01) ==
LOC: C.ER 17:13
DX: S93.401A Sprain of unspecified ligament of right ankle, initial encounter (principal); X50.9XXA Other and unspecified overexertion or strenuous movements or postures, initial encounter

== ENCOUNTER 2018-07-30 12:49 | Emergency (ER) | payer MEDICAID ==
[2018-07-30 13:08] VITALS: BMI 25.2
[2018-07-30 13:19] VITALS: PULSE 88; TEMP 98.2
[2018-07-30] MEDS ORDERED: Sodium Chloride 0.9% 1,000 ML IV ONE (13:59)
[2018-07-30] MEDS ORDERED: Lidocaine 5% Patch TD STA (14:00)
--- NOTE | 2018-07-30 14:24 | C.PDOC ---
History Of Present Illness 58 year old male presents to the ED for evaluation of bilateral leg, hips and back pain which began around one month ago. Patient states he is homeless. He denies recent falls/trauma, weight loss, fever, chills, or alcohol intake. Fidencio cisneros does not take any regular medications. Time Seen by Provider: 07/30/18 13:38 Chief Complaint (Nursing): Medical Clearance History Per: Patient History/Exam Limitations: no limitations Onset/Duration Of Symptoms: Other (one month ) Current Symptoms Are (Timing): Still Present Additional History Per: Patient Past Medical History Reviewed: Historical Data, Nursing Documentation, Vital Signs Vital Signs: Last Vital Signs Temp 98.2 F 07/30/18 13:11 Pulse 88 07/30/18 13:11 Resp 20 07/30/18 13:11 BP 146/84 07/30/18 13:11 Pulse Ox 99 07/30/18 13:11 - Medical History PMH: Asthma, Fractures (rib cage), HTN, Kidney Stones, Chronic Kidney Disease, Seizures Surgical History: Cholecystectomy - [facility] Procedures DRAINAGE OF RIGHT LOWER LEG SKIN, EXTERNAL APPROACH, DIAGN (11/14/17) EXCISION OF R LOW LEG SUBCU/FASCIA, OPEN APPROACH (11/14/17) EXCISION OF RIGHT LOWER LEG SKIN, EXTERNAL APPROACH (11/14/17) INSERTION OF ENDOTRACHEAL AIRWAY INTO TRACHEA, VIA OPENING (03/10/16) INSERTION OF INFUSION DEV INTO SUP VENA CAVA, PERC APPROACH (11/14/17) RESPIRATORY VENTILATION, GREATER THAN 96 CONSECUTIVE HOURS (03/10/16) TETANUS TOXOID ADMINIST (11/03/14) TRANSFER RIGHT LOWER LEG SKIN, EXTERNAL APPROACH (11/14/17) Family History: States: Unknown Family Hx - Social History Hx Tobacco Use: Yes Hx Alcohol Use: Yes Hx Substance Use: No (pt denies.) - Immunization History Hx Tetanus Toxoid Vaccination: No (UNKNOWN) Hx Influenza Vaccination: No Hx Pneumococcal Vaccination: Yes Review Of Systems Constitutional: Negative for: Fever, Chills, Weight loss, Other (recent falls/trauma ) Musculoskeletal: Positive for: Back Pain, Leg Pain (bilateral), Other (hip pain) Physical Exam - Physical Exam Appears: Non-toxic, No Acute Distress Skin: Normal Color, Warm, Dry, Other (callus blisters to right foot with areas of macerated skin. no cellulitic processes ) Head: Atraumatic, Normacephalic Eye(s): bilateral: Normal Inspection Oral Mucosa: Moist Neck: Normal, Supple Chest: Symmetrical, No Deformity, No Tenderness Respiratory: Normal Breath Sounds Gastrointestinal/Abdominal: Normal Exam, Bowel Sounds, Soft Back: Normal Inspection Extremity: Capillary Refill (less than 2 seconds ), Swelling (to lateral aspect of right ankle ) Neurological/Psych: Oriented x3, Normal Speech, Normal Cognition ED Course And Treatment - Laboratory Results Result Diagrams: 07/30/18 14:22 07/30/18 14:22 O2 Sat by Pulse Oximetry: 99 (on RA) Pulse Ox Interpretation: Normal Medical Decision Making Medical Decision Making: Assessment: bilateral leg, hip and back pain Plan: * bloodwork * urinalysis * CXR * EKG * Right ankle XR * Lidoderm TD * Tylenol PO * IV Fluids * reassess and disposition Progress: Bloodwork, urinalysis, CXR, EKG, Right ankle XR ordered and reviewed. Lidoderm TD, Tylenol PO and IV Fluids given. patient with healing fracture from previous of the fibula. will discharge patient home to follow up with medical clinic within 2 days Disposition Counseled Patient/Family Regarding: Studies Performed, Diagnosis, Need For Followup, Rx Given - Disposition Referrals: [facility] [Outside] Disposition: HOME/ ROUTINE Disposition Time: 15:08 Condition: STABLE Additional Instructions: follow up with medical clinic within 2 days call to make an appointment take medication as needed for pain return to hospital if symptoms worsens or progress Prescriptions: Lidocaine 5% [Lidoderm] 1 ea TD DAILY PRN #10 patch PRN Reason: Pain, Moderate (4-7) Instructions: Muscle and Bone Pain (DC) Forms: [facility] (Spanish), General Discharge Instructions - Clinical Impression Clinical Impression: Muscle pain, Homelessness
[2018-07-30 14:37] LABS: BASO # 0.1 K/uL (0.0-0.2); BASO % 0.7 % (0.0-2.0); EOS # 0.1 K/uL (0.0-0.7); EOS % 0.5 % (0.0-4.0); HEMOGLOBIN 14.4 g/dL (12.0-18.0); LYMPH # 1.5 K/uL (1.0-4.3); LYMPH % 10.9 % (20.0-40.0); MEAN CELL VOLUME 93.3 fL (80.0-94.0); MEAN CORPUSCULAR HEMOGLOBIN 30.5 pg (27.0-31.0); MEAN CORPUSCULAR HGB CONC 32.7 g/dL (33.0-37.0); MEAN PLATELET VOLUME 8.4 fL (7.2-11.7); MONO # 1.4 K/uL (0.0-0.8); MONO % 10.3 % (0.0-10.0); NEUT # 10.8 K/uL (1.8-7.0); NEUT % 77.6 % (50.0-75.0); NRBC % 0.1 % (0.0-2.0); RBC 4.72 Mil/uL (4.40-5.90); RED CELL DISTRIBUTION WIDTH 13.4 % (11.5-14.5)
[2018-07-30 14:39] LABS: URINE BACTERIA RARE (<OCC); URINE BILIRUBIN 1+ (NEGATIVE); URINE BLOOD NEGATIVE (NEGATIVE); URINE CLARITY Clear (Clear); URINE COLOR Amber (YELLOW); URINE GLUCOSE (UA) NORMAL (Normal); URINE LEUKOCYTE ESTERASE NEG Leu/uL (Negative); URINE PROTEIN 1+ mg/dL (NEGATIVE); WHITE BLOOD COUNT 13.9 K/uL (4.8-10.8)
[2018-07-30 14:42] LABS: ALB/GLOB RATIO 0.9 (1.0-2.1); ALBUMIN 3.9 g/dL (3.5-5.0); ALT/SGPT 57 U/L (21-72); AST/SGOT 56 U/L (17-59); BLOOD UREA NITROGEN 16 mg/dL (9-20); CALCIUM 8.9 mg/dl (8.6-10.4); GFR NON-AFRICAN AMERICAN > 60; LIPASE 161 U/L (23-300)
--- NOTE | 2018-07-30 14:51 | RAD ---
Date of service: 07/30/2018 PROCEDURE: CHEST RADIOGRAPH, 1 VIEW HISTORY: SOB COMPARISON: 02/23/2018 FINDINGS: LUNGS: No consolidation. Bronchovascular markings appear top normal. PLEURA: No pneumothorax or pleural fluid seen. CARDIOVASCULAR: There is absence of aortic atherosclerotic calcification on x-ray. Top-normal heart size OSSEOUS STRUCTURES: No significant abnormalities. VISUALIZED UPPER ABDOMEN: Normal. OTHER FINDINGS: None. IMPRESSION: No interval acute cardiopulmonary pathology perceived.
--- NOTE | 2018-07-30 14:54 | RAD ---
Date of service: 07/30/2018 PROCEDURE: Right Ankle Radiographs. HISTORY: pain COMPARISON: 06/27/2018 FINDINGS: BONES: The prior distal fibular diaphyseal-metaphyseal fracture shows interval progressive callus formation. There may be some bridging bone between the fibula and tibia. The tibial intramedullary abram and 2 distal transfixing screws appear intact as before. JOINTS: Partially visualize is 1st metatarsal-phalangeal joint arthrosis.. Ankle mortise maintained. Talar dome intact. Some slight increased sclerosis over the lateral talar dome is noted on the current study-this may be due to superimposition of the lateral portion of the tibial plafond here as well SOFT TISSUES: Normal. OTHER FINDINGS: None. IMPRESSION: Interval progressive healing callus formation through the less distinct fracture lines-distal fibula as above. No hardware failure seen. Other findings as above.
[2018-07-30 16:19] VITALS: BP 138/81; RESP 16
[2018-07-31 21:02] VITALS: O2SAT 99
== END 2018-07-30 16:18 | disposition home or self-care (01) ==
LOC: C.ER 12:49
DX: M54.9 Dorsalgia, unspecified (principal); M79.10 Myalgia, unspecified site; Z59.0 Homelessness; I12.9 Hypertensive chronic kidney disease with stage 1 through stage 4 chronic kidney disease, or unspecified chronic kidney disease; N18.9 Chronic kidney disease, unspecified; Z72.0 Tobacco use
CPT/HCPCS: 71045; 73610; 80053; 81001; 82550; 83690; 83735; 84484; 85025; 96360; 96361; 99282; J7030

== ENCOUNTER 2018-08-15 14:03 | Emergency (ER) | payer MEDICAID ==
[2018-08-15 14:04] VITALS: BMI 25.2
[2018-08-15] MEDS ORDERED: Permethrin 1% Kit 59 ML BOTTLE TOP STA (14:07)
[2018-08-15 14:24] VITALS: PULSE 67; RESP 18; TEMP 98; O2SAT 98
--- NOTE | 2018-08-15 15:06 | C.PDOC ---
History Of Present Illness 58 y/o male is brought in by ambulance after being found to be bug infested. Patient is homeless. Patient has no physical complaints. Time Seen by Provider: 08/15/18 14:09 Chief Complaint (Nursing): Medical Clearance History Per: EMS History/Exam Limitations: no limitations Onset/Duration Of Symptoms: Hrs Current Symptoms Are (Timing): Still Present Past Medical History Reviewed: Historical Data, Nursing Documentation, Vital Signs Vital Signs: Last Vital Signs Temp 98 F 08/15/18 14:22 Pulse 67 08/15/18 14:22 Resp 18 08/15/18 14:22 BP Pulse Ox 98 08/15/18 14:22 - Medical History PMH: Asthma, Fractures (rib cage), HTN, Kidney Stones, Chronic Kidney Disease, Seizures Surgical History: Cholecystectomy - [facility] Procedures DRAINAGE OF RIGHT LOWER LEG SKIN, EXTERNAL APPROACH, DIAGN (11/14/17) EXCISION OF R LOW LEG SUBCU/FASCIA, OPEN APPROACH (11/14/17) EXCISION OF RIGHT LOWER LEG SKIN, EXTERNAL APPROACH (11/14/17) INSERTION OF ENDOTRACHEAL AIRWAY INTO TRACHEA, VIA OPENING (03/10/16) INSERTION OF INFUSION DEV INTO SUP VENA CAVA, PERC APPROACH (11/14/17) RESPIRATORY VENTILATION, GREATER THAN 96 CONSECUTIVE HOURS (03/10/16) TETANUS TOXOID ADMINIST (11/03/14) TRANSFER RIGHT LOWER LEG SKIN, EXTERNAL APPROACH (11/14/17) Family History: States: No Known Family Hx - Social History Hx Tobacco Use: Yes Hx Alcohol Use: Yes Hx Substance Use: No (pt denies.) - Immunization History Hx Tetanus Toxoid Vaccination: No (UNKNOWN) Hx Influenza Vaccination: No Hx Pneumococcal Vaccination: Yes Review Of Systems Except As Marked, All Systems Reviewed And Found Negative. Constitutional: Positive for: Other (Bug infested). Negative for: Fever Cardiovascular: Negative for: Chest Pain Respiratory: Negative for: Shortness of Breath Gastrointestinal: Negative for: Vomiting Skin: Negative for: Rash Physical Exam - Physical Exam Appears: Non-toxic, No Acute Distress, Other (Has long and thick flowy hair on head and face) Skin: Warm, Dry, Other (various mild excoriation in various parts of the body) Head: Atraumatic, Normacephalic Eye(s): bilateral: Normal Inspection Oral Mucosa: Moist Neck: Supple Cardiovascular: Rhythm Regular, No Murmur Respiratory: Normal Breath Sounds, No Rales, No Rhonchi, No Wheezing Gastrointestinal/Abdominal: Soft, No Tenderness Extremity: Bilateral: Normal Color And Temperature, Normal ROM Neurological/Psych: Oriented x3, Normal Speech ED Course And Treatment O2 Sat by Pulse Oximetry: 98 (RA) Pulse Ox Interpretation: Normal Medical Decision Making Medical Decision Making: homeless no seizure today lice infested now s/p delouse procedure, shaven, and fresh clothes instructed to f/u @ [facility] skilled nursing tonight due to cold weather, pt verbalized understanding. Disposition Doctor Will See Patient In The: Office Counseled Patient/Family Regarding: Studies Performed, Diagnosis - Disposition Referrals: Acute Dialysis Nurse Service [Outside] [facility] [Outside] [facility] [Outside] [facility] [Outside] [facility] [Outside] Disposition: HOME/ ROUTINE Disposition Time: 15:05 Condition: GOOD Additional Instructions: You were shaven and received a complete Nix 2-part lice treatment in the ED Clothing was removed and fresh lice-free clothing was given you are CLEARED FOR STAYING IN A CORRECTION TONIGHT DO NOT GO BACK TO THE USUAL PLACE YOU STAY AT NIGHT FOR RISK OF GETTING REINFECTED WITH LICE. Instructions: Lice Forms: [facility] (Burkinan) - Clinical Impression Clinical Impression: Body lice infestation - Scribe Statement The provider has reviewed the documentation as recorded by the Raimundo Serrano Provider Attestation: All medical record entries made by the Sergeyibdeon were at my direction and personally dictated by me. I have reviewed the chart and agree that the record accurately reflects my personal performance of the history, physical exam, medical decision making, and the department course for this patient. I have also personally directed, reviewed, and agree with the discharge instructions and disposition.
== END 2018-08-15 15:21 | disposition home or self-care (01) ==
LOC: C.ER 14:03
DX: B85.1 Pediculosis due to Pediculus humanus corporis (principal)

== ENCOUNTER 2018-08-20 21:47 | Emergency (ER) | payer MEDICAID ==
[2018-08-20 21:47] VITALS: BMI 25.2
[2018-08-20 22:07] VITALS: BP 150/88; RESP 20; O2SAT 98
--- NOTE | 2018-08-20 22:53 | C.PDOC ---
History Of Present Illness 58 year old male with a Hx of seizures and homelessness presents to the ER with a complaint of chronic leg pain, hip pain, and arm pain for a while. He has been seen in the ER numerous times. Patient sleeping in no acute distress in the ER. Denies any acute medical issues. Time Seen by Provider: 08/20/18 22:42 Chief Complaint (Nursing): Lower Extremity Problem/Injury History Per: Patient History/Exam Limitations: no limitations Onset/Duration Of Symptoms: Days Current Symptoms Are (Timing): Still Present Recent travel outside of the [place] States: No Past Medical History Reviewed: Historical Data, Nursing Documentation, Vital Signs Vital Signs: Last Vital Signs Temp 97.7 F 08/20/18 22:05 Pulse 96 H 08/20/18 22:05 Resp 20 08/20/18 22:05 BP 150/88 08/20/18 22:05 Pulse Ox 98 08/20/18 22:05 - Medical History PMH: Asthma, Fractures (rib cage), HTN, Kidney Stones, Chronic Kidney Disease, Seizures Surgical History: Cholecystectomy - [facility] Procedures DRAINAGE OF RIGHT LOWER LEG SKIN, EXTERNAL APPROACH, DIAGN (11/14/17) EXCISION OF R LOW LEG SUBCU/FASCIA, OPEN APPROACH (11/14/17) EXCISION OF RIGHT LOWER LEG SKIN, EXTERNAL APPROACH (11/14/17) INSERTION OF ENDOTRACHEAL AIRWAY INTO TRACHEA, VIA OPENING (03/10/16) INSERTION OF INFUSION DEV INTO SUP VENA CAVA, PERC APPROACH (11/14/17) RESPIRATORY VENTILATION, GREATER THAN 96 CONSECUTIVE HOURS (03/10/16) TETANUS TOXOID ADMINIST (11/03/14) TRANSFER RIGHT LOWER LEG SKIN, EXTERNAL APPROACH (11/14/17) Family History: States: Unknown Family Hx - Social History Hx Tobacco Use: Yes Hx Alcohol Use: Yes Hx Substance Use: No (pt denies.) - Immunization History Hx Tetanus Toxoid Vaccination: No (UNKNOWN) Hx Influenza Vaccination: No Hx Pneumococcal Vaccination: Yes Review Of Systems Constitutional: Negative for: Fever, Chills Cardiovascular: Negative for: Chest Pain, Palpitations Respiratory: Negative for: Cough, Shortness of Breath Gastrointestinal: Negative for: Nausea, Vomiting Musculoskeletal: Positive for: Other (Chronic leg pain, hip pain, arm pain) Neurological: Negative for: Weakness, Numbness Physical Exam - Physical Exam Appears: Non-toxic Skin: Normal Color, Warm, Dry Head: Atraumatic, Normacephalic Eye(s): bilateral: Normal Inspection Oral Mucosa: Moist Neck: Normal, Supple Chest: Symmetrical, No Tenderness Cardiovascular: Rhythm Regular Respiratory: Normal Breath Sounds, No Rales, No Wheezing Gastrointestinal/Abdominal: Soft, No Tenderness Extremity: Normal ROM (x4) Neurological/Psych: Oriented x3, Normal Speech ED Course And Treatment O2 Sat by Pulse Oximetry: 98 (Room air) Pulse Ox Interpretation: Normal Medical Decision Making Medical Decision Making: pt with chronic pain, homeless . stable for dc Disposition - Disposition Disposition: HOME/ ROUTINE Disposition Time: 22:49 Condition: STABLE Additional Instructions: return to er with worsening symptoms concerns Prescriptions: RX: Naproxen [Naprosyn] 500 mg PO BID PRN #14 tablet PRN Reason: Pain, Mild (1-3) Forms: [facility] (Wallisian) - Clinical Impression Clinical Impression: Chronic pain, Homeless - Scribe Statement The provider has reviewed the documentation as recorded by the Scribdeon Conner All medical record entries made by the Scribdeon were at my direction and personally dictated by me. I have reviewed the chart and agree that the record accurately reflects my personal performance of the history, physical exam, medical decision making, and the department course for this patient. I have also personally directed, reviewed, and agree with the discharge instructions and disposition.
[2018-08-21 00:23] VITALS: PULSE 84; TEMP 98
== END 2018-08-21 00:21 | disposition home or self-care (01) ==
LOC: C.ER 21:47
DX: G89.29 Other chronic pain (principal); Z59.0 Homelessness; I12.9 Hypertensive chronic kidney disease with stage 1 through stage 4 chronic kidney disease, or unspecified chronic kidney disease; N18.9 Chronic kidney disease, unspecified; Z72.0 Tobacco use

== ENCOUNTER 2018-08-21 00:54 | Emergency (ER) | payer MEDICAID ==
[2018-08-21 00:54] VITALS: BMI 25.2
--- NOTE | 2018-08-21 01:13 | C.PDOC ---
History Of Present Illness Patient presents to the ER requesting a place to spend the night. Patient was seen here a few hours prior and discharged, however, due to the inclement weather and shelters being closed he is requesting a place to stay. Denies any complaints at this time. Time Seen by Provider: 08/21/18 01:12 Chief Complaint (Nursing): Medical Clearance History Per: Patient History/Exam Limitations: no limitations Onset/Duration Of Symptoms: Hrs Current Symptoms Are (Timing): Still Present Severity: None Pain Scale Rating Of: 0 Recent travel outside of the [place]: No Past Medical History Reviewed: Historical Data, Nursing Documentation, Vital Signs Vital Signs: Last Vital Signs Temp 98.4 F 08/21/18 01:04 Pulse 107 H 08/21/18 01:04 Resp 20 08/21/18 01:04 BP 107/70 08/21/18 01:04 Pulse Ox 98 08/21/18 01:04 - Medical History PMH: Asthma, Fractures (rib cage), HTN, Kidney Stones, Chronic Kidney Disease, Seizures Surgical History: Cholecystectomy - [facility] Procedures DRAINAGE OF RIGHT LOWER LEG SKIN, EXTERNAL APPROACH, DIAGN (11/14/17) EXCISION OF R LOW LEG SUBCU/FASCIA, OPEN APPROACH (11/14/17) EXCISION OF RIGHT LOWER LEG SKIN, EXTERNAL APPROACH (11/14/17) INSERTION OF ENDOTRACHEAL AIRWAY INTO TRACHEA, VIA OPENING (03/10/16) INSERTION OF INFUSION DEV INTO SUP VENA CAVA, PERC APPROACH (11/14/17) RESPIRATORY VENTILATION, GREATER THAN 96 CONSECUTIVE HOURS (03/10/16) TETANUS TOXOID ADMINIST (11/03/14) TRANSFER RIGHT LOWER LEG SKIN, EXTERNAL APPROACH (11/14/17) Family History: States: No Known Family Hx - Social History Hx Tobacco Use: Yes Hx Alcohol Use: Yes Hx Substance Use: No (pt denies.) - Immunization History Hx Tetanus Toxoid Vaccination: No (UNKNOWN) Hx Influenza Vaccination: No Hx Pneumococcal Vaccination: Yes Review Of Systems Constitutional: Negative for: Fever, Chills Cardiovascular: Negative for: Chest Pain, Palpitations Respiratory: Negative for: Cough, Shortness of Breath Gastrointestinal: Negative for: Nausea, Vomiting Neurological: Negative for: Weakness, Numbness Physical Exam - Physical Exam Appears: Non-toxic Skin: Warm, Dry Head: Normacephalic Oral Mucosa: Moist Chest: Symmetrical, No Tenderness Cardiovascular: Rhythm Regular Respiratory: No Rales, No Rhonchi, No Wheezing Gastrointestinal/Abdominal: Soft, No Tenderness Neurological/Psych: Oriented x3 ED Course And Treatment O2 Sat by Pulse Oximetry: 98 Pulse Ox Interpretation: Normal Progress Note: NAD. Arousable. Disposition Counseled Patient/Family Regarding: Studies Performed, Diagnosis, Need For Followup - Disposition Referrals: [facility] [Outside] Disposition: HOME/ ROUTINE Disposition Time: 05:27 Condition: FAIR Forms: [facility] (American), General Discharge Instructions - Clinical Impression Clinical Impression: Medical assessment - Scribe Statement The provider has reviewed the documentation as recorded by the Scribe Basilio Conner All medical record entries made by the Scribe were at my direction and personally dictated by me. I have reviewed the chart and agree that the record accurately reflects my personal performance of the history, physical exam, medical decision making, and the department course for this patient. I have also personally directed, reviewed, and agree with the discharge instructions and disposition.
[2018-08-21 01:14] VITALS: RESP 20
[2018-08-21 06:20] VITALS: BP 128/72; PULSE 84; TEMP 98; O2SAT 97
== END 2018-08-21 06:14 | disposition home or self-care (01) ==
LOC: C.ER 00:54
DX: Z00.00 Encounter for general adult medical examination without abnormal findings (principal); I12.9 Hypertensive chronic kidney disease with stage 1 through stage 4 chronic kidney disease, or unspecified chronic kidney disease

== ENCOUNTER 2018-08-22 00:15 | Emergency (ER) | payer MEDICAID | END 2018-08-22 06:30 | disposition home or self-care (01) | LOC: C.ER 00:15 ==

== ENCOUNTER 2018-09-19 11:59 | Emergency (ER) | payer MEDICAID ==
[2018-09-19 12:00] VITALS: BMI 25.2
--- NOTE | 2018-09-19 14:36 | C.PDOC ---
History Of Present Illness 58 y/o male pt with hx of arthritis in b/l hips with chronic pain and chronic smoker presents to the ER with sister c/o several weeks of b/l lower leg pain. Associated sx left sided lateral rib pain which appears when he coughs. Sister is concerned and states there are "swollen blood vessels on b/l legs" otherwise there are no swelling, redness, SOB, chest pain or injury to the b/l legs and no other complaints. Time Seen by Provider: 09/19/18 13:26 Chief Complaint (Nursing): Medical Clearance History Per: Patient History/Exam Limitations: no limitations Onset/Duration Of Symptoms: Days Current Symptoms Are (Timing): Still Present Past Medical History Reviewed: Historical Data, Nursing Documentation, Vital Signs Vital Signs: Last Vital Signs Temp 97.8 F 09/19/18 14:25 Pulse 64 09/19/18 14:25 Resp 16 09/19/18 14:25 BP 120/76 09/19/18 14:25 Pulse Ox 100 09/19/18 14:25 - Medical History PMH: Asthma, Fractures (rib cage), HTN, Kidney Stones, Chronic Kidney Disease, Seizures Surgical History: Cholecystectomy - [facility] Procedures DRAINAGE OF RIGHT LOWER LEG SKIN, EXTERNAL APPROACH, DIAGN (11/14/17) EXCISION OF R LOW LEG SUBCU/FASCIA, OPEN APPROACH (11/14/17) EXCISION OF RIGHT LOWER LEG SKIN, EXTERNAL APPROACH (11/14/17) INSERTION OF ENDOTRACHEAL AIRWAY INTO TRACHEA, VIA OPENING (03/10/16) INSERTION OF INFUSION DEV INTO SUP VENA CAVA, PERC APPROACH (11/14/17) RESPIRATORY VENTILATION, GREATER THAN 96 CONSECUTIVE HOURS (03/10/16) TETANUS TOXOID ADMINIST (11/03/14) TRANSFER RIGHT LOWER LEG SKIN, EXTERNAL APPROACH (11/14/17) Family History: States: Unknown Family Hx - Social History Hx Tobacco Use: Yes Hx Alcohol Use: Yes Hx Substance Use: No (pt denies.) - Immunization History Hx Tetanus Toxoid Vaccination: No (UNKNOWN) Hx Influenza Vaccination: No Hx Pneumococcal Vaccination: Yes Review Of Systems Constitutional: Positive for: Other (left sided lateral ribs pain ) Cardiovascular: Negative for: Chest Pain Respiratory: Negative for: Shortness of Breath Gastrointestinal: Negative for: Nausea, Vomiting, Abdominal Pain Genitourinary: Negative for: Dysuria, Hematuria Musculoskeletal: Positive for: Other (chronic b/l pain on lower legs. ) Skin: Negative for: Rash Neurological: Negative for: Weakness, Numbness Psych: Negative for: Anxiety Physical Exam - Physical Exam Appears: Non-toxic, No Acute Distress Skin: Warm, Dry Head: Normacephalic Chest: Symmetrical, No Deformity, No Tenderness Cardiovascular: Rhythm Regular, No Murmur Respiratory: Normal Breath Sounds, No Rales, No Rhonchi, No Wheezing Gastrointestinal/Abdominal: Soft, No Tenderness Extremity: Normal ROM (AROM on both hips and knees without difficulty), Calf Tenderness (minimal; b/l ), No Swelling, No Other (no erythema; no varicose veins noted ) Pulses: Left Dorsalis Pedis: Normal, Right Dorsalis Pedis: Normal Neurological/Psych: Oriented x3, Normal Speech, Normal Cognition, Normal Motor, Normal Sensation ED Course And Treatment O2 Sat by Pulse Oximetry: 100 (RA) Pulse Ox Interpretation: Normal - Other Rad chest X-Ray: Read By Radiologist Interpretation: Accession No. : [id number]. Patient Name / ID : SOLOMON MEZA / [id number]. Exam Date : 09/19/2018 14:12:22 ( Approved ). Study Comment : Sex / Age : M / 58Y. Creator : Majo Conner MD. Dictator : Majo Conner MD. 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 Approver2 : Report Date : 09/19/2018 17:21:42. My Comment : . Date of service: 09/19/2018. HISTORY: L side pain. COMPARISON: Comparison is made with 07/30/2018. TECHNIQUE: Chest PA and lateral. FINDINGS: LUNGS: Small opacities noted at the left lower lung and left lung base may represent atelectasis or infiltrate. PLEURA: No significant pleural effusion identified. No pneumothorax apparent. CARDIOVASCULAR: No aortic atherosclerotic calcification present. Normal cardiac size. No pulmonary vascular congestion. OSSEOUS STRUCTURES: No significant abnormalities. VISUALIZED UPPER ABDOMEN: Normal. OTHER FINDINGS: None. IMPRESSION: Left lower lung small opacities may represent atelectasis or small infiltrate. - CT Scan/US B/L LE Venous Duplex Other Rad Studies (CT/US): Radiology Report Reviewed CT/US Interpretation: No evidence of DVT bilaterally Medical Decision Making Medical Decision Making: plans: -- CXR -- Venous duplex scan -- toradol Patient reported improvement in pain after toradol. CXR and venous duplex completed. Patient advised to follow up with PMD, sister states that patient is homeless and has not been compliant with medical care, however she took him in and will help him set up outpatient followup. Advised returning to the ED for any new or worsening symptoms. Disposition - Disposition Disposition: HOME/ ROUTINE Disposition Time: 16:55 Condition: STABLE Additional Instructions: SUSANA CARBAJAL, thank you for letting us take care of you today. Your provider was Alda Ramires MD and you were treated for BACK PAIN. The emergency medical care you received today was directed at your acute symptoms. If you were prescribed any medication, please fill it and take as directed. It may take several days for your symptoms to resolve. Return to the Emergency Department if your symptoms worsen, do not improve, or if you have any other problems. Please contact your doctor or call one of the physicians/clinics you have been referred to that are listed on the Patient Visit Information form that is included in your discharge packet. Bring any paperwork you were given at discharge with you along with any medications you are taking to your follow up visit. Our treatment cannot replace ongoing medical care by a primary care provider outside of the emergency department. Thank you for allowing the [facility] team to be part of your care today. If you had an X-Ray or CT scan: A Radiologist will review the ED reading if any change in treatment is needed we will contact you. If you had a blood, urine, or wound culture: It will take several days for the results, if any change in treatment is needed we will contact you. If you had an STI test: It will take 48 hours for the results. Please call after 1 week if you have not heard back. Instructions: Osteoarthritis (DC), Varicose Veins (DC) Forms: [employer] (Faroese) - Clinical Impression Clinical Impression: Chest wall pain, Hip arthritis, Leg pain, bilateral - Scribe Statement The provider has reviewed the documentation as recorded by the Sergeyibe Monalisa Car Provider Attestation: All medical record entries made by the Scribe were at my direction and personally dictated by me. I have reviewed the chart and agree that the record accurately reflects my personal performance of the history, physical exam, medical decision making, and the department course for this patient. I have also personally directed, reviewed, and agree with the discharge instructions and disposition.
--- NOTE | 2018-09-19 17:25 | RAD ---
Date of service: 09/19/2018 HISTORY: L side pain COMPARISON: Comparison is made with 07/30/2018 TECHNIQUE: Chest PA and lateral FINDINGS: LUNGS: Small opacities noted at the left lower lung and left lung base may represent atelectasis or infiltrate. PLEURA: No significant pleural effusion identified. No pneumothorax apparent. CARDIOVASCULAR: No aortic atherosclerotic calcification present. Normal cardiac size. No pulmonary vascular congestion. OSSEOUS STRUCTURES: No significant abnormalities. VISUALIZED UPPER ABDOMEN: Normal. OTHER FINDINGS: None. IMPRESSION: Left lower lung small opacities may represent atelectasis or small infiltrate.
[2018-09-19 17:26] VITALS: BP 113/74; PULSE 60; RESP 20; TEMP 97.6
[2018-09-19 17:46] VITALS: O2SAT 100
--- NOTE | 2018-09-21 10:28 | VASCLAB ---
Date of service: 09/19/2018 PROCEDURE: Lower Extremity Venous Duplex Exam. HISTORY: leg pain PRIORS: None. TECHNIQUE: Bilateral common femoral, femoral, popliteal and posterior tibial, peroneal and great saphenous veins were evaluated. Flow was assessed with color Doppler, compressibility, assessment of phasic flow and augmentation response. Report prepared by Melita Lemus S FINDINGS: RIGHT: 1. Common Femoral Vein: 1.1. Compressibility - Fully compressible: Thrombus - None : Flow - Phasic: Augmentation -Normal: Reflux - None. 2. Femoral Vein: 2.1. Compressibility - Fully compressible: Thrombus - None : Flow - Phasic: Augmentation -Normal: Reflux - None. 3. Popliteal Vein: 3.1. Compressibility - Fully compressible: Thrombus - None : Flow - Phasic: Augmentation -Normal: Reflux - None. 4. Posterior Tibial Vein: 4.1. Compressibility - Fully compressible: Thrombus - None: Flow - Phasic: Augmentation -Normal: Reflux - None. 5. Peroneal Vein: 5.1. Compressibility - Fully compressible: Thrombus - None: Flow - Phasic: Augmentation -Normal: Reflux - None. 6. Great Saphenous Vein: 6.1. Compressibility - Fully compressible: Thrombus - None: Flow - Phasic: Augmentation - Normal: Reflux - None. LEFT: 1. Common Femoral Vein: 1.1. Compressibility - Fully compressible: Thrombus - None: Flow - Phasic: Augmentation -Normal: Reflux - None. 2. Femoral Vein: 2.1. Compressibility - Fully compressible: Thrombus - None: Flow - Phasic: Augmentation -Normal: Reflux - None. 3. Popliteal Vein: 3.1. Compressibility - Fully compressible: Thrombus - None : Flow - Phasic: Augmentation -Normal: Reflux - None. 4. Posterior Tibial Vein: 4.1. Compressibility - N/A: Thrombus - N/A: Flow - N/A: Augmentation -N/A: Reflux - N/A. 5. Peroneal Vein: 5.1. Compressibility - Fully compressible: Thrombus - None: Flow - Phasic: Augmentation -Normal: Reflux - None. 6. Great Saphenous Vein: 6.1. Compressibility - Fully compressible: Thrombus - None: Flow - Phasic: Augmentation - Normal: Reflux - None. OTHER FINDINGS: Right: None significant. Left: The posterior tibial veins were not visualized due to small caliber. IMPRESSION: Right: No evidence of deep or superficial vein thrombosis of the right lower extremity. Normal valve function noted of the right side. Left: No evidence of deep or superficial vein thrombosis of the left lower extremity in those veins visualized. Normal valve function noted of the left side.
== END 2018-09-19 17:29 | disposition home or self-care (01) ==
LOC: C.ER 11:59
DX: R07.89 Other chest pain (principal); M79.662 Pain in left lower leg; M79.661 Pain in right lower leg; M16.10 Unilateral primary osteoarthritis, unspecified hip; I12.9 Hypertensive chronic kidney disease with stage 1 through stage 4 chronic kidney disease, or unspecified chronic kidney disease; N18.9 Chronic kidney disease, unspecified
CPT/HCPCS: 71046; 93970; 96372; 99282; J1885

== ENCOUNTER 2018-10-08 14:46 | Outpatient (CLI) | payer MEDICAID | END 2018-10-08 14:47 | disposition home or self-care (01) | LOC: C.RADIC 14:46 ==

== ENCOUNTER 2018-11-07 11:50 | Emergency (ER) | payer MEDICAID ==
[2018-11-07 11:51] VITALS: BMI 26.6
[2018-11-07 12:06] VITALS: BP 127/89; PULSE 112; RESP 18; TEMP 98.9; O2SAT 100
--- NOTE | 2018-11-07 12:54 | C.PDOC ---
History Of Present Illness 58 y/o male presents to ED with complaints of chronic bilateral hip pain. States he was seen in [facility] 3 days ago and had hip x-ray done that showed no evidence of acute injuries or fracture. Patient was diagnosed with chronic hip pain and discharged home with prescription for ibuprofen, but patient reports he has not filled the medication. He presents here today with similar complaint of chronic pain. Denies any new injuries or fall. Time Seen by Provider: 11/07/18 12:16 Chief Complaint (Nursing): Lower Extremity Problem/Injury History Per: Patient History/Exam Limitations: no limitations Onset/Duration Of Symptoms: Days Current Symptoms Are (Timing): Still Present Past Medical History Reviewed: Historical Data, Nursing Documentation, Vital Signs Vital Signs: Last Vital Signs Temp 98.9 F 11/07/18 12:02 Pulse 112 H 11/07/18 12:02 Resp 18 11/07/18 12:02 BP 127/89 11/07/18 12:02 Pulse Ox 100 11/07/18 12:02 - Medical History PMH: Asthma, Fractures (rib cage), HTN, Kidney Stones, Pancreatitis, Chronic Kidney Disease, Seizures Surgical History: Cholecystectomy - [facility] Procedures DRAINAGE OF RIGHT LOWER LEG SKIN, EXTERNAL APPROACH, DIAGN (11/14/17) EXCISION OF R LOW LEG SUBCU/FASCIA, OPEN APPROACH (11/14/17) EXCISION OF RIGHT LOWER LEG SKIN, EXTERNAL APPROACH (11/14/17) INSERTION OF ENDOTRACHEAL AIRWAY INTO TRACHEA, VIA OPENING (03/10/16) INSERTION OF INFUSION DEV INTO SUP VENA CAVA, PERC APPROACH (11/14/17) RESPIRATORY VENTILATION, GREATER THAN 96 CONSECUTIVE HOURS (03/10/16) TETANUS TOXOID ADMINIST (11/03/14) TRANSFER RIGHT LOWER LEG SKIN, EXTERNAL APPROACH (11/14/17) Family History: States: No Known Family Hx - Social History Hx Tobacco Use: Yes Hx Alcohol Use: No (denies) Hx Substance Use: No (pt denies.) - Immunization History Hx Tetanus Toxoid Vaccination: No (UNKNOWN) Hx Influenza Vaccination: No Hx Pneumococcal Vaccination: Yes Review Of Systems Constitutional: Negative for: Fever, Chills Cardiovascular: Negative for: Chest Pain Respiratory: Negative for: Shortness of Breath Gastrointestinal: Negative for: Nausea, Vomiting, Abdominal Pain Genitourinary: Negative for: Dysuria Musculoskeletal: Positive for: Back Pain, Leg Pain, Other (Bilateral Hip Pain) Neurological: Positive for: Seizures (by history). Negative for: Weakness, Numbness Physical Exam - Physical Exam Appears: Non-toxic, No Acute Distress Skin: Warm, Dry Head: Atraumatic, Normacephalic Eye(s): bilateral: Normal Inspection Oral Mucosa: Moist Neck: Supple Extremity: Other (diffuse pain in bilateral hips and right knee, no point tend erness) Extremity: Bilateral: Atraumatic, Normal Color And Temperature Neurological/Psych: Oriented x3, Normal Speech, Normal Motor Gait: With Assistance (Able to ambulate with use of cane) ED Course And Treatment O2 Sat by Pulse Oximetry: 100 (RA) Pulse Ox Interpretation: Normal Progress Note: Patient treated with Toradol IM in ED with improvement of pain. Medical Decision Making Medical Decision Making: Plan: --Toradol IM Disposition - Disposition Referrals: [facility] [Outside] Disposition: HOME/ ROUTINE Disposition Time: 13:02 Condition: IMPROVED Prescriptions: Ibuprofen [Motrin Tab] 600 mg PO QID PRN #30 tab PRN Reason: Pain, Severe (8-10) Instructions: Arthritis and Exercise Forms: Order[employer] (Croatian) - Clinical Impression Clinical Impression: Arthritis, Degenerative joint disease - Scribe Statement The provider has reviewed the documentation as recorded by the Raimundo Serrano Provider Attestation: All medical record entries made by the Sergeyibdeon were at my direction and personally dictated by me. I have reviewed the chart and agree that the record accurately reflects my personal performance of the history, physical exam, medical decision making, and the department course for this patient. I have also personally directed, reviewed, and agree with the discharge instructions and disposition.
== END 2018-11-07 13:09 | disposition home or self-care (01) ==
LOC: C.ER 11:50
DX: M19.90 Unspecified osteoarthritis, unspecified site (principal)
CPT/HCPCS: 96372; 99283; J1885

== ENCOUNTER 2018-11-25 15:12 | Inpatient (IN) | payer MEDICAID ==
[2018-11-25 15:22] VITALS: BMI 25.0
--- NOTE | 2018-11-25 16:06 | C.PDOC ---
History Of Present Illness Patient is a 58yo M with PMH alcohol with withdrawal seizure, IVDU, Hep C, seizure BIBA today s/p fall two days ago with abrasion on the R side of his face. He is poorly cooperative with interview, responding with "I don't know" to most questions. He is also complaining of generalized body aches, as is his usual. Denies smoking, alcohol, or illicit drug use. After initial evaluation, he had a witnessed seizure and received Ativan. <Kell Camacho - Last Filed: 11/25/18 19:26> Patient seen and examined. Agree with history as reported. <Hanna Jack - Last Filed: 11/25/18 20:38> - HPI History Per: Patient History/Exam Limitations: intoxication Onset/Duration Of Symptoms: Unknown Injury Occurred (Timing): Days Ago: (2) Location Of Injury: Right: Face (abrasion over eyelid, down cheek, ending over jawline) - Fall Fall:Prior To Injury: Tripped <Kell Camacho - Last Filed: 11/25/18 19:26> <Hanna Jack - Last Filed: 11/25/18 20:38> - HPI Chief Complaint (Nursing): Trauma Past Medical History Reviewed: Historical Data, Nursing Documentation, Vital Signs Vital Signs: Last Vital Signs Temp 99.3 F 11/25/18 15:22 Pulse 103 H 11/25/18 15:22 Resp 20 11/25/18 15:22 BP 146/85 11/25/18 15:22 Pulse Ox 94 L 11/25/18 15:22 - Medical History PMH: Asthma, Fractures (rib cage), HTN, Kidney Stones, Pancreatitis, Chronic Kidney Disease, Seizures Surgical History: Cholecystectomy - [facility] Procedures DRAINAGE OF RIGHT LOWER LEG SKIN, EXTERNAL APPROACH, DIAGN (11/14/17) EXCISION OF R LOW LEG SUBCU/FASCIA, OPEN APPROACH (11/14/17) EXCISION OF RIGHT LOWER LEG SKIN, EXTERNAL APPROACH (11/14/17) INSERTION OF ENDOTRACHEAL AIRWAY INTO TRACHEA, VIA OPENING (03/10/16) INSERTION OF INFUSION DEV INTO SUP VENA CAVA, PERC APPROACH (11/14/17) RESPIRATORY VENTILATION, GREATER THAN 96 CONSECUTIVE HOURS (03/10/16) TETANUS TOXOID ADMINIST (11/03/14) TRANSFER RIGHT LOWER LEG SKIN, EXTERNAL APPROACH (11/14/17) Family History: States: Unknown Family Hx - Social History Hx Tobacco Use: Yes Hx Alcohol Use: No (denies) Hx Substance Use: No (pt denies.) - Immunization History Hx Tetanus Toxoid Vaccination: No (UNKNOWN) Hx Influenza Vaccination: No Hx Pneumococcal Vaccination: Yes <Kell Camacho - Last Filed: 11/25/18 19:26> Vital Signs: Last Vital Signs Temp 99.1 F 11/25/18 19:25 Pulse 119 H 11/25/18 19:25 Resp 22 11/25/18 19:25 BP 135/94 H 11/25/18 19:25 Pulse Ox 94 L 11/25/18 19:54 - [facility] Procedures DRAINAGE OF RIGHT LOWER LEG SKIN, EXTERNAL APPROACH, DIAGN (11/14/17) EXCISION OF R LOW LEG SUBCU/FASCIA, OPEN APPROACH (11/14/17) EXCISION OF RIGHT LOWER LEG SKIN, EXTERNAL APPROACH (11/14/17) INSERTION OF ENDOTRACHEAL AIRWAY INTO TRACHEA, VIA OPENING (03/10/16) INSERTION OF INFUSION DEV INTO SUP VENA CAVA, PERC APPROACH (11/14/17) RESPIRATORY VENTILATION, GREATER THAN 96 CONSECUTIVE HOURS (03/10/16) TETANUS TOXOID ADMINIST (11/03/14) TRANSFER RIGHT LOWER LEG SKIN, EXTERNAL APPROACH (11/14/17) <Hanna Jack - Last Filed: 11/25/18 20:38> Review Of Systems Review Of Systems: ROS cannot be obtained secondary to pt's inabilty to answer questions. (uncooperative with questioning) <Kell Camacho - Last Filed: 11/25/18 19:26> Physical Exam - Physical Exam Appears: No Acute Distress, Confused (intoxicated) Skin: Warm (flushed) Head: Normacephalic, Abrasion (down R side of face including eyelid and cheek) Eye(s): bilateral: PERRL, EOMI, Scleral Icterus, right: Eyelid Inflammation (over abrasion) Ear(s): Bilateral: Normal Nose: No Discharge, No Epistaxis, No Deformity Oral Mucosa: Dry Teeth: Caries Cardiovascular: Rhythm Regular (tachycardic) Respiratory: Normal Breath Sounds, No Accessory Muscle Use Gastrointestinal/Abdominal: Normal Exam, Bowel Sounds, Soft, No Tenderness, No Distention, No Guarding Pulses: Left Radial: Normal, Right Radial: Normal, Left Dorsalis Pedis: Normal, Right Dorsalis Pedis: Normal DTR: Bicep (R): 2+, Bicep (L): 2+, Knee (R): 2+, Knee (L): 2+ Neurological/Psych: No Oriented x3 (oriented to person, place only), No Normal Speech (slurred speech), No Normal Cognition (AMS), Eyes Open With Command Pain Response: Withdraws With Pain Disoriented To: Time, Situation Extremity: Right: No Drift (no tremors), Left: No Drift <Kell Camacho - Last Filed: 11/25/18 19:26> ED Course And Treatment - Laboratory Results Result Diagrams: 11/25/18 16:23 11/25/18 16:23 O2 Sat by Pulse Oximetry: 94 <Kell Camacho - Last Filed: 11/25/18 19:26> - Laboratory Results Result Diagrams: 11/25/18 16:23 11/25/18 16:23 Lab Results: Total Bilirubin 0.5 mg/dL (0.2-1.3) 11/25/18 16:23 AST 93 U/L (17-59) H D 11/25/18 16:23 ALT 52 U/L (21-72) 11/25/18 16:23 Alkaline Phosphatase 109 U/L (38-126) 11/25/18 16:23 Total Protein 7.5 g/dL (6.3-8.3) 11/25/18 16:23 Albumin 3.6 g/dL (3.5-5.0) 11/25/18 16:23 Globulin 3.9 gm/dL (2.2-3.9) 11/25/18 16:23 Albumin/Globulin Ratio 0.9 (1.0-2.1) L 11/25/18 16:23 Reevaluation Time: 20:36 Reassessment Condition: Unchanged (Patient remains stable but continues to be tachycardic. He is still unsteady and not able to ambulate.) - Physician Consult Information Outcome Of Conversation: Case discussed with Dr Garces who agrees to admit to alcohol withdrawal. <Hanna Jack - Last Filed: 11/25/18 20:38> Medical Decision Making Medical Decision Making: - labs - 1L banana bag - CT Head without contrast - Bacitracin ointment over facial abrasion after patient had witnessed seizure, IM Ativan 2mg given, started on NRB mask satting 100% - Mg - UDS, BAL - unable to do CT Head due to patient uncooperation, trying to get up out of bed - IVP Ativan 1mg - will retry to obtain imaging after patient is more sedated 1741 re-eval, patient requests urine cup and urinal to give urine sample. upon return, patient had peed on himself. CT Head without Contrast FINDINGS: HEMORRHAGE: No intracranial hemorrhage. BRAIN: No mass effect or edema. Atrophy, periventricular small vessel disease, lacune or infarcts on the left are stable finding. VENTRICLES: Unremarkable. No hydrocephalus. CALVARIUM: Unremarkable. PARANASAL SINUSES: Unremarkable as visualized. No significant inflammatory changes. MASTOID AIR CELLS: Unremarkable as visualized. No inflammatory changes. OTHER FINDINGS: None. IMPRESSION: No acute intracranial abnormalities. No significant findings to account for the clinical presentation. No significant interval change compared to the prior examination(s). 1844 re-eval, patient continues to be uncooperative. was able to provide a urine sample. Patient is refusing detox at this time. BAL <10, UDS positive for opiates. Remains tachycardic, hypertensive. [address] Bernal, on-call Medicine, will accept. Start on Librium protocol. <Kell Camacho - Last Filed: 11/25/18 19:26> Disposition Discussed With : Nena Garces Comment: start on Librium taper protocol Doctor Will See Patient In The: Hospital - Disposition Disposition Time: 19:49 <Kell Camacho - Last Filed: 11/25/18 19:26> <Hanna Jack - Last Filed: 11/25/18 20:38> - Disposition Disposition: HOSPITALIZED Condition: FAIR Additional Instructions: Keep your face clean as possible. Wash with warm soap and water without scrubbing. Instructions: Alcohol Use - When Is Drinking a Problem?, Alcohol Withdrawal (DC) Forms: [employer]aze (Libyan) - Clinical Impression Clinical Impression: Alcohol withdrawal seizure, Facial abrasion Critical Care Time - PA / REDIPPER / Resident Statement MD/DO has reviewed & agrees with the documentation as recorded. MD/DO has examined the patient and agrees with the treatment plan. <Kell Camacho - Last Filed: 11/25/18 19:26>
[2018-11-25] MEDS ORDERED: Bacitracin Ointment 30 GM TUBE TOP ONE (16:10)
[2018-11-25] MEDS ORDERED: Multivitamin (MVI) 10 ML, Thiamine 100 MG, Folic Acid 1 MG in Sodium Chloride 0.9% 1,00... IV ONE (16:21)
[2018-11-25 16:27] LABS: BASO % 0.6 % (0.0-2.0); EOS % 0.6 % (0.0-4.0); HEMOGLOBIN 11.8 g/dL (12.0-18.0); LYMPH # 1.4 K/uL (1.0-4.3); LYMPH % 17.5 % (20.0-40.0); MEAN CORPUSCULAR HEMOGLOBIN 29.2 pg (27.0-31.0); MEAN CORPUSCULAR HGB CONC 33.2 g/dL (33.0-37.0); MEAN PLATELET VOLUME 7.1 fL (7.2-11.7); MONO # 0.8 K/uL (0.0-0.8); MONO % 9.9 % (0.0-10.0); NEUT # 5.8 K/uL (1.8-7.0); NEUT % 71.4 % (50.0-75.0); NRBC % 0.1 % (0.0-2.0); RBC 4.06 Mil/uL (4.40-5.90); RED CELL DISTRIBUTION WIDTH 16.1 % (11.5-14.5); WHITE BLOOD COUNT 8.1 K/uL (4.8-10.8)
[2018-11-25 16:30] LABS: MEAN CELL VOLUME 87.9 fL (80.0-94.0)
[2018-11-25 16:40] LABS: ALB/GLOB RATIO 0.9 (1.0-2.1); ALBUMIN 3.6 g/dL (3.5-5.0); ALT/SGPT 52 U/L (21-72); AST/SGOT 93 U/L (17-59); BLOOD UREA NITROGEN 14 mg/dL (9-20); CALCIUM 8.7 mg/dl (8.6-10.4); GFR NON-AFRICAN AMERICAN > 60
[2018-11-25] MEDS ORDERED: Sodium Chloride 0.9% 1,000 ML ONE (16:58)
--- NOTE | 2018-11-25 18:32 | CT ---
Date of service: 11/25/2018 PROCEDURE: CT HEAD WITHOUT CONTRAST. HISTORY: AMS, recent fall COMPARISON: 02/24/2018. TECHNIQUE: Axial computed tomography images were obtained through the head/brain without intravenous contrast. Supplemental Coronal and Sagittal projections created and reviewed. Radiation dose: Total exam DLP = <inf_radiation_dlp> mGy-cm. This CT exam was performed using one or more of the following dose reduction techniques: Automated exposure control, adjustment of the mA and/or kV according to patient size, and/or use of iterative reconstruction technique. FINDINGS: HEMORRHAGE: No intracranial hemorrhage. BRAIN: No mass effect or edema. Atrophy, periventricular small vessel disease, lacune or infarcts on the left are stable finding. VENTRICLES: Unremarkable. No hydrocephalus. CALVARIUM: Unremarkable. PARANASAL SINUSES: Unremarkable as visualized. No significant inflammatory changes. MASTOID AIR CELLS: Unremarkable as visualized. No inflammatory changes. OTHER FINDINGS: None. IMPRESSION: No acute intracranial abnormalities. No significant findings to account for the clinical presentation. No significant interval change compared to the prior examination(s).
[2018-11-25 19:17] LABS: BARBITURATES, UR NEGATIVE (NEGATIVE); BENZODIAZEPINES, UR NEGATIVE (NEGATIVE); OPIATES, UR POSITIVE (NEGATIVE); PHENCYCLIDINE, UR NEGATIVE (NEGATIVE)
[2018-11-26] MEDS: Pantoprazole 40 mg EC Tab PO SCH (09:12)
--- NOTE | 2018-11-26 11:22 | PCM.PSYCH ---
Initial Psychiatric Evaluation - Initial Psychiatric Evaluation Type of Admission: Voluntary Legal Status: Capacity Chief Complaint (in patient's own words): "I'm fine" History of Present Illness and Precipitating Events: Pt is seen, chart reviewd, case discussed Consult was requested for his alcoholism Very poor historian He is a 58 y/o LM, , no child, no job, homeless Brought in and had a seizure here. He claims he has been drinking on and off but "not much" Yet he had a seizure. Denies drug use but UDS is positive for high opiates. No wdw sxs observed or noted yet Feels down but denies SI, HI, AVH or delusions Cognition is clearly limited. He is barely oriented and memory is very poor, as is attention. Past psych hx: Denied Medical hx: Seizures but likely 2/2 alcohol wdw Family psych hx: Denied Current Medications: Active Medications Generic Name Dose Route Start Last Admin Trade Name Freq PRN Reason Stop Dose Admin Chlordiazepoxide 25 mg 11/26/18 00:00 11/26/18 06:17 Librium PO 11/29/18 23:59 25 mg Q6 [facility] Administration Taper Chlordiazepoxide 25 mg 11/25/18 19:53 Librium PO Q4H PRN Alcohol Withdrawal Heparin Sodium (Porcine) 5,000 units 11/26/18 10:00 11/26/18 10:16 Heparin SC 5,000 units Q12 [facility] Administration Folic Acid 1 mg/ Thiamine HCl 1,011.2 mls @ 100 mls/hr 11/26/18 22:30 100 mg/ Multivitamins/Vitamin IV C 10 ml/ Dextrose Q24H [facility] Lorazepam 0.5 mg 11/25/18 22:31 Ativan IVP Q6H PRN Anxiety Pantoprazole Sodium 40 mg 11/26/18 10:00 11/26/18 09:12 Protonix Ec Tab PO 40 mg DAILY [facility] Administration Past Psychiatric History - Past Psychiatric History Previous Treatment History: None Pertinent Medical Hx (Current Medical&Sleep Prob, Allergies): Allergies Allergy/AdvReac Type Severity Reaction Status Date / Time No Known Allergies Allergy Verified 11/25/18 15:21 No Known Home Med 11/25/18 Review of Systems - Psychiatric Psychiatric: Abnormal Sleep Pattern, Anhedonia, Anxiety, Change in Appetite, Depression, Difficulty Concentrating, Irritability. absent: Hallucinations, Homicidal Ideation, Paranoia, Suicidal Ideation Mental Status Examination - Personal Presentation Personal Presentation: Looks older than stated age (unkempt, uncooperative, looks developmentally delayed) - Affect Affect: Blunted - Motor Activity Motor Activity: Calm - Reliability in Providing Information Reliability in Providing Information: Poor, due to alteration in thoughts, Poor, due to cognitve impairment - Speech Speech: Other (slowed, slurred) - Mood Mood: Depressed, Anxious - Formal Thought Process Formal Thought Process: No Impairment - Cognitive Functions Orientation: Person, Place, Situation, Time Sensorium: Drowsy Attention/Concentration: Easily distracted Abstract Thinking: [place] Estimate of Intelligence: Below average Judgement: Imparied, as evidence by: Poor judgement Memory: Recent impaired, as evidence by: Inability to recall events of the day, Remote impaired as evidenced by: Inability to recall historical events - Risk Risk: Withdrawal, Diminished functioning - Strength & Assets Inventory Strength & Assets Inventory: Cooperative - Limitations Limitations: Living alone DSM 5 DX - DSM 5 DSM 5 Diagnosis: Alcohol withdrawal Alcohol withdrawal seizure Alcohol use d/o - severe Opioid use d/o - unknown severity Depressive d/o - unspecified r/o Intellectual disability vs. Alcohol-induced cognitive delay - Recommended/Plan of Treatment Treatment Recommendations and Plan of Treatment: Librium taper was already started prn meds Vitamins Methadone prn - Call MD for taper if he starts to withdraw, ie COWS>8 or 9 Support and psychoed 32min
--- NOTE | 2018-11-26 14:46 | CON ---
DATE: 11/26/2018 NEUROLOGY CONSULT CHIEF COMPLAINT: Evaluation for seizure. HISTORY OF PRESENT ILLNESS: This is a 58-year-old man with past medical history of IV drug abuse, history of alcohol withdrawal seizures, hepatitis C, came in, was found on the floor two days ago. The patient has right-sided facial palsy. He had a seizure or not, he does not know. He is not really a good historian. He has generalized body aches, looks like he is tremulous and likely he is withdrawing. He quit, said he stopped alcohol drinking about 4 days ago. He has history of cocaine abuse in the past as well as in the past has been mildly sober. No seizure-like activity. He was placed on Depakote 500 mg p.o. b.i.d. from a previous neurologist, Dr. Dolan in the past. He is not compliant. These are more like provoked seizures from binge alcohol drinking. So, therefore, no is considered to be needed at this point. CAT scan of the head showed no acute intracranial abnormalities. He moves all extremities. Follows simple commands. PAST MEDICAL HISTORY: As above. SOCIAL HISTORY: Daily drinker, history of cocaine and drug abuse, smoker. ALLERGIES: NO KNOWN DRUG ALLERGIES. REVIEW OF SYSTEMS: A 14-point review of systems negative except in the HPI. MEDICATIONS: Reviewed by nurse reconciliation sheet. FAMILY HISTORY: Noncontributory. LABORATORY DATA: Sodium is 134, potassium 4, chloride 100, carbon dioxide 27, BUN of 14, creatinine 0.8, anion glucose of 119. PHYSICAL EXAMINATION: VITAL SIGNS: Temperature 98.5, pulse rate of 88, blood pressure 144/84, respiratory rate of 20, oxygen saturation 95% on room air. GENERAL: The patient is sitting up in bed in no acute distress. HEENT: Atraumatic, normocephalic. PERRLA. Extraocular muscles are intact. NECK: Supple. No JVD. No adenopathy noted. LUNGS: Clear to auscultation. No adventitious sounds. HEART: S1 and S2. Normal rate and rhythm. No murmurs, rubs, or gallops. ABDOMEN: Soft, nontender, nondistended. Bowel sounds present. EXTREMITIES: No clubbing, no cyanosis. Peripheral pulses 2+ felt bilaterally. NEURO: The patient is alert and oriented to person and place, not much month or year. Recall after 5 minutes is 0/3. Poor attention span. Slow thought process. Cranial nerves II through XII intact. Motor exam: Moves all extremities equally. Toes are downgoing bilaterally. Sensory exam: Light touch, pinprick, proprioception and vibration intact. DTRs are 2+ throughout. Coordination: [id number] intact. Mild tremors of extremities. No dysmetria noted. Gait is deferred for now. IMPRESSION: 1. Seizures, most likely alcohol withdrawal seizure with generalized weakness and issue of cognitive impairment from the chronic alcohol use. At this time, I am recommending followup with psychiatric evaluation with regards to anxiety and history of drug abuse and alcohol abuse and sensation. 2. Continue Librium. 3. Folic acid 1 mg, thiamine 100 mg, and multivitamins via the drip and to continue current and present medical management. Thank you for this consult. Sam Rodney MD
[2018-11-26] MEDS: Folic Acid 1 MG, Thiamine 100 MG, Multivitamin (MVI) 10 ML in Dextrose 5% In Water 1,00... IV SCH (21:42)
--- NOTE | 2018-11-27 07:43 | HP ---
CHIEF COMPLAINT: Intoxication. HISTORY OF PRESENT ILLNESS: Mr. Emre Gonzales is a 58-year-old male with past medical history of alcohol withdrawal seizure, IVDU, hepatitis C, seizure by today, status post fall two days ago with abrasions on the right side of his face. He is poorly cooperative with the interview, responding with "I don't know" the most of questions. He is also complaining for generalized body aches as his usual. Denies smoking, alcohol, substance abuse. After initial evaluation, he had weakness, seizure, and received Ativan. I saw the patient in his room. We admitted the patient. PAST MEDICAL HISTORY: Asthma, fracture of the rib cage, hypertension, kidney stones, pancreatitis, chronic kidney disease, seizures, history of cholecystectomy. HABITS: Tobacco yes. Alcohol denies. Substance abuse denies. FAMILY HISTORY: Father and mother, noncontributory. REVIEW OF SYSTEMS: The patient was seen and examined in his room. He is not very cooperative. Not good historian. No fever. No chills. No hematuria or hematochezia. No headache, dizziness. No chest pain or palpitations as per the patient. PHYSICAL EXAMINATION: VITAL SIGNS: Temperature 98.1, pulse 119, respiratory rate 22, blood pressure 135/94. HEENT: Head: Normocephalic, atraumatic. Eyes: PERRLA. Extraocular movements intact. Conjunctivae clear. Nose patent. NECK: Supple. No carotid bruit, JVD, or thyromegaly. CHEST: Bilaterally symmetrical. HEART: S1, S2 positive. LUNGS: Clear to auscultation. ABDOMEN: Soft. Bowel sounds present. No organomegaly. EXTREMITIES: No edema. No cyanosis. NEUROLOGICAL: The patient is oriented x3 but is sleepy, arousable. LABORATORY DATA: White blood cell 8.1, hemoglobin 11.5, hematocrit 31.7, platelets 299. Sodium 134, potassium 4, BUN 14, creatinine 0.8, glucose 119. ASSESSMENT AND PLAN: Mr. Emre Gonzales is a 58-year-old male with anemia, hyperglycemia, history of ethanol abuse. CAT scan of the head done, reviewed by me. Has past medical history of intravenous drug abuse, alcohol abuse withdrawal syndrome, hepatitis C positive, was found on the floor two days ago, history of right-sided facial palsy, seizure most likely looks like alcohol withdrawal seizures with generalized weakness, and issues of cognitive impairment from the chronic alcohol use. At this time, Psychiatry is on the case. Continue Librium, folic acid. Repeat labs. We will follow up. Nena Garces MD [facility]
[2018-11-27 08:22] LABS: BASO % 0.6 % (0.0-2.0); EOS # 0.1 K/uL (0.0-0.7); EOS % 1.3 % (0.0-4.0); HEMOGLOBIN 12.3 g/dL (12.0-18.0); LYMPH # 2.1 K/uL (1.0-4.3); LYMPH % 26.2 % (20.0-40.0); MEAN CELL VOLUME 88.7 fL (80.0-94.0); MEAN CORPUSCULAR HEMOGLOBIN 30.3 pg (27.0-31.0); MEAN CORPUSCULAR HGB CONC 34.1 g/dL (33.0-37.0); MEAN PLATELET VOLUME 7.6 fL (7.2-11.7); MONO # 0.7 K/uL (0.0-0.8); MONO % 8.1 % (0.0-10.0); NEUT # 5.2 K/uL (1.8-7.0); NEUT % 63.8 % (50.0-75.0); RBC 4.06 Mil/uL (4.40-5.90); WHITE BLOOD COUNT 8.1 K/uL (4.8-10.8)
[2018-11-27 08:46] LABS: IRON 22 ug/dL (49-181)
[2018-11-27 08:49] LABS: ALB/GLOB RATIO 0.8 (1.0-2.1); ALBUMIN 3.1 g/dL (3.5-5.0); ALT/SGPT 45 U/L (21-72); AMYLASE 156 U/L (30-110); AST/SGOT 68 U/L (17-59); BLOOD UREA NITROGEN 9 mg/dL (9-20); GFR NON-AFRICAN AMERICAN > 60; HDL CHOLESTEROL 42 mg/dL (30-70); LIPASE 288 U/L (23-300)
[2018-11-27 08:55] LABS: % IRON SATURATION 8 (20-55); TOTAL IRON BINDING CAPACITY 260 ug/dL (250-450)
[2018-11-27 08:56] LABS: B-TYPE NATRIURETIC PEPTIDE 851 pg/mL (0-900)
[2018-11-27 09:01] LABS: LDL CHOLESTEROL 70 mg/dL (0-129)
[2018-11-27] MEDS: Pantoprazole 40 mg EC Tab PO SCH (09:27)
[2018-11-27 09:53] LABS: FOLATE > 20.0 ng/mL
[2018-11-27] MEDS ORDERED: Pneumococcal 23-Valent Vaccine IM ONE (10:00)
--- NOTE | 2018-11-27 20:41 | PN ---
DATE: 11/27/2018 SUBJECTIVE: The patient is a 58-year old male. The patient was seen and examined at the bedside on 11/27/2018. Looking comfortable. Not much change in status. No fever. No chills. No hematuria or hematochezia. No headache or dizziness. No chest pain or palpitations. PHYSICAL EXAMINATION: VITAL SIGNS: Temperature 98.2, pulse 96, blood pressure 153/82, respiratory rate 20. HEENT: Normocephalic, atraumatic. Eyes: PERRLA. Extraocular muscles intact. Conjunctivae clear. Nose patent. Mucosal membranes moist. NECK: Supple. No carotid bruit, JVD or thyromegaly. CHEST: Bilaterally symmetrical. HEART: S1 and S2 positive. LUNGS: Clear to auscultation. ABDOMEN: Soft. Bowel sounds present. No organomegaly. EXTREMITIES: No edema. No cyanosis. NEUROLOGICAL: The patient is awake and alert, moving all four extremities. No focal deficits. MEDICATIONS: Ativan, Trazodone, Heparin, Imodium, Librium, Methadone, Protonix, Zofran. LABORATORY DATA: White blood cell 6.1, hemoglobin 12.3, hematocrit 36, platelet count 307. Sodium 140, potassium 3.7, BUN 9, creatinine 0.7, and iron 22. ASSESSMENT AND PLAN: Mr. Emre Gonzales is a 58-year-old male with anemia, hyperglycemia, iron deficiency, abnormal liver function test, opiates positive in toxic screening, seen by neurologist Dr. Sam Rodney. The patient still has IV drug abuse, history of alcohol withdrawal seizures and hepatitis C, came with withdrawal seizures. CAT scan of the head is done. Nena Garces MD
[2018-11-27] MEDS: Folic Acid 1 MG, Thiamine 100 MG, Multivitamin (MVI) 10 ML in Dextrose 5% In Water 1,00... IV SCH (22:30)
[2018-11-28] MEDS: Pantoprazole 40 mg EC Tab PO SCH (10:51)
[2018-11-28] MEDS: Folic Acid 1 MG, Thiamine 100 MG, Multivitamin (MVI) 10 ML in Dextrose 5% In Water 1,00... IV SCH (22:07)
[2018-11-29] MEDS: Pantoprazole 40 mg EC Tab PO SCH (09:43)
[2018-11-29] MEDS: Folic Acid 1 MG, Thiamine 100 MG, Multivitamin (MVI) 10 ML in Dextrose 5% In Water 1,00... IV SCH (22:34)
--- NOTE | 2018-11-30 01:12 | PN ---
DATE: 11/29/2018 SUBJECTIVE: The patient is a 58-year-old male. No fever. No chills. No hematuria or hematochezia. No headache or dizziness. No chest pain or palpitations. PHYSICAL EXAMINATION: VITAL SIGNS: Temperature 98.3, pulse 70, blood pressure 119/87, respiratory rate 20. HEENT: Head: Normocephalic, atraumatic. Eyes: PERRLA. Extraocular muscles intact. Conjunctivae clear. Nose patent. Mucosal membranes moist. NECK: Supple. No carotid bruit. No JVD. No thyromegaly. CHEST: Bilaterally symmetrical. HEART: S1 and S2 positive. LUNGS: Clear to auscultation. ABDOMEN: Soft. Bowel sounds present. No organomegaly. EXTREMITIES: No edema. No cyanosis. NEUROLOGICAL: The patient is awake and alert, moving all four extremities. No focal deficits MEDICATIONS: Ativan, Catapres, Trazodone, Imodium, Librium, methadone, Protonix, Zofran. LABORATORY DATA: We do not have recent labs but I reviewed the old labs. ASSESSMENT AND PLAN: Mr. Emre Gonzales is a 58-year-old male with anemia, hyperglycemia, iron deficiency, abnormal liver function tests, trending down. Has history of alcohol-induced seizures, seen by the psychiatrist and neurologist, history of drug abuse, alcohol withdrawal seizures, history of hepatitis, came in the hospital when he was found on the floor today. The patient is getting treatment for seizures, which look like mostly is alcohol withdrawal seizures with generalized weakness and issues of cognitive impairment from the chronic alcohol use. Continue tapered dose of Librium . Out of bed, physical therapy. Repeat labs. We will follow up. Nena Garces MD MTDD
[2018-11-30 03:15] VITALS: RESP 20; O2SAT 95
--- NOTE | 2018-11-30 07:36 | PN ---
DATE: 11/28/2018 SUBJECTIVE: The patient was seen on the bedside on 11/28/2018. No fever. No chills. No hematuria. No hematochezia. No dizziness. No chest pain. No palpitation. The patient is a very poor historian. PHYSICAL EXAMINATION: VITAL SIGNS: Temperature 97.9, pulse 91, blood pressure 130/89, respiratory rate 20, oxygen saturation 92. HEENT: Head normocephalic, atraumatic. Eyes, PERRLA. Extraocular movement intact. Conjunctivae clear. Nose patent. Mucous membranes moist. NECK: Supple. No carotid bruits. No JVD or thyromegaly. CHEST: Bilaterally symmetrical. HEART: S1, S2 positive. LUNGS: Clear to auscultation. ABDOMEN: Soft. Positive bowel sounds. No organomegaly. EXTREMITIES: No edema. No cyanosis. NEUROLOGIC: The patient is awake and alert, moving all four extremities. No focal deficits. MEDICATIONS: Ativan, trazodone, Librium, methadone, Protonix, Zofran. LABS: We do not have his labs today, but I reviewed old labs. ASSESSMENT AND PLAN: Mr. Emre Gonzales is a 58-year-old male with hyperglycemia, abnormal liver function tests opiates positive in toxicology, history of intravenous drug abuse and alcohol abuse. The patient had multiple admissions for alcohol withdrawal seizures. The patient is hepatitis C positive. Neurologist, Dr. Rodney saw the patient. CAT scan of the head was done, reviewed by me. Repeat laboratories. We will follow up. Nena Garces MD
[2018-11-30 07:54] LABS: HEMOGLOBIN 13.5 g/dL (12.0-18.0); MEAN CELL VOLUME 89.6 fL (80.0-94.0); MEAN CORPUSCULAR HEMOGLOBIN 30.6 pg (27.0-31.0); MEAN CORPUSCULAR HGB CONC 34.1 g/dL (33.0-37.0); MEAN PLATELET VOLUME 7.9 fL (7.2-11.7); RBC 4.41 Mil/uL (4.40-5.90); RED CELL DISTRIBUTION WIDTH 16.1 % (11.5-14.5); WHITE BLOOD COUNT 7.8 K/uL (4.8-10.8)
[2018-11-30 07:57] VITALS: BP 106/72; PULSE 83; TEMP 97.9
[2018-11-30 08:09] LABS: BLOOD UREA NITROGEN 16 mg/dL (9-20); CALCIUM 9.7 mg/dl (8.6-10.4); GFR NON-AFRICAN AMERICAN > 60
[2018-11-30] MEDS: Pantoprazole 40 mg EC Tab PO SCH (09:18)
[2018-11-30] MEDS ORDERED: Enoxaparin 40 mg Syringe SC SCH (10:00)
--- NOTE | 2018-11-30 13:56 | CP.PCM.PN ---
Subjective - Date & Time of Evaluation Date of Evaluation: 11/30/18 Time of Evaluation: 13:33 - Subjective Subjective: Pt alert and oriented x3 with no signs symptoms of acute distress or withdrawals. Objective - Vital Signs/Intake and Output Vital Signs (last 24 hours): Temp Pulse Resp BP Pulse Ox 97.9 F 83 20 106/72 95 11/30/18 07:00 11/30/18 07:00 11/30/18 07:00 11/30/18 07:00 11/30/18 07:00 Intake and Output: 11/30/18 11/30/18 06:59 18:59 Intake Total 1250 Output Total 600 Balance 650 - Medications Medications: Current Medications Chlordiazepoxide (Librium) 25 mg PO Q4H PRN PRN Reason: Alcohol Withdrawal Last Admin: 11/29/18 23:52 Dose: 25 mg Clonidine HCl (Catapres) 0.1 mg PO Q4 PRN PRN Reason: COWS Score More or Equal to 5 Enoxaparin Sodium (Lovenox) 40 mg SC DAILY [facility] Last Admin: 11/30/18 09:18 Dose: 40 mg Folic Acid 1 mg/ Thiamine HCl 100 mg/ Multivitamins/Vitamin C 10 ml/ Dextrose 1,011.2 mls @ 100 mls/hr IV Q24H [facility] Last Admin: 11/29/18 22:34 Dose: 100 mls/hr Loperamide HCl (Imodium) 2 mg PO Q8 PRN PRN Reason: Diarrhea Lorazepam (Ativan) 0.5 mg IVP Q6H PRN PRN Reason: Anxiety Methadone HCl (Methadone) 5 mg PO Q12H PRN PRN Reason: COWS>9 opioid withdrawal Ondansetron HCl (Zofran Tab) 4 mg PO Q8 PRN PRN Reason: Nausea/Vomiting Pantoprazole Sodium (Protonix Ec Tab) 40 mg PO DAILY [facility] Last Admin: 11/30/18 09:18 Dose: 40 mg Trazodone HCl (Desyrel) 50 mg PO HS [facility] Last Admin: 11/29/18 22:33 Dose: 50 mg - Labs Labs: 11/30/18 07:44 11/30/18 07:44 Assessment and Plan - Assessment and Plan (Free Text) Assessment: Patient is a 58yo M with PMH alcohol with withdrawal seizure, IVDU, Hep C, that presented to the ER for seziures. Pt seen and examined. VSS. Pt is alert and oriented x3 with no complaints at this time. Discharge discussed with Dr. Roberto Rocha and patient.
== END 2018-11-30 14:15 | disposition home or self-care (01) | DRG 744 ==
LOC: C.ER 15:12 → C.6T 19:51 → C.ER 11-29 15:12 → C.6T 11-29 19:51 → OBSVTOIN 11-29 20:08
PROVIDERS: ADMIT Internal Medicine; ATTEND Internal Medicine
PROC: HZ2ZZZZ Detoxification Services for Substance Abuse Treatment (ICD-10-PCS; principal; 2018-11-29)
PROC: HZ52ZZZ Individual Psychotherapy for Substance Abuse Treatment, Cognitive-Behavioral (ICD-10-PCS; 2018-11-29)
PROC: HZ59ZZZ Individual Psychotherapy for Substance Abuse Treatment, Supportive (ICD-10-PCS; 2018-11-29)
PROC: HZ56ZZZ Individual Psychotherapy for Substance Abuse Treatment, Psychoeducation (ICD-10-PCS; 2018-11-29)
PROC: HZ42ZZZ Group Counseling for Substance Abuse Treatment, Cognitive-Behavioral (ICD-10-PCS; 2018-11-29)
PROC: HZ46ZZZ Group Counseling for Substance Abuse Treatment, Psychoeducation (ICD-10-PCS; 2018-11-29)
PROC: GZHZZZZ Group Psychotherapy (ICD-10-PCS; 2018-11-29)
PROC: GZ58ZZZ Individual Psychotherapy, Cognitive-Behavioral (ICD-10-PCS; 2018-11-29)
PROC: GZ56ZZZ Individual Psychotherapy, Supportive (ICD-10-PCS; 2018-11-29)
DX: F10.230 Alcohol dependence with withdrawal, uncomplicated (principal); B19.20 Unspecified viral hepatitis C without hepatic coma; F11.10 Opioid abuse, uncomplicated; N18.9 Chronic kidney disease, unspecified; G40.89 Other seizures; Y90.0 Blood alcohol level of less than 20 mg/100 ml; D50.9 Iron deficiency anemia, unspecified; G51.0 Bell's palsy; I12.9 Hypertensive chronic kidney disease with stage 1 through stage 4 chronic kidney disease, or unspecified chronic kidney disease; J45.909 Unspecified asthma, uncomplicated; S00.81XA Abrasion of other part of head, initial encounter; F32.9 Major depressive disorder, single episode, unspecified; Z95.0 Presence of cardiac pacemaker; F78 Other intellectual disabilities; F10.288 Alcohol dependence with other alcohol-induced disorder

== ENCOUNTER 2018-12-09 21:14 | Emergency (ER) | payer MEDICAID ==
[2018-12-09 21:15] VITALS: BMI 25.0
[2018-12-09 21:36] VITALS: BP 119/73; PULSE 88; RESP 16; TEMP 98.4; O2SAT 96
[2018-12-09] MEDS ORDERED: Multivitamin (MVI) 10 ML, Thiamine 100 MG, Folic Acid 1 MG in Sodium Chloride 0.9% 1,00... IV ONE (21:41)
--- NOTE | 2018-12-09 21:45 | C.PDOC ---
History Of Present Illness 58 year old male presents to the ER complaining of not feeling well, back pain, and leg pain. Old charts reviewed, patient has Hx of ETOH and back pain. Denies fever or chills. Time Seen by Provider: 12/09/18 21:18 Chief Complaint (Nursing): Altered Mental Status History Per: Patient History/Exam Limitations: no limitations Onset/Duration Of Symptoms: Hrs Current Symptoms Are (Timing): Still Present Recent travel outside of the [place]: No Past Medical History Reviewed: Historical Data, Nursing Documentation, Vital Signs Vital Signs: Last Vital Signs Temp 98.4 F 12/09/18 21:29 Pulse 88 12/09/18 21:29 Resp 16 12/09/18 21:29 BP 119/73 12/09/18 21: Pulse Ox 96 12/09/18 21:29 Primary Care Provider: FAMILY PROVIDER,NO - Medical History PMH: Asthma, Fractures (rib cage), HTN, Kidney Stones, Pancreatitis, Chronic Kidney Disease, Seizures Surgical History: Cholecystectomy - [facility] Procedures DETOXIFICATION SERVICES FOR SUBSTANCE ABUSE TREATMENT (11/29/18) DRAINAGE OF RIGHT LOWER LEG SKIN, EXTERNAL APPROACH, DIAGN (11/14/17) EXCISION OF R LOW LEG SUBCU/FASCIA, OPEN APPROACH (11/14/17) EXCISION OF RIGHT LOWER LEG SKIN, EXTERNAL APPROACH (11/14/17) GROUP MAGICIAN HELPER FOR SUBSTANCE ABUSE TREATMENT, PSYCHOEDUCATION (11/29/18) GROUP MAGICIAN HELPER FOR SUBSTANCE ABUSE, COGNITIVE BEHAVIORAL (11/29/18) GROUP PSYCHOTHERAPY (11/29/18) INDIV PSYCHOTHERAPY FOR SUBSTANCE ABUSE TREATMENT, SUPPORT (11/29/18) INDIV PSYCHOTHERAPY FOR SUBSTANCE ABUSE, COGNITIV BEHAVIORAL (11/29/18) INDIV PSYCHOTHERAPY FOR SUBSTANCE ABUSE, PSYCHOEDUCATION (11/29/18) INDIVIDUAL PSYCHOTHERAPY, COGNITIVE-BEHAVIORAL (11/29/18) INDIVIDUAL PSYCHOTHERAPY, SUPPORTIVE (11/29/18) INSERTION OF ENDOTRACHEAL AIRWAY INTO TRACHEA, VIA OPENING (03/10/16) INSERTION OF INFUSION DEV INTO SUP VENA CAVA, PERC APPROACH (11/14/17) RESPIRATORY VENTILATION, GREATER THAN 96 CONSECUTIVE HOURS (03/10/16) TETANUS TOXOID ADMINIST (11/03/14) TRANSFER RIGHT LOWER LEG SKIN, EXTERNAL APPROACH (11/14/17) Family History: States: Unknown Family Hx - Social History Hx Tobacco Use: Yes Hx Alcohol Use: No (Denies) Hx Substance Use: No (pt denies.) - Immunization History Hx Tetanus Toxoid Vaccination: No (UNKNOWN) Hx Influenza Vaccination: No Hx Pneumococcal Vaccination: Yes Review Of Systems Constitutional: Negative for: Fever, Chills Cardiovascular: Negative for: Chest Pain, Palpitations Respiratory: Negative for: Cough, Shortness of Breath Gastrointestinal: Negative for: Nausea, Vomiting Musculoskeletal: Positive for: Back Pain, Leg Pain Neurological: Negative for: Weakness, Numbness Physical Exam - Physical Exam Appears: Non-toxic Skin: Normal Color, Warm Head: Atraumatic, Normacephalic Oral Mucosa: Moist Chest: Symmetrical, No Tenderness Cardiovascular: Rhythm Regular Respiratory: Normal Breath Sounds, No Rales, No Rhonchi, No Wheezing Gastrointestinal/Abdominal: Soft, No Tenderness Neurological/Psych: Oriented x3, Normal Speech ED Course And Treatment O2 Sat by Pulse Oximetry: 96 (Room air) Pulse Ox Interpretation: Normal Progress Note: Blood work and urinalysis ordered. Toradol and IV fluids administered. Disposition - Disposition Forms: [facility] ([place]) - Scribe Statement The provider has reviewed the documentation as recorded by the Scribe Basilio Conner All medical record entries made by the Scribe were at my direction and personally dictated by me. I have reviewed the chart and agree that the record accurately reflects my personal performance of the history, physical exam, medical decision making, and the department course for this patient. I have also personally directed, reviewed, and agree with the discharge instructions and disposition.
--- NOTE | 2018-12-09 22:02 | C.PDOC ---
History Of Present Illness 58 year old male brought in by EMS for public intoxication, found laying in front of a store. Patient has many prior evaluation for ETOH abuse, admits to ETOH abuse today. Time Seen by Provider: 12/09/18 21:18 Chief Complaint (Nursing): Altered Mental Status History Per: Patient, EMS History/Exam Limitations: no limitations Onset/Duration Of Symptoms: Hrs Current Symptoms Are (Timing): Still Present Modifying Factor(s): Alcohol Recent travel outside of the [place]: No Past Medical History Reviewed: Historical Data, Nursing Documentation, Vital Signs Vital Signs: Last Vital Signs Temp 98.4 F 12/09/18 21:29 Pulse 88 12/09/18 21:29 Resp 16 12/09/18 21:29 BP 119/73 12/09/18 21:29 Pulse Ox 96 12/09/18 21:29 Primary Care Provider: FAMILY PROVIDER,NO - Medical History PMH: Asthma, Fractures (rib cage), HTN, Kidney Stones, Pancreatitis, Chronic Kidney Disease, Seizures Surgical History: Cholecystectomy - [facility] Procedures DETOXIFICATION SERVICES FOR SUBSTANCE ABUSE TREATMENT (11/29/18) DRAINAGE OF RIGHT LOWER LEG SKIN, EXTERNAL APPROACH, DIAGN (11/14/17) EXCISION OF R LOW LEG SUBCU/FASCIA, OPEN APPROACH (11/14/17) EXCISION OF RIGHT LOWER LEG SKIN, EXTERNAL APPROACH (11/14/17) GROUP NUCLEAR PHYSICIAN FOR SUBSTANCE ABUSE TREATMENT, PSYCHOEDUCATION (11/29/18) GROUP NUCLEAR PHYSICIAN FOR SUBSTANCE ABUSE, COGNITIVE BEHAVIORAL (11/29/18) GROUP PSYCHOTHERAPY (11/29/18) INDIV PSYCHOTHERAPY FOR SUBSTANCE ABUSE TREATMENT, SUPPORT (11/29/18) INDIV PSYCHOTHERAPY FOR SUBSTANCE ABUSE, COGNITIV BEHAVIORAL (11/29/18) INDIV PSYCHOTHERAPY FOR SUBSTANCE ABUSE, PSYCHOEDUCATION (11/29/18) INDIVIDUAL PSYCHOTHERAPY, COGNITIVE-BEHAVIORAL (11/29/18) INDIVIDUAL PSYCHOTHERAPY, SUPPORTIVE (11/29/18) INSERTION OF ENDOTRACHEAL AIRWAY INTO TRACHEA, VIA OPENING (03/10/16) INSERTION OF INFUSION DEV INTO SUP VENA CAVA, PERC APPROACH (11/14/17) RESPIRATORY VENTILATION, GREATER THAN 96 CONSECUTIVE HOURS (03/10/16) TETANUS TOXOID ADMINIST (11/03/14) TRANSFER RIGHT LOWER LEG SKIN, EXTERNAL APPROACH (11/14/17) Family History: States: Unknown Family Hx - Social History Hx Tobacco Use: Yes Hx Alcohol Use: No (Denies) Hx Substance Use: No (pt denies.) - Immunization History Hx Tetanus Toxoid Vaccination: No (UNKNOWN) Hx Influenza Vaccination: No Hx Pneumococcal Vaccination: Yes Review Of Systems Constitutional: Negative for: Fever, Chills Cardiovascular: Negative for: Chest Pain, Palpitations Respiratory: Negative for: Cough, Shortness of Breath Gastrointestinal: Negative for: Nausea, Vomiting Neurological: Negative for: Weakness, Numbness Physical Exam - Physical Exam Appears: Non-toxic, Other (Foul smelling, disheveled, charly complexion, ETOH on breath, argumentative) Skin: Normal Color, Warm Head: Atraumatic, Normacephalic Eye(s): bilateral: Normal Inspection Oral Mucosa: Moist Chest: Symmetrical, No Tenderness Cardiovascular: Rhythm Regular Respiratory: Normal Breath Sounds, No Rales, No Rhonchi, No Wheezing Gastrointestinal/Abdominal: Soft, No Tenderness Neurological/Psych: Oriented x3, Normal Speech Gait: Steady ED Course And Treatment O2 Sat by Pulse Oximetry: 96 Medical Decision Making Medical Decision Making: alcohol abuse no acute issues argumentative and clinically sober for d/c Disposition Doctor Will See Patient In The: Office Counseled Patient/Family Regarding: Studies Performed, Diagnosis - Disposition Referrals: Alcoholics Anonymous [Outside] [facility] [Outside] [facility] [Outside] [facility] [Outside] [email or web address] [Outside] Disposition: HOME/ ROUTINE Disposition Time: 22:01 Condition: GOOD Additional Instructions: seek AA Seek nightly Prison placement stop alcohol abuse Instructions: Alcohol Use - When Is Drinking a Problem? Forms: [facility] ([place]) - Clinical Impression Clinical Impression: Alcohol abuse - Scribe Statement The provider has reviewed the documentation as recorded by the Scribe Basilio Conner All medical record entries made by the Scribe were at my direction and personally dictated by me. I have reviewed the chart and agree that the record accurately reflects my personal performance of the history, physical exam, medical decision making, and the department course for this patient. I have also personally directed, reviewed, and agree with the discharge instructions and disposition.
== END 2018-12-09 22:30 | disposition home or self-care (01) ==
LOC: C.ER 21:14
DX: F10.10 Alcohol abuse, uncomplicated (principal); Y90.9 Presence of alcohol in blood, level not specified

== ENCOUNTER 2018-12-13 12:42 | Observation (INO) | payer MEDICAID ==
[2018-12-13 12:43] VITALS: BMI 25.0
[2018-12-13] MEDS ORDERED: Sodium Chloride 0.9% 1,000 ML IV ONE (13:28)
--- NOTE | 2018-12-13 13:45 | C.PDOC ---
History Of Present Illness 58 year old male with hx of homelessness, alcoholism and alcohol withdrawal seizures presents to the ED BIBA for public intoxication. Pt has many prior visits to the ED for alcohol withdrawal seizures. During triage, pt had [id number]. Time Seen by Provider: 12/13/18 12:50 Chief Complaint (Nursing): Lower Extremity Problem/Injury History Per: EMS History/Exam Limitations: no limitations Number Of Seizures: One Length Of Seizures (Duration): Seconds Quality Of Seizure: Generalized Past Medical History Vital Signs: Last Vital Signs Temp 98.9 F 12/13/18 12:51 Pulse 90 12/13/18 12:51 Resp 18 12/13/18 12:51 BP 145/89 12/13/18 12:51 Pulse Ox 98 12/13/18 12:51 Primary Care Provider: FAMILY PROVIDER,NO - Medical History PMH: Asthma, Fractures (rib cage), HTN, Kidney Stones, Pancreatitis, Chronic Kidney Disease, Seizures Surgical History: Cholecystectomy - [facility] Procedures DETOXIFICATION SERVICES FOR SUBSTANCE ABUSE TREATMENT (11/29/18) DRAINAGE OF RIGHT LOWER LEG SKIN, EXTERNAL APPROACH, DIAGN (11/14/17) EXCISION OF R LOW LEG SUBCU/FASCIA, OPEN APPROACH (11/14/17) EXCISION OF RIGHT LOWER LEG SKIN, EXTERNAL APPROACH (11/14/17) GROUP QUALITY ASSURANCE NURSE FOR SUBSTANCE ABUSE TREATMENT, PSYCHOEDUCATION (11/29/18) GROUP QUALITY ASSURANCE NURSE FOR SUBSTANCE ABUSE, COGNITIVE BEHAVIORAL (11/29/18) GROUP PSYCHOTHERAPY (11/29/18) INDIV PSYCHOTHERAPY FOR SUBSTANCE ABUSE TREATMENT, SUPPORT (11/29/18) INDIV PSYCHOTHERAPY FOR SUBSTANCE ABUSE, COGNITIV BEHAVIORAL (11/29/18) INDIV PSYCHOTHERAPY FOR SUBSTANCE ABUSE, PSYCHOEDUCATION (11/29/18) INDIVIDUAL PSYCHOTHERAPY, COGNITIVE-BEHAVIORAL (11/29/18) INDIVIDUAL PSYCHOTHERAPY, SUPPORTIVE (11/29/18) INSERTION OF ENDOTRACHEAL AIRWAY INTO TRACHEA, VIA OPENING (03/10/16) INSERTION OF INFUSION DEV INTO SUP VENA CAVA, PERC APPROACH (11/14/17) RESPIRATORY VENTILATION, GREATER THAN 96 CONSECUTIVE HOURS (03/10/16) TETANUS TOXOID ADMINIST (11/03/14) TRANSFER RIGHT LOWER LEG SKIN, EXTERNAL APPROACH (11/14/17) Family History: States: Unknown Family Hx - Social History Hx Tobacco Use: Yes Hx Alcohol Use: No (Denies) Hx Substance Use: No (pt denies.) - Immunization History Hx Tetanus Toxoid Vaccination: No (UNKNOWN) Hx Influenza Vaccination: No Hx Pneumococcal Vaccination: Yes Review Of Systems Constitutional: Negative for: Fever, Chills Cardiovascular: Negative for: Chest Pain Respiratory: Negative for: Shortness of Breath Gastrointestinal: Negative for: Nausea, Vomiting, Diarrhea Neurological: Positive for: Seizures. Negative for: Headache Physical Exam - Physical Exam Appears: Non-toxic, No Acute Distress, Other (foul smelling, disheveled, bug- infested) Skin: Warm, Dry, No Rash Head: Atraumatic, Normacephalic Eye(s): bilateral: Normal Inspection, PERRL, EOMI Nose: Normal Oral Mucosa: Moist Neck: Supple Chest: Symmetrical Cardiovascular: Rhythm Regular Respiratory: Normal Breath Sounds, No Rales, No Rhonchi, No Wheezing Gastrointestinal/Abdominal: Soft, No Tenderness, No Distention, No Guarding, No Rebound Extremity: Bilateral: Atraumatic Neurological/Psych: Normal Speech, Other (slightly disoriented, alert, awake ) Gait: Steady ED Course And Treatment - Laboratory Results Result Diagrams: 12/13/18 15:22 12/13/18 15:22 Lab Interpretation: Normal ECG: Interpreted By Me ECG Rhythm: Sinus Rhythm ECG Interpretation: Normal Rate From EC O2 Sat by Pulse Oximetry: 98 (RA) Pulse Ox Interpretation: Normal - Radiology CXR: Interpreted by Me CXR Interpretation: Yes: No Acute Disease - Other Rad CXR X-Ray: Viewed By Me, Read By Radiologist Interpretation: IMPRESSION: Poor inspiration with low lung volumes common crowded bronchovascular markings and minor bibasilar atelectasis. Reevaluation Time: 13:43 Reassessment Condition: Improved - Physician Consult Information Outcome Of Conversation: 1330: d/w Dr. Flanagan, Hospitalist Machine Clipper- ok to tele obs Medical Decision Making Medical Decision Making: homeless alcohol w/d seizures- typical bug/scabies infested Nixed in ED Disposition Doctor Will See Patient In The: Hospital Counseled Patient/Family Regarding: Studies Performed, Diagnosis - Disposition Disposition: HOSPITALIZED Disposition Time: 13:45 Condition: GOOD - Clinical Impression Clinical Impression: Alcohol dependence, Seizure due to alcohol withdrawal, Scabies infestation - Scribe Statement The provider has reviewed the documentation as recorded by the Scribe Angela Jimenez All medical record entries made by the Scribe were at my direction and personally dictated by me. I have reviewed the chart and agree that the record accurately reflects my personal performance of the history, physical exam, medical decision making, and the department course for this patient. I have also personally directed, reviewed, and agree with the discharge instructions and disposition.
[2018-12-13] MEDS ORDERED: Permethrin 1% Kit 59 ML BOTTLE TOP ONE (13:47)
--- NOTE | 2018-12-13 14:21 | CP.PCM.HP ---
<Cheyenne Pryor ColleenAlayna - Last Filed: 12/13/18 15:05> History of Present Illness - History of Present Illness History of Present Illness: Patient is a 58 year old male with a past medical history of alcohol abuse, alcohol induced seizures, polysubstance abuse, hep C, who presents to the hospital by BIBA. The patient is a poor historian and does not know why he was brought to the hospital. He has no complaints and denies chest pain, palpitations, dyspnea, n/v, abdominal pain, diarrhea, constipation. The patient states his right leg is swollen, but has been for some time now. The patient states he takes a seizure pill prescribed by "them" but does not know what the pill is or who gives it to him. He also states he did not know he was hep C positive and said no one has told him. PMHX: patient states he has seizures, but denies other medical conditions; per EMR: alcohol abuse, alcohol induced seizures, polysubstance abuse, hep C SurgHx: denies FamHx: denies history, states his sister is but did not give a cause. Allergies: NKDA Medications: seizure medication? SocHx: admits to smoking 2 cigarrettes daily; denies alcohol and drug use; Per EMR: opiates and cocaine Present on Admission - Present on Admission Any Indicators Present on Admission: No Review of Systems - Review of Systems Systems not reviewed;Unavailable: Uncooperative - Constitutional Constitutional: Headache - Cardiovascular Cardiovascular: Leg Edema (RLE). absent: Chest Pain, Dyspnea, Palpitations - Respiratory Respiratory: absent: Cough, Dyspnea - Gastrointestinal Gastrointestinal: absent: Abdominal Pain, Constipation, Nausea, Vomiting - Endocrine Endocrine: absent: Palpitations Past Patient History - Infectious Disease Hx of Infectious Diseases: None - Past Medical History & Family History Past Medical History?: Yes - Past Social History Smoking Status: Never Smoked - CARDIAC Hx Hypertension: Yes - PULMONARY Hx Asthma: Yes - NEUROLOGICAL Hx Seizures: Yes - HEENT Hx HEENT Problems: No - RENAL Hx Chronic Kidney Disease: Yes Hx Kidney Stones: Yes - ENDOCRINE/METABOLIC Hx Endocrine Disorders: No - HEMATOLOGICAL/ONCOLOGICAL Hx Blood Disorders: Yes Hx Hepatitis C: Yes - INTEGUMENTARY Hx Dermatological Problems: Yes Other/Comment: left leg cellulitis - MUSCULOSKELETAL/RHEUMATOLOGICAL Hx Fractures: Yes (rib cage) - GASTROINTESTINAL Hx Pancreatitis: Yes - GENITOURINARY/GYNECOLOGICAL Hx Genitourinary Disorders: No - PSYCHIATRIC Hx Substance Use: No (pt denies.) - SURGICAL HISTORY Hx Cholecystectomy: Yes - ANESTHESIA Hx Anesthesia: Yes Hx Anesthesia Reactions: No Meds Allergies/Adverse Reactions: Allergies Allergy/AdvReac Type Severity Reaction Status Date / Time No Known Allergies Allergy Verified 12/09/18 21:36 Physical Exam - Constitutional Appears: No Acute Distress, Unkempt - Head Exam Head Exam: ATRAUMATIC - Eye Exam Eye Exam: EOMI - ENT Exam ENT Exam: Mucous Membranes Dry - Respiratory Exam Respiratory Exam: NORMAL BREATHING PATTERN. absent: Rhonchi, Wheezes, Respiratory Distress - Cardiovascular Exam Cardiovascular Exam: REGULAR RHYTHM, +S1, +S2 - GI/Abdominal Exam GI & Abdominal Exam: Normal Bowel Sounds, Soft. absent: Distended, Firm, Guarding - Extremities Exam Extremities exam: Positive for: pedal edema (RLE), tenderness (mild w/RLE). Negative for: normal inspection - Neurological Exam Additional comments: awake - Psychiatric Exam Psychiatric exam: Flat Affect - Skin Skin Exam: Dry, Warm Additional comments: body lice Results - Vital Signs Recent Vital Signs: Last Vital Signs Temp 98.9 F 12/13/18 12:51 Pulse 90 12/13/18 12:51 Resp 18 12/13/18 12:51 BP 145/89 12/13/18 12:51 Pulse Ox 98 12/13/18 13:45 Assessment & Plan - Assessment and Plan (Free Text) Plan: 58 year old male with a past medical history of alcohol abuse and alcohol induced seizures who was BIBA. Alcohol Abuse Alcohol induced seizures - Questionable seizure witnessed in triage?; per nursing in ER, witnessed tremors, not seizure. - Hx of alcohol withdrawal seizures - WA protocol - Seizure/aspiration precautions - Medications - Librium taper - Ativan 1mg IV Q4h prn for symptoms of withdrawal - MV/Thiamine/Folic acid Polysubstance abuse - UDS has been positive for opiates and cocaine in the past - UDS: f/u - Patient denies using drugs/alcohol Body Lice - Permethrin topically - Ivermectin 2mg PO once - Contact precautions Hepatitis C Reactive - Patient claims to not have known. Prophylaxis - DVT: SCDs C/I due to LE edema - GI: not indicated at this time Case discussed with Dr. Masha Devries, PGY2 <Paulo Flanagan H - Last Filed: 12/14/18 07:43> Results - Vital Signs Recent Vital Signs: Last Vital Signs Temp 98.2 F 12/14/18 00:00 Pulse 92 H 12/14/18 00:00 Resp 20 12/14/18 00:00 BP 130/75 12/14/18 00:00 Pulse Ox 100 12/14/18 00:00 - Labs Result Diagrams: 12/14/18 07:19 12/13/18 15:22 Labs: Laboratory Results - last 24 hr 12/13/18 12/13/18 12/13/18 15:22 15:22 21:59 WBC 9.5 RBC 4.73 Hgb 13.8 Hct 42.3 MCV 89.5 MCH 29.1 MCHC 32.5 L RDW 15.5 H Plt Count 380 MPV 7.6 Neut % (Auto) 73.4 Lymph % (Auto) 15.6 L [place] % (Auto) 9.4 Eos % (Auto) 0.6 Baso % (Auto) 1.0 Neut # (Auto) 7.0 Lymph # (Auto) 1.5 [place] # (Auto) 0.9 H Eos # (Auto) 0.1 Baso # (Auto) 0.1 Sodium 140 Potassium 3.8 Chloride 105 Carbon Dioxide 26 Anion Gap 14 BUN 10 Creatinine 0.5 L Est GFR ( Amer) > 60 Est GFR (Non-Af Amer) > 60 Random Glucose 85 Calcium 8.3 L Total Bilirubin 0.5 AST 54 ALT 34 Alkaline Phosphatase 97 Total Protein 7.7 Albumin 3.3 L Globulin 4.3 H Albumin/Globulin Ratio 0.8 L Urine Color Yellow Urine Clarity Clear Urine pH 7.0 Ur Specific [place] 1.013 Urine Protein Negative Urine Glucose (UA) Normal Urine Ketones Negative Urine Blood Negative Urine Nitrate Negative Urine Bilirubin Negative Urine Urobilinogen 4.0 Ur Leukocyte Esterase Neg Urine WBC (Auto) < 1 Urine RBC (Auto) 2 Urine Bacteria Rare Urine Opiates Screen Urine Methadone Screen Ur Barbiturates Screen Ur Phencyclidine Scrn Ur Amphetamines Screen U Benzodiazepines Scrn U Oth Cocaine Metabols U Cannabinoids Screen Alcohol, Quantitative < 10 12/13/18 12/14/18 21:59 07:19 WBC 8.0 RBC 4.21 L Hgb 12.6 Hct 36.9 MCV 87.7 MCH 29.8 MCHC 34.0 RDW 15.6 H Plt Count 360 MPV 7.9 Neut % (Auto) 57.8 Lymph % (Auto) 28.6 [place] % (Auto) 10.2 H Eos % (Auto) 2.5 Baso % (Auto) 0.9 Neut # (Auto) 4.6 Lymph # (Auto) 2.3 [place] # (Auto) 0.8 Eos # (Auto) 0.2 Baso # (Auto) 0.1 Sodium Potassium Chloride Carbon Dioxide Anion Gap BUN Creatinine Est GFR ( Amer) Est GFR (Non-Af Amer) Random Glucose Calcium Total Bilirubin AST ALT Alkaline Phosphatase Total Protein Albumin Globulin Albumin/Globulin Ratio Urine Color Urine Clarity Urine pH Ur Specific [place] Urine Protein Urine Glucose (UA) Urine Ketones Urine Blood Urine Nitrate Urine Bilirubin Urine Urobilinogen Ur Leukocyte Esterase Urine WBC (Auto) Urine RBC (Auto) Urine Bacteria Urine Opiates Screen Positive H Urine Methadone Screen Negative Ur Barbiturates Screen Negative Ur Phencyclidine Scrn Negative Ur Amphetamines Screen Negative U Benzodiazepines Scrn Positive U Oth Cocaine Metabols Negative U Cannabinoids Screen Negative Alcohol, Quantitative Attending/Attestation - Attestation I have personally seen and examined this patient.: Yes I have fully participated in the care of the patient.: Yes I have reviewed all pertinent clinical information: Yes Notes (Text): 12/14/18 07:41 Medical attending: Patient was seen and examined by me with the medical insurance verifier and I reviewed the above note by the medical insurance verifier and agree with the above I should also add that when I asked if he knew about his Hepatitis C, he said he did not. However he looked very dis-interested in our conversation. Per review of medical records he also has poilysubstance abuse and despite being positive on testing he denies drug use. I pointed this out to him however he still continued to deny drug use. Paulo Flanagan
[2018-12-13 15:27] LABS: BASO # 0.1 K/uL (0.0-0.2); EOS # 0.1 K/uL (0.0-0.7); EOS % 0.6 % (0.0-4.0); HEMOGLOBIN 13.8 g/dL (12.0-18.0); LYMPH # 1.5 K/uL (1.0-4.3); LYMPH % 15.6 % (20.0-40.0); MEAN CELL VOLUME 89.5 fL (80.0-94.0); MEAN CORPUSCULAR HEMOGLOBIN 29.1 pg (27.0-31.0); MEAN CORPUSCULAR HGB CONC 32.5 g/dL (33.0-37.0); MEAN PLATELET VOLUME 7.6 fL (7.2-11.7); MONO # 0.9 K/uL (0.0-0.8); MONO % 9.4 % (0.0-10.0); NEUT % 73.4 % (50.0-75.0); RBC 4.73 Mil/uL (4.40-5.90); RED CELL DISTRIBUTION WIDTH 15.5 % (11.5-14.5); WHITE BLOOD COUNT 9.5 K/uL (4.8-10.8)
[2018-12-13 15:46] LABS: ALB/GLOB RATIO 0.8 (1.0-2.1); ALBUMIN 3.3 g/dL (3.5-5.0); ALT/SGPT 34 U/L (21-72); AST/SGOT 54 U/L (17-59); BLOOD UREA NITROGEN 10 mg/dL (9-20); CALCIUM 8.3 mg/dl (8.6-10.4); GFR NON-AFRICAN AMERICAN > 60
--- NOTE | 2018-12-13 15:48 | RAD ---
Date of service: 12/13/2018 HISTORY: Seizure COMPARISON: Comparison made with prior study 09/19/2018. TECHNIQUE: 1 view obtained. FINDINGS: LUNGS: Poor inspiration with low lung volumes common crowded bronchovascular markings and minor bibasilar atelectasis. PLEURA: No significant pleural effusion identified, no pneumothorax apparent. CARDIOVASCULAR: No aortic atherosclerotic calcification present. Heart appears mildly enlarged. No pulmonary vascular congestion. OSSEOUS STRUCTURES: No significant abnormalities. VISUALIZED UPPER ABDOMEN: Normal. OTHER FINDINGS: None. IMPRESSION: Poor inspiration with low lung volumes common crowded bronchovascular markings and minor bibasilar atelectasis.
[2018-12-13 17:03] VITALS: RESP 20
[2018-12-13 22:07] LABS: URINE BACTERIA RARE (<OCC); URINE BILIRUBIN NEGATIVE (NEGATIVE); URINE BLOOD NEGATIVE (NEGATIVE); URINE CLARITY Clear (Clear); URINE COLOR Yellow (YELLOW); URINE GLUCOSE (UA) NORMAL (Normal); URINE LEUKOCYTE ESTERASE NEG Leu/uL (Negative); URINE PROTEIN NEGATIVE (NEGATIVE)
[2018-12-13 22:22] LABS: BARBITURATES, UR NEGATIVE (NEGATIVE); PHENCYCLIDINE, UR NEGATIVE (NEGATIVE)
[2018-12-13 22:37] LABS: BENZODIAZEPINES, UR POSITIVE (NEGATIVE); OPIATES, UR POSITIVE (NEGATIVE)
[2018-12-14 07:27] LABS: BASO # 0.1 K/uL (0.0-0.2); BASO % 0.9 % (0.0-2.0); EOS # 0.2 K/uL (0.0-0.7); EOS % 2.5 % (0.0-4.0); HEMOGLOBIN 12.6 g/dL (12.0-18.0); LYMPH # 2.3 K/uL (1.0-4.3); LYMPH % 28.6 % (20.0-40.0); MEAN CELL VOLUME 87.7 fL (80.0-94.0); MEAN CORPUSCULAR HEMOGLOBIN 29.8 pg (27.0-31.0); MEAN PLATELET VOLUME 7.9 fL (7.2-11.7); MONO # 0.8 K/uL (0.0-0.8); MONO % 10.2 % (0.0-10.0); NEUT # 4.6 K/uL (1.8-7.0); NEUT % 57.8 % (50.0-75.0); NRBC % 0.1 % (0.0-2.0); RBC 4.21 Mil/uL (4.40-5.90); RED CELL DISTRIBUTION WIDTH 15.6 % (11.5-14.5)
[2018-12-14 08:06] LABS: ALB/GLOB RATIO 0.7 (1.0-2.1); ALBUMIN 3.2 g/dL (3.5-5.0); ALT/SGPT 32 U/L (21-72); AST/SGOT 49 U/L (17-59); BLOOD UREA NITROGEN 10 mg/dL (9-20); CALCIUM 9.1 mg/dl (8.6-10.4); GFR NON-AFRICAN AMERICAN > 60
--- NOTE | 2018-12-14 09:09 | CP.PCM.DIS ---
<Paxton Khoury - Last Filed: 12/14/18 15:52> Provider - Provider Date of Admission: 12/13/18 13:42 Attending physician: Paulo Flanagan DO Time Spent in preparation of Discharge (in minutes): 45 Hospital Course - Lab Results Lab Results: Most Recent Lab Values WBC 8.0 K/uL (4.8-10.8) 12/14/18 07: RBC 4.21 Mil/uL (4.40-5.90) L 12/14/18 07:19 Hgb 12.6 g/dL (12.0-18.0) 12/14/18 07:19 Hct 36.9 % (35.0-51.0) 12/14/18 07: MCV 87.7 fL (80.0-94.0) 12/14/18 07: MCH 29.8 pg (27.0-31.0) 12/14/18 07: MCHC 34.0 g/dL (33.0-37.0) 12/14/18 07: RDW 15.6 % (11.5-14.5) H 12/14/18 07:19 Plt Count 360 K/uL (130-400) 12/14/18 07:19 MPV 7.9 fL (7.2-11.7) 12/14/18 07:19 Neut % (Auto) 57.8 % (50.0-75.0) 12/14/18 07:19 Lymph % (Auto) 28.6 % (20.0-40.0) 12/14/18 07:19 [place] % (Auto) 10.2 % (0.0-10.0) H 12/14/18 07:19 Eos % (Auto) 2.5 % (0.0-4.0) 12/14/18 07:19 Baso % (Auto) 0.9 % (0.0-2.0) 12/14/18: Neut # (Auto) 4.6 K/uL (1.8-7.0) 12/14/18 07:19 Lymph # (Auto) 2.3 K/uL (1.0-4.3) 12/14/18 07:19 [place] # (Auto) 0.8 K/uL (0.0-0.8) 12/14/18 07:19 Eos # (Auto) 0.2 K/uL (0.0-0.7) 12/14/18 07:19 Baso # (Auto) 0.1 K/uL (0.0-0.2) 12/14/18 07:19 Sodium 139 mmol/L (132-148) 12/14/18 07:19 Potassium 3.4 mmol/L (3.6-5.2) L 12/14/18 07:19 Chloride 103 mmol/L (98-107) 12/14/18 07:19 Carbon Dioxide 26 mmol/L (22-30) 12/14/18 07:19 Anion Gap 14 (10-20) 12/14/18 07:19 BUN 10 mg/dL (9-20) 12/14/18 07:19 Creatinine 0.7 mg/dL (0.8-1.5) L 12/14/18 07:19 Est GFR ( Amer) > 60 12/14/18 07:19 Est GFR (Non-Af Amer) > 60 12/14/18 07:19 Random Glucose 145 mg/dL (75-110) H D 12/14/18 07:19 Calcium 9.1 mg/dl (8.6-10.4) 12/14/18 07:19 Total Bilirubin 0.6 mg/dL (0.2-1.3) 12/14/18 07:19 AST 49 U/L (17-59) 12/14/18 07:19 ALT 32 U/L (21-72) 12/14/18 07:19 Alkaline Phosphatase 84 U/L (38-126) 12/14/18 07:19 Total Protein 7.4 g/dL (6.3-8.3) 12/14/18 07:19 Albumin 3.2 g/dL (3.5-5.0) L 12/14/18 07:19 Globulin 4.2 gm/dL (2.2-3.9) H 12/14/18 07:19 Albumin/Globulin Ratio 0.7 (1.0-2.1) L 12/14/18 07:19 Urine Color Yellow (YELLOW) 12/13/18 21:59 Urine Clarity Clear (Clear) 12/13/18 21:59 Urine pH 7.0 (5.0-8.0) 12/13/18 21:59 Ur Specific [place] 1.013 (1.003-1.030) 12/13/18 21:59 Urine Protein Negative mg/dL (NEGATIVE) 12/13/18 21:59 Urine Glucose (UA) Normal mg/dL (Normal) 12/13/18 21:59 Urine Ketones Negative mg/dL (NEGATIVE) 12/13/18 21:59 Urine Blood Negative (NEGATIVE) 12/13/18 21:59 Urine Nitrate Negative (NEGATIVE) 12/13/18 21:59 Urine Bilirubin Negative (NEGATIVE) 12/13/18 21:59 Urine Urobilinogen 4.0 mg/dL (0.2-1.0) 12/13/18 21:59 Ur Leukocyte Esterase Neg Antonio/uL (Negative) 12/13/18 21:59 Urine WBC (Auto) < 1 /hpf (0-5) 12/13/18 21:59 Urine RBC (Auto) 2 /hpf (0-3) 12/13/18 21:59 Urine Bacteria Rare (<OCC) 12/13/18 21:59 Urine Opiates Screen Positive (NEGATIVE) H 12/13/18 21:59 Urine Methadone Screen Negative (NEGATIVE) 12/13/18 21:59 Ur Barbiturates Screen Negative (NEGATIVE) 12/13/18 21:59 Ur Phencyclidine Scrn Negative (NEGATIVE) 12/13/18 21:59 Ur Amphetamines Screen Negative (NEGATIVE) 12/13/18 21:59 U Benzodiazepines Scrn Positive (NEGATIVE) 12/13/18 21:59 U Oth Cocaine Metabols Negative (NEGATIVE) 12/13/18 21:59 U Cannabinoids Screen Negative (NEGATIVE) 12/13/18 21:59 Alcohol, Quantitative < 10 mg/dl (0-10) 12/13/18 15:22 - Hospital Course Hospital Course: HPI Patient is a 58 year old male with a past medical history of alcohol abuse, alcohol induced seizures, polysubstance abuse, hep C, who presents to the hospital by BIBA. The patient is a poor historian and does not know why he was brought to the hospital. He has no complaints and denies chest pain, palpitations, dyspnea, n/v, abdominal pain, diarrhea, constipation. The patient states his right leg is swollen, but has been for some time now. The patient states he takes a seizure pill prescribed by "them" but does not know what the pill is or who gives it to him. He also states he did not know he was hep C positive and said no one has told him. Hospital Course Patient hospitalized for possible seizures witnessed in triage - nursing in ER, patient was having tremors, not seizures. He does have a history of alcohol- withdrawal seizures. Patient placed on librium taper. Patient was also bathed and treated with permethrin topical ointment for body lice. Patient found to be in no acute distress on rounds and cleared by primary team for discharge. Imaging Chest XR 12/13: Poor inspiration with low lung volumes common crowded bronchovascular markings and minor bibasilar atelectasis This is just a summary of the events of this hospitalization. For details please refer to complete medical records. Discharge Exam - Head Exam Head Exam: ATRAUMATIC, NORMOCEPHALIC - Eye Exam Eye Exam: EOMI, Normal appearance - ENT Exam ENT Exam: Mucous Membranes Moist - Respiratory Exam Respiratory Exam: Clear to PA & Lateral, Rhonchi, Wheezes. absent: Respiratory Distress - Cardiovascular Exam Cardiovascular Exam: REGULAR RHYTHM, +S1, +S2 - GI/Abdominal Exam GI & Abdominal Exam: Normal Bowel Sounds, Soft. absent: Tenderness - Neurological Exam Neurological exam: Alert, CN II-XII Intact, Oriented x3 - Psychiatric Exam Psychiatric exam: Normal Affect, Normal Mood - Skin Skin Exam: Dry, Intact Discharge Plan - Discharge Medications Prescriptions: Folic Acid 1 mg PO DAILY #30 tab Thiamine [Vitamin B1 Tab] 100 mg PO DAILY #30 tab - Follow Up Plan Condition: GOOD Disposition: HOME/ ROUTINE Additional Instructions: Patient cleared for discharge per primary team Please continue taking your home medications as prescribed. Please also continue taking the following medications -Folic Acid 1 mg one tab by mouth daily at 8am - prescription provided -Thiamine 100 mg one tab by mouth daily at 8am - prescription provided -Multivitamin 1 tab one tab by mouth daily at 8am - can purchase over the counter Please return to ER if symptoms recur or worsen <Paulo Flanagan - Last Filed: 12/14/18 16:21> Provider - Provider Date of Admission: 12/13/18 13:42 Attending physician: Paulo Flanagan, DO Hospital Course - Lab Results Lab Results: Most Recent Lab Values WBC 8.0 K/uL (4.8-10.8) 12/14/18 07: RBC 4.21 Mil/uL (4.40-5.90) L 12/14/18 07: Hgb 12.6 g/dL (12.0-18.0) 12/14/18 07:19 Hct 36.9 % (35.0-51.0) 12/14/18 07: MCV 87.7 fL (80.0-94.0) 12/14/18 07: MCH 29.8 pg (27.0-31.0) 12/14/18 07: MCHC 34.0 g/dL (33.0-37.0) 12/14/18: RDW 15.6 % (11.5-14.5) H 12/14/18 07: Plt Count 360 K/uL (130-400) 12/14/18 07: MPV 7.9 fL (7.2-11.7) 12/14/18 07: Neut % (Auto) 57.8 % (50.0-75.0) 12/14/18 07:19 Lymph % (Auto) 28.6 % (20.0-40.0) 12/14/18 07: [place] % (Auto) 10.2 % (0.0-10.0) H 12/14/18 07: Eos % (Auto) 2.5 % (0.0-4.0) 12/14/18 07: Baso % (Auto) 0.9 % (0.0-2.0) 12/14/18: Neut # (Auto) 4.6 K/uL (1.8-7.0) 12/14/18 07:19 Lymph # (Auto) 2.3 K/uL (1.0-4.3) 12/14/18:19 [place] # (Auto) 0.8 K/uL (0.0-0.8) 12/14/18 07:19 Eos # (Auto) 0.2 K/uL (0.0-0.7) 12/14/18 07:19 Baso # (Auto) 0.1 K/uL (0.0-0.2) 12/14/18 07:19 Sodium 139 mmol/L (132-148) 12/14/18 07:19 Potassium 3.4 mmol/L (3.6-5.2) L 12/14/18 07:19 Chloride 103 mmol/L (98-107) 12/14/18 07:19 Carbon Dioxide 26 mmol/L (22-30) 12/14/18 07:19 Anion Gap 14 (10-20) 12/14/18 07:19 BUN 10 mg/dL (9-20) 12/14/18 07:19 Creatinine 0.7 mg/dL (0.8-1.5) L 12/14/18 07:19 Est GFR ( Amer) > 60 12/14/18 07:19 Est GFR (Non-Af Amer) > 60 12/14/18 07:19 Random Glucose 145 mg/dL (75-110) H D 12/14/18 07:19 Calcium 9.1 mg/dl (8.6-10.4) 12/14/18 07:19 Total Bilirubin 0.6 mg/dL (0.2-1.3) 12/14/18 07:19 AST 49 U/L (17-59) 12/14/18 07:19 ALT 32 U/L (21-72) 12/14/18 07:19 Alkaline Phosphatase 84 U/L (38-126) 12/14/18 07:19 Total Protein 7.4 g/dL (6.3-8.3) 12/14/18 07:19 Albumin 3.2 g/dL (3.5-5.0) L 12/14/18 07:19 Globulin 4.2 gm/dL (2.2-3.9) H 12/14/18 07:19 Albumin/Globulin Ratio 0.7 (1.0-2.1) L 12/14/18 07:19 Urine Color Yellow (YELLOW) 12/13/18 21:59 Urine Clarity Clear (Clear) 12/13/18 21:59 Urine pH 7.0 (5.0-8.0) 12/13/18 21:59 Ur Specific [place] 1.013 (1.003-1.030) 12/13/18 21:59 Urine Protein Negative mg/dL (NEGATIVE) 12/13/18 21:59 Urine Glucose (UA) Normal mg/dL (Normal) 12/13/18 21:59 Urine Ketones Negative mg/dL (NEGATIVE) 12/13/18 21:59 Urine Blood Negative (NEGATIVE) 12/13/18 21:59 Urine Nitrate Negative (NEGATIVE) 12/13/18 21:59 Urine Bilirubin Negative (NEGATIVE) 12/13/18 21:59 Urine Urobilinogen 4.0 mg/dL (0.2-1.0) 12/13/18 21:59 Ur Leukocyte Esterase Neg Antonio/uL (Negative) 12/13/18 21:59 Urine WBC (Auto) < 1 /hpf (0-5) 12/13/18 21:59 Urine RBC (Auto) 2 /hpf (0-3) 12/13/18 21:59 Urine Bacteria Rare (<OCC) 12/13/18 21:59 Urine Opiates Screen Positive (NEGATIVE) H 12/13/18 21:59 Urine Methadone Screen Negative (NEGATIVE) 12/13/18 21:59 Ur Barbiturates Screen Negative (NEGATIVE) 12/13/18 21:59 Ur Phencyclidine Scrn Negative (NEGATIVE) 12/13/18 21:59 Ur Amphetamines Screen Negative (NEGATIVE) 12/13/18 21:59 U Benzodiazepines Scrn Positive (NEGATIVE) 12/13/18 21:59 U Oth Cocaine Metabols Negative (NEGATIVE) 12/13/18 21:59 U Cannabinoids Screen Negative (NEGATIVE) 12/13/18 21:59 Alcohol, Quantitative < 10 mg/dl (0-10) 12/13/18 15:22 Attending/Attestation - Attestation I have personally seen and examined this patient.: Yes I have fully participated in the care of the patient.: Yes I have reviewed all pertinent clinical information, including history, physical exam and plan: Yes Notes (Text): 12/14/18 16:19 Medical attending: Patient was seen and examined by me with the medical associate The patient was not in any acute distress - he was very awake and very talkative Yesterday he had topical permetherain and then Ivermectin given Also a hip film was done as well Patient has hepatitis C - and I again reinforced to him that his drinking alcohol will only add more damage to the liver. Patient says he understands, however I have my doubts as to weather or not he is actually ready to make the neccessary lifestyle changes Paulo Flanagan
[2018-12-14] MEDS ORDERED: Potassium Chloride 20 mEq ER Tab PO ONE (09:32)
[2018-12-14] MEDS ORDERED: Enoxaparin 40 mg Syringe SC SCH (10:00)
[2018-12-14] MEDS ORDERED: Multiple Vitamins Tab PO SCH (10:00)
--- NOTE | 2018-12-14 16:17 | RAD ---
Date of service: 12/14/2018 PROCEDURE: Pelvis, right hip. HISTORY: hip pain, hx seizures/falls COMPARISON: None TECHNIQUE: Standard protocol for this study/examination. FINDINGS: There are no osseous abnormalities to suggest fracture. The pelvic ring is intact. Preserved femoral-acetabular relationship. Negative study for protrusio, subluxation or dislocation. Degenerative changes: Mild degenerative changes right hip. Similar less pronounced changes left hip. IMPRESSION: No acute findings related to/ accounting for the clinical presentation. Additional benign and/or incidental findings described above.
[2018-12-14 16:54] VITALS: BP 149/88; PULSE 77; TEMP 98.1; O2SAT 97
--- NOTE | 2018-12-14 17:49 | CARD ---
APPROVED REPORT Date of service: 12/13/2018 EKG Measurement Heart [id number] <Conclusion> Normal sinus rhythm Minimal voltage criteria for LVH, may be normal variant Borderline ECG
== END 2018-12-14 18:45 | disposition home or self-care (01) ==
LOC: C.ER 12:42 → C.9E 13:42 → C.3T 14:15 → C.9E 14:36 → C.3T 15:04
PROVIDERS: ADMIT Hospitalist; ATTEND Hospitalist
DX: F10.239 Alcohol dependence with withdrawal, unspecified (principal); F17.200 Nicotine dependence, unspecified, uncomplicated; I12.9 Hypertensive chronic kidney disease with stage 1 through stage 4 chronic kidney disease, or unspecified chronic kidney disease; J45.909 Unspecified asthma, uncomplicated; N18.9 Chronic kidney disease, unspecified; R56.9 Unspecified convulsions; Z59.0 Homelessness; Z87.442 Personal history of urinary calculi; R25.1 Tremor, unspecified; B85.1 Pediculosis due to Pediculus humanus corporis; B86 Scabies
CPT/HCPCS: 36415; 71045; 73502; 80053; 80320; 80324; 80345; 80346; 80349; 80353; 80358; 80361; 81001; 83992; 85025; 93005; 96360; 99283; G0378; J1650; J7030